=== PATIENT | female | born 1955 | race Hispanic/Latino ===

== ENCOUNTER 2016-12-29 23:30 | Inpatient (IN) | payer MEDICAID ==
[2016-12-29 23:31] VITALS: BMI 33.4
--- NOTE | 2016-12-29 23:45 | ED PDOC ---
Arrival/HPI - General Time Seen by Provider: 12/29/16 23:36 - History of Present Illness Narrative History of Present Illness (Text): 12/29/16 23:42 [id number] brought from SNF per EMS for lethargy and ams that has been going on most of the day. pt unable to provide any hx. Past Medical History - Infectious Disease Hx of Infectious Diseases: None - Tetanus Immunization Tetanus Immunization: Unknown - Cardiac Hx Cardiac Disorders: Yes Hx Hypertension: Yes - Pulmonary Hx Respiratory Disorders: Yes Hx Chronic Obstructive Pulmonary Disease (COPD): Yes Hx Emphysema: Yes - Neurological Hx Neurological Disorder: Yes (cognitive deficits) Hx Seizures: Yes - HEENT Hx HEENT Disorder: No - Renal Hx Renal Disorder: No - Endocrine/Metabolic Hx Endocrine Disorders: Yes Hx Diabetes Mellitus Type 2: Yes Hx Hypothyroidism: Yes - Hematological/Oncological Hx Blood Disorders: No - Integumentary Hx Dermatological Disorder: No - Musculoskeletal/Rheumatological Hx Musculoskeletal Disorders: Yes (BLE weakness) Hx Falls: Yes Hx Osteoporosis: Yes Hx Unsteady Gait: Yes - Gastrointestinal Hx Gastrointestinal Disorders: Yes (gi bleed) Other/Comment: gi bleed - Genitourinary/Gynecological Hx Genitourinary Disorders: Yes Hx Incontinence: Yes Hx Urinary Tract Infection: Yes - Psychiatric Hx Psychophysiologic Disorder: Yes Hx Schizophrenia: Yes Hx Substance Use: No - Past Surgical History Past Surgical History: Non-Contributing - Anesthesia Hx Anesthesia: Yes Hx Anesthesia Reactions: No Hx Malignant Hyperthermia: No - Suicidal Assessment Feels Threatened In Home Enviroment: No Family/Social History Family/Social History: Unknown Family HX Smoking Status: Former Smoker Hx Alcohol Use: No Hx Substance Use: No Allergies/Home Meds Allergies/Adverse Reactions: Allergies aspirin Adverse Reaction (Verified 12/29/16 23:46) RASH haloperidol [From Haldol] Adverse Reaction (Verified 12/29/16 23:46) RASH haloperidol lactate [From Haldol] Adverse Reaction (Verified 12/29/16 23:46) RASH mesalamine [From Asacol] Adverse Reaction (Verified 12/29/16 23:46) RASH Penicillins Adverse Reaction (Verified 12/29/16 23:46) RASH seafood Adverse Reaction (Uncoded 12/29/16 23:46) RASH Home Medications: Home Meds Medication Instructions Recorded Confirmed Acetaminophen [Tylenol (Renal)] 650 mg PO Q4 PRN 11/19/16 12/30/16 Budesonide [Pulmicort Respules] 0.5 mg IH Q12 11/19/16 12/30/16 Calcium Carbonate [Oscal] 500 mg PO DAILY 11/19/16 12/30/16 Divalproex [Depakote ER] 500 mg PO TID 11/19/16 12/30/16 Latanoprost 0.005% Opht [Xalatan 1 drp OP HS 11/19/16 12/30/16 Opht] Magnesium Hydroxide [Milk Of 30 ml PO HS PRN 11/19/16 12/30/16 Magnesia] Montelukast [Singulair] 10 mg PO HS 11/19/16 12/30/16 Multivitamin [Multivitamins] 1 tab PO DAILY 11/19/16 12/30/16 amLODIPine [Norvasc] 10 mg PO DAILY 11/19/16 12/30/16 Ergocalciferol (Vitamin D2) 50,000 unit PO 12/30/16 [Vitamin D2] Review of Systems - Review of Systems Systems not reviewed;Unavailable: Altered Mental Status Physical Exam Vital Signs Pulse Resp BP Pulse Ox 12/30/16 04:53 88 16 110/45 L 98 12/30/16 02:09 100 H 24 119/46 L 94 L 12/29/16 23:40 100 H 20 94/46 L 94 L - Systems Exam Head: Present: Atraumatic Pupils: Present: PERRL Mouth: Present: Moist Mucous Membranes Neck: Present: Normal Range of Motion Respiratory/Chest: Present: Decreased Breath Sounds. No: Respiratory Distress, Accessory Muscle Use Cardiovascular: Present: Regular Rate and Rhythm Abdomen: No: Tenderness, Distention Upper Extremity: Present: NORMAL PULSES Lower Extremity: Present: NORMAL PULSES. No: Edema Neurological: Present: Other (disoriented. no focal deficits. ) Skin: Present: Warm, Dry Psychiatric: Present: Alert Medical Decision Making ED Course and Treatment: 12/30/16 01:44 cxr interpreted by me: left sided pleural effusion. 12/30/16 02:09 CT Head Without Intravenous Contrast results reviewed: FINDINGS: There is probable minimal atrophy and minimal chronic small vessel ischemic disease unchanged. There is no hemorrhage or edema. Mucosal retention cyst right maxillary sinus unchanged. The osseous structures are normal. IMPRESSION: No acute findings. No significant change. 12/30/16 02:45 Case discussed with who is aware and agrees with the plan to admit patient to the hospital. Accepts patient under her service with and on consult. 12/30/16 04:45 EKG interpreted by me: NSR @ 88 bpm. Left axis deviation. Nonspecific STT wave changes - Lab Interpretations Lab Results: 12/30/16 00:38 12/30/16 01:10 Lab Results 12/30/16 11:13: POC Glucose (mg/dL) 363 H 12/30/16 07:24: POC Glucose (mg/dL) 270 H 12/30/16 02:20: pCO2 66 H, pO2 57.0 L, HCO3 32.5 H, ABG pH 7.30 L, ABG Total CO2 34.5 H, ABG O2 Saturation 91.7 L, ABG O2 Content 12.2 L, ABG Base Excess 4.8 H, ABG Hemoglobin 9.8 L, ABG Carboxyhemoglobin 3.3 H, POC ABG HHb (Measured ) 8.0 H, ABG Methemoglobin 0.5, ABG O2 Capacity 13.3 L, Hgb O2 Saturation 88.2 L , FiO2 28.0 12/30/16 01:10: Sodium 136, Potassium 4.3, Chloride 99, Carbon Dioxide 32, Anion Gap 9 L, BUN 15, Creatinine 1.9 H, Est GFR ( Amer) 32, Est GFR (Non -Af Amer) 27, Random Glucose 288 H, Calcium 8.2 L, Total Bilirubin 0.6, AST 13 L , ALT 24, Alkaline Phosphatase 59, Troponin I < 0.01, Total Protein 5.7 L, Albumin 2.4 L, Globulin 3.3, Albumin/Globulin Ratio 0.7 L, TSH 3rd Generation 0.26 L, Valproic Acid 76 12/30/16 01:05: POC Glucose (mg/dL) 278 H 12/30/16 00:38: WBC 5.4, RBC 3.03 L, Hgb 10.3 L, Hct 33.8 L, MCV 111.6 H, MCH 34.0, MCHC 30.5 L, RDW 16.3 H, Plt Count 114 L, MPV 10.4, Gran % 42.5 L, Lymph % (Auto) 45.1 H, [place] % (Auto) 10.9 H, Eos % (Auto) 1.3 L, Baso % (Auto) 0.2, Gran # 2.29, Lymph # 2.4, [place] # 0.6, Eos # 0.1, Baso # 0.01, pO2 154 H, VBG pH 7.38, VBG pCO2 58.0, VBG HCO3 34.3 H, VBG Total CO2 36.1 H, VBG O2 Sat (Calc) 99.7 H, VBG Base Excess 7.3 H, VBG Potassium 5.1, Glucose 312 H, Lactate 1.2, FiO2 21.0, Sodium 138.0, Chloride 104.0, Venous Blood Potassium 5.1 - RAD Interpretation Radiology Orders: 12/29/16 23:48 HEAD W/O CONTRAST [CT] Stat CHEST PORTABLE [RAD] Stat Supervisor Continuous [employer]: ED Physician - Medication Orders Current Medication Orders: Discontinued Medications Albuterol/Ipratropium (Duoneb 3 Mg/0.5 Mg (3 Ml) Ud) 3 ml IH ONCE STA Stop: 12/30/16 02:26 Last Admin: 12/30/16 02:38 Dose: 3 ML Albuterol/Ipratropium (Duoneb 3 Mg/0.5 Mg (3 Ml) Ud) 3 ml IH Q6 PRN PRN Reason: Shortness of Breath Last Admin: 01/01/17 19:35 Dose: 3 ML Alendronate Sodium (Fosamax) 70 mg PO ANITRA [facility] Amlodipine Besylate (Norvasc) 10 mg PO DAILY [facility] Last Admin: 01/01/17 10:06 Dose: 10 MG MAR Pulse and Blood Pressure Document 01/01/17 10:06 VS (Rec: 01/01/17 10:07 VS [id number]) Pulse Pulse Rate (60-90) 86 Blood Pressure Blood Pressure (100/60-150/90) 112/60 Budesonide (Pulmicort Respules) 0.5 mg IH Q12 FLAVIO Budesonide (Pulmicort Respules) 0.5 mg IH [id number] [facility] Last Admin: 01/01/17 19:35 Dose: 0.5 MG Calcium Carbonate (Oscal) 500 mg PO DAILY [facility] Last Admin: 01/01/17 10:06 Dose: 500 MG Clonazepam (Klonopin) 0.5 mg PO BID FLAVIO PRN Reason: Protocol Last Admin: 12/30/16 17:56 Dose: 0.5 MG Behavioural Document 12/30/16 17:56 JOHN (Rec: 12/30/16 17:56 JOHN [id number]) Maintenance Maintenance Dose Yes Nonmedicinal Nonmedicinal Interventions Redirect Therapeutic Communication Re-Assess: Reassess Psych Meds Document 12/30/16 18:56 JOHN (Rec: 12/30/16 19:26 Rachna [id number]) Reassess Psych Med Effective Clonazepam (Klonopin) 0.25 mg PO HS PRN; Protocol PRN Reason: Agitation Last Admin: 01/01/17 18:08 Dose: 0.25 MG Behavioural Document 01/01/17 18:08 VS (Rec: 01/01/17 18:08 VS [id number]) Maintenance Maintenance Dose Yes Re-Assess: Reassess Psych Meds Document 01/01/17 19:08 LISA (Rec: 01/01/17 19:14 LISA [id number]) Reassess Psych Med Effective Divalproex Sodium (Depakote Dr(*Bid*)) 500 mg PO TID FLAVIO PRN Reason: Protocol Last Admin: 01/01/17 18:07 Dose: 500 MG Behavioural Document 01/01/17 18:07 VS (Rec: 01/01/17 18:07 VS [id number]) Maintenance Maintenance Dose Yes Re-Assess: Reassess Psych Meds Document 01/01/17 19:07 VS (Rec: 01/01/17 20:26 VS [facility] [id number]) Reassess Psych Med Effective Ergocalciferol (Drisdol 50,000 Intl Units Cap) 1 cap PO Q7D FLAVIO Last Admin: 12/30/16 09:55 Dose: 1 CAP Sodium Chloride (Sodium Chloride 0.9%) 1,000 mls @ 999 mls/hr IV .Q1H1M STA Stop: 12/30/16 03:25 Last Admin: 12/30/16 02:38 Dose: 999 MLS/HR eMAR Start Stop Document 12/30/16 02:38 SB (Rec: 12/30/16 02:38 SB [id number]) Intravenous Solution Start Date 12/30/16 Start Time 02:38 End Date 12/30/16 Sodium Chloride (Sodium Chloride 0.9%) 1,000 mls @ 100 mls/hr IV .Q10H FLAVIO Last Admin: 01/01/17 09:59 Dose: 100 MLS/HR eMAR Start Stop Document 01/01/17 09:59 VS (Rec: 01/01/17 09:59 VS [id number]) Intravenous Solution Start Date 01/01/17 Start Time 09:59 Insulin Human Regular (Humulin R Low) 0 units SC ACHS FLAVIO PRN Reason: Protocol Last Admin: 01/01/17 18:07 Dose: 1 UNITS MAR Blood Glucose Document 01/01/17 18:07 VS (Rec: 01/01/17 18:07 VS [id number]) Blood Glucose Finger Stick Blood Glucose (70-120) 170 Subcutaneous Administrations Document 01/01/17 18:07 VS (Rec: 01/01/17 18:07 VS [id number]) Injection Site MAR Injection Site Right Abdomen Charges for Administration # of Subcutaneous Administrations 1 Lactulose (Enulose) 10 gm PO ONCE ONE Stop: 01/01/17 16:35 Last Admin: 01/01/17 18:06 Dose: 10 GM Latanoprost (Xalatan Opht) 0 ml OS HS FLAVIO Last Admin: 12/31/16 21:38 Dose: Levothyroxine Sodium (Synthroid) 150 mcg PO DAILY FLAVIO Last Admin: 12/30/16 09:55 Dose: 150 MCG Levothyroxine Sodium (Synthroid) 125 mcg PO ACB FLAVIO Last Admin: 01/01/17 08:12 Dose: 125 MCG Magnesium Hydroxide (Milk Of Magnesia) 30 ml PO HS PRN PRN Reason: Constipation Methylprednisolone (Solu-Medrol) 125 mg IVP STAT STA Stop: 12/30/16 02:26 Last Admin: 12/30/16 02:38 Dose: 125 MG IVP Administration Document 12/30/16 02:38 SB (Rec: 12/30/16 02:38 SB [id number]) Charges for Administration # of IVP Administrations 1 Montelukast Sodium (Singulair) 10 mg PO HS FLAVIO Last Admin: 12/31/16 21:38 Dose: 10 MG Multivitamins (Thera Tab) 1 tab PO DAILY FLAVIO Last Admin: 01/01/17 10:07 Dose: 1 TAB Nicotine (Nicoderm Cq) 1 patch TD DAILY FLAVIO Last Admin: 01/01/17 10:08 Dose: 1 PATCH MAR Patch Placement/Removal Document 01/01/17 10:08 VS (Rec: 01/01/17 10:08 VS [id number]) Patch Removal Removal of previous patch done Yes Patch Placement Left, Right or Bilateral Left Upper or Lower Upper Pain Location Body Site Arm MAR Transdermal Patch Site Document 01/01/17 10:08 VS (Rec: 01/01/17 10:08 VS [id number]) Transdermal Patch Site Transdermal Patch Site Right Outer Upper Arm Polyethylene Glycol (Miralax) 17 gm PO DAILY FLAVIO Last Admin: 01/01/17 20:26 Dose: Not Given Non-Admin Reason: Patient Asleep Disposition/Present on Arrival - Present on Arrival Any Indicators Present on Arrival: Yes History of DVT/PE: No History of Uncontrolled Diabetes: Yes Urinary Catheter: No History Surgical Site Infection Following: None - Disposition Have Diagnosis and Disposition been Completed?: Yes Diagnosis: Hypercapnic respiratory failure, CO2 narcosis Disposition: HOSPITALIZED Disposition Time: 02:41 Patient Problems: Current Active Problems Problem Status Diagnosed CO2 narcosis Acute Hypercapnic respiratory failure Acute Condition: STABLE
[2016-12-30 01:04] LABS: BASO # 0.01 K/mm3 (0.0-2.0); BASO % 0.2 % (0.0-3.0); EOS # 0.1 (0.0-0.7); EOS % 1.3 % (1.5-5.0); GRAN # 2.29 (1.4-6.5); GRAN % 42.5 % (50.0-68.0); HEMATOCRIT 33.8 % (36.0-48.0); LYMPH # 2.4 (1.2-3.4); LYMPH % 45.1 % (22.0-35.0); MEAN CELL VOLUME 111.6 fL (80.0-105.0); MEAN CORPUSCULAR HGB CONC 30.5 g/dl (31.0-37.0); MEAN PLATELET VOLUME 10.4 fl (7.0-11.0); MONO # 0.6 (0.1-0.6); MONO % 10.9 % (1.0-6.0); PLATELET COUNT 114 10^3/uL (120.0-450.0); RED CELL DISTRIBUTION WIDTH 16.3 % (11.5-14.5); WHITE BLOOD COUNT 5.4 10^3/ul (4.5-11.0)
[2016-12-30 01:06] LABS: VENOUS BLOOD GAS BASE EXCESS 7.3 mmol/L (0.0-2.0); VENOUS BLOOD PH 7.38 (7.32-7.43)
--- NOTE | 2016-12-30 01:22 | CT ---
EXAM: CT Head Without Intravenous Contrast CLINICAL HISTORY: 61 years old, female; Signs and symptoms; Altered mental status/memory loss; Additional info: AMS TECHNIQUE: Axial computed tomography images of the head/brain without intravenous contrast. This CT exam was performed using one or more of the following dose reduction techniques: automated exposure control, adjustment of the mA and/or kV according to patient size, and/or use of iterative reconstruction technique. EXAM DATE/TIME: 12/29/2016 11:48 PM COMPARISON: CT - HEAD W/O CONTRAST 11/19/2016 3:59:08 AM FINDINGS: There is probable minimal atrophy and minimal chronic small vessel ischemic disease unchanged. There is no hemorrhage or edema. Mucosal retention cyst right maxillary sinus unchanged. The osseous structures are normal. IMPRESSION: No acute findings. No significant change.
[2016-12-30 01:39] LABS: ALB/GLOB RATIO 0.7 (1.1-1.8); ALKALINE PHOSPHATASE 59 U/L (38-133); ALT/SGPT 24 U/L (7-56); AST/SGOT 13 U/L (15-39); BILIRUBIN,TOTAL 0.6 mg/dL (0.2-1.3); BLOOD UREA NITROGEN 15 mg/dL (7-21); CALCIUM 8.2 mg/dL (8.4-10.5); CARBON DIOXIDE 32 mmol/L (21-33); CHLORIDE 99 mmol/L (98-107); GFR AFRICAN-AMERICAN 32; GLUCOSE,RANDOM 288 mg/dL (70-110); POTASSIUM 4.3 mmol/L (3.6-5.0); SODIUM 136 mmol/L (132-148); TOTAL PROTEIN 5.7 g/dL (5.8-8.3)
[2016-12-30 01:52] LABS: TROPONIN I < 0.01 ng/mL
[2016-12-30 02:03] LABS: ADD MANUAL DIFF? NO
[2016-12-30] MEDS ORDERED: Sodium Chloride 0.9% 1,000 ML IV STA (02:25)
[2016-12-30] MEDS ORDERED: Albuterol-Ipratrop 3 mg / 0.5 (3 ml) UD IH STA (02:25)
[2016-12-30] MEDS: Sodium Chloride 0.9% 1,000 ML IV SCH ×3 (03:05→20:27)
[2016-12-30 03:06] LABS: ARTERIAL BLOOD GAS HCO3 32.5 mmol/L (21-28); ARTERIAL BLOOD GAS O2 CAPACITY 13.3 mL/dl (16-24); ARTERIAL BLOOD GAS O2 CONTENT 12.2 ML/dl (15-23); ARTERIAL BLOOD HGB O2 SAT 88.2 % (95.0-98.0); CARBOXYHEMOGLOBIN 3.3 % (0.5-1.5); METHEMOGLOBIN 0.5 % (0.0-3.0)
[2016-12-30] MEDS ORDERED: Magnesium Hydroxide Susp 30 ml UD PO PRN (08:42)
[2016-12-30] MEDS ORDERED: Ergocalciferol 50,000 Intl Units Cap PO SCH (08:45)
[2016-12-30] MEDS: Divalproex 500 mg DR(BID formulation) PO SCH ×3 (09:54→17:53)
[2016-12-30] MEDS: Multivitamin Therapeutic Tab PO SCH (09:55)
[2016-12-30] MEDS ORDERED: Levothyroxine 150 MCG TAB PO SCH (10:00)
[2016-12-30] MEDS ORDERED: Budesonide 0.5 mg/2 ml Inhal Susp UD IH SCH (10:00)
--- NOTE | 2016-12-30 10:26 | RAD ---
HISTORY: ams COMPARISON: 11/23/2016 FINDINGS: LUNGS: No active pulmonary disease. PLEURA: No significant pleural effusion identified, no pneumothorax apparent. CARDIOVASCULAR: There is mild vascular congestion. The heart is top-normal in size OSSEOUS STRUCTURES: No significant abnormalities. VISUALIZED UPPER ABDOMEN: Normal. OTHER FINDINGS: None. IMPRESSION: No active disease.
--- NOTE | 2016-12-30 12:00 | CON ---
DATE: 12/30/2016 REASON FOR CONSULTATION: Cardiac evaluation, altered mental status. BRIEF CLINICAL HISTORY: This is a 61-year-old female transferred from [facility] because of altered mental status. The patient is unable to give any history. Information obtained from the ks dical record. The patient is on CPAP. Lying comfortable. Denies any chest pain, shortness of breat h, any palpitation. PAST MEDICAL HISTORY: Significant for diabetes, obesity, schizophrenia, psychiatric disorder, COPD, seizure disorder, diabetes, hypothyroidism, history of fall, schizophrenia, substance abuse in the [place], history of chronic kidney disease. PREVIOUS CARDIAC WORKUP: The patient had echocardiography on 11/24/2016 that showed ejection fractio n 60-65%, moderately dilated RV but RV systolic function is normal, trace aortic regurgitation, mild to moderate mitral regurgitation, mild to moderate tricuspid regurgitation, RV systolic pressure at 2 1, trace pericardial effusion; no vegetation noted. The patient has baseline renal insufficiency, st age III to IV, with a creatinine of 2.4 to 2.8. SOCIAL HISTORY: Heavy smoker. History of substance abuse in the past. No history of alcohol abuse. ALLERGIES: ASPIRIN, HALOPERIDOL, MESALAMINE, PENICILLIN AND SEAFOOD. CURRENT MEDICATIONS: The patient is taking acetaminophen, nicotine, multivitamin, Singulair, calcium carbonate, Levoxyl, Synthroid 150 mcg, Depakote, Klonopin, amlodipine, and magnesium. REVIEW OF SYSTEMS: As per HPI. PHYSICAL EXAMINATION: VITAL SIGNS: Temperature afebrile, heart rate 83, blood pressure 114/59. HEENT: PERRLA. Extraocular muscles intact. NECK: Supple. No carotid bruits. No thyromegaly. CHEST: Clear to auscultation. HEART: S1, S2 regular. ABDOMEN: Soft. EXTREMITIES: Clubbing, cyanosis negative. BLOOD WORKUP: WBC 5.4, hemoglobin 10.3, hematocrit 33.8, platelet count 114. Chemistry shows sodium 130, potassium 4.4, chloride 99, carbon dioxide 32, anion gap of 9, BUN 15, creatinine 1.9, creatini ne clearance of 27 mL. Troponin 0.____, negative. IMPRESSION: Admitted with altered mental status. So far, no evidence of acute myocardial infarction . Electrocardiogram shows normal sinus with a heart rate of 87, incomplete right bundle branch block , low voltage electrocardiogram. Most recent echocardiogram 11/24/2016 showed ejection fraction 60-6 5%, right ventricle is moderately dilated but function preserved of right ventricle, trace aortic reg urgitation, mild to moderate mitral regurgitation, mild to moderate tricuspid regurgitation, right ve ntricular systolic pressure 21. Renal insufficiency, obstructive sleep apnea. The patient also had Holter done with the last admission because of sinus bradycardia; found to be sinus rhythm and sinus tachycardia, minimum heart rate was 60, maximum heart rate 111, very rare atrial premature contractio ns; no significant arrhythmia noted, no significant bradycardia noted. The recommendation was no pac emaker required on last admission, the Holter report reported. RECOMMENDATION: Continue septic workup. Avoid nephrotoxic medication. Avoid rate-limiting beta blo cker and rate-limiting calcium channel jodi. Continue Synthroid. Continue to monitor TSH and mon itor renal function closely. Will follow with you. Thank you, Dr. Gallegos, for providing the opportunity in taking care of the patient. Will follow with you. For now, patient is already on amlodipine and will put hydralazine p.r.n. when her blood press ure is elevated, but now blood pressure is stable and heart rate is stable. Will follow with you. Justin Cosby MD cc: [id number] TT: 12/30/2016 11:11:15 Confirmation # [id number] Dictation # [id number] cristin
[2016-12-30] MEDS: Insulin Reg-LOW-Coverage SC SCH ×3 (12:33→21:50)
--- NOTE | 2016-12-30 16:40 | HP ---
CHIEF COMPLAINT: Altered mental status, very fatigued and tired. HISTORY OF PRESENT ILLNESS: The patient is a 61-year-old, my private patient, resident of [facility], was found yesterday night with altered mental status. Right side was getting weak, very fatigued and lethargic, cannot hardly open the eyes. The patient has dementia and is not a very good historian , is not able to give a good history, but no fever, no chills. No nausea, vomiting, or diarrhea. No hematuria or hematochezia. No headache, no dizziness. PAST MEDICAL HISTORY: Hypertension, COPD, emphysema, seizures, diabetes mellitus type 2, hypothyroidism, fall, osteoporosis, unsteady gait, history of GI bleeding, urinary incontinence, history of schizophrenia. FAMILY HISTORY: Father and mother, noncontributory. HABITS: Former smoker, quit. No ethanol abuse. No drug abuse. ALLERGIES: THE PATIENT IS ALLERGIC WITH ASPIRIN, HALOPERIDOL, ASACOL, PENICILLIN, SEAFOOD. HOME MEDICATIONS: Tylenol, albuterol, Fosamax, Pulmicort, Os-Danny, Depakote, Synthroid, Singulair, multivitamin, Norvasc, Klonopin, vitamin D. REVIEW OF SYSTEMS: The patient seen and examined on the bedside, looks comfortable when I saw the patient today. Still fatigued and lethargic. Mental level is fluctuating. No fever, no chills, no epistaxis. No hematuria or hematochezia. No nausea, vomiting, or diarrhea. PHYSICAL EXAMINATION: VITAL SIGNS: Temperature 97.7, pulse 84, blood pressure 140/78, respiratory rate 20. HEENT: Head normocephalic, atraumatic. Eyes: PERRLA. Extraocular muscles intact. Conjunctivae pink. Eyelids unremarkable. Nose patent. Mucous membranes moist. NECK: Supple. No carotid bruit, JVD or thyromegaly. CHEST: Bilaterally symmetrical. HEART: S1, S2 positive. LUNGS: Clear to auscultation. ABDOMEN: Soft. Bowel sounds present. No organomegaly. EXTREMITIES: No edema, no cyanosis. NEUROLOGIC: The patient is lethargic, but moving all 4 extremities. LABORATORY DATA: White blood cells 5.4, hemoglobin 10.3, hematocrit 33.8, and platelets 114. Sodium 136, potassium 4.3, BUN 15, creatinine 1.9, glucose 217, calcium 8.2, AST 13. TSH is 0.26. ASSESSMENT AND PLAN: The patient is a 61-year-old lady with anemia, thrombocytopenia, renal insufficiency, uncontrolled diabetes mellitus, hypocalcemia, hypothyroidism, need to adjust levothyroxine dose. Valproic acid level is 76. CAT scan of the head was done, reviewed by me. Chest x-ray done, showed no active disease. schizophrenia, chronic obstructive pulmonary disease , seizure disorder, history of chronic kidney disease. Rule out sepsis. We will do septic workup. So far, no evidence of acute myocardial infarction. The patient had a Holter monitor done last admission because of sinus bradycardia, found to be sinus rhythm and sinus tachycardia. Minimum heart rate is 60 and maximum is 112, very rare atrial premature contractions, no significant arrhythmias noted as per rn interventional. No significant bradycardia noted. Their recommendation was no pacemaker required on last admission the Holter monitor reported, but this admission again we called consult with Drs. Cosby/Andrea. Continue workup. Avoid nephrotoxic medications while limiting beta jodi and limited calcium channel jodi. Continue monitoring TSH, out of bed, physical therapy. We will follow up. Steff Gallegos MD cc: [id number] TT: 12/30/2016 16:40:16 tn MTDD
--- NOTE | 2016-12-30 16:48 | CARD ---
APPROVED REPORT EKG Measurement Heart [id number] <Conclusion> Normal sinus rhythm Left axis deviation Incomplete right bundle branch block Nonspecific ST abnormality Abnormal ECG
--- NOTE | 2016-12-30 18:47 | CON ---
DATE: 12/30/2016 CHIEF COMPLAINT: Altered mental status. HISTORY OF PRESENT ILLNESS: This is a 61-year-old woman from [facility], who was fo und yesterday night at to being altered. She has a past medical history of hypertension, COPD, emphy sema, seizure disorder, apparently; type 2 diabetes, hypothyroidism, osteoporosis, unsteady gait, his tory of urinary incontinence, history of schizophrenia. She apparently was feeling very fatigued and lethargic and could hardly open her eyes. She is a poor historian so history is mostly obtained fro m the medical record. The patient uses CPAP at night for underlying COPD. She had low systolic and diastolic blood pressures when she came in. She is currently undergoing a septic workup. CT head sh owed no acute intracranial abnormalities. She had elevated blood sugars of 278 and right now current ly is 363. She also has an albumin that is low indicating poor p.o. intake. Her blood gases are a p CO2 of 66, which was slightly elevated. When she came in, her blood pressure was 94/46 indicating po or perfusion to the brain. Currently, she is communicating well. She is more alert. She is eating her food and drinking milk without any difficulties. She is moving all extremities. PAST MEDICAL HISTORY: History of obesity, diabetes, schizophrenia, COPD, seizures disorder, diabetes , hypothyroidism, schizophrenia, chronic kidney disease. FAMILY HISTORY: Noncontributory. HABITS: Former smoker. No ETOH abuse or illicit drug use. ALLERGIES: ALLERGIC TO ASPIRIN, HALOPERIDOL, ASACOL, PENICILLIN, SEAFOOD. HOME MEDICATIONS: Tylenol, Fosamax, Pulmicort, Depakote, Synthroid, Singulair, multivitamin, Norvasc , Klonopin, vitamin D. REVIEW OF SYSTEMS: A 14-point review of systems is negative except for the HPI. PHYSICAL EXAMINATION: VITAL SIGNS: Temperature of 97.7, pulse rate of 84, blood pressure 148/78, respiratory rate of 20, o xygen saturation 98% via BiPAP. GENERAL: The patient is sitting up in bed in no acute distress. HEENT: Atraumatic, normocephalic. PERRLA. Extraocular muscles intact. NECK: Supple, no JVD, no adenopathy noted. LUNGS: Clear to auscultation. No adventitious sounds. HEART: S1, S2, normal rate and rhythm. No murmurs, rubs, or gallops. ABDOMEN: Soft, nontender, nondistended. Bowel sounds present. EXTREMITIES: No clubbing, no cyanosis. Peripheral pulses 2+ felt bilaterally. NEUROLOGIC: The patient is alert, oriented to person and place, not month or year. Recall after 5 m inutes is 0/3. Poor attention span, slow thought process. Cranial nerves II-XII are intact. Moves all extremities equally with no pronator drift seen. SENSORY: Decreased to light touch and pinprick up to the calves bilaterally. Decreased vibration of the toes. Proprioception intact. Withdraws to localized noxious stimulus. DTRs are 1+ throughout and absent at the ankles. COORDINATION: Zinfom-mo-sbdj intact. GAIT: Deferred for now. LABORATORY DATA: pCO2 is 66, pO2 is , bicarbonate is 32.5. Sodium is 136, potassium 4.2, chlor vitaly 99, carbon dioxide 32, BUN of , creatinine 1.9, random glucose 288. ASSESSMENT AND PLAN: This is a 61-year-old woman with a history of anemia, thrombocytopenia, renal i nsufficiency, uncontrolled diabetes mellitus, hypercalcemia, hypothyroidism, history of chronic obstr uctive pulmonary disease on BiPAP, chronic kidney disease who came in with altered mental status, who was much more lethargic throughout the day at the assisted. Currently, she had low systolic and diastolic blood pressures. Initial blood pressure when she came in was 94/46. Likely her lethargy and transient altered mental status was secondary to a transient confusional state from underlying ce rebral hypoperfusion to the brain, superimposed underlying cognitive impairment/dementia. At this ti me, recommend: 1. Avoid any over-sedative medications. 2. Recommend her to be on the BiPAP at night daily and because her CO2 was slightly elevated o n her blood gas. 3. Continue with her Depakote sodium 5 mg p.o. t.i.d. for underlying schizophrenia. 4. Continue with levothyroxine 125 mcg p.o. daily. 5. Keep her systolic blood pressure elevated above 110 at least and diastolic above 170 . 6. Get physical therapy evaluation. 7. Monitor her blood sugars and keep her blood sugars between 140-180. She is hyperglycemic to our hospital visit and continue with current present medical management. No further neurological workup needed at this time. Thank you for this consult. Fernando Valiente MD cc: [id number] TT: 12/30/2016 18:47:15 Confirmation # [id number] Dictation # [id number] dn
--- NOTE | 2016-12-30 21:15 | CON ---
DATE: 12/30/2016 REFERRING PHYSICIAN: Dr. Gallegos. REASON FOR CONSULT: Chronic obstructive lung disease, hypoventilation syndrome, may have sleep apnea syndrome. HISTORY OF PRESENT ILLNESS: This is a 61-year-old female known to me from previous admission. Has a history of chronic lung disease, seizure disorder, diabetes, hypothyroid, schizophrenia. Found to b e very lethargic. I could not wake up in the [facility]. Was sent to ER where found to be respira tory distress, and started on noninvasive ventilation. Responded well overnight. This morning she i s still sleepy and tired, but more awake. No hemoptysis, no hematemesis, no hematuria, no diarrhea r eported. PAST MEDICAL HISTORY: Chronic obstructive lung disease, seizure disorder, diabetes, hypothyroid, his tory of GI bleed, recurrent UTI, schizophrenia. ALLERGIES: ASPIRIN, HALDOL, PENICILLIN, SEAFOOD. SOCIAL HISTORY: She is a [facility] resident. There is no recent smoking or alcohol abuse. FAMILY HISTORY: No significant cardiopulmonary disease reported. MEDICATIONS: She is on Depakote 500 mg twice a day, vitamin D 50,000 units weekly, DuoNeb q. 6 hours p.r.n., Fosamax 70 mg once weekly, insulin coverage, Klonopin 0.5 mg twice a day, milk of magnesia 3 0 mL at bedtime p.r.n., Nicoderm patch daily, Norvasc 10 mg daily, Os-Danny 500 mg daily, Pulmicort inh aled twice a day, Singulair 10 mg daily, IV fluid normal saline 100 mL per hour, Synthroid 125 mcg AC B, multivitamins daily, Tylenol p.r.n. basis. REVIEW OF SYSTEMS: She is sleepy and tired. There is not much cough, sputum production. No hemopty sis, no hematemesis, no hematuria or diarrhea. No leg pain or leg swelling. PHYSICAL EXAMINATION: Lying in bed, arousable. Temp is 98, heart rate is 84, respiratory rate is 20, blood pressure 148/78, pulse ox 98% on BiPAP. HENT: Small oral cavity. Crowded. NECK: Supple. No JVD. LUNGS: Has a fair airflow with few rhonchi. HEART: S1, S2. ABDOMEN: Soft, nontender. No organomegaly. EXTREMITIES: There is no edema. NEUROLOGICALLY: Sleepy, arousable. Follows simple commands. LABORATORY DATA: Shows hemoglobin 10.3, hematocrit 33.8, WBC 5.4, platelet is 114. ABG showed pH 7. 30, pCO2 of 66, pO2 is 57. That is on 28% oxygen. Sodium 136, potassium 4.3, chloride 99, bicarbona te 33, BUN 15, creatinine 1.9, glucose is 288, calcium 8.2. AST 13, ALT 24, alk phos is 59, albumin i s 2.4. Troponin less than 0.01. TSH 0.26. Had a CAT scan of the head done on admission. Shows no acute findings. Chest x-ray done on admissio n shows no infiltrate or effusion. IMPRESSION AND PLAN: Chronic obstructive lung disease with respiratory failure, CO2 retention, and h ypoxemia. Has a component of hypoventilation syndrome. Unfortunately, she is noncompliant with the CPAP and BiPAP, has schizophrenia. At the time, she does not use BiPAP. CO2 retention apparent, but also at that time she is very agitated, requiring psychiatry consult, and been on Klonopin. So I wi ll suggest continue BiPAP while sleeping, keep head at 45 degree, inhaled bronchodilators. Hold Klon opin for sedation. Gastric prophylaxis. DVT prophylaxis. Aspiration precaution. Thank you, and will follow with you. Justin Shelley MD cc: [id number] TT: 12/30/2016 21:14:21 Confirmation # [id number] Dictation # [id number] romelia
[2016-12-30] MEDS: Latanoprost 2.5 ml Opht Soln OS SCH (22:10)
[2016-12-31] MEDS: Budesonide 0.5 mg/2 ml Inhal Susp UD IH SCH ×2 (08:07→19:19)
[2016-12-31] MEDS: Albuterol-Ipratrop 3 mg / 0.5 (3 ml) UD IH PRN ×3 (08:07→19:19)
[2016-12-31] MEDS: Levothyroxine 125 MCG TAB PO SCH (08:18)
[2016-12-31] MEDS: Insulin Reg-LOW-Coverage SC SCH ×4 (08:19→21:43)
[2016-12-31 08:26] LABS: ADD MANUAL DIFF? NO
[2016-12-31 08:31] LABS: BASO # 0.01 K/mm3 (0.0-2.0); BASO % 0.2 % (0.0-3.0); EOS % 0.3 % (1.5-5.0); GRAN # 2.07 (1.4-6.5); GRAN % 35.3 % (50.0-68.0); HEMATOCRIT 37.1 % (36.0-48.0); LYMPH # 3.1 (1.2-3.4); LYMPH % 53.5 % (22.0-35.0); MEAN CELL VOLUME 113.1 fL (80.0-105.0); MEAN CORPUSCULAR HEMOGLOBIN 33.5 pg (25.0-35.0); MEAN CORPUSCULAR HGB CONC 29.6 g/dl (31.0-37.0); MEAN PLATELET VOLUME 10.4 fl (7.0-11.0); MONO # 0.6 (0.1-0.6); MONO % 10.7 % (1.0-6.0); PLATELET COUNT 112 10^3/uL (120.0-450.0); RED CELL DISTRIBUTION WIDTH 16.6 % (11.5-14.5); WHITE BLOOD COUNT 5.9 10^3/ul (4.5-11.0)
[2016-12-31 08:44] LABS: POTASSIUM 4.2 mmol/L (3.6-5.0)
[2016-12-31] MEDS: Multivitamin Therapeutic Tab PO SCH (09:19)
[2016-12-31] MEDS: Divalproex 500 mg DR(BID formulation) PO SCH ×3 (09:19→17:28)
[2016-12-31] MEDS: Sodium Chloride 0.9% 1,000 ML IV SCH (16:51)
[2016-12-31 17:30] LABS: CHOLESTEROL 150 mg/dL (130-200)
--- NOTE | 2016-12-31 17:44 | PN ---
DATE: 12/31/2016 REFERRING PHYSICIAN: Dr. Gallegos. SUBJECTIVE: She is awake, alert, lying in the bed, head at 45 degrees. Tolerated BiPAP well. No he adache, no rhinitis, no nausea, no vomiting, no diarrhea. No leg pain or leg swelling. OBJECTIVE: GENERAL: In no acute distress. VITAL SIGNS: Temperature is 98, heart rate 91, respiratory rate is 20, blood pressure 116/56, pulse ox 97% on 2 liters nasal cannula. HEENT: Moist mucous membranes. Crowded airway. Mallampati score is 4. NECK: Supple. No JVD. LUNGS: Has fair air airflow with rhonchi. HEART: S1, S2. ABDOMEN: Soft, nontender. No organomegaly. EXTREMITIES: There is no edema. NEUROLOGIC: Awake, alert, follows simple commands. MEDICATIONS: She is on Depakote 500 mg twice a day, vitamin D 1 capsule inhaled weekly, DuoNeb q.6 h ours p.r.n., Fosamax 70 mg weekly, insulin coverage, Klonopin 0.5 mg twice a day p.r.n., Nicoderm pat ch daily, Norvasc 10 mg daily, Os-Danny 500 mg daily, Pulmicort inhaled twice a day, Singulair 10 mg da rhea, IV fluid normal saline 100 mL per hour, Synthroid 125 mcg p.o. ACB, multivitamins daily, Tylenol p.r.n. LABORATORY DATA: Shows hemoglobin 11.0, hematocrit 37.1, WBC 5.9, and platelet is 112. Sodium 138, potassium 4.2, chloride 106, bicarbonate 29, BUN 17, creatinine 1.6, glucose is 151, calcium is 8.0. IMPRESSION AND PLAN: Respiratory failure secondary to noncompliance with BiPAP, chronic obstructive lung disease, maybe there is a component of hypoventilation syndrome; she is schizophrenic, obesity, seizure disorder and hypertension. Pulmonary point of view, she is doing well. Will speak to Dr. Dalton bauer. She could be discharged back to half-way, but will need BiPAP use while sleeping at the [facility] and use Klonopin as a p.r.n. basis. Thank you and will follow with you. Justin Shelley MD cc: [id number] TT: 12/31/2016 17:43:34 Confirmation # [id number] Dictation # [id number] dn
--- NOTE | 2016-12-31 19:03 | PN ---
DATE: 12/31/2016 REASON FOR CONSULTATION: Cardiac evaluation, altered mental status. BRIEF CLINICAL HISTORY: A 61-year-old female, transferred from [facility] because of altere d mental status. The patient is much awake and alert. Denies any chest pain, shortness of breath, a ny palpitation. Previous cardiac workup: The patient's echo 11/24/2014 that showed ejection fraction 65%, moderately d ilated RV, RV systolic function is normal, trace aortic regurgitation, mild to moderate mitral regurg , mild to moderate tricuspid regurgitation, RV systolic pressure 21, trace pericardial effusion. The patient has baseline renal insufficiency, stage III to IV chronic kidney disease 2.4-2.8. The patie nt denies any chest pain, shortness of breath, any palpitation. PHYSICAL EXAMINATION: VITAL SIGNS: Temperature afebrile, heart rate 91, blood pressure 116/56. HEENT: PERRLA. Extraocular muscles intact. NECK: Supple. No carotid bruits. No thyromegaly. CHEST: Clear to auscultation. HEART: S1, S2 regular. ABDOMEN: Soft. EXTREMITIES: Clubbing and cyanosis negative. BLOOD WORKUP: WBC , hemoglobin 11, hematocrit 37.1, platelet count 112. Chemistry shows sodium 130, potassium 4.2, chloride 106, carbon dioxide 29, anion gap of 7, BUN 17, creatinine 1.9. IMPRESSION: Acute kidney injury, chronic renal insufficiency, baseline creatinine elevated, creatini ne clearance 30 mL an hour, morbid obesity, body mass index 35 kg/m2, diabetes, hypertension, hyperli pidemia, altered mental status, improving. The patient's last echo 11/24/2016 that shows ejection frac tion 65%, moderately dilated RV, but preserved LV function, trace aortic regurgitation, mild to moder ate mitral regurgitation, mild to moderate tricuspid regurgitation, RV systolic pressure 21. The pat ient was also on Holter on the last admission because of sinus bradycardia, found to be sinus rhythm and sinus tachycardia, minimum heart rate 60, maximum heart rate rare APCs. No indication for pacemaker at this time recommended. We will follow with you. Avoid nephrotoxic medication, avoid ra te limiting calcium channel jodi and beta jodi. We will follow with you. We will discontinue telemetry. Will repeat the blood workup in the morning. Thank you, Dr. Gallegos, for providing the opportunity in taking care of the patient. We will follow w kevin hutchinson. Justin Cosby MD cc: [id number] TT: 12/31/2016 19:03:03 Confirmation # [id number] Dictation # [id number] avery
--- NOTE | 2016-12-31 19:30 | PN ---
DATE: 12/31/2016 SUBJECTIVE: The patient seen and examined on the bedside, looks comfortable. No nausea, vomiting, or diarrhea. No hematuria or hematochezia. No swelling of the leg. No chest pain, no palpitation, no headache, no dizziness. Feeling a little bit better. No fever, no chills. PHYSICAL EXAMINATION: VITAL SIGNS: Temperature 97.2, pulse 91, blood pressure 116/56, respiratory rate 19. HEENT: Head normocephalic and atraumatic. Eyes: PERRLA. Extraocular movements intact. Conjunctivae pink. Eyelids unremarkable. Nose patent. Mucous membranes moist. NECK: Supple. No carotid bruit, JVD or thyromegaly. CHEST: Bilaterally symmetrical. HEART: S1, S2 positive. LUNGS: Clear to auscultation. ABDOMEN: Soft. Bowel sounds are positive . EXTREMITIES: No edema, no cyanosis. NEUROLOGIC: The patient is awake, alert, moving all 4 extremities. No focal deficit. MEDICATIONS: Depakote, vitamin D, DuoNeb, Fosamax, insulin, Klonopin, nicotine , Norvasc, Os-Danny. LABORATORY DATA: White blood cells 5.9, hemoglobin 11.0, hematocrit 37.1, and platelets noted . Sodium 138, potassium 4.2, BUN 70, creatinine 1.6, glucose 151, triglyceride 290. ASSESSMENT AND PLAN: The patient is a 61-year-old lady with anemia, thrombocytopenia, hyperglycemia, hypertriglyceridemia, obesity, chronic obstructive pulmonary disease, obstructive sleep apnea syndrome, history of schizophrenia, seizure disorder, hypothyroidism, chronic kidney disease, came with altered mental status, was very lethargic. Initial blood pressure was 94/ 46. Transient ischemic attack. Maybe she was confused due to hypoperfusion to the brain, superimposed on underlying cognitive impairment. Avoid over- sedative medications. Recommending BiPAP at night because her carbon dioxide was slightly elevated on her blood gases. Continue Depakote and levothyroxine. Physical therapy. Monitoring her blood sugar. Seen by Dr. Valiente, neurologist. Seen by Dr. Shelley, digital imaging technician. Hypoventilation syndrome, noncompliant with BiPAP. Gastrointestinal prophylaxis, deep venous thrombosis prophylaxis. We will follow up. Steff Gallegos MD cc: [id number] TT: 12/31/2016 19:29:17 Confirmation # [id number] Dictation # [id number] rn MTDD
[2016-12-31] MEDS: Latanoprost 2.5 ml Opht Soln OS SCH (21:38)
[2017-01-01] MEDS: Levothyroxine 125 MCG TAB PO SCH (08:12)
[2017-01-01] MEDS: Insulin Reg-LOW-Coverage SC SCH ×3 (08:12→18:07)
[2017-01-01] MEDS: Budesonide 0.5 mg/2 ml Inhal Susp UD IH SCH ×2 (08:52→19:35)
[2017-01-01 09:03] LABS: ADD MANUAL DIFF? NO
[2017-01-01 09:15] LABS: BASO # 0.01 K/mm3 (0.0-2.0); BASO % 0.2 % (0.0-3.0); EOS # 0.1 (0.0-0.7); EOS % 1.5 % (1.5-5.0); GRAN % 40.8 % (50.0-68.0); HEMATOCRIT 33.3 % (36.0-48.0); LYMPH # 3.1 (1.2-3.4); LYMPH % 46.4 % (22.0-35.0); MEAN CORPUSCULAR HEMOGLOBIN 33.6 pg (25.0-35.0); MEAN CORPUSCULAR HGB CONC 29.4 g/dl (31.0-37.0); MEAN PLATELET VOLUME 9.7 fl (7.0-11.0); MONO # 0.7 (0.1-0.6); MONO % 11.1 % (1.0-6.0); PLATELET COUNT 120 10^3/uL (120.0-450.0); RED CELL DISTRIBUTION WIDTH 16.4 % (11.5-14.5); WHITE BLOOD COUNT 6.6 10^3/ul (4.5-11.0)
[2017-01-01 09:26] LABS: BILIRUBIN,TOTAL 0.3 mg/dL (0.2-1.3); MAGNESIUM 2.1 mg/dL (1.7-2.2); TOTAL PROTEIN 5.2 g/dL (5.8-8.3)
[2017-01-01 09:30] LABS: ALB/GLOB RATIO 0.7 (1.1-1.8)
[2017-01-01] MEDS: Sodium Chloride 0.9% 1,000 ML IV SCH (09:59)
[2017-01-01] MEDS: Multivitamin Therapeutic Tab PO SCH (10:07)
[2017-01-01] MEDS: Divalproex 500 mg DR(BID formulation) PO SCH ×3 (10:07→18:07)
--- NOTE | 2017-01-01 12:15 | PN ---
DATE: 01/01/2017 REASON FOR CONSULTATION: Cardiac evaluation, altered mental status. BRIEF CLINICAL HISTORY: A 61-year-old female, transferred from [facility] because of altere d mental status. The patient is much awake and alert. Denies any chest pain, shortness of breath, a ny palpitation. On previous cardiac workup, the patient had echocardiography 11/24/2014 that showed e jection fraction 65%, moderately dilated RV, RV systolic pressure is normal, trace aortic regurgitati on, mild to moderate mitral regurgitation, mild to moderate tricuspid regurg, RV systolic pressure 21 , trace pericardial effusion. The patient has baseline renal insufficiency, stage III-IV chronic kid ever disease, creatinine around 2-2.4. Denies any chest pain, shortness of breath, any palpitation. PHYSICAL EXAMINATION: VITAL SIGNS: Temperature afebrile, heart rate 83, blood pressure 112/60. HEENT: PERRLA. Extraocular muscles intact. NECK: Supple. No carotid bruits. No thyromegaly. CHEST: Clear to auscultation. HEART: S1, S2 regular. ABDOMEN: Soft. EXTREMITIES: Clubbing, cyanosis negative. BLOOD WORKUP: WBC 6.6, hemoglobin 9.8, hematocrit 33.3, platelet count 120. Chemistry shows sodium 139, potassium 4, chloride , carbon dioxide 20, anion gap of 8, BUN , creatinine 1.6 with a creatinine clearance 30 mL, stage II-III chronic kidney disease, total protein 5.2, albumin 2.2, alb umin/globulin ratio 2.4. IMPRESSION: Protein calorie malnutrition, moderate to severe, which was present on admission, chroni c renal insufficiency, stage III-IV chronic kidney disease, baseline creatinine 1.6-2, creatinine disha arance 30 mL an hour, morbid obesity, body mass index kg/meters squared, altered mental status. Last echo, patient had last echo repeat on 11/24/2016, ejection fraction 60%-65%, moderate dilated r ight ventricle, but preserved left ventricular function, trace aortic regurgitation, mild to moderate mitral regurgitation, mild to moderate tricuspid regurgitation, right ventricular systolic pressure 21. The patient had a Holter monitor on the last admission because of sinus bradycardia, found to be sinus rhythm, sinus tachycardia, minimum heart rate 60, maximum heart rate was 110, atrial premature contractions, no indication for pacemaker at that time and pacemaker was not recommended. RECOMMENDATION: Continue amlodipine, calcium channel jodi. Avoid rate limiting calcium channel b locker, avoid beta jodi, bradycardia. Will discontinue IV fluid to prevent going into congestive heart failure. The patient was getting IV fluid since admission, 100 mL and hour. Will cut down. W e will follow with you. Thank you, Dr. Gallegos, for providing us the opportunity in taking care of the patient. Spoke to the nurse. The patient started eating, drinking normally and so we will discontinue IV fluids. Thank you, Dr. Gallegos, for providing us the opportunity in taking care of the patient. Repeat the bl ood workup in the morning. Justin Cosby MD cc:Steff Gallegos MD [id number] TT: 01/01/2017 12:14:49 Confirmation # [id number] Dictation # [id number] en
[2017-01-01] MEDS ORDERED: POLYETHYLENE GLYCOL 3350 17 GM/Dose PACKET PO SCH (16:45)
--- NOTE | 2017-01-01 16:54 | PN ---
DATE: 01/01/2017 REFERRING PHYSICIAN: Dr. Gallegos SUBJECTIVE: She is lying in the bed, head at 45 degrees, sleepy, arousable, tolerated BiPAP well. N o headache, no rhinitis, no nausea, vomiting, diarrhea. No leg pain or leg swelling. Has constipati on. OBJECTIVE: GENERAL: No acute distress. VITAL SIGNS: Temperature is 98, heart rate is 86, respiratory rate is 18, blood pressure 112/60, pul se ox 95% on 3 liters nasal cannula. HEENT: Moist mucous membranes. Crowded airway. Mallampati score is 4. NECK: Supple. No JVD. LUNGS: Have a fair airflow with few rhonchi. HEART: S1, S2. ABDOMEN: Soft, nontender. No organomegaly. EXTREMITIES: There is no edema. NEUROLOGIC: Awake, alert, follows simple command. MEDICATIONS: She is on Depakote 500 mg 3 times a day, vitamin D 50,000 units weekly, DuoNeb q. 6 kushal rs p.r.n., Fosamax 70 mg weekly, clonazepam 0.5 mg twice a day, Nicoderm patch daily, Norvasc 10 mg d aily, Os-Danny 500 mg daily, Pulmicort inhaled twice a day, Singulair 10 mg daily, Synthroid 25 mcg bef ore breakfast, multivitamins daily, Tylenol p.r.n. LABORATORY DATA: Shows hemoglobin 9.8, hematocrit 33.3, WBC 6.6, platelet count is 120. Sodium 139, potassium 4.0, chloride 106, bicarbonate 29, BUN 15, creatinine 1.6, glucose 128, calcium 8.0, magne sium is 2.1, AST 18, ALT 22, alkaline phosphatase is 52. Albumin is 2.2. IMPRESSION AND PLAN: Respiratory failure secondary to noncompliance with BiPAP, responded very well to noninvasive ventilation, chronic obstructive lung disease, hypoventilation syndrome, schizophrenia , obesity, seizure disorder, hypertension. Pulmonary point of view, doing well. Discharge planning, but need to assure that she uses BiPAP. Difficult because of mental status and schizophrenia. She denies and pulls out the BiPAP and only just Klonopin p.r.n. basis. We will give lactulose for const ipation. Thank you and we will follow with you. Justin Shelley MD cc: [facility] TT: 01/01/2017 16:54:09 Confirmation # [id number] Dictation # [id number] en
[2017-01-01 18:19] VITALS: BP 127/54; PULSE 78; RESP 20; TEMP 98.7; O2SAT 91
--- NOTE | 2017-01-01 18:21 | PN ---
DATE: 01/01/2017 SUBJECTIVE: The patient was seen and examined on the bedside. Looks comfortable. No nausea, vomiti ng, or diarrhea. No hematuria or hematochezia. No swelling of the leg. No chest pain, no palpitati on, no headache, no dizziness. Is a little bit sleepy. Tolerated BiPAP very well. PHYSICAL EXAMINATION: VITAL SIGNS: Temperature 98, heart rate 86, respiratory rate 18, and blood pressure 112/60, and puls e oximetry 95% on 3 liters nasal cannula. HEENT: Head normocephalic, atraumatic. Eyes: PERRLA. Extraocular muscles intact. Conjunctivae pin k. Eyelids unremarkable. Nose patent. Mucous membranes moist. NECK: Supple. No carotid bruit, JVD or thyromegaly. CHEST: Bilaterally symmetrical. HEART: S1, S2 positive. LUNGS: Clear to auscultation. ABDOMEN: Soft. Bowel sounds present. No organomegaly. EXTREMITIES: No edema, no cyanosis. NEUROLOGIC: The patient is awake, alert, moving all 4 extremities. No focal deficits. MEDICATIONS: Depakote, vitamin D, DuoNeb, Fosamax, clonazepam, Nicoderm, Norvasc, Pulmicort, Singula ir, Synthroid, multivitamins, Tylenol. LABORATORY DATA: Hemoglobin 9.8, hematocrit 33.3, white blood cell 6.6, platelets 120. Sodium 139, potassium 4.0, BUN 15, creatinine 1.6, glucose 128. AST 18, ALT 22. ASSESSMENT AND PLAN: The patient is a 61-year-old lady, who came in with respiratory failure seconda ry to noncompliance with BiPAP, responding very well to noninvasive ventilation, chronic obstructive lung disease, hypoventilation syndrome, schizophrenia, obesity, seizure disorder, hypertension. The patient is most of the time sleeping. We will decrease her clonazepam. The patient is getting a Golden oderm patch for smoking, vitamin D for vitamin D deficiency, getting Norvasc for hypertension and Pul micort for her breathing. The patient has a history of hypothyroidism, getting Synthroid. Gastroint estinal and deep vein thrombosis prophylaxis. I appreciate Dr. Shelley's input. Will repeat labs and will followup. Steff Gallegos MD cc: [id number] TT: 01/01/2017 18:21:09 Confirmation # [id number] Dictation # [id number] dn
[2017-01-01] MEDS: Albuterol-Ipratrop 3 mg / 0.5 (3 ml) UD IH PRN (19:35)
--- NOTE | 2017-01-30 14:50 | DS ---
CHIEF COMPLAINT: Altered mental status, very fatigued and tired. HISTORY OF PRESENT ILLNESS: The patient is a 61-year-old, my private patient, resident of [facility], was found in [place] with altered mental status, was getting weak, very fatigued and lethargic, cannot hardly even open eyes. The patient has advanced dementia, not a very good historian, was not able to give good history. No fever, no chills. We admitted the patient, did CAT scan of the head, chest x-ray, electrocardiogram. The patient was seen by Dr. Shelley , Dr. Cosby and Dr. Valiente. Improved, discharged back to [facility]. PAST MEDICAL HISTORY: Hypertension, COPD, emphysema,diabetes mellitus type 2, hypothyroidism, fall, osteoporosis, unsteady gait, history of GI bleeding, urinary incontinence, history of schizophrenia. FAMILY HISTORY: Father and mother noncontributory. HABITS: Former smoker, quit. No ethanol, no drug abuse. ALLERGIES: THE PATIENT IS ALLERGIC WITH ASPIRIN, HALOPERIDOL, ASACOL, PENICILLIN, SEAFOOD. HOME MEDICATIONS: Reviewed by me. REVIEW OF SYSTEMS: The patient was seen and examined on the bedside, looks comfortable, was cleared by cardiology, neurology and pulmonary, sent back. We will continue treatment there and will try to keep BiPAP also. The patient is noncompliant with BiPAP. Urged to use BiPAP. Education done in [facility] with the nursing staff. For more details, see my progress notes of 01/01/17 Steff Gallegos MD cc: [id number] TT: 01/30/2017 14:50:10 en MTDD
== END 2017-01-01 20:51 | DRG 541 ==
LOC: ED 23:30 → ERH 12-30 02:43 → 2RNO 12-30 05:48 → OBSVTOIN 12-30 15:55 → 3RNO 12-31 20:18
PROVIDERS: ADMIT Internal Medicine; ATTEND Internal Medicine
PROC: 5A09357 Assistance with Respiratory Ventilation, Less than 24 Consecutive Hours, Continuous Positive Airway Pressure (ICD-10-PCS; principal; 2016-12-31)
PROC: 3E0F7GC Introduction of Other Therapeutic Substance into Respiratory Tract, Via Natural or Artificial Opening (ICD-10-PCS; 2016-12-31)
DX: J96.91 Respiratory failure, unspecified with hypoxia (principal); Z91.19 Patient's noncompliance with other medical treatment and regimen; J44.9 Chronic obstructive pulmonary disease, unspecified; N17.9 Acute kidney failure, unspecified; N18.4 Chronic kidney disease, stage 4 (severe); D69.6 Thrombocytopenia, unspecified; E87.2 Acidosis; E44.0 Moderate protein-calorie malnutrition; E11.22 Type 2 diabetes mellitus with diabetic chronic kidney disease; F03.90 Unspecified dementia, unspecified severity, without behavioral disturbance, psychotic disturbance, mood disturbance, and anxiety; E11.65 Type 2 diabetes mellitus with hyperglycemia; F20.9 Schizophrenia, unspecified; I08.1 Rheumatic disorders of both mitral and tricuspid valves; E83.51 Hypocalcemia; E03.9 Hypothyroidism, unspecified; D64.9 Anemia, unspecified; G40.909 Epilepsy, unspecified, not intractable, without status epilepticus; I12.9 Hypertensive chronic kidney disease with stage 1 through stage 4 chronic kidney disease, or unspecified chronic kidney disease; G47.33 Obstructive sleep apnea (adult) (pediatric); E78.5 Hyperlipidemia, unspecified; E78.1 Pure hyperglyceridemia; K59.00 Constipation, unspecified; E55.9 Vitamin D deficiency, unspecified; F17.210 Nicotine dependence, cigarettes, uncomplicated; E66.01 Morbid (severe) obesity due to excess calories; Z68.35 Body mass index [BMI] 35.0-35.9, adult; Z87.440 Personal history of urinary (tract) infections; Z88.6 Allergy status to analgesic agent

== ENCOUNTER 2017-10-28 13:01 | Inpatient (IN) | payer MEDICAID ==
[2017-10-28 13:13] VITALS: BMI 28.3
--- NOTE | 2017-10-28 13:38 | ED PDOC ---
Arrival/HPI - General Time Seen by Provider: 10/28/17 13:04 Historian: EMS - History of Present Illness Narrative History of Present Illness (Text): 10/28/17 13:31 61 year old female, with past medical history of cognitive deficits, hypertension, COPD, seizure, diabetes type 2, hypothyroidism and schizophrenia, brought in by EMS from halfway for altered mental status. pt was also reported to be suicidal, with "cord wraped around neck" limited history provided. h/o of dementia. Patient is a poor historian and is exhibiting bizarre behavior at bedside. Limited history provided due to patient's psychiatric condition. PMD: Dr. Gallegos 10/28/17 18:26 10/28/17 18:28 Time/Duration: Prior to Arrival Symptom Onset: Gradual Context: Other (Prison ) Past Medical History - Provider Review Nursing Documentation Reviewed: Yes - Infectious Disease Hx of Infectious Diseases: None - Tetanus Immunization Tetanus Immunization: Unknown - Cardiac Hx Cardiac Disorders: Yes Hx Hypertension: Yes - Pulmonary Hx Respiratory Disorders: Yes Hx Chronic Obstructive Pulmonary Disease (COPD): Yes Hx Emphysema: Yes - Neurological Hx Neurological Disorder: Yes (cognitive deficits) Hx Seizures: Yes - HEENT Hx HEENT Disorder: No - Renal Hx Renal Disorder: No - Endocrine/Metabolic Hx Endocrine Disorders: Yes Hx Diabetes Mellitus Type 2: Yes Hx Hypothyroidism: Yes - Hematological/Oncological Hx Blood Disorders: No - Integumentary Hx Dermatological Disorder: No - Musculoskeletal/Rheumatological Hx Musculoskeletal Disorders: Yes (BLE weakness) Hx Falls: Yes Hx Osteoporosis: Yes Hx Unsteady Gait: Yes - Gastrointestinal Hx Gastrointestinal Disorders: Yes (gi bleed) Other/Comment: gi bleed - Genitourinary/Gynecological Hx Genitourinary Disorders: Yes Hx Incontinence: Yes Hx Urinary Tract Infection: Yes - Psychiatric Hx Psychophysiologic Disorder: Yes Hx Schizophrenia: Yes Hx Substance Use: No - Past Surgical History Past Surgical History: Non-Contributing - Anesthesia Hx Anesthesia: Yes Hx Anesthesia Reactions: No Hx Malignant Hyperthermia: No - Suicidal Assessment Feels Threatened In Home Enviroment: No Family/Social History - Physician Review Nursing Documentation Reviewed: Yes Family/Social History: No Known Family HX Smoking Status: Former Smoker Hx Alcohol Use: No Hx Substance Use: No Allergies/Home Meds Allergies/Adverse Reactions: Allergies aspirin Adverse Reaction (Verified 12/29/16 23:46) RASH haloperidol [From Haldol] Adverse Reaction (Verified 12/29/16 23:46) RASH haloperidol lactate [From Haldol] Adverse Reaction (Verified 12/29/16 23:46) RASH mesalamine [From Asacol] Adverse Reaction (Verified 12/29/16 23:46) RASH Penicillins Adverse Reaction (Verified 12/29/16 23:46) RASH seafood Adverse Reaction (Uncoded 12/29/16 23:46) RASH Home Medications: Home Meds Medication Instructions Recorded Confirmed Acetaminophen [Tylenol (Renal)] 650 mg PO Q4 PRN 11/19/16 10/28/17 Budesonide [Pulmicort Respules] 0.5 mg IH Q12 11/19/16 10/28/17 Divalproex [Depakote ER] 500 mg PO TID 11/19/16 10/28/17 Latanoprost 0.005% Opht [Xalatan 1 drp OP HS 11/19/16 10/28/17 Opht] Magnesium Hydroxide [Milk Of 30 ml PO HS PRN 11/19/16 10/28/17 Magnesia] Montelukast [Singulair] 10 mg PO HS 11/19/16 10/28/17 amLODIPine [Norvasc] 10 mg PO DAILY 11/19/16 10/28/17 Gemfibrozil [Lopid] 600 mg PO BID 10/28/17 10/28/17 Insulin Detemir [Levemir] 26 unit SC HS 10/28/17 10/28/17 risperiDONE [RisperDAL Tab] 1 mg PO BID 10/28/17 10/28/17 Review of Systems - Physician Review All systems were reviewed & negative as marked: Yes - Review of Systems Systems not reviewed;Unavailable: Dementia Constitutional: Normal Respiratory: Normal Cardiovascular: Normal Skin: Normal Neurological: Other (Past medical history include cognitive deficit) Psychiatric: Suicidal Ideation Physical Exam Vital Signs Reviewed: Yes Vital Signs Temp Pulse Resp BP Pulse Ox 10/28/17 13:02 97.6 F 73 20 123/65 95 Temperature: Afebrile Blood Pressure: Normal Pulse: Regular Respiratory Rate: Normal Appearance: Positive for: Non-Toxic, Comfortable, Other (exhibiting bizarre behavior at bedside.) Pain Distress: None Mental Status: Positive for: other (Advanced dementia ) - Systems Exam Head: Present: Atraumatic, Normocephalic Pupils: Present: PERRL Extroacular Muscles: Present: EOMI Conjunctiva: Present: Normal Mouth: Present: Moist Mucous Membranes Neck: Present: Normal Range of Motion Respiratory/Chest: Present: Clear to Auscultation, Good Air Exchange. No: Respiratory Distress, Accessory Muscle Use Cardiovascular: Present: Regular Rate and Rhythm, Normal S1, S2. No: Murmurs Abdomen: Present: Normal Bowel Sounds. No: Tenderness, Distention, Peritoneal Signs Back: Present: Normal Inspection Upper Extremity: Present: Normal Inspection. No: Cyanosis, Edema Lower Extremity: Present: Normal Inspection. No: Edema Neurological: Present: GCS=15, CN II-XII Intact Skin: Present: Warm, Dry, Normal Color. No: Rashes Psychiatric: Present: Suicidal Ideation, Other (Advanced dementia) Medical Decision Making ED Course and Treatment: 10/28/17 13:43 Impression: 61 year old female presents to the Emergency department for eval for ams. consider infectious, intracranial metabolic pt dni dnr from ut Plan: -- VBG -- EKG -- Labs -- Chest X-ray -- Urinalysis -- Reassess and disposition Progress Notes: 10/28/17 13:55 Chest X-ray reviewed by radiologist, shows no active disease. 10/28/17 18:26 discussed with pes worker, and dr lucero. [place] admitted to voluntary pysch. . pt also with increasing ams, and uti. will need medical admission for iv antibioics,l - Lab Interpretations Lab Results: 10/28/17 14:06 10/28/17 15:32 Lab Results 10/28/17 15:45: Urine Opiates Screen Negative, Urine Methadone Screen Negative, Ur Barbiturates Screen Negative, Ur Phencyclidine Scrn Negative, Ur Amphetamines Screen Negative, U Benzodiazepines Scrn Negative, U Oth Cocaine Metabols Negative, U Cannabinoids Screen Negative 10/28/17 15:45: Urine Color Yellow, Urine Appearance Cloudy, Urine pH 6.0, Ur Specific [place] 1.025, Urine Protein 30 H, Urine Glucose (UA) 250 H, Urine Ketones 15 H, Urine Blood Small H, Urine Nitrate Negative, Urine Bilirubin Small H, Urine Urobilinogen 0.2, Ur Leukocyte Esterase Large H, Urine RBC 2 - 5 , Urine WBC 25 - 30, Ur Epithelial Cells 6 - 8, Amorphous Sediment Few, Urine Bacteria Mod 10/28/17 15:32: Sodium 146, Potassium 4.1, Chloride 108 H, Carbon Dioxide 19 L, Anion Gap 23 H, BUN 53 H, Creatinine 2.7 H, Est GFR ( Amer) 22, Est GFR ( Non-Af Amer) 18, Random Glucose 91, Calcium 10.7 H, Total Bilirubin 0.4, AST 30 , ALT 17, Alkaline Phosphatase 47, Total Protein 8.0, Albumin 3.9, Globulin 4.1 , Albumin/Globulin Ratio 0.9 L 10/28/17 14:08: Salicylates < 1 L, Acetaminophen < 10.0 L 10/28/17 14:06: pO2 44, VBG pH 7.25 L, VBG pCO2 52.0, VBG HCO3 22.8, VBG O2 Sat (Calc) 81.3 H, VBG Base Excess -4.9 L 10/28/17 14:06: Alcohol, Quantitative < 10 10/28/17 14:06: WBC 6.7, RBC 4.28, Hgb 13.9, Hct 43.2, MCV 100.9, MCH 32.5, MCHC 32.2, RDW 13.4, Plt Count 88 L, MPV 11.4 H, Gran % 35.5 L, Lymph % (Auto) 51.1 H, [place] % (Auto) 11.3 H, Eos % (Auto) 1.8, Baso % (Auto) 0.3, Gran # 2.39, Lymph # (Auto) 3.4, [place] # (Auto) 0.8 H, Eos # (Auto) 0.1, Baso # (Auto) 0.02 - RAD Interpretation Radiology Orders: 10/28/17 13:30 CHEST PORTABLE [RAD] Stat 10/28/17 15:17 HEAD W/O CONTRAST [CT] Stat Director Of Cardiology Service Line: Radiologist - Medication Orders Current Medication Orders: Discontinued Medications Ciprofloxacin (Cipro 400mg/200ml Dsw) 400 mg in 200 mls @ 133.3 mls/hr IVPB STAT STA PRN Reason: Protocol Stop: 10/28/17 17:38 Last Admin: 10/28/17 17:05 Dose: 133.3 mls/hr eMAR Start Stop Document 10/28/17 17:05 MS (Rec: 10/28/17 17:12 MS [facility] [place]-[id number]) Intravenous Solution Start Date 10/28/17 Start Time 17:05 End Date 10/28/17 End time 18:35 Total Infusion Time 90 - Scribe Statement The provider has reviewed the documentation as recorded by the Scribe Lina Grey. All medical record entries made by the Scribe were at my direction and personally dictated by me. I have reviewed the chart and agree that the record accurately reflects my personal performance of the history, physical exam, medical decision making, and the department course for this patient. I have also personally directed, reviewed, and agree with the discharge instructions and disposition. Disposition/Present on Arrival - Present on Arrival Any Indicators Present on Arrival: No History of DVT/PE: No History of Uncontrolled Diabetes: Yes Urinary Catheter: No History Surgical Site Infection Following: None - Disposition Have Diagnosis and Disposition been Completed?: Yes Diagnosis: Altered mental status, UTI (urinary tract infection), Suicidal behavior Disposition: HOSPITALIZED Disposition Time: 18:28 Condition: STABLE Referrals: Steff Gallegos MD [Primary Care Provider] - Follow up with primary
[2017-10-28 14:13] LABS: VENOUS BLOOD GAS BASE EXCESS -4.9 mmol/L (0.0-2.0); VENOUS BLOOD GAS PO2 44 mm/Hg (30-55); VENOUS BLOOD PH 7.25 (7.32-7.43)
--- NOTE | 2017-10-28 14:16 | RAD ---
HISTORY: pysch COMPARISON: 12/30/2016 FINDINGS: LUNGS: No active pulmonary disease. PLEURA: No significant pleural effusion identified, no pneumothorax apparent. CARDIOVASCULAR: Normal. OSSEOUS STRUCTURES: No significant abnormalities. VISUALIZED UPPER ABDOMEN: Normal. OTHER FINDINGS: None. IMPRESSION: No active disease.
[2017-10-28 14:25] LABS: BASO # 0.02 K/mm3 (0.0-2.0); BASO % 0.3 % (0.0-3.0); EOS # 0.1 (0.0-0.7); EOS % 1.8 % (1.5-5.0); GRAN # 2.39 (1.4-6.5); GRAN % 35.5 % (50.0-68.0); HEMOGLOBIN 13.9 g/dL (12.0-16.0); LYMPH # 3.4 (1.2-3.4); LYMPH % 51.1 % (22.0-35.0); MEAN CELL VOLUME 100.9 fl (80.0-105.0); MEAN CORPUSCULAR HEMOGLOBIN 32.5 pg (25.0-35.0); MEAN CORPUSCULAR HGB CONC 32.2 g/dl (31.0-37.0); MEAN PLATELET VOLUME 11.4 fl (7.0-11.0); MONO # 0.8 (0.1-0.6); MONO % 11.3 % (1.0-6.0); RBC 4.28 10^6/uL (3.5-6.1); RED CELL DISTRIBUTION WIDTH 13.4 % (11.5-14.5); WHITE BLOOD COUNT 6.7 10^3/ul (4.5-11.0)
[2017-10-28 14:47] LABS: ACETAMINOPHEN < 10.0 ug/ml (10.0-20.0); SALICYLATE < 1 mg/dL (2.0-20.0)
[2017-10-28 15:59] LABS: URINE BILIRUBIN SMALL (NEGATIVE); URINE BLOOD SMALL (NEGATIVE); URINE GLUCOSE (UA) 250 mg/dL (NEGATIVE); URINE LEUKOCYTE ESTERASE LARGE Leu/uL (NEGATIVE); URINE NITRATE NEGATIVE (NEGATIVE); URINE PROTEIN 30 mg/dL (<30 mg/dL); URINE UROBILINOGEN 0.2 E.U./dL (<1 E.U./dL)
[2017-10-28 16:06] LABS: URINE APPEARANCE CLOUDY (CLEAR); URINE COLOR YELLOW (YELLOW)
[2017-10-28] MEDS ORDERED: Ciprofloxacin 400mg/200ml D5W 400 MG/200 ML BAG IVPB STA (16:08)
[2017-10-28 16:13] LABS: URINE AMORPHOUS SEDIMENT FEW; URINE BACTERIA MOD (NEG); URINE WBC 25 - 30 /hpf (0-6)
[2017-10-28 16:20] LABS: ALB/GLOB RATIO 0.9 (1.1-1.8); ALBUMIN 3.9 g/dL (3.0-4.8); CALCIUM 10.7 mg/dL (8.4-10.5)
[2017-10-28 16:24] LABS: BARBITURATES, UR NEGATIVE (NEGATIVE); BENZODIAZEPINES, UR NEGATIVE (NEGATIVE); OPIATES, UR NEGATIVE (NEGATIVE); PHENCYCLIDINE, UR NEGATIVE (NEGATIVE)
--- NOTE | 2017-10-28 18:24 | CT ---
EXAM: CT Head Without Intravenous Contrast CLINICAL HISTORY: 61 years old, female; Signs and symptoms; Altered mental status/memory loss; Patient HX: AMS TECHNIQUE: Axial computed tomography images of the head/brain without intravenous contrast. All CT scans at this facility use one or more dose reduction techniques, viz.: automated exposure control; ma/kV adjustment per patient size (including targeted exams where dose is matched to indication; i.e. head); or iterative reconstruction technique. Coronal and sagittal reformatted images were created and reviewed. COMPARISON: CT - HEAD W/O CONTRAST 2016-12-30 00:48 FINDINGS: Brain: Minimal atrophy. No intracranial hemorrhage. No mass. Minimal decreased attenuation within periventricular white matter. No definite edema. Ventricles: No hydrocephalus. Bones/joints: No acute fracture. Soft tissues: Unremarkable. Vasculature: Atherosclerotic disease of intracranial arteries. Sinuses: Few maxillary retention cysts. Mastoid air cells: No mastoid effusion. Orbits: Unremarkable as visualized. IMPRESSION: 1. Nonspecific white matter changes. Acute infarction may be CT occult within first 24 hours. If a focal deficit persists, consider followup CT or MRI for further evaluation. 2. Incidental/non-acute findings are described above.
[2017-10-28] MEDS ORDERED: Pneumococcal 23-Valent Vaccine IM ONE (23:08)
[2017-10-28] MEDS ORDERED: Influenza Vaccine 60 mcg/0.5 mL SYR (4YR UP) IM ONE (23:08)
[2017-10-29] MEDS ORDERED: Magnesium Hydroxide Susp 30 ml UD PO PRN (00:50)
[2017-10-29] MEDS: Budesonide 0.5 mg/2 ml Inhal Susp UD IH SCH ×2 (07:29→20:24)
[2017-10-29] MEDS: Divalproex 500 mg DR(BID formulation) PO SCH ×3 (10:58→18:11)
[2017-10-29] MEDS: Insulin Reg-LOW-Coverage SC SCH ×4 (11:31→22:39)
--- NOTE | 2017-10-29 11:54 | CARD ---
APPROVED REPORT EKG Measurement Heart [id number] <Conclusion> Sinus rhythm with frequent premature ventricular complexes Left axis deviation Pulmonary disease pattern Abnormal ECG
[2017-10-29] MEDS: Insulin Detemir 100 units/ml Vial (Levemir) SC SCH (21:42)
[2017-10-29] MEDS: Latanoprost 2.5 ml Opht Soln OU SCH (22:06)
--- NOTE | 2017-10-30 03:17 | CON ---
DATE: HISTORY OF PRESENT ILLNESS: This is a 61-year-old female with past medical history of hypertension, COPD, seizure, diabetes, hypothyroidism and schizophrenia and came from the custodial with altered mental status. Also reported to be suicidal, patient has limited history and does not appear to be in distress. Patient is on 121. HOME MEDICATIONS: Amlodipine, Singular, Lopid, Levemir and Risperdal. REVIEW OF THE SYSTEMS: A 10-point review of system was negative. PHYSICAL EXAMINATION: VITAL SIGNS: Blood pressure 123/65. HEENT: Normocephalic, atraumatic. NECK: Supple. NEUROLOGIC: Awake, oriented to self, not to the place. Cranial nerves II through XII were tested. Pupils reactive. Spontaneous movement of the extremities noted. Deep tendon reflexes 1+, both plantars are downgoing. Sensory appears intact. Cerebellar and gait, deferred. LABORATORY DATA: Labs, WBC 6.7, hemoglobin 13.9, hematocrit 43.2 and platelets 88. Sodium 146, potassium 4.1, chloride 108, CO2 of 19, glucose 91, BUN 53 and creatinine 2.7. IMPRESSION: A 61-year-old who is admitted with altered mental status, encephalopathy, possibly toxic metabolic and superimposed on schizophrenia. Patient is on 121. CAT scan of the head was done, which was reported negative. PLAN: Workup in progress. Continue present management, possibly UTI, suicidal behavior and altered mental status. We will follow up. Quincy Valiente MD
[2017-10-30] MEDS: Levothyroxine 150 MCG TAB PO SCH (06:02)
--- NOTE | 2017-10-30 06:42 | CON ---
DATE: 10/29/2017 REFERRING PHYSICIAN: Steff Gallegos MD REASON FOR CONSULTATION: Hypoventilation syndrome, sleep apnea syndrome, change in mental status. HISTORY OF PRESENT ILLNESS: This is a 61-year-old female known to me from previous admissions, with history of chronic lung disease, seizure disorder, diabetes, hypothyroid, schizophrenia, found very lethargic, apparently chords of the call egan, I believe, was around her neck, brought into emergency room, admitted into one-to-one supervision. Awake, alert, confused, not much cough or sputum production. No vomiting, hematuria or diarrhea reported. PAST MEDICAL HISTORY: Chronic obstructive lung disease, seizure disorder, diabetes, hypothyroid, history of GI bleed, recurrent UTIs, schizophrenia. ALLERGIES: PENICILLIN, SEAFOOD, HALDOL, ASPIRIN. SOCIAL HISTORY: longterm resident. No history of smoking or alcohol use. FAMILY HISTORY: No significant cardiopulmonary disease reported. MEDICATIONS: She is on Depakote 500 mg twice a day, DuoNeb q.6h., Fosamax 70 mg weekly, insulin coverage, Levemir 20 units subcu at bedtime, Lopid 600 mg twice a day, milk of magnesia 30 mL at bedtime, Norvasc 10 mg daily, Pulmicort inhaled twice a day, Risperdal 1 mg twice a day, Singulair 10 mg daily. REVIEW OF SYSTEMS: No headache, no rhinitis. No nausea, no vomiting, no diarrhea. No leg pain or leg swelling. PHYSICAL EXAMINATION: GENERAL: Lying in the bed, confused, in no acute distress. VITAL SIGNS: Temperature is 98, heart rate is 70, respiratory is 20, blood pressure 108/58, pulse ox 96% room air. HEENT: Moist mucous membranes. Small oral cavity. Crowded airway. NECK: Supple. No JVD. LUNGS: Has fair airflow with rhonchi. HEART: S1, S2. ABDOMEN: Soft, nontender, no organomegaly. EXTREMITIES: No edema. NEUROLOGIC: Awake, alert, and follows simple commands, but confused. LABORATORY DATA: Shows hemoglobin 13.9, hematocrit is 43.2, WBC 6.7, platelet is 88. VBG showed pH 7.25, pCO2 of 52, O2 is 22. Sodium 146, potassium 4.1, chloride 108, bicarbonate 19, BUN 53, creatinine 2.7, glucose 91, calcium 10.7, AST 30, ALT 17, alk phos is 47. Albumin 3.9. Urinalysis; wbc 20-30. Toxicology is unremarkable. CAT scan of the head is unremarkable. Chest x-ray shows no active pulmonary disease. IMPRESSION AND PLAN: Chronic obstructive lung disease, hypoventilation syndrome, schizophrenia, obesity, seizure disorder, hypertension, change in mental status. From a Pulmonary point of view, she is doing okay. We will place her on CPAP. Keep head at 45 degrees. Gastric prophylaxis, DVT prophylaxis, seizure precaution. Thank you and we will follow with you. Justin Shelley MD
[2017-10-30] MEDS: Insulin Reg-LOW-Coverage SC SCH ×4 (07:26→21:57)
[2017-10-30] MEDS: Budesonide 0.5 mg/2 ml Inhal Susp UD IH SCH ×2 (08:00→19:29)
[2017-10-30 08:23] LABS: IRON 82 ug/dL (45-180)
[2017-10-30 08:37] LABS: % IRON SATURATION 35 % (20-55); TOTAL IRON BINDING CAPACITY 232 ug/dL (265-497)
[2017-10-30] MEDS: Divalproex 500 mg DR(BID formulation) PO SCH ×3 (10:18→17:55)
--- NOTE | 2017-10-30 11:18 | CP.PCM.PN ---
<Amie Shelton - Last Filed: 10/30/17 11:14> Subjective - Date & Time of Evaluation Date of Evaluation: 10/30/17 Time of Evaluation: 11:14 - Subjective Subjective: Neurology PGY-[address] Valiente Pt is on 1:1 for safety. PT provides 1 word answer and provide answers to question if she wants to. Denied pain. Objective - Vital Signs/Intake and Output Vital Signs (last 24 hours): Temp Pulse Resp BP Pulse Ox 98.8 F 58 L 19 103/43 L 96 10/30/17 07:30 10/30/17 07:30 10/30/17 07:30 10/30/17 10:23 10/30/17 07:30 Intake and Output: 10/30/17 10/30/17 06:59 18:59 Intake Total 720 Balance 720 - Medications Medications: Current Medications Albuterol/Ipratropium (Duoneb 3 Mg/0.5 Mg (3 Ml) Ud) 3 ml IH [id number] PRN PRN Reason: SOB Alendronate Sodium (Fosamax) 70 mg PO Q7D@0600 [facility] Amlodipine Besylate (Norvasc) 10 mg PO DAILY [facility] Last Admin: 10/30/17 10:23 Dose: Not Given Budesonide (Pulmicort Respules) 0.5 mg IH [id number] [facility] Last Admin: 10/30/17 08:00 Dose: 0.5 mg Divalproex Sodium (Depakote Dr(*Bid*)) 500 mg PO TID [facility] PRN Reason: Protocol Last Admin: 10/30/17 10:18 Dose: 500 mg Famotidine (Pepcid) 40 mg PO HS [facility] Last Admin: 10/29/17 21:42 Dose: 40 mg Gemfibrozil (Lopid) 600 mg PO BID [facility] Last Admin: 10/30/17 10:17 Dose: 600 mg Insulin Detemir (Levemir) 20 unit SC HS [facility] Last Admin: 10/29/17 21:42 Dose: 20 unit Insulin Human Regular (Humulin R Low) 0 units SC ACHS [facility] PRN Reason: Protocol Last Admin: 10/30/17 07:26 Dose: Not Given Latanoprost (Xalatan Opht) 0 ml OU HS [facility] Last Admin: 10/29/17 22:06 Dose: 2.5 ml Levothyroxine Sodium (Synthroid) 150 mcg PO 0600 [facility] Last Admin: 10/30/17 06:02 Dose: 150 mcg Magnesium Hydroxide (Milk Of Magnesia) 30 ml PO HS PRN PRN Reason: Constipation Montelukast Sodium (Singulair) 10 mg PO HS [facility] Last Admin: 10/29/17 21:34 Dose: 10 mg Risperidone (Risperdal Tab) 1 mg PO BID [facility] PRN Reason: Protocol Last Admin: 10/30/17 10:17 Dose: 1 mg - Constitutional Appears: No Acute Distress - Head Exam Head Exam: ATRAUMATIC, NORMAL INSPECTION, NORMOCEPHALIC - Eye Exam Eye Exam: EOMI, Normal appearance, PERRL - ENT Exam ENT Exam: Mucous Membranes Moist - Neck Exam Additional comments: supple - Respiratory Exam Respiratory Exam: Clear to Ausculation Bilateral, NORMAL BREATHING PATTERN - Cardiovascular Exam Cardiovascular Exam: REGULAR RHYTHM, +S1, +S2 - Neurological Exam Neurological Exam: Awake Additional comments: Awake, oriented to self, not to place and time CN 2-12 intact Motor: Spontaneously moving all extremities Sensory: intact DTR: 1+, plantar downgoing Assessment and Plan - Assessment and Plan (Free Text) Plan: Ms Hung, 61F with PMH seizure on depakite, allergy to Haldol and ASpirin, HTN , COPD, Diabetes, hypothroidism, and schizophrenia came from custodial with altered mental status with suicidal ideation. Her BP was in 100s/40s. SHe is on 1:1. Allergy to Haldol and ASpirin Altered mental status, encephalopathy, posibly due to (1) transient cerebral perfusion from low blood pressure, (2) toxic metabolic secondary to UTI and renal insufficiency, (3) superimposed on dementia - CT head: non-specific white matter changes, minimal atropy, decreased attentuation periventricular white matter - continue Depakote 500 TID for seizure maintenance - seizure precation - continue medical treatment per primary. - Consider infectious disease consult for possible urinary tract infection - ___pending__ MRI brain - ___pending__ EEG - ___pending__ b12, A1C - follow up with psychiatry for suicidal ideation and psychiatric illness. 1:1 for safety - maintain SBP 120-130. Avoid sudden drop of blood pressure s/r/d/w Dr. Valiente <Fernando Valiente - Last Filed: 10/30/17 11:45> Objective - Vital Signs/Intake and Output Vital Signs (last 24 hours): Temp Pulse Resp BP Pulse Ox 98.8 F 58 L 19 103/43 L 96 10/30/17 07:30 10/30/17 07:30 10/30/17 07:30 10/30/17 10:23 10/30/17 07:30 Intake and Output: 10/30/17 10/30/17 06:59 18:59 Intake Total 720 Balance 720 - Medications Medications: Current Medications Albuterol/Ipratropium (Duoneb 3 Mg/0.5 Mg (3 Ml) Ud) 3 ml IH [id number] PRN PRN Reason: SOB Alendronate Sodium (Fosamax) 70 mg PO Q7D@0600 [facility] Amlodipine Besylate (Norvasc) 10 mg PO DAILY [facility] Last Admin: 10/30/17 10:23 Dose: Not Given Budesonide (Pulmicort Respules) 0.5 mg IH [id number] [facility] Last Admin: 10/30/17 08:00 Dose: 0.5 mg Divalproex Sodium (Depakote Dr(*Bid*)) 500 mg PO TID [facility] PRN Reason: Protocol Last Admin: 10/30/17 10:18 Dose: 500 mg Famotidine (Pepcid) 40 mg PO HS [facility] Last Admin: 10/29/17 21:42 Dose: 40 mg Gemfibrozil (Lopid) 600 mg PO BID [facility] Last Admin: 10/30/17 10:17 Dose: 600 mg Insulin Detemir (Levemir) 20 unit SC HS [facility] Last Admin: 10/29/17 21:42 Dose: 20 unit Insulin Human Regular (Humulin R Low) 0 units SC ACHS [facility] PRN Reason: Protocol Last Admin: 10/30/17 07:26 Dose: Not Given Latanoprost (Xalatan Opht) 0 ml OU HS [facility] Last Admin: 10/29/17 22:06 Dose: 2.5 ml Levothyroxine Sodium (Synthroid) 150 mcg PO 0600 [facility] Last Admin: 10/30/17 06:02 Dose: 150 mcg Magnesium Hydroxide (Milk Of Magnesia) 30 ml PO HS PRN PRN Reason: Constipation Montelukast Sodium (Singulair) 10 mg PO HS [facility] Last Admin: 10/29/17 21:34 Dose: 10 mg Risperidone (Risperdal Tab) 1 mg PO BID [facility] PRN Reason: Protocol Last Admin: 10/30/17 10:17 Dose: 1 mg Attending/Attestation - Attestation I have personally seen and examined this patient.: Yes I have fully participated in the care of the patient.: Yes I have reviewed all pertinent clinical information, including history, physical exam and plan: Yes
--- NOTE | 2017-10-30 11:53 | HP ---
The patient was seen on 10/29/2017. CHIEF COMPLAINT: Altered mental status. HISTORY OF PRESENT ILLNESS: Ms. Mead is a 61-year-old female with past medical history of cognitive defect, hypertension, COPD, obstructive sleep apnea syndrome, obesity, seizures, diabetes mellitus type 2, hypothyroidism, schizophrenia, is the resident of [facility], brought by EMS for altered mental status. The patient was also reported to be suicidal with cord wrapped around her neck. The patient has dementia, is not able to give history. She is a poor historian and is exhibiting a bizarre behavior at the bedside. She is on one-to-one. Plan is to admit the patient to Psychiatric Department, but our Psychiatric Department take voluntry , but over the weekend, we cannot get the patient's power of claims attorney. On Monday, our social worker delinquency prevention will try to get that. PAST MEDICAL HISTORY: Hypertension, COPD, history of emphysema, cognitive defect, seizures, diabetes mellitus type 2, hypothyroidism, bilateral leg weakness, history of fall, osteoporosis, unsteady gait, history of GI bleeding, urinary incontinence, and schizophrenia. FAMILY HISTORY: Father and mother, noncontributory. HABITS: History of heavy smoking for a long time. Alcohol: None. Substance abuse: None. ALLERGIES: THE PATIENT IS ALLERGIC TO ASPIRIN, HALDOL, MESALAMINE, AND PENICILLIN. HOME MEDICATIONS: Tylenol, Pulmicort, Depakote, eye drops, Singulair, Norvasc, Lopid, Levemir, and Risperdal. REVIEW OF SYSTEMS: The patient is examined at the bedside, looking comfortable, but her behavior is not at baseline. Mental status is not at baseline. She is on one-to-one. No fever. No chills. No nausea, vomiting, or diarrhea. No hematuria or hematochezia. PHYSICAL EXAMINATION VITAL SIGNS: Temperature 97.6, pulse 73, respiratory rate 20, blood pressure 123/65, pulse oximetry is 95. HEENT: Head: Normocephalic, atraumatic. Eyes: PERRLA. Extraocular movements are intact. Conjunctivae clear. Nose patent. Mucous membranes are moist. NECK: Supple. No carotid bruits, JVD, or thyromegaly. CHEST: Bilaterally symmetrical. HEART: S1, S2 positive. LUNGS: Clear to auscultation. ABDOMEN: Soft. Bowel sounds are present. No organomegaly. EXTREMITIES: No edema. No cyanosis. NEUROLOGIC: The patient is awake and alert; moving all 4 extremities, but is confused. She is not at her baseline. LABORATORY DATA: White blood cells 6.7, hemoglobin 13.9, hematocrit 43.2, and platelets 88,000. Sodium 146, potassium 4.1, BUN 53, creatinine 2.7, and glucose 91. ASSESSMENT AND PLAN: Ms. Mead is a 61-year-old lady with thrombocytopenia, hyponatremia, renal insufficiency, and hypochloremia who came with altered mental status, suicidal attempt, urinary tract infection, history of cognitive defect, hypertension,chronic obstructive pulmonary disease, seizures, diabetes mellitus, and hypothyroidism. Re-admitted the patient. Antibiotics given. CAT scan of the head done, reviewed by me; nonspecific white matter changes, acute infarction, maybe within the first 24 hours. If the focal deficit persists, consider following CT or MRI for further evaluation. We will call consult with Dr. Valiente for altered mental status ; chronic obstructive pulmonary disease and obstructive sleep apnea syndrome. dr arvizu consult called also. Started home medication. Gastric and deep venous thrombosis prophylaxes. Repeat labs. We will follow. Steff Gallegos MD MTDD
[2017-10-30 13:42] LABS: FOLATE 17.9 ng/mL
--- NOTE | 2017-10-30 14:22 | EEG ---
DATE: 10/30/2017 CONDITION OF THE RECORDING: Drowsy. DIAGNOSIS: Change in mental status. MEDICATIONS: Reviewed by nurse's reconciliation sheet. INTERPRETATION: This is a 16-channel [employer] recording. Background activity was composed of 8 cycles per second. There was small amount of beta activity of 16 to 20 cycles per second seen in this tracing. There was small amount of theta activity of 5 to 7 cycles per second seen in this tracing. Drowsiness was characterized by mixed beta and theta activities. Sleep was characterized by vertex transient waves, sleep spindles, and bilateral slowing. Photic stimulation showed no changes in the tracing. No paroxysmal activity is noted in this recording. CONCLUSION: This is a normal drowsy EEG. No evidence of any epileptiform activity. Please clinically correlate. Fernando Valiente MD
--- NOTE | 2017-10-30 17:16 | CP.PCM.PN ---
<Yeimy Islas - Last Filed: 10/30/17 17:11> Subjective - Date & Time of Evaluation Date of Evaluation: 10/30/17 Time of Evaluation: 10:40 - Subjective Subjective: Chief complaint: Altered mental status, suicidal ideation 61 yr female resident of [facility] w/ history of cognitive deficits, HTN, COPD, seizure disorder, DM II, osteoporosis, non- ambulatory, GI bleed, chronic UTI, hypothyroidism, and schizophrenia. Pt was exhibiting altered mental status and displaying signs of suicidal ideation. Today, she is confused and answers questions inappropriately. Pt is a poor historian. No distress noted. Objective - Vital Signs/Intake and Output Vital Signs (last 24 hours): Temp Pulse Resp BP Pulse Ox 98.8 F 58 L 19 103/43 L 96 10/30/17 07:30 10/30/17 07:30 10/30/17 07:30 10/30/17 10:23 10/30/17 07:30 Intake and Output: 10/30/17 10/30/17 06:59 18:59 Intake Total 720 960 Balance 720 960 - Medications Medications: Current Medications Albuterol/Ipratropium (Duoneb 3 Mg/0.5 Mg (3 Ml) Ud) 3 ml IH [id number] PRN PRN Reason: SOB Alendronate Sodium (Fosamax) 70 mg PO Q7D@0600 [facility] Amlodipine Besylate (Norvasc) 10 mg PO DAILY [facility] Last Admin: 10/30/17 10:23 Dose: Not Given Budesonide (Pulmicort Respules) 0.5 mg IH [id number] [facility] Last Admin: 10/30/17 08:00 Dose: 0.5 mg Divalproex Sodium (Depakote Dr(*Bid*)) 500 mg PO TID [facility] PRN Reason: Protocol Last Admin: 10/30/17 14:14 Dose: 500 mg Famotidine (Pepcid) 40 mg PO HS [facility] Last Admin: 10/29/17 21:42 Dose: 40 mg Gemfibrozil (Lopid) 600 mg PO BID [facility] Last Admin: 10/30/17 10:17 Dose: 600 mg Insulin Detemir (Levemir) 20 unit SC [facility] Last Admin: 10/29/17 21:42 Dose: 20 unit Insulin Human Regular (Humulin R Low) 0 units SC ACHS [facility] PRN Reason: Protocol Last Admin: 10/30/17 11:57 Dose: Not Given Latanoprost (Xalatan Opht) 0 ml OU HS [facility] Last Admin: 10/29/17 22:06 Dose: 2.5 ml Levothyroxine Sodium (Synthroid) 150 mcg PO 0600 [facility] Last Admin: 10/30/17 06:02 Dose: 150 mcg Magnesium Hydroxide (Milk Of Magnesia) 30 ml PO HS PRN PRN Reason: Constipation Montelukast Sodium (Singulair) 10 mg PO HS [facility] Last Admin: 10/29/17 21:34 Dose: 10 mg Risperidone (Risperdal Tab) 1 mg PO BID [facility] PRN Reason: Protocol Last Admin: 10/30/17 10:17 Dose: 1 mg - Constitutional Appears: Chronically Ill - Head Exam Head Exam: ATRAUMATIC, NORMAL INSPECTION, NORMOCEPHALIC - Eye Exam Eye Exam: EOMI, Normal appearance, PERRL Pupil Exam: NORMAL ACCOMODATION, PERRL - ENT Exam ENT Exam: Mucous Membranes Moist, Normal Exam - Neck Exam Neck Exam: Full ROM, Normal Inspection. absent: Lymphadenopathy - Respiratory Exam Respiratory Exam: Clear to Ausculation Bilateral, NORMAL BREATHING PATTERN - Cardiovascular Exam Cardiovascular Exam: REGULAR RHYTHM, +S1, +S2. absent: Murmur - GI/Abdominal Exam GI & Abdominal Exam: Soft, Normal Bowel Sounds. absent: Tenderness - Extremities Exam Extremities Exam: Normal Inspection - Neurological Exam Neurological Exam: Alert, Awake - Psychiatric Exam Psychiatric exam: Flat Affect, Normal Mood - Skin Skin Exam: Dry, Intact, Normal Color, Warm Assessment and Plan (1) Proteinuria Status: Acute (2) Ketonuria Status: Acute (3) Hematuria Status: Acute (4) Thrombopenia Status: Acute (5) Altered mental status Status: Acute (6) UTI (urinary tract infection) Status: Acute - Assessment and Plan (Free Text) Plan: OT on board. Bipap HS. GI/VTE prophylaxis. PT onboard. Consult: Neuro - Dr. Rocco Quintero Psych - Dr. Michael LOBO - Dr. Sullivan Reviewed: CT head = nonspecific white matter changes CXR = WNL ECG = ABNORMAL, SR, PVC, L axis deviation, pulmonary disease pattern EEG = WNL, no epileptiform activity <Steff Gallegos - Last Filed: 10/30/17 18:55> Objective - Vital Signs/Intake and Output Vital Signs (last 24 hours): Temp Pulse Resp BP Pulse Ox 98.2 F 65 20 118/52 L 95 10/30/17 16:00 10/30/17 16:00 10/30/17 16:00 10/30/17 16:00 10/30/17 16:00 Intake and Output: 10/30/17 10/30/17 06:59 18:59 Intake Total 720 960 Balance 720 960 - Medications Medications: Current Medications Albuterol/Ipratropium (Duoneb 3 Mg/0.5 Mg (3 Ml) Ud) 3 ml IH [id number] PRN PRN Reason: SOB Alendronate Sodium (Fosamax) 70 mg PO Q7D@0600 [facility] Amlodipine Besylate (Norvasc) 10 mg PO DAILY [facility] Last Admin: 10/30/17 10:23 Dose: Not Given Budesonide (Pulmicort Respules) 0.5 mg IH [id number] [facility] Last Admin: 10/30/17 08:00 Dose: 0.5 mg Divalproex Sodium (Depakote Dr(*Bid*)) 500 mg PO TID [facility] PRN Reason: Protocol Last Admin: 10/30/17 17:55 Dose: 500 mg Famotidine (Pepcid) 40 mg PO HS [facility] Last Admin: 10/29/17 21:42 Dose: 40 mg Gemfibrozil (Lopid) 600 mg PO BID [facility] Last Admin: 10/30/17 17:55 Dose: 600 mg Insulin Detemir (Levemir) 20 unit SC HS [facility] Last Admin: 10/29/17 21:42 Dose: 20 unit Insulin Human Regular (Humulin R Low) 0 units SC ACHS [facility] PRN Reason: Protocol Last Admin: 10/30/17 18:38 Dose: Not Given Latanoprost (Xalatan Opht) 0 ml OU HS [facility] Last Admin: 10/29/17 22:06 Dose: 2.5 ml Levothyroxine Sodium (Synthroid) 150 mcg PO 0600 [facility] Last Admin: 10/30/17 06:02 Dose: 150 mcg Magnesium Hydroxide (Milk Of Magnesia) 30 ml PO HS PRN PRN Reason: Constipation Montelukast Sodium (Singulair) 10 mg PO HS [facility] Last Admin: 10/29/17 21:34 Dose: 10 mg Risperidone (Risperdal Tab) 1 mg PO BID [facility] PRN Reason: Protocol Last Admin: 10/30/17 17:55 Dose: 1 mg Assessment and Plan - Assessment and Plan (Free Text) Plan: 61 yr female resident of [facility] w/ history of cognitive deficits, HTN, COPD, seizure disorder, DM II, osteoporosis, non- ambulatory, GI bleed, chronic UTI, hypothyroidism, and schizophrenia. Pt was exhibiting altered mental status and displaying signs of suicidal ideation. Today, she is confused and answers questions inappropriately. Pt is a poor historian. No distress noted.agreed all above. chart. meds . and labs noted will f/u
--- NOTE | 2017-10-30 19:11 | CP.PCM.CON ---
History of Present Illness - History of Present Illness History of Present Illness: Infectious Disease Consultation: October 30, 2017 61 yo female originally admitted from [facility] due to AMS and possible suicidal ideation. The patient is confused and answers questions with short answers that are not always appropriately. Extensive past medical history that includes being bedbound, HTN, COPD, GI bleed, chronic UTI, Seizure disorder, DM type II, hypothyroidism, and schizophrenia. PMHx: Diabetes Mellitus, COPD, Substance abuse history, CKD, Seizure disorder history , hypothyroidism, HTN PSHx: none to my knowledge Allergies: ASA, Haldol, Asacol, PCN, Seafood Social Hx: No EtOH, former tobacco use, former substance abuse history. Active Medications Albuterol/Ipratropium (Duoneb 3 Mg/0.5 Mg (3 Ml) Ud) 3 ml IH [id number] PRN PRN Reason: SOB Alendronate Sodium (Fosamax) 70 mg PO Q7D@0600 [facility] Amlodipine Besylate (Norvasc) 10 mg PO DAILY [facility] Last Admin: 10/30/17 10:23 Dose: Not Given Budesonide (Pulmicort Respules) 0.5 mg IH [id number] [facility] Last Admin: 10/30/17 08:00 Dose: 0.5 mg Divalproex Sodium (Depakote Dr(*Bid*)) 500 mg PO TID [facility] PRN Reason: Protocol Last Admin: 10/30/17 17:55 Dose: 500 mg Famotidine (Pepcid) 40 mg PO HS [facility] Last Admin: 10/29/17 21:42 Dose: 40 mg Gemfibrozil (Lopid) 600 mg PO BID [facility] Last Admin: 10/30/17 17:55 Dose: 600 mg Insulin Detemir (Levemir) 20 unit SC HS [facility] Last Admin: 10/29/17 21:42 Dose: 20 unit Insulin Human Regular (Humulin R Low) 0 units SC ACHS [facility] PRN Reason: Protocol Last Admin: 10/30/17 18:38 Dose: Not Given Latanoprost (Xalatan Opht) 0 ml OU HS [facility] Last Admin: 10/29/17 22:06 Dose: 2.5 ml Levothyroxine Sodium (Synthroid) 150 mcg PO 0600 [facility] Last Admin: 10/30/17 06:02 Dose: 150 mcg Magnesium Hydroxide (Milk Of Magnesia) 30 ml PO HS PRN PRN Reason: Constipation Montelukast Sodium (Singulair) 10 mg PO HS [facility] Last Admin: 10/29/17 21:34 Dose: 10 mg Risperidone (Risperdal Tab) 1 mg PO BID [facility] PRN Reason: Protocol Last Admin: 10/30/17 17:55 Dose: 1 mg Family Hx: none given ROS: Patient confused today. Past Patient History - Infectious Disease Hx of Infectious Diseases: None - Tetanus Immunizations Tetanus Immunization: Unknown - Past Social History Smoking Status: Former Smoker - CARDIAC Hx Cardiac Disorders: Yes Hx Hypertension: Yes - PULMONARY Hx Respiratory Disorders: Yes Hx Chronic Obstructive Pulmonary Disease (COPD): Yes Hx Emphysema: Yes - NEUROLOGICAL Hx Neurological Disorder: Yes (cognitive deficits) Hx Seizures: Yes - HEENT Hx HEENT Problems: No - RENAL Hx Chronic Kidney Disease: No - ENDOCRINE/METABOLIC Hx Endocrine Disorders: Yes Hx Diabetes Mellitus Type 2: Yes Hx Hypothyroidism: Yes - HEMATOLOGICAL/ONCOLOGICAL Hx Blood Disorders: No - INTEGUMENTARY Hx Dermatological Problems: No - MUSCULOSKELETAL/RHEUMATOLOGICAL Hx Musculoskeletal Disorders: Yes (BLE weakness) Hx Falls: Yes Hx Osteoporosis: Yes Hx Unsteady Gait: Yes - GASTROINTESTINAL Hx Gastrointestinal Disorders: Yes (gi bleed) Other/Comment: gi bleed - GENITOURINARY/GYNECOLOGICAL Hx Genitourinary Disorders: Yes Hx Incontinence: Yes Hx Urinary Tract Infection: Yes - PSYCHIATRIC Hx Psychophysiologic Disorder: Yes Hx Schizophrenia: Yes Hx Substance Use: No - SURGICAL HISTORY Hx Surgeries: Yes - ANESTHESIA Hx Anesthesia: Yes Hx Anesthesia Reactions: No Hx Malignant Hyperthermia: No Meds Allergies/Adverse Reactions: Allergies Allergy/AdvReac Type Severity Reaction Status Date / Time aspirin AdvReac RASH Verified 10/28/17 20:32 haloperidol [From Haldol] AdvReac RASH Verified 10/28/17 20:32 haloperidol lactate AdvReac RASH Verified 10/28/17 20:32 [From Haldol] mesalamine [From Asacol] AdvReac RASH Verified 10/28/17 20:32 Penicillins AdvReac RASH Verified 10/28/17 20:32 seafood AdvReac RASH Uncoded 10/28/17 20:32 - Medications Medications: Current Medications Albuterol/Ipratropium (Duoneb 3 Mg/0.5 Mg (3 Ml) Ud) 3 ml IH [id number] PRN PRN Reason: SOB Alendronate Sodium (Fosamax) 70 mg PO Q7D@0600 [facility] Amlodipine Besylate (Norvasc) 10 mg PO DAILY [facility] Last Admin: 10/30/17 10:23 Dose: Not Given Budesonide (Pulmicort Respules) 0.5 mg IH [id number] [facility] Last Admin: 10/30/17 08:00 Dose: 0.5 mg Divalproex Sodium (Depakote Dr(*Bid*)) 500 mg PO TID [facility] PRN Reason: Protocol Last Admin: 10/30/17 17:55 Dose: 500 mg Famotidine (Pepcid) 40 mg PO HS [facility] Last Admin: 10/29/17 21:42 Dose: 40 mg Gemfibrozil (Lopid) 600 mg PO BID [facility] Last Admin: 10/30/17 17:55 Dose: 600 mg Insulin Detemir (Levemir) 20 unit SC [facility] Last Admin: 10/29/17 21:42 Dose: 20 unit Insulin Human Regular (Humulin R Low) 0 units SC [facility] PRN Reason: Protocol Last Admin: 10/30/17 18:38 Dose: Not Given Latanoprost (Xalatan Opht) 0 ml OU HS [facility] Last Admin: 10/29/17 22:06 Dose: 2.5 ml Levothyroxine Sodium (Synthroid) 150 mcg PO 0600 [facility] Last Admin: 10/30/17 06:02 Dose: 150 mcg Magnesium Hydroxide (Milk Of Magnesia) 30 ml PO PRN PRN Reason: Constipation Montelukast Sodium (Singulair) 10 mg PO [facility] Last Admin: 10/29/17 21:34 Dose: 10 mg Risperidone (Risperdal Tab) 1 mg PO BID [facility] PRN Reason: Protocol Last Admin: 10/30/17 17:55 Dose: 1 mg Physical Exam - Constitutional Appears: Non-toxic, No Acute Distress, Chronically Ill - Head Exam Head Exam: ATRAUMATIC, NORMOCEPHALIC - Eye Exam Eye Exam: EOMI, PERRL Pupil Exam: NORMAL ACCOMODATION, PERRL - ENT Exam ENT Exam: Mucous Membranes Moist, Normal External Ear Exam, TM's Normal Bilaterally - Neck Exam Neck exam: Positive for: Full Rom, Normal Inspection - Respiratory Exam Respiratory Exam: Clear to Auscultation Bilateral, NORMAL BREATHING PATTERN. absent: Rales, Rhonchi, Wheezes - Cardiovascular Exam Cardiovascular Exam: REGULAR RHYTHM, RRR, +S1, +S2 - GI/Abdominal Exam GI & Abdominal Exam: Normal Bowel Sounds, Soft. absent: Distended, Tenderness - Extremities Exam Additional comments: generalized weakness. bedbound. - Neurological Exam Neurological exam: Alert, CN II-XII Intact, Oriented x3 - Psychiatric Exam Psychiatric exam: Flat Affect, Normal Mood - Skin Skin Exam: Intact, Normal Color Results - Vital Signs Recent Vital Signs: Last Vital Signs Temp 98.2 F 10/30/17 16:00 Pulse 65 10/30/17 16:00 Resp 20 10/30/17 16:00 BP 118/52 L 10/30/17 16:00 Pulse Ox 95 10/30/17 16:00 - Labs Result Diagrams: 10/28/17 14:06 10/28/17 15:32 Labs: Laboratory Results - last 24 hr 10/29/17 10/30/17 10/30/17 21:09 07:20 07:45 POC Glucose (mg/dL) 152 H 41 L Hemoglobin A1c Iron TIBC % Saturation Triglycerides 202 H Cholesterol 150 LDL Cholesterol Direct 59 HDL Cholesterol 37 Vitamin B12 958 H Folate 17.9 Valproic Acid 10/30/17 10/30/17 10/30/17 07:45 07:45 07:45 POC Glucose (mg/dL) Hemoglobin A1c 7.0 H Iron 82 TIBC 232 L % Saturation 35 Triglycerides Cholesterol LDL Cholesterol Direct HDL Cholesterol Vitamin B12 Folate Valproic Acid 31 L 10/30/17 10/30/17 10/30/17 07:52 11:38 16:39 POC Glucose (mg/dL) 94 133 H 150 H Hemoglobin A1c Iron TIBC % Saturation Triglycerides Cholesterol LDL Cholesterol Direct HDL Cholesterol Vitamin B12 Folate Valproic Acid Assessment & Plan - Assessment and Plan (Free Text) Assessment: 61 yo female sent for AMS and thoughts of suicidal ideation. Urinalysis suggested UTI. No leukocytosis. No imaging studies to review at this time. Monitor laboratories and cultures for now. Supportive care. Monitor WBC trend. Cannot rule out UTI at this time. Not on IV antibiotics. Start Levaquin for now until cultures return. Monitor the patient closely. Thank you for allowing me to participate in the care of the patient, we will follow with you.
[2017-10-30] MEDS: Albuterol-Ipratrop 3 mg / 0.5 (3 ml) UD IH PRN (19:29)
[2017-10-30] MEDS: Insulin Detemir 100 units/ml Vial (Levemir) SC SCH (22:03)
--- NOTE | 2017-10-31 00:09 | PN ---
DATE: 10/30/2017 PULMONARY PROGRESS NOTE REFERRING PHYSICIAN: Dr. Gallegos. SUBJECTIVE: She is lying in the bed, head at 45 degrees. Awake, alert, follows simple commands. Wanting to go back to the house. CPAP was not placed in. No nausea. No vomiting. No diarrhea. No leg pain or leg swelling. OBJECTIVE: GENERAL: In no acute distress. VITAL SIGNS: Temperature is 98, heart rate is 65, respiratory rate is 20, blood pressure is 118/72, pulse ox 95% on room air. HEENT: Moist mucous membranes. No ulcer or thrush noted. NECK: Supple. No JVD. LUNGS: Has a few scattered rhonchi. HEART: S1 and S2. ABDOMEN: Soft, nontender. No organomegaly. EXTREMITIES: There is no edema. NEUROLOGICAL: Awake and alert. Follows simple command. MEDICATIONS: She is on Depakote 500 mg three times a day, DuoNeb q. 6 hours p.r.n., Fosamax 75 mg daily, insulin coverage, Levemir 20 units subcu at bedtime, Lopid 600 mg twice a day, milk of magnesia 30 mL at bedtime p.r.n., Norvasc 10 mg daily, Pepcid 40 mg daily, Pulmicort inhaled twice a day, Risperdal 1 mg twice a day, Singulair 10 mg daily, Synthroid 150 mcg daily, Xalatan eye drops. LABORATORY DATA: Shows hemoglobin 13.9, hematocrit 43.2, WBC 6.7, platelet is 88. Blood sugar 150, iron is 82, TIBC 232, cholesterol 202, vitamin B12 is 958, folate is 17.9. IMPRESSION AND PLAN: Chronic obstructive lung disease, hypoventilation syndrome, schizophrenia, obesity, seizure disorder, hypertension, change in mental status. From a Pulmonary point of view, she is doing okay. Still in one-to-one supervision. I spoke to the nursing staff, requested continuous positive airway pressure use, keep head at 45 degrees. Gastric prophylaxis, deep vein thrombosis prophylaxis. Fall precautions. Seizure precautions. Thank you and we will follow with you. Justin Shelley MD [facility] # [phone]
[2017-10-31] MEDS: Latanoprost 2.5 ml Opht Soln OU SCH ×2 (03:11→23:39)
[2017-10-31] MEDS: Levothyroxine 150 MCG TAB PO SCH (06:11)
[2017-10-31 07:35] LABS: HEMOGLOBIN 11.2 g/dL (12.0-16.0); MEAN CELL VOLUME 98.3 fl (80.0-105.0); MEAN CORPUSCULAR HEMOGLOBIN 31.6 pg (25.0-35.0); MEAN CORPUSCULAR HGB CONC 32.2 g/dl (31.0-37.0); MEAN PLATELET VOLUME 10.7 fl (7.0-11.0); RBC 3.54 10^6/uL (3.5-6.1); RED CELL DISTRIBUTION WIDTH 13.4 % (11.5-14.5); WHITE BLOOD COUNT 5.7 10^3/ul (4.5-11.0)
[2017-10-31] MEDS: Budesonide 0.5 mg/2 ml Inhal Susp UD IH SCH ×2 (07:55→20:00)
[2017-10-31] MEDS: Albuterol-Ipratrop 3 mg / 0.5 (3 ml) UD IH PRN (07:55)
[2017-10-31] MEDS: Insulin Reg-LOW-Coverage SC SCH ×4 (07:56→22:11)
[2017-10-31 08:08] LABS: CALCIUM 10.6 mg/dL (8.4-10.5)
--- NOTE | 2017-10-31 08:44 | CON ---
DATE: 10/30/2017 She is being seen today for a consultation. My co-signer is Ludy Rodriguez MD PRESENTATION: The patient was seen at bedside, one-to-one in attendance. Patient was admitted on 10/28/2017 from [facility] in [place]. Evidently, patient had wrapped some tubing around her neck in an attempt to kill herself and she was refusing medications. She has a history of schizophrenia and has a power of collections attorney, who is Barrett Smith - his phone number is [phone]. Consultation was ordered today due to patient's dementia. Patient is somewhat bizarre in conversation. When I questioned her as to where she is, she howled "pour baby oil at me." Then when I asked her other questions, she states, "in my hair, baby oil, baby oil, baby oil." However, she is cooperative with her one-to-one, and according to the nurse's notes, has been cooperative physically; however, at times she screams out, but then once she gets the attention, she does stop. There is no real history. I have left a message for her POA to see if I can, (a) get some collateral, and (b) find out if he will be willing to have the patient sign into the Inpatient Unit should she be appropriate and medically cleared. We will continue to try to reach him. The patient's current vital signs include a temperature of 98.2, pulse rate of 65, blood pressure of 118/52, and O2 saturation of 95%. OF NOTE, ON HER ALLERGY LIST, SHE IS ALLERGIC TO ASPIRIN, HALDOL, AND MESALAMINE. Patient is not able to give any sensible answers in terms of anything at all. Some of this appears to be somewhat deliberate, and patient seems to enjoy contact. MENTAL STATUS EXAM: Mental status exam was difficult to ascertain, as patient did not answer any of my questions in an appropriate manner. However, it is reported from the [facility]pc that she was suicidal, that she tired to wrap tubing around her neck, so therefore she remains on one-to-one. DIAGNOSTIC IMPRESSION: Schizophrenia and dementia with behavioral disturbances. PLAN: We cannot get a clear picture of this patient without more collateral information. We will continue to try to contact the POA. We will additionally keep the one-to-one in place. Patient's medications in the fpc were Depakote DR three times daily and Risperdal 1 mg one p.o. b.i.d. Evidently, she was refusing medications in the fpc and that was part of the concern; however, she is taking all of her medications that are prescribed at this point in time, so I will watch to see if she stabilizes, whether or not something else needed to be added, and monitor her behavior. We will continue to follow daily. This case has been discussed with Ludy Rodriguez MD Thank you for the consult. Tara Martinez APN Ludy Rodriguez MD
[2017-10-31] MEDS: Divalproex 500 mg DR(BID formulation) PO SCH ×3 (09:54→17:46)
--- NOTE | 2017-10-31 10:35 | CP.PCM.PN ---
<CatAmie - Last Filed: 10/31/17 10:30> Subjective - Date & Time of Evaluation Date of Evaluation: 10/31/17 Time of Evaluation: 09:00 - Subjective Subjective: Neurology PGY-[address] Valiente Pt is under 1:1 supervision. Her thought is tangential. States she has back pain , able to move all extremities. No other acute complaints Objective - Vital Signs/Intake and Output Vital Signs (last 24 hours): Temp Pulse Resp BP Pulse Ox 98.4 F 69 18 113/55 L 96 10/31/17 07:30 10/31/17 07:30 10/31/17 07:30 10/31/17 09:54 10/31/17 07:30 Intake and Output: 10/31/17 10/31/17 06:59 18:59 Intake Total 360 Balance 360 - Medications Medications: Current Medications Albuterol/Ipratropium (Duoneb 3 Mg/0.5 Mg (3 Ml) Ud) 3 ml IH [id number] PRN PRN Reason: SOB Last Admin: 10/31/17 07:55 Dose: 3 ml Alendronate Sodium (Fosamax) 70 mg PO Q7D@0600 [facility] Amlodipine Besylate (Norvasc) 10 mg PO DAILY [facility] Last Admin: 10/31/17 09:54 Dose: 10 mg Budesonide (Pulmicort Respules) 0.5 mg IH [id number] FLAVIO Last Admin: 10/31/17 07:55 Dose: 0.5 mg Divalproex Sodium (Depakote Dr(*Bid*)) 500 mg PO TID FLAVIO PRN Reason: Protocol Last Admin: 10/31/17 09:54 Dose: 500 mg Famotidine (Pepcid) 40 mg PO HS [facility] Last Admin: 10/30/17 22:03 Dose: 40 mg Gemfibrozil (Lopid) 600 mg PO BID [facility] Last Admin: 10/31/17 09:55 Dose: 600 mg Insulin Detemir (Levemir) 20 unit SC HS [facility] Last Admin: 10/30/17 22:03 Dose: 20 unit Insulin Human Regular (Humulin R Low) 0 units SC ACHS FLAVIO PRN Reason: Protocol Last Admin: 10/31/17 07:56 Dose: Not Given Latanoprost (Xalatan Opht) 0 ml OU HS [facility] Last Admin: 10/31/17 03:11 Dose: Not Given Levothyroxine Sodium (Synthroid) 150 mcg PO 0600 [facility] Last Admin: 10/31/17 06:11 Dose: 150 mcg Magnesium Hydroxide (Milk Of Magnesia) 30 ml PO HS PRN PRN Reason: Constipation Montelukast Sodium (Singulair) 10 mg PO HS [facility] Last Admin: 10/30/17 22:03 Dose: 10 mg Risperidone (Risperdal Tab) 1 mg PO BID FLAVIO PRN Reason: Protocol Last Admin: 10/31/17 09:55 Dose: 1 mg - Labs Labs: 10/31/17 07:00 10/31/17 07:00 - Constitutional Appears: No Acute Distress - Head Exam Head Exam: ATRAUMATIC, NORMAL INSPECTION, NORMOCEPHALIC - Eye Exam Eye Exam: EOMI, Normal appearance, PERRL. absent: Scleral icterus Pupil Exam: NORMAL ACCOMODATION - ENT Exam ENT Exam: Mucous Membranes Moist - Neck Exam Additional comments: supple - Cardiovascular Exam Cardiovascular Exam: REGULAR RHYTHM, +S1, +S2. absent: Murmur - GI/Abdominal Exam GI & Abdominal Exam: Soft, Normal Bowel Sounds. absent: Tenderness - Neurological Exam Additional comments: Awake, oriented to self, not to place and time CN 2-12 intact Motor: Spontaneously moving all extremities Sensory: intact DTR: 1+, plantar downgoing - Psychiatric Exam Psychiatric exam: Flat Affect - Skin Skin Exam: Dry, Warm Assessment and Plan - Assessment and Plan (Free Text) Plan: Ms Hung, 61F with PMH seizure on depakite, allergy to Haldol and ASpirin, HTN , COPD, Diabetes, hypothroidism, and schizophrenia came from correction with altered mental status with suicidal ideation. Her BP was in 100s/40s. SHe is on 1:1. Pt is on levoquine pending urine culture. Allergy to Haldol and ASpirin Altered mental status, encephalopathy, posibly due to (1) transient cerebral perfusion from low blood pressure, (2) toxic metabolic secondary to ANNA on CKD, renal insufficiency, or TSH 0.11, (3) superimposed on dementia - CT head: non-specific white matter changes, minimal atropy, decreased attentuation periventricular white matter - continue Depakote 500 TID for seizure maintenance - seizure precation - continue medical treatment per primary. - Consider infectious disease consult for possible urinary tract infection - EEG: Normal drowsy - A1c 7. Maintain blood glucose 140-180 - follow up with psychiatry for suicidal ideation and psychiatric illness. 1:1 for safety - maintain SBP 120-130. Avoid sudden drop of blood pressure - Called Dr. Bonds to recommend nephrology consult and synthroid dose adjustment s/r/d/w Dr. Valiente <Fernando Valiente - Last Filed: 10/31/17 14:48> Objective - Vital Signs/Intake and Output Vital Signs (last 24 hours): Temp Pulse Resp BP Pulse Ox 98.4 F 69 18 113/55 L 96 10/31/17 07:30 10/31/17 07:30 10/31/17 07:30 10/31/17 09:54 10/31/17 07:30 Intake and Output: 10/31/17 10/31/17 06:59 18:59 Intake Total 360 Balance 360 - Medications Medications: Current Medications Albuterol/Ipratropium (Duoneb 3 Mg/0.5 Mg (3 Ml) Ud) 3 ml IH [id number] PRN PRN Reason: SOB Last Admin: 10/31/17 07:55 Dose: 3 ml Alendronate Sodium (Fosamax) 70 mg PO Q7D@0600 [facility] Amlodipine Besylate (Norvasc) 10 mg PO DAILY [facility] Last Admin: 10/31/17 09:54 Dose: 10 mg Budesonide (Pulmicort Respules) 0.5 mg IH [id number] FLAVIO Last Admin: 10/31/17 07:55 Dose: 0.5 mg Divalproex Sodium (Depakote Dr(*Bid*)) 500 mg PO TID FLAVIO PRN Reason: Protocol Last Admin: 10/31/17 09:54 Dose: 500 mg Famotidine (Pepcid) 40 mg PO HS [facility] Last Admin: 10/30/17 22:03 Dose: 40 mg Gemfibrozil (Lopid) 600 mg PO BID [facility] Last Admin: 10/31/17 09:55 Dose: 600 mg Insulin Detemir (Levemir) 20 unit SC HS [facility] Last Admin: 10/30/17 22:03 Dose: 20 unit Insulin Human Regular (Humulin R Low) 0 units SC [facility] PEND[facility] S[facility] PRN Reason: Protocol Last Admin: 10/31/17 12:30 Dose: 1 units Latanoprost (Xalatan Opht) 0 ml OU HS FLAVIO Last Admin: 10/31/17 03:11 Dose: Not Given Levothyroxine Sodium (Synthroid) 125 mcg PO 0600 F[facility] Lorazepam (Ativan) 0.5 mg IM Q6H PRN; Protocol PRN Reason: Agitation Lorazepam (Ativan) 0.5 mg PO Q6H PRN; Protocol PRN Reason: Agitation Last Admin: 10/31/17 12:30 Dose: 0.5 mg Magnesium Hydroxide (Milk Of Magnesia) 30 ml PO HS PRN PRN Reason: Constipation Montelukast Sodium (Singulair) 10 mg PO HS FLAVIO Last Admin: 10/30/17 22:03 Dose: 10 mg Risperidone (Risperdal Tab) 1 mg PO TID FLAVIO PRN Reason: Protocol - Labs Labs: 10/31/17 07:00 10/31/17 07:00 Attending/Attestation - Attestation I have personally seen and examined this patient.: Yes I have fully participated in the care of the patient.: Yes I have reviewed all pertinent clinical information, including history, physical exam and plan: Yes
--- NOTE | 2017-10-31 18:05 | CP.PCM.PN ---
Subjective - Date & Time of Evaluation Date of Evaluation: 10/31/17 Time of Evaluation: 17:00 - Subjective Subjective: Infectious Disease Follow Up: October 31, 2017 61 yo female originally admitted from [facility] due to AMS and possible suicidal ideation. The patient is confused and answers questions with short answers that are not always appropriately. Extensive past medical history that includes being bedbound, HTN, COPD, GI bleed, chronic UTI, Seizure disorder, DM type II, hypothyroidism, and schizophrenia. Awaiting cultures... resent for urine culture. Objective - Vital Signs/Intake and Output Vital Signs (last 24 hours): Temp Pulse Resp BP Pulse Ox 97.4 F L 85 19 126/62 97 10/31/17 16:00 10/31/17 16:00 10/31/17 16:00 10/31/17 16:00 10/31/17 16:00 Intake and Output: 10/31/17 10/31/17 06:59 18:59 Intake Total 360 Balance 360 - Medications Medications: Current Medications Albuterol/Ipratropium (Duoneb 3 Mg/0.5 Mg (3 Ml) Ud) 3 ml IH [id number] PRN PRN Reason: SOB Last Admin: 10/31/17 07:55 Dose: 3 ml Alendronate Sodium (Fosamax) 70 mg PO Q7D@0600 [facility] Amlodipine Besylate (Norvasc) 10 mg PO DAILY [facility] Last Admin: 10/31/17 09:54 Dose: 10 mg Budesonide (Pulmicort Respules) 0.5 mg IH [id number] [facility] Last Admin: 10/31/17 07:55 Dose: 0.5 mg Divalproex Sodium (Depakote Dr(*Bid*)) 500 mg PO TID FLAVIO PRN Reason: Protocol Last Admin: 10/31/17 17:46 Dose: 500 mg Famotidine (Pepcid) 40 mg PO HS [facility] Last Admin: 10/30/17 22:03 Dose: 40 mg Gemfibrozil (Lopid) 600 mg PO BID [facility] Last Admin: 10/31/17 17:47 Dose: 600 mg Insulin Detemir (Levemir) 20 unit SC HS [facility] Last Admin: 10/30/17 22:03 Dose: 20 unit Insulin Human Regular (Humulin R Low) 0 units SC ACHS [facility] PRN Reason: Protocol Last Admin: 10/31/17 17:47 Dose: Not Given Latanoprost (Xalatan Opht) 0 ml OU HS FLAVIO Last Admin: 10/31/17 03:11 Dose: Not Given Levothyroxine Sodium (Synthroid) 125 mcg PO 0600 [facility] Lorazepam (Ativan) 0.5 mg IM Q6H PRN; Protocol PRN Reason: Agitation Lorazepam (Ativan) 0.5 mg PO Q6H PRN; Protocol PRN Reason: Agitation Last Admin: 10/31/17 12:30 Dose: 0.5 mg Magnesium Hydroxide (Milk Of Magnesia) 30 ml PO HS PRN PRN Reason: Constipation Montelukast Sodium (Singulair) 10 mg PO HS [facility] Last Admin: 10/30/17 22:03 Dose: 10 mg Risperidone (Risperdal Tab) 1 mg PO TID FLAVIO PRN Reason: Protocol Last Admin: 10/31/17 17:46 Dose: 1 mg - Labs Labs: 10/31/17 07:00 10/31/17 07:00 - Constitutional Appears: Non-toxic, No Acute Distress, Chronically Ill - Head Exam Head Exam: ATRAUMATIC, NORMOCEPHALIC - Eye Exam Eye Exam: EOMI, PERRL Pupil Exam: NORMAL ACCOMODATION, PERRL - ENT Exam ENT Exam: Mucous Membranes Moist, Normal External Ear Exam, TM's Normal Bilaterally - Neck Exam Neck Exam: Full ROM, Normal Inspection - Respiratory Exam Respiratory Exam: Clear to Ausculation Bilateral, NORMAL BREATHING PATTERN. absent: Rales, Rhonchi, Wheezes - Cardiovascular Exam Cardiovascular Exam: REGULAR RHYTHM, RRR, +S1, +S2 - GI/Abdominal Exam GI & Abdominal Exam: Soft, Normal Bowel Sounds. absent: Distended, Tenderness - Extremities Exam Additional comments: generalized weakness. bedbound. - Neurological Exam Neurological Exam: Alert, Awake, CN II-XII Intact, Oriented x3 - Psychiatric Exam Psychiatric exam: Agitated, Anxious - Skin Skin Exam: Intact, Normal Color Assessment and Plan - Assessment and Plan (Free Text) Assessment: 61 yo female sent for AMS and thoughts of suicidal ideation. Urinalysis suggested UTI. No leukocytosis. No imaging studies to review at this time. Monitor laboratories and cultures for now. Supportive care. Afebrile so far. Monitor WBC trend. Cannot rule out UTI at this time. Not on IV antibiotics. Start Levaquin for now until cultures return. Monitor the patient closely. Resent for urine cultures. Thank you for allowing me to participate in the care of the patient, we will follow with you.
--- NOTE | 2017-10-31 21:40 | PN ---
DATE: 10/31/2017 PULMONARY PROGRESS NOTE REFERRING PHYSICIAN: Steff Gallegos MD. SUBJECTIVE: The patient is lying in the bed, under one-to-one supervision, refused to use CPAP, wants to go home. No nausea. No vomiting. No diarrhea. No leg pain or leg swelling. PHYSICAL EXAMINATION: GENERAL: In no acute distress. VITAL SIGNS: Temperature is 98, heart rate is 85, respiratory rate is 18, blood pressure is 126/62, pulse ox 97% on room air. HEENT: Moist mucous membranes. Edentulous, small oral cavity. LUNGS: Have a fair airflow with rhonchi. HEART: S1 and S2. ABDOMEN: Soft, nontender. No organomegaly. EXTREMITIES: There is no edema. NEUROLOGIC: Awake and alert. Does follow simple command. MEDICATIONS: She is on Ativan 0.5 mg q. 6 hours p.r.n., also 0.5 mg q.6h. p.r.n.; Depakote 500 mg three times a day; DuoNeb q. 6 hours p.r.n.; Fosamax 70 mg q. 7 days; insulin coverage; Levemir 20 units subcu at bedtime; Lopid 600 mg twice a day; milk of magnesia 30 mL at bedtime p.r.n.; Norvasc 10 mg daily; Pepcid 40 mg at bedtime; Pulmicort inhaler twice a day; Risperdal 1 mg three times a day; Singulair 10 mg daily; Synthroid 125 mcg daily. LABORATORY DATA: Shows hemoglobin 11.2, hematocrit 34.8, WBC 5.7, platelet is 102. Sodium 144, potassium 3.8, chloride 107, bicarbonate 23, BUN 51, creatinine 2.8, glucose 131, calcium is 10.6. TSH is 0.11. IMPRESSION AND PLAN: Chronic obstructive lung disease, hypoventilation syndrome, schizophrenia, obesity, seizure disorder, hypertension. I believe, clinically, she is back to her baseline. May not be a bad idea to get Psychiatry opinion. If stable, maybe, start discharge planning. Encourage CPAP use, keep at 45 degrees. Avoid nocturnal sedation. High risk for sleep apnea. Thank you and we will follow with you. Justin Shelley MD [facility] # [id number]
[2017-10-31] MEDS: Insulin Detemir 100 units/ml Vial (Levemir) SC SCH (23:24)
[2017-10-31] MEDS: Sodium Chloride 0.9% 1,000 ML IV SCH (23:27)
--- NOTE | 2017-11-01 02:55 | PN ---
DATE: SUBJECTIVE: The patient is a 61-year-old female. The patient is seen and examined at the bedside, looking comfortable, little bit anxious. Awake and alert, but confused. Not complaining about headache, back pain. Able to move all four extremities. No fever. No chills. No nausea, vomiting, diarrhea. No hematuria, hematochezia. No swelling of the legs. No chest pain or palpitation. Patient is under one-to-one supervision. PHYSICAL EXAMINATION: VITAL SIGNS: Temperature 98.4, pulse 69, respiratory rate 18, blood pressure 113/55, pulse oximetry 96. HEENT: Head: Normocephalic, atraumatic. Eyes: PERRLA. Extraocular movements are intact. Conjunctivae clear. Nose patent. Mucous membranes are moist. NECK: Supple. No carotid bruits, JVD, or thyromegaly. CHEST: Bilaterally symmetrical. HEART: S1, S2 positive. LUNGS: Clear to auscultation. ABDOMEN: Soft. Bowel sounds present. No organomegaly. EXTREMITIES: No edema. No cyanosis. NEUROLOGIC: The patient is awake and alert, but confused. Moving all four extremities. MEDICATIONS: DuoNeb, Fosamax, Norvasc, Pulmicort, Depakote, Pepcid, Lopid, Levemir, insulin, Synthroid, milk of magnesia, Singulair, risperidone. LABORATORY DATA: White blood cell is 5.1, hemoglobin 11.2, hematocrit 34.8, and platelets 102. Sodium 144, potassium 3.3, BUN 51, creatinine 2.8, and glucose 99. ASSESSMENT AND PLAN: Ms. Day Hung is 61-year-old lady with anemia, leukopenia, renal insufficiency, history of seizures on Depakote, hypertension,chronic obstructive pulmonary disease, diabetes mellitus, hypothyroidism, schizophrenia, history of altered mental status with suicidal ideation and attempt. She is on one-to-one, still she is confused, getting Levaquin. Infectious Diseases is on the case. Rule out encephalopathy as per neurologist. Possibly due to transient cerebral hypoperfusion and low blood pressure, may be toxic metabolic secondary to acute kidney injury or chronic kidney disease. Patient has hypothyroidism; I decreased the dose of levothyroxine. Continue Depakote, seizure precautions. Discussion done with Dr. Ludy Rodriguez. Waiting for answer from power of fish and wildlife technician. Nephrology consult called. Dr. Ludy Rodriguez is ready to take the patient on the Psych due to schizophrenia and suicidal ideation. Monitor white blood cell trend, on intravenous antibiotics, start Levaquin until cultures will come back. Gastrointestinal prophylaxis. Repeat labs. Steff Gallegos MD
--- NOTE | 2017-11-01 05:21 | CON ---
DATE: HISTORY OF PRESENT ILLNESS: A 61-year-old female with past medical history of hypertension, diabetes, COPD, MANISH, hypothyroidism, schizophrenia, resident of assisted, brought by the ED for altered mental status. The patient found to have acute renal failure for which nephrology is being consulted. History from the patient is not obtainable as the patient has cognitive defects and does not want to be examined. The patient reportedly was having suicidal activity with cord wrapped around her neck at one point. The patient has been incontinent and therefore nursing staff has been unable to get urine sample at this point. The patient apparently has been tolerating p.o. diet. No reported vomiting or diarrhea. PAST MEDICAL HISTORY: As above. The patient also with bilateral leg weakness, history of fall, osteoporosis, unsteady gait, history of GI bleeds. FAMILY HISTORY: Unable to obtain. SOCIAL HISTORY: Previous smoker. REVIEW OF SYSTEMS: Not obtainable. PHYSICAL EXAMINATION: VITAL SIGNS: This afternoon, blood pressure 126/62, heart rate 85, respirations 19, temperature 97.4, O2 sat 97% on room air. GENERAL: The patient agitated while being examined, otherwise in no apparent distress, on initial encounter, lying comfortably in bed. HEENT: Moist mucous membranes. Nonicteric. No JVD. No cervical lymphadenopathy. RESPIRATORY: Lungs clear to auscultation bilaterally, although shallow breaths. CARDIOVASCULAR: Heart sounds S1, S2 normal. No murmurs, no gallops, no rubs. No carotid bruits. GASTROINTESTINAL: Abdomen soft, nontender, nondistended. No abdominal bruits on limited exam (due to patient's agitation). GENITOURINARY: No bladder distention. EXTREMITIES: No lower leg edema. SKIN: No cyanosis. DISTAL PULSES: Prominent right femoral bruits, unable to palpate left femoral artery. Dorsalis pedis pulses faint on right, 1+ on left. PSYCHIATRIC: The patient is agitated. LABORATORY DATA: CBC: WBC 5.7, hemoglobin 11.2, hematocrit 34.8, platelets 102. Chemistry panel: Sodium 144; potassium 3.8; chloride 107; bicarb 23; BUN 51; creatinine 2.8, increased from 1.6 in [place]; glucose 99; calcium 10.6, increased from 8.0 in [place]. TSH 0.11. UA on presentation, specific gravity 1.025, protein 30 mg/dL, glucose 250 mg/dL, ketones 50 mg/dL, small blood, large leukocyte esterase, 25-30 WBCs per high-powered field, 2-5 RBCs per high-powered field, moderate bacteria. Chest x-ray, directly visualized showing increased interstitial markings, but no pulmonary vascular congestion. ASSESSMENT AND PLAN: 1. Acute kidney injury on chronic kidney disease. Complete history unobtainable as the patient has altered mental status; however, has evidence of UTI and with ketones on presentation along with increased anion gap metabolic acidosis (likely due to ketosis) would favor prerenal etiology of acute kidney injury with limited studies available. Recommend to start gentle IV fluids with normal saline at 75 mL/hour. If unable to obtain IV access, should start the patient on salt tabs 2 g q.i.d. 2. Metabolic acidosis. The patient with increased gap acidosis that has improved likely due to increased p.o. intake; still with mildly elevated anion gap that may reflect mildly ongoing ketosis, needs intravascular volume replenishment, start IV fluids as above. 3. Hypercalcemia, again is likely due to volume depletion. We will check PTH and vitamin D 25-hydroxy levels once the patient has received adequate volume replenishment. 4. Chronic kidney disease. The patient with baseline serum creatinine of 1.6 corresponding to a GFR of 33 mL/minute, only has trace albuminuria on previous UA studies, which is generally out of proportion for this advanced diabetic nephropathy. Chronic kidney disease is likely due to renal vascular disease with CT from 1 year ago showing bilateral calcifications that are possibly involving renal arteries. We will repeat urine studies,. urine protein, microalbumin and creatinine. 5. Anemia. Hemoglobin 11.2 this morning, however, may drop further as the patient is given volume replenishment. Iron studies done today indicate the patient is iron replete and anemia is likely due to advanced chronic kidney disease. If hemoglobin drops below 10, we will consider giving Aranesp. 6. Urinary tract infection. No urine culture available but UA is suggestive of urinary tract infection. ID recommending Levaquin should be dosed for creatinine clearance of 20-40 mL/minute. 7. Hypertension. Diastolic pressures have been low on the 40s to 50s, currently on amlodipine 10 mg daily. We will hold antihypertensive agent for now. Thank you for this consult. We will be following closely. Patrick Hernández MD [facility] # [id number]
[2017-11-01] MEDS: Levothyroxine 125 MCG TAB PO SCH (06:25)
[2017-11-01] MEDS: Budesonide 0.5 mg/2 ml Inhal Susp UD IH SCH ×2 (07:17→20:01)
[2017-11-01 08:01] LABS: URINE BILIRUBIN NEGATIVE (NEGATIVE); URINE BLOOD SMALL (NEGATIVE); URINE GLUCOSE (UA) 100 mg/dL (NEGATIVE); URINE LEUKOCYTE ESTERASE LARGE Leu/uL (NEGATIVE); URINE NITRATE NEGATIVE (NEGATIVE); URINE PROTEIN TRACE mg/dL (<30 mg/dL); URINE UROBILINOGEN 0.2 E.U./dL (<1 E.U./dL)
[2017-11-01] MEDS: Insulin Reg-LOW-Coverage SC SCH ×4 (08:03→23:03)
[2017-11-01 08:20] LABS: CREATININE,RANDOM URINE 26 mg/dL; URINE APPEARANCE TURBID (CLEAR); URINE COLOR LIGHT YELLOW (YELLOW)
[2017-11-01 08:45] LABS: BASO # 0.01 K/mm3 (0.0-2.0); BASO % 0.2 % (0.0-3.0); EOS # 0.1 (0.0-0.7); EOS % 2.3 % (1.5-5.0); GRAN # 1.81 (1.4-6.5); GRAN % 31.6 % (50.0-68.0); HEMOGLOBIN 12.6 g/dL (12.0-16.0); LYMPH # 3.2 (1.2-3.4); LYMPH % 56.1 % (22.0-35.0); MEAN CORPUSCULAR HEMOGLOBIN 32.3 pg (25.0-35.0); MEAN CORPUSCULAR HGB CONC 32.3 g/dl (31.0-37.0); MONO # 0.6 (0.1-0.6); MONO % 9.8 % (1.0-6.0); RBC 3.9 10^6/uL (3.5-6.1); RED CELL DISTRIBUTION WIDTH 13.6 % (11.5-14.5); WHITE BLOOD COUNT 5.7 10^3/ul (4.5-11.0)
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
[2017-11-01 09:13] LABS: URINE RBC 0 - 2 /hpf (0-2); URINE WBC TNTC /hpf (0-6)
[2017-11-01 09:14] LABS: URINE BACTERIA MANY (NEG)
[2017-11-01 09:26] LABS: ALB/GLOB RATIO 0.9 (1.1-1.8); ALBUMIN 3.5 g/dL (3.0-4.8); MAGNESIUM 2.3 mg/dL (1.7-2.2)
[2017-11-01] MEDS: Divalproex 500 mg DR(BID formulation) PO SCH ×3 (11:46→18:41)
--- NOTE | 2017-11-01 13:21 | CP.PCM.PN ---
Subjective - Date & Time of Evaluation Date of Evaluation: 11/01/17 Time of Evaluation: 10:30 - Subjective Subjective: Chief complaint: Altered mental status, suicidal ideation 61 yr female resident of [facility] w/ history of cognitive deficits, HTN, COPD, seizure disorder, DM II, osteoporosis, non- ambulatory, GI bleed, chronic UTI, hypothyroidism, and schizophrenia. Pt was exhibiting altered mental status and displaying signs of suicidal ideation. Today, she is confused and answers questions inappropriately. She is on 1:1. POA is Barrett Iraheta# [phone] was contacted. Pt is a poor historian. No distress noted. Objective - Vital Signs/Intake and Output Vital Signs (last 24 hours): Temp Pulse Resp BP Pulse Ox 96.7 F L 49 L 19 101/51 L 96 11/01/17 08:27 11/01/17 08:27 11/01/17 08:27 11/01/17 08:27 11/01/17 08:27 Intake and Output: 11/01/17 11/01/17 06:59 18:59 Intake Total 540 Balance 540 - Medications Medications: Current Medications Albuterol/Ipratropium (Duoneb 3 Mg/0.5 Mg (3 Ml) Ud) 3 ml IH [id number] PRN PRN Reason: SOB Last Admin: 10/31/17 07:55 Dose: 3 ml Alendronate Sodium (Fosamax) 70 mg PO Q7D@0600 [facility] Amlodipine Besylate (Norvasc) 10 mg PO DAILY [facility] Last Admin: 10/31/17 09:54 Dose: 10 mg Budesonide (Pulmicort Respules) 0.5 mg IH [id number] [facility] Last Admin: 11/01/17 07:17 Dose: 0.5 mg Divalproex Sodium (Depakote Dr(*Bid*)) 500 mg PO TID [facility] PRN Reason: Protocol Last Admin: 11/01/17 11:46 Dose: 500 mg Famotidine (Pepcid) 40 mg PO HS [facility] Last Admin: 10/31/17 23:26 Dose: 40 mg Gemfibrozil (Lopid) 600 mg PO BID [facility] Last Admin: 11/01/17 11:47 Dose: 600 mg Sodium Chloride (Sodium Chloride 0.9%) 1,000 mls @ 75 mls/hr IV .[id number] [facility] Last Admin: 10/31/17 23:27 Dose: 75 mls/hr Insulin Detemir (Levemir) 20 unit SC [facility] Last Admin: 10/31/17 23:24 Dose: 20 unit Insulin Human Regular (Humulin R Low) 0 units SC ACHS [facility] PRN Reason: Protocol Last Admin: 11/01/17 12:06 Dose: Not Given Latanoprost (Xalatan Opht) 0 ml OU [facility] Last Admin: 10/31/17 23:39 Dose: 2.5 ml Levothyroxine Sodium (Synthroid) 125 mcg PO 0600 [facility] Last Admin: 11/01/17 06:25 Dose: 125 mcg Lorazepam (Ativan) 0.5 mg IM Q6H PRN; Protocol PRN Reason: Agitation Last Admin: 11/01/17 11:47 Dose: 0.5 mg Lorazepam (Ativan) 0.5 mg PO Q6H PRN; Protocol PRN Reason: Agitation Last Admin: 10/31/17 12:30 Dose: 0.5 mg Magnesium Hydroxide (Milk Of Magnesia) 30 ml PO PRN PRN Reason: Constipation Montelukast Sodium (Singulair) 10 mg PO [facility] Last Admin: 10/31/17 23:26 Dose: 10 mg Risperidone (Risperdal Tab) 1 mg PO TID [facility] PRN Reason: Protocol Last Admin: 11/01/17 11:46 Dose: 1 mg - Labs Labs: 11/01/17 08:20 11/01/17 08:20 - Constitutional Appears: Chronically Ill - Head Exam Head Exam: ATRAUMATIC, NORMAL INSPECTION, NORMOCEPHALIC - Eye Exam Eye Exam: EOMI, Normal appearance, PERRL Pupil Exam: NORMAL ACCOMODATION, PERRL - ENT Exam ENT Exam: Mucous Membranes Moist, Normal Exam - Neck Exam Neck Exam: Full ROM, Normal Inspection. absent: Lymphadenopathy - Respiratory Exam Respiratory Exam: Clear to Ausculation Bilateral, NORMAL BREATHING PATTERN - Cardiovascular Exam Cardiovascular Exam: REGULAR RHYTHM, +S1, +S2. absent: Murmur - GI/Abdominal Exam GI & Abdominal Exam: Soft, Normal Bowel Sounds. absent: Tenderness - Extremities Exam Extremities Exam: Normal Inspection - Neurological Exam Neurological Exam: Alert, Awake Additional comments: non-ambulatory - Psychiatric Exam Psychiatric exam: Normal Affect, Normal Mood Additional comments: flight of ideas, speech incoherent. - Skin Skin Exam: Dry, Normal Color Assessment and Plan (1) Proteinuria Status: Acute (2) Ketonuria Status: Acute (3) Hematuria Status: Acute (4) Thrombopenia Status: Acute (5) Altered mental status Status: Acute (6) UTI (urinary tract infection) Status: Acute - Assessment and Plan (Free Text) Plan: IVF per nephro. Plans to tranfer pt to inpatient psych unit per POA consent. 1: 1 sitter. Seizure, aspiration precautions. OT on board. Bipap HS. GI/VTE prophylaxis. PT onboard. Consult: Neuro - Dr. Rocco Espinoza - Dr. Quintero Psych - Dr. Rodriguez ID - Dr. Sullivan Nephro - Dr. Hernández Reviewed: CT head = nonspecific white matter changes CXR = WNL ECG = ABNORMAL, SR, PVC, L axis deviation, pulmonary disease pattern EEG = WNL, no epileptiform activity
--- NOTE | 2017-11-01 14:53 | CP.PCM.PN ---
Subjective - Date & Time of Evaluation Date of Evaluation: 11/01/17 Time of Evaluation: 13:15 - Subjective Subjective: Infectious Disease Follow Up: November 01, 2017 61 yo female [facility] due to AMS and possible suicidal ideation. The patient is confused and answers questions with short answers that are not always appropriately. Extensive past medical history that includes being bedbound, HTN, COPD, GI bleed, chronic UTI, Seizure disorder, DM type II, hypothyroidism, and schizophrenia. Awaiting cultures... resent for urine culture... no results available. Noted urinalysis findings. Objective - Vital Signs/Intake and Output Vital Signs (last 24 hours): Temp Pulse Resp BP Pulse Ox 96.7 F L 49 L 19 101/51 L 96 11/01/17 08:27 11/01/17 08:27 11/01/17 08:27 11/01/17 08:27 11/01/17 08:27 Intake and Output: 11/01/17 11/01/17 06:59 18:59 Intake Total 540 Balance 540 - Medications Medications: Current Medications Albuterol/Ipratropium (Duoneb 3 Mg/0.5 Mg (3 Ml) Ud) 3 ml IH [id number] PRN PRN Reason: SOB Last Admin: 10/31/17 07:55 Dose: 3 ml Alendronate Sodium (Fosamax) 70 mg PO Q7D@0600 [facility] Amlodipine Besylate (Norvasc) 10 mg PO DAILY [facility] Last Admin: 10/31/17 09:54 Dose: 10 mg Budesonide (Pulmicort Respules) 0.5 mg IH [id number] [facility] Last Admin: 11/01/17 07:17 Dose: 0.5 mg Divalproex Sodium (Depakote Dr(*Bid*)) 500 mg PO TID [facility] PRN Reason: Protocol Last Admin: 11/01/17 11:46 Dose: 500 mg Famotidine (Pepcid) 40 mg PO HS [facility] Last Admin: 10/31/17 23:26 Dose: 40 mg Gemfibrozil (Lopid) 600 mg PO BID [facility] Last Admin: 11/01/17 11:47 Dose: 600 mg Sodium Chloride (Sodium Chloride 0.9%) 1,000 mls @ 75 mls/hr IV .[id number] [facility] Last Admin: 10/31/17 23:27 Dose: 75 mls/hr Insulin Detemir (Levemir) 20 unit SC HS [facility] Last Admin: 10/31/17 23:24 Dose: 20 unit Insulin Human Regular (Humulin R Low) 0 units SC ACHS [facility] PRN Reason: Protocol Last Admin: 11/01/17 12:06 Dose: Not Given Latanoprost (Xalatan Opht) 0 ml OU [facility] Last Admin: 10/31/17 23:39 Dose: 2.5 ml Levothyroxine Sodium (Synthroid) 125 mcg PO 0600 [facility] Last Admin: 11/01/17 06:25 Dose: 125 mcg Lorazepam (Ativan) 0.5 mg IM Q6H PRN; Protocol PRN Reason: Agitation Last Admin: 11/01/17 11:47 Dose: 0.5 mg Lorazepam (Ativan) 0.5 mg PO Q6H PRN; Protocol PRN Reason: Agitation Last Admin: 10/31/17 12:30 Dose: 0.5 mg Magnesium Hydroxide (Milk Of Magnesia) 30 ml PO PRN PRN Reason: Constipation Montelukast Sodium (Singulair) 10 mg PO [facility] Last Admin: 10/31/17 23:26 Dose: 10 mg Risperidone (Risperdal Tab) 1 mg PO TID [facility] PRN Reason: Protocol Last Admin: 11/01/17 11:46 Dose: 1 mg - Labs Labs: 11/01/17 08:20 11/01/17 08:20 - Constitutional Appears: Non-toxic, No Acute Distress, Chronically Ill - Head Exam Head Exam: ATRAUMATIC, NORMOCEPHALIC - Eye Exam Eye Exam: EOMI, PERRL Pupil Exam: NORMAL ACCOMODATION, PERRL - ENT Exam ENT Exam: Mucous Membranes Moist, Normal External Ear Exam, TM's Normal Bilaterally - Neck Exam Neck Exam: Full ROM, Normal Inspection - Respiratory Exam Respiratory Exam: Clear to Ausculation Bilateral, NORMAL BREATHING PATTERN. absent: Rales, Rhonchi, Wheezes - Cardiovascular Exam Cardiovascular Exam: REGULAR RHYTHM, RRR, +S1, +S2 - GI/Abdominal Exam GI & Abdominal Exam: Soft, Normal Bowel Sounds. absent: Distended, Tenderness - Extremities Exam Additional comments: general weakness. bedbound. - Neurological Exam Neurological Exam: Alert, Awake, CN II-XII Intact, Oriented x3 - Psychiatric Exam Psychiatric exam: Agitated, Anxious - Skin Skin Exam: Intact, Normal Color Assessment and Plan - Assessment and Plan (Free Text) Assessment: 61 yo female sent for AMS and thoughts of suicidal ideation. Urinalysis suggested UTI. No leukocytosis. No imaging studies to review at this time. Monitor laboratories and cultures for now. Supportive care. Afebrile so far. Monitor WBC trend. Cannot rule out UTI at this time. Currently on Levaquin until cultures return. Monitor the patient closely. Resent for urine cultures... received by lab. Thank you for allowing me to participate in the care of the patient, we will follow with you.
[2017-11-01] MEDS ORDERED: levoFLOXacin 500 mg in D5W 500 MG/100 ML BAG IVPB ONE (15:00)
--- NOTE | 2017-11-01 18:06 | PN ---
DATE: 11/01/2017 PULMONARY PROGRESS NOTE REFERRING PHYSICIAN: Dr. Gallegos. SUBJECTIVE: She is lying in the bed, head at 45 degrees, under one-to-one supervision, refused to use CPAP/BiPAP. No nausea, no vomiting, no diarrhea, no leg pain or leg swelling. OBJECTIVE: GENERAL: In no acute distress. VITAL SIGNS: Temp is 98, heart rate is , respiratory rate is 18, blood pressure is 101/51 and pulse ox 96% on room air. HEENT: Moist mucous membranes, edentulous, small oral cavity. NECK: Supple. No JVD. LUNGS: Has fair airflow with rhonchi. HEART: S1, S2. ABDOMEN: Soft, nontender. No organomegaly. EXTREMITIES: No edema. NEUROLOGIC: Awake, alert, follow simple commands. MEDICATIONS: She is on Ativan 0.5 mg IM q. 6 hours p.r.n., , Depakote 500 mg three times a day, DuoNeb q. 6 hour p.r.n., Fosamax 70 mg weekly, Levemir 20 units subcu at bedtime, Lipitor 600 mg twice a day, Norvasc 10 mg daily, Pepcid 40 mg daily, Pulmicort inhaler twice a day, Risperdal 1 mg three times a day, Singulair 10 mg daily, IV fluid with normal saline 75 mL per hour, Synthroid 125 mcg daily. LABORATORY DATA: Shows hemoglobin 12.6, hematocrit 39.0, WBC 5.7, platelet is 99. Sodium 144, potassium 4.3, chloride 109, bicarbonate 23, BUN is 44, creatinine 2.4, glucose 132, calcium is 11, phosphorus 4.0, magnesium 2.3, albumin is 3.5. IMPRESSION AND PLAN: Chronic obstructive lung disease, hypoventilation syndrome, schizophrenia, obesity, seizure disorder, hypertension. Pulmonary point of view, she is doing okay. Keep head elevated at 45 degrees. encourage BiPAP use. Psychiatry evaluation, if cleared, may be discharged planning, get back to [facility]. Thank you and we will follow with you. Justin Shelley MD
[2017-11-01] MEDS: Latanoprost 2.5 ml Opht Soln OU SCH (21:42)
[2017-11-01] MEDS: Insulin Detemir 100 units/ml Vial (Levemir) SC SCH (23:03)
[2017-11-01] MEDS: Sodium Chloride 0.9% 1,000 ML IV SCH (23:41)
--- NOTE | 2017-11-02 04:03 | CP.PCM.PN ---
Subjective - Date & Time of Evaluation Date of Evaluation: 11/01/17 Time of Evaluation: 21:00 - Subjective Subjective: Patient reportedly tolerating diet although not eating as much; incontinent; doesn't offer any history herself; Objective - Vital Signs/Intake and Output Vital Signs (last 24 hours): Temp Pulse Resp BP Pulse Ox 98.7 F 67 18 113/51 L 96 11/01/17 16:00 11/01/17 16:00 11/01/17 16:00 11/01/17 16:00 11/01/17 16:00 Intake and Output: 11/01/17 11/02/17 18:59 06:59 Intake Total 660 Balance 660 - Medications Medications: Current Medications Albuterol/Ipratropium (Duoneb 3 Mg/0.5 Mg (3 Ml) Ud) 3 ml IH [id number] PRN PRN Reason: SOB Last Admin: 10/31/17 07:55 Dose: 3 ml Alendronate Sodium (Fosamax) 70 mg PO Q7D@0600 [facility] Amlodipine Besylate (Norvasc) 10 mg PO DAILY [facility] Last Admin: 11/01/17 10:03 Dose: Not Given Budesonide (Pulmicort Respules) 0.5 mg IH [id number] [facility] Last Admin: 11/01/17 20:01 Dose: Not Given Divalproex Sodium (Depakote Dr(*Bid*)) 500 mg PO TID [facility] PRN Reason: Protocol Last Admin: 11/01/17 18:41 Dose: Not Given Famotidine (Pepcid) 40 mg PO HS [facility] Last Admin: 11/01/17 21:41 Dose: 40 mg Gemfibrozil (Lopid) 600 mg PO BID [facility] Last Admin: 11/01/17 18:41 Dose: Not Given Sodium Chloride (Sodium Chloride 0.9%) 1,000 mls @ 75 mls/hr IV .[id number] [facility] Last Admin: 11/01/17 23:41 Dose: 75 mls/hr Levofloxacin/Dextrose (Levaquin 250mg) 250 mg in 50 mls @ 100 mls/hr IVPB DAILY [facility] PRN Reason: Protocol Insulin Detemir (Levemir) 20 unit SC [facility] Last Admin: 11/01/17 23:03 Dose: Not Given Insulin Human Regular (Humulin R Low) 0 units SC ACHS [facility] PRN Reason: Protocol Last Admin: 11/01/17 23:03 Dose: Not Given Latanoprost (Xalatan Opht) 0 ml OU HS [facility] Last Admin: 11/01/17 21:42 Dose: 2.5 ml Levothyroxine Sodium (Synthroid) 125 mcg PO 0600 [facility] Last Admin: 11/01/17 06:25 Dose: 125 mcg Lorazepam (Ativan) 0.5 mg IM Q6H PRN; Protocol PRN Reason: Agitation Last Admin: 11/01/17 11:47 Dose: 0.5 mg Lorazepam (Ativan) 0.5 mg PO Q6H PRN; Protocol PRN Reason: Agitation Last Admin: 11/02/17 01:21 Dose: 0.5 mg Magnesium Hydroxide (Milk Of Magnesia) 30 ml PO HS PRN PRN Reason: Constipation Montelukast Sodium (Singulair) 10 mg PO HS [facility] Last Admin: 11/01/17 21:41 Dose: 10 mg Risperidone (Risperdal Tab) 1 mg PO TID [facility] PRN Reason: Protocol Last Admin: 11/01/17 18:42 Dose: Not Given - Labs Labs: 11/01/17 08:20 11/01/17 08:20 - Constitutional Appears: Non-toxic, No Acute Distress - Eye Exam Eye Exam: Normal appearance - Respiratory Exam Respiratory Exam: Clear to Ausculation Bilateral. absent: Respiratory Distress - Cardiovascular Exam Cardiovascular Exam: RRR, +S1, +S2 - GI/Abdominal Exam GI & Abdominal Exam: Soft. absent: Distended, Tenderness - Extremities Exam Additional comments: no leg edema; - Neurological Exam Neurological Exam: Alert, Awake - Psychiatric Exam Psychiatric exam: Agitated - Skin Skin Exam: Warm. absent: Cyanosis Assessment and Plan (1) ANNA (acute kidney injury) Assessment & Plan: Relatively mild ANNA, pre-renal etiology in the setting of UTI sepsis; reponding to IVF, continue with NS at 75 cc/hr for now; Status: Acute (2) CKD (chronic kidney disease) stage 3, GFR 30-59 ml/min Assessment & Plan: CKD IIIB; relatively non-proteinuric kidney disease likely due to renovascular disease; continue adequate glycemic and BP control; consider statin in the setting of DM; Status: Chronic (3) Hypertensive chronic kidney disease with stage 1 through stage 4 chronic kidney disease, or unspecified chronic kidney disease Assessment & Plan: BP low/normal; hold anti-htn meds for now; Status: Acute (4) UTI (urinary tract infection) Assessment & Plan: On levaquin, dosed for renal insufficiency; Status: Acute (5) Hypercalcemia Assessment & Plan: Persists despite getting volume repletion; checking 25-OH vit D and PTH levels; Status: Acute
[2017-11-02] MEDS: Levothyroxine 125 MCG TAB PO SCH (05:37)
[2017-11-02] MEDS: Albuterol-Ipratrop 3 mg / 0.5 (3 ml) UD IH PRN ×2 (07:28→19:54)
[2017-11-02] MEDS: Budesonide 0.5 mg/2 ml Inhal Susp UD IH SCH ×2 (07:31→19:54)
--- NOTE | 2017-11-02 08:56 | PN ---
DATE: 11/01/2017 FOLLOWUP CONSULTATION CO-SIGNER: Ludy Rodriguez MD PRESENTATION: Patient was admitted to [facility] on 10/28/2017 from [facility] via EMS for altered mental status. She had been suicidal with the cord wrapped around her neck and refusing her medications prior to admission. Consultation was ordered due to concerns regarding patient's dementia. Patient has been on one-to-one while in hospital at this point for reasons of safety as opposed to concerns of her suicidal ideation. Patient's mood is labile. She will yell out randomly. Her comments are illogical and bizarre at best. She is unable to give any kind of her history or answer questions. She does have a POA who is in contact and is willing to sign the patient in when medically cleared to come over to the psychiatric unit. She has an one-to-one sitter in attendance. Effectively, actually, she has improved. She seems more aware of her external surroundings. She does respond by saying bizarre things directly to the person who is speaking to her as opposed to just randomly hollering things out. She makes eye contact and she smiles and laughs as well. PHYSICAL EXAMINATION CURRENT VITAL SIGNS: Include temperature of 96.7, pulse of 49, blood pressure of 101/51, and O2 sat of 96%. Her blood sugars have been running slightly high today; at 11:00 a.m., it was 132; and at 04:00, it was 141. MENTAL STATUS: It is difficult to fully assess patient. She does answer to her name, but she does not appear to have any other sphere of orientation. She does not respond appropriately to questions or respond appropriately. She is bedridden, but has earlier on admission, tried to get out of bed. This has not been recently. She does do well with the one-to-one in attendance. She is taking her medications as prescribed and offered by the nurses at this time. However, there is no adequate way to assess her other than by observation or of her behavior. DIAGNOSTIC IMPRESSION: Schizophrenia, dementia with behavioral disturbance. PLAN: Patient, in terms of her behavior, has not exhibited any concerns in terms of being suicidal or homicidal. She has continued with one-to-one for safety while in the unit. When she is medically cleared, she will be transferred to Psychiatry. Thank you for the consult. Tara Martinez APN
[2017-11-02] MEDS: Insulin Reg-LOW-Coverage SC SCH ×3 (09:00→16:40)
[2017-11-02 09:01] LABS: BASO # 0.01 K/mm3 (0.0-2.0); BASO % 0.2 % (0.0-3.0); EOS # 0.1 (0.0-0.7); EOS % 2.1 % (1.5-5.0); GRAN # 1.42 (1.4-6.5); HEMOGLOBIN 11.5 g/dL (12.0-16.0); LYMPH # 3.7 (1.2-3.4); LYMPH % 64.8 % (22.0-35.0); MEAN CELL VOLUME 101.7 fl (80.0-105.0); MEAN CORPUSCULAR HEMOGLOBIN 31.7 pg (25.0-35.0); MEAN CORPUSCULAR HGB CONC 31.2 g/dl (31.0-37.0); MEAN PLATELET VOLUME 11.1 fl (7.0-11.0); MONO # 0.5 (0.1-0.6); MONO % 7.9 % (1.0-6.0); RBC 3.63 10^6/uL (3.5-6.1); RED CELL DISTRIBUTION WIDTH 13.7 % (11.5-14.5); WHITE BLOOD COUNT 5.7 10^3/ul (4.5-11.0)
[2017-11-02 10:27] LABS: ALB/GLOB RATIO 0.9 (1.1-1.8); ALBUMIN 3.1 g/dL (3.0-4.8); CALCIUM 10.5 mg/dL (8.4-10.5)
[2017-11-02] MEDS: Divalproex 500 mg DR(BID formulation) PO SCH ×2 (11:32→18:52)
[2017-11-02] MEDS: levoFLOXacin 250 mg in D5W 250 MG/50 ML BAG IVPB SCH (11:32)
[2017-11-02 17:57] VITALS: O2SAT 98
[2017-11-02] MEDS: Latanoprost 2.5 ml Opht Soln OU SCH (21:29)
[2017-11-02] MEDS ORDERED: Sodium Chloride 0.9% 1,000 ML IV SCH (22:02)
--- NOTE | 2017-11-02 22:02 | CP.PCM.PN ---
Subjective - Date & Time of Evaluation Date of Evaluation: 11/02/17 Time of Evaluation: 14:00 - Subjective Subjective: Patient eating some of her meals; has been drowsy; Objective - Vital Signs/Intake and Output Vital Signs (last 24 hours): Temp Pulse Resp BP Pulse Ox 98 F 80 20 120/68 98 11/02/17 16:00 11/02/17 16:00 11/02/17 16:00 11/02/17 16:00 11/02/17 16:00 - Medications Medications: Current Medications Albuterol/Ipratropium (Duoneb 3 Mg/0.5 Mg (3 Ml) Ud) 3 ml IH [id number] PRN PRN Reason: SOB Last Admin: 11/02/17 19:54 Dose: 3 ml Alendronate Sodium (Fosamax) 70 mg PO Q7D@0600 [facility] Last Admin: 11/02/17 05:36 Dose: 70 mg Amlodipine Besylate (Norvasc) 10 mg PO DAILY [facility] Last Admin: 11/01/17 10:03 Dose: Not Given Budesonide (Pulmicort Respules) 0.5 mg IH [id number] [facility] Last Admin: 11/02/17 19:54 Dose: 0.5 mg Divalproex Sodium (Depakote Dr(*Bid*)) 500 mg PO TID [facility] PRN Reason: Protocol Last Admin: 11/02/17 18:52 Dose: 500 mg Famotidine (Pepcid) 40 mg PO HS [facility] Last Admin: 11/02/17 21:28 Dose: 40 mg Gemfibrozil (Lopid) 600 mg PO BID [facility] Last Admin: 11/02/17 18:53 Dose: 600 mg Sodium Chloride (Sodium Chloride 0.9%) 1,000 mls @ 75 mls/hr IV .[id number] [facility] Last Admin: 11/01/17 23:41 Dose: 75 mls/hr Levofloxacin/Dextrose (Levaquin 250mg) 250 mg in 50 mls @ 100 mls/hr IVPB DAILY [facility] PRN Reason: Protocol Last Admin: 11/02/17 11:32 Dose: 100 mls/hr Insulin Detemir (Levemir) 20 unit SC [facility] Last Admin: 11/01/17 23:03 Dose: Not Given Insulin Human Regular (Humulin R Low) 0 units SC ACHS [facility] PRN Reason: Protocol Last Admin: 11/02/17 11:33 Dose: Not Given Latanoprost (Xalatan Opht) 0 ml OU HS [facility] Last Admin: 11/02/17 21:29 Dose: 2.5 ml Levothyroxine Sodium (Synthroid) 125 mcg PO 0600 [facility] Last Admin: 11/02/17 05:37 Dose: 125 mcg Lorazepam (Ativan) 0.5 mg IM Q6H PRN; Protocol PRN Reason: Agitation Last Admin: 11/02/17 08:19 Dose: 0.5 mg Lorazepam (Ativan) 0.5 mg PO Q6H PRN; Protocol PRN Reason: Agitation Last Admin: 11/02/17 01:21 Dose: 0.5 mg Magnesium Hydroxide (Milk Of Magnesia) 30 ml PO HS PRN PRN Reason: Constipation Montelukast Sodium (Singulair) 10 mg PO HS [facility] Last Admin: 11/02/17 21:28 Dose: 10 mg Risperidone (Risperdal Tab) 1 mg PO TID [facility] PRN Reason: Protocol Last Admin: 11/02/17 18:53 Dose: 1 mg - Labs Labs: 11/02/17 05:22 11/02/17 09:00 - Constitutional Appears: Non-toxic, No Acute Distress - Eye Exam Eye Exam: absent: Scleral icterus - ENT Exam ENT Exam: Mucous Membranes Moist - Respiratory Exam Respiratory Exam: absent: Respiratory Distress Additional comments: shallow breath sounds; - Cardiovascular Exam Cardiovascular Exam: RRR, +S1, +S2 - GI/Abdominal Exam GI & Abdominal Exam: Soft. absent: Distended, Tenderness - Exam Exam: absent: Bladder Distension - Extremities Exam Additional comments: no leg edema; - Psychiatric Exam Psychiatric exam: absent: Agitated - Skin Skin Exam: Warm. absent: Cyanosis Assessment and Plan (1) ANNA (acute kidney injury) Assessment & Plan: Improved slightly; unclear why patient not going back to her previously baseline but may represent progression of CKD; continue to monitor; Status: Acute (2) CKD (chronic kidney disease) stage 3, GFR 30-59 ml/min Assessment & Plan: Proteinuric kidney disease likely due to DM as well as renovascular disease; will benefit from MANUEL inhibitor/ARB halfway; Status: Chronic (3) Hypertensive chronic kidney disease with stage 1 through stage 4 chronic kidney disease, or unspecified chronic kidney disease Assessment & Plan: BP controlled off meds, continue to hold for now; continue NS at 40 cc/hr for maintenance; Status: Acute (4) UTI (urinary tract infection) Status: Acute (5) Hypercalcemia Assessment & Plan: Vitamin D 25-OH replete; awaiting PTH level; Status: Acute
--- NOTE | 2017-11-02 22:49 | CP.PCM.PN ---
Subjective - Date & Time of Evaluation Date of Evaluation: 11/02/17 Time of Evaluation: 20:45 - Subjective Subjective: Infectious Disease Follow Up: November 02, 2017 61 yo female originally admitted from [facility] due to AMS and possible suicidal ideation. The patient is confused and answers questions with short answers that are not always appropriately. Extensive past medical history that includes being bedbound, HTN, COPD, GI bleed, chronic UTI, Seizure disorder, DM type II, hypothyroidism, and schizophrenia. Awaiting cultures... resent for urine culture... no results available. Noted urinalysis findings. Current urine culture showing yeast (patient received antibiotics for a day prior to this sample being obtained.) Afebrile but had episode of near hypothermia this AM. Objective - Vital Signs/Intake and Output Vital Signs (last 24 hours): Temp Pulse Resp BP Pulse Ox 98 F 80 20 120/68 98 11/02/17 16:00 11/02/17 16:00 11/02/17 16:00 11/02/17 16:00 11/02/17 16:00 - Medications Medications: Current Medications Albuterol/Ipratropium (Duoneb 3 Mg/0.5 Mg (3 Ml) Ud) 3 ml IH [id number] PRN PRN Reason: SOB Last Admin: 11/02/17 19:54 Dose: 3 ml Alendronate Sodium (Fosamax) 70 mg PO Q7D@0600 [facility] Last Admin: 11/02/17 05:36 Dose: 70 mg Amlodipine Besylate (Norvasc) 10 mg PO DAILY [facility] Last Admin: 11/01/17 10:03 Dose: Not Given Budesonide (Pulmicort Respules) 0.5 mg IH [id number] [facility] Last Admin: 11/02/17 19:54 Dose: 0.5 mg Divalproex Sodium (Depakote Dr(*Bid*)) 500 mg PO TID [facility] PRN Reason: Protocol Last Admin: 11/02/17 18:52 Dose: 500 mg Famotidine (Pepcid) 40 mg PO HS [facility] Last Admin: 11/02/17 21:28 Dose: 40 mg Gemfibrozil (Lopid) 600 mg PO BID [facility] Last Admin: 11/02/17 18:53 Dose: 600 mg Levofloxacin/Dextrose (Levaquin 250mg) 250 mg in 50 mls @ 100 mls/hr IVPB DAILY [facility] PRN Reason: Protocol Last Admin: 11/02/17 11:32 Dose: 100 mls/hr Sodium Chloride (Sodium Chloride 0.9%) 1,000 mls @ 40 mls/hr IV .Q24H [facility] Insulin Detemir (Levemir) 20 unit SC HS [facility] Last Admin: 11/01/17 23:03 Dose: Not Given Insulin Human Regular (Humulin R Low) 0 units SC ACHS [facility] PRN Reason: Protocol Last Admin: 11/02/17 11:33 Dose: Not Given Latanoprost (Xalatan Opht) 0 ml OU HS [facility] Last Admin: 11/02/17 21:29 Dose: 2.5 ml Levothyroxine Sodium (Synthroid) 125 mcg PO 0600 [facility] Last Admin: 11/02/17 05:37 Dose: 125 mcg Lorazepam (Ativan) 0.5 mg IM Q6H PRN; Protocol PRN Reason: Agitation Last Admin: 11/02/17 08:19 Dose: 0.5 mg Lorazepam (Ativan) 0.5 mg PO Q6H PRN; Protocol PRN Reason: Agitation Last Admin: 11/02/17 01:21 Dose: 0.5 mg Magnesium Hydroxide (Milk Of Magnesia) 30 ml PO HS PRN PRN Reason: Constipation Montelukast Sodium (Singulair) 10 mg PO HS [facility] Last Admin: 11/02/17 21:28 Dose: 10 mg Risperidone (Risperdal Tab) 1 mg PO TID [facility] PRN Reason: Protocol Last Admin: 11/02/17 18:53 Dose: 1 mg - Labs Labs: 11/02/17 05:22 11/02/17 09:00 - Constitutional Appears: Non-toxic, No Acute Distress, Chronically Ill - Head Exam Head Exam: ATRAUMATIC, NORMOCEPHALIC - Eye Exam Eye Exam: EOMI, PERRL Pupil Exam: NORMAL ACCOMODATION, PERRL - ENT Exam ENT Exam: Mucous Membranes Moist, Normal External Ear Exam, TM's Normal Bilaterally - Neck Exam Neck Exam: Full ROM, Normal Inspection - Respiratory Exam Respiratory Exam: Clear to Ausculation Bilateral, NORMAL BREATHING PATTERN. absent: Rales, Rhonchi, Wheezes - Cardiovascular Exam Cardiovascular Exam: REGULAR RHYTHM, RRR, +S1, +S2 - GI/Abdominal Exam GI & Abdominal Exam: Soft, Normal Bowel Sounds. absent: Distended, Tenderness - Extremities Exam Additional comments: general weakness bedbound. - Neurological Exam Neurological Exam: Alert, Awake, CN II-XII Intact Additional comments: AAO x 2 - Psychiatric Exam Psychiatric exam: Agitated, Anxious - Skin Skin Exam: Intact, Normal Color Assessment and Plan - Assessment and Plan (Free Text) Assessment: 61 yo female sent for AMS and thoughts of suicidal ideation. Urinalysis suggested UTI. No leukocytosis. No imaging studies to review at this time. Monitor laboratories and cultures for now. Supportive care. Afebrile so far. Monitor WBC trend. Cannot rule out UTI at this time. Urine culture with yeast but this sample was taken after antibiotics were started. Currently on Levaquin until cultures return. Monitor the patient closely. Will add oral fluconazole. Treat with Levaquin for up to 7 days. Thank you for allowing me to participate in the care of the patient, we will follow with you.
[2017-11-03] MEDS: Insulin Reg-LOW-Coverage SC SCH ×2 (00:12→08:21)
[2017-11-03] MEDS: Insulin Detemir 100 units/ml Vial (Levemir) SC SCH (00:13)
--- NOTE | 2017-11-03 01:13 | PN ---
DATE: 11/02/2017 PULMONARY PROGRESS NOTE REFERRING PHYSICIAN: Steff Gallegos MD. SUBJECTIVE: The patient is lying in the bed, sleepy, arousable, under one-to-one supervision. Night was unremarkable. Does not use CPAP. No nausea. No vomiting, diarrhea, leg pain, leg swelling. OBJECTIVE: GENERAL: In no acute distress. VITAL SIGNS: Temperature is 98, heart rate is 80, respiratory is 20, blood pressure 120/68, pulse ox 98% on room air. HEENT: Moist mucous membranes. Small oral cavity. Crowded airway. NECK: Supple. No JVD. LUNGS: Have a fair airflow with rhonchi. HEART: S1 and S2. ABDOMEN: Soft, nontender. No organomegaly. EXTREMITIES: No edema. NEUROLOGIC: Awake, sleepy, arousable. Follows simple command, but confused. MEDICATIONS: Ativan 0.5 mg q. 6 hours p.r.n., Depakote is 500 mg three times a day, DuoNeb q. 6 hours p.r.n., Fosamax 70 mg weekly, insulin coverage, Levaquin 250 mg IV daily, Levemir 20 units subcu at bedtime, Lopid 600 mg twice a day, MOM p.r.n. basis, Norvasc 10 mg daily, Pepcid 40 mg daily, Pulmicort inhaled twice a day, Risperdal 1 mg three times a day, Singulair 10 mg daily, IV fluid normal saline 75 mL/hour, Synthroid 125 mcg daily. LABORATORY DATA: Shows hemoglobin 11.5, hematocrit 36.9, WBC 5.7, platelet is 101. Sodium 143, potassium 4.0, chloride 110, bicarbonate 21, BUN 37, creatinine 2.3, glucose 125, calcium is 10.5, AST 23, ALT 14, alk phos is 41. Albumin 3.1. Vitamin D is 50.5. IMPRESSION AND PLAN: Chronic obstructive lung disease, hypoventilation syndrome, schizophrenia, obesity, seizure disorder, hypertension. Pulmonary point of view, doing okay. Keep head at 45 degrees. Fall precaution. Encourage continuous positive airway pressure use. Careful with sedation. Gastric, deep venous thrombosis prophylaxis. Thank you and we will follow with you. Justin Shelley MD [facility] # [phone]
--- NOTE | 2017-11-03 02:46 | PN ---
DATE: SUBJECTIVE: The patient is a 61-year-old female. The patient seen and examined at the bedside, still on 1:1. No nausea, vomiting or diarrhea. No hematuria. No hematochezia. No swelling of the leg. No chest pain. No palpitation. No headache, no dizziness. Actually, the patient is not a very good historian, but sitting on the bedside, helped me to do evaluation of the patient. PHYSICAL EXAMINATION: VITAL SIGNS: Temperature 98.7, pulse 67, respiratory rate 18, blood pressure 113/51, pulse oximetry of 96. HEENT: Head: Normocephalic and atraumatic. Eyes: PERRLA. Extraocular muscles intact. Conjunctivae clear. Nose patent. Mucous membrane moist. NECK: Supple. No carotid bruit, JVD or thyromegaly. CHEST: Bilaterally symmetrical. HEART: S1, S2 positive. LUNGS: Clear to auscultation. ABDOMEN: Soft. Bowel sounds positive. No organomegaly. EXTREMITIES: No edema, no cyanosis. NEUROLOGIC: Now the patient is sleepy, but arousable. Moving all four extremities. MEDICATIONS: DuoNeb, Fosamax, Pulmicort, Depakote, Pepcid, Lopid, sodium chloride, Levaquin, Levemir, insulin, Synthroid, Ativan, Singulair, Risperdal. LABORATORY DATA: White blood cell 5.7, hemoglobin 12.6, hematocrit 39.0, platelet 99. Sodium 145, potassium 4.3, BUN 44, creatinine 2.4, glucose 102. ASSESSMENT AND PLAN: Ms. Day Hung is a 61-year-old lady with anemia, thrombocytopenia, hyperchloremia, renal insufficiency, has acute kidney injury, prerenal etiology in the setting of urinary tract infection, sepsis, responding to IV fluids very well. Continue with NS 75 mL per hour. Chronic kidney disease stage III. GFR 30 to 59 mL per minute. kidney disease likely due to renovascular disease. Continue adequate glycemic control and blood pressure control. Consider in the setting of diabetes mellitus, hypertensive chronic kidney disease stage 1 through stage III chronic kidney disease or unspecified chronic kidney disease. Blood pressure is low and Dr. Hernández hold antihypertensive medications, urinary tract infection. The patient's Levaquin dosed for renal insufficiency, hypercalcemia. The patient persistent despite getting volume repletion, checking vitamin 25-hydroxy vitamin E and PTH level. Psychiatrist is on the case. Infectious Disease is on the case. Came with altered mental status with suicidal ideation. Monitoring labs and cultures for now, supportive care, afebrile so far. Monitor white blood cell trend. Cannot rule out urinary tract infection at this time as per Dr. Waqas Sullivan. Gastrointestinal and deep venous thrombosis prophylaxis. Repeat labs. We will follow up. Steff Gallegos MD MTDD
[2017-11-03] MEDS: Levothyroxine 125 MCG TAB PO SCH (05:50)
[2017-11-03] MEDS: Albuterol-Ipratrop 3 mg / 0.5 (3 ml) UD IH PRN (07:42)
[2017-11-03] MEDS: Budesonide 0.5 mg/2 ml Inhal Susp UD IH SCH (07:42)
[2017-11-03 07:43] LABS: HEMOGLOBIN 10.3 g/dL (12.0-16.0); MEAN CELL VOLUME 101.9 fl (80.0-105.0); MEAN CORPUSCULAR HEMOGLOBIN 31.9 pg (25.0-35.0); MEAN CORPUSCULAR HGB CONC 31.3 g/dl (31.0-37.0); MEAN PLATELET VOLUME 11.1 fl (7.0-11.0); RBC 3.23 10^6/uL (3.5-6.1); RED CELL DISTRIBUTION WIDTH 13.9 % (11.5-14.5); WHITE BLOOD COUNT 4.9 10^3/ul (4.5-11.0)
[2017-11-03 07:59] LABS: CALCIUM 10.1 mg/dL (8.4-10.5)
[2017-11-03] MEDS: Divalproex 500 mg DR(BID formulation) PO SCH ×2 (08:23→10:31)
[2017-11-03 09:12] VITALS: BP 132/57; PULSE 72; RESP 19; TEMP 97.6
--- NOTE | 2017-11-03 09:40 | PN ---
DATE: 11/02/2017 She is being seen today for a followup consultation. PRESENTATION: The patient is a 61-year-old female seen at bedside. Patient's behavior continues . She was admitted to [facility] on 10/28/2017 for not taking her medications, behavioral changes and she evidently had a cord wrapped around her neck. She does have a history of dementia post schizophrenia. Consult was called for reasons of dementia. Patient's affect is brighter today. She continues to be inappropriate in conversation, but she smiles and she laughs and she waves. She continues somewhat bizarre. She curses quite a bit; however, she takes all of her medications. She eats and sleeps regularly and according to the nurses notes, is not having any behavioral issues; however, she did pull out her IV yesterday. She still has a one-to-one sitter for safety and observation as opposed to suicidal ideation. CURRENT VITAL SIGNS: Include temperature of 98.7, pulse rate of 67, blood pressure of 113/51, respiratory rate of 18, O2 sat of 96. MENTAL STATUS EXAMINATION: Patient is oriented x1. Eye contact is poor. Behavior is bizarre. She talks and laughs and mix nonsensical statements; however, she is cooperative with taking her medications and mostly with the treatments that she needs to have. DIAGNOSTIC IMPRESSION: Schizophrenia. PLAN: Patient does not display anything in her behavior, which would indicate that she is suicidal or homicidal. She does have a one-to-one sitter with her for safety as opposed to concerns about her being suicidal. She is to be transferred to Psychiatric Unit once medically cleared for further stabilization. We will continue to follow. Tara Martinez APN
--- NOTE | 2017-11-03 09:53 | CP.PCM.PCO ---
Addendum Addendum: 11/03/17 09:45 Patient was seen and examined collaterals from RN pt compliant with medications, has good appetite and sleep pt does not have agitation or aggression, redirectable pt has long h/o schizophrenia and residual psychotic symptoms like disorganized thoughts and behavior, at the same time pt deems to be at her baseline of functioning all meds adjusted no suicidal gestures pt needs to be followed up by psychiatrist within 48-72hrs after discharge pt deems not in any danger to self or others deems ready for transfer back to the [place] facility.
[2017-11-03] MEDS: levoFLOXacin 250 mg in D5W 250 MG/50 ML BAG IVPB SCH (10:31)
--- NOTE | 2017-11-03 10:43 | CP.PCM.PN ---
<Yeimy Islas - Last Filed: 11/03/17 10:40> Subjective - Date & Time of Evaluation Date of Evaluation: 11/03/17 Time of Evaluation: 09:40 - Subjective Subjective: Chief complaint: Altered mental status, UTI, vaginal candiasis 61 yr female resident of [facility] w/ history of cognitive deficits, HTN, COPD, seizure disorder, DM II, osteoporosis, non- ambulatory, GI bleed, chronic UTI, hypothyroidism, and schizophrenia. Admitted for exhibiting altered mental status and displaying signs of suicidal ideation. Today, she appears at her baseline. She is on 1:1. POA is Barrett Iraheta# [phone]. Preparing for discharge back to [facility]. Pt is a poor historian. No distress noted Objective - Vital Signs/Intake and Output Vital Signs (last 24 hours): Temp Pulse Resp BP Pulse Ox 97.6 F 72 19 132/57 L 98 11/03/17 08:00 11/03/17 08:00 11/03/17 08:00 11/03/17 08:00 11/03/17 08:00 - Medications Medications: Current Medications Albuterol/Ipratropium (Duoneb 3 Mg/0.5 Mg (3 Ml) Ud) 3 ml IH [id number] PRN PRN Reason: SOB Last Admin: 11/03/17 07:42 Dose: 3 ml Alendronate Sodium (Fosamax) 70 mg PO Q7D@0600 [facility] Last Admin: 11/02/17 05:36 Dose: 70 mg Amlodipine Besylate (Norvasc) 10 mg PO DAILY [facility] Last Admin: 11/01/17 10:03 Dose: Not Given Budesonide (Pulmicort Respules) 0.5 mg IH [id number] [facility] Last Admin: 11/03/17 07:42 Dose: 0.5 mg Divalproex Sodium (Depakote Dr(*Bid*)) 500 mg PO TID [facility] PRN Reason: Protocol Last Admin: 11/03/17 10:31 Dose: 500 mg Famotidine (Pepcid) 40 mg PO HS [facility] Last Admin: 11/02/17 21:28 Dose: 40 mg Gemfibrozil (Lopid) 600 mg PO BID [facility] Last Admin: 02/09/18 10:31 Dose: 600 mg Levofloxacin/Dextrose (Levaquin 250mg) 250 mg in 50 mls @ 100 mls/hr IVPB DAILY [facility] PRN Reason: Protocol Last Admin: 11/03/17 10:31 Dose: 100 mls/hr Sodium Chloride (Sodium Chloride 0.9%) 1,000 mls @ 40 mls/hr IV .Q24H [facility] Last Admin: 11/03/17 00:13 Dose: 40 mls/hr Insulin Detemir (Levemir) 20 unit SC [facility] Last Admin: 11/03/17 00:13 Dose: Not Given Insulin Human Regular (Humulin R Low) 0 units SC [facility] PRN Reason: Protocol Last Admin: 11/03/17 08:21 Dose: Not Given Latanoprost (Xalatan Opht) 0 ml OU [facility] Last Admin: 11/02/17 21:29 Dose: 2.5 ml Levothyroxine Sodium (Synthroid) 125 mcg PO 0600 [facility] Last Admin: 11/03/17 05:50 Dose: 125 mcg Lorazepam (Ativan) 0.5 mg IM Q6H PRN; Protocol PRN Reason: Agitation Last Admin: 11/02/17 08:19 Dose: 0.5 mg Lorazepam (Ativan) 0.5 mg PO Q6H PRN; Protocol PRN Reason: Agitation Last Admin: 11/02/17 01:21 Dose: 0.5 mg Magnesium Hydroxide (Milk Of Magnesia) 30 ml PO PRN PRN Reason: Constipation Montelukast Sodium (Singulair) 10 mg PO [facility] Last Admin: 11/02/17 21:28 Dose: 10 mg Risperidone (Risperdal Tab) 1 mg PO TID [facility] PRN Reason: Protocol Last Admin: 11/03/17 10:31 Dose: 1 mg - Labs Labs: 11/03/17 07:00 11/03/17 07:00 - Constitutional Appears: No Acute Distress, Confused, Chronically Ill - Head Exam Head Exam: ATRAUMATIC, NORMAL INSPECTION, NORMOCEPHALIC - Eye Exam Eye Exam: EOMI, Normal appearance, PERRL Pupil Exam: NORMAL ACCOMODATION, PERRL - ENT Exam ENT Exam: Mucous Membranes Moist, Normal Exam - Neck Exam Neck Exam: Full ROM, Normal Inspection. absent: Lymphadenopathy - Respiratory Exam Respiratory Exam: Clear to Ausculation Bilateral, NORMAL BREATHING PATTERN - Cardiovascular Exam Cardiovascular Exam: REGULAR RHYTHM, +S1, +S2. absent: Murmur - GI/Abdominal Exam GI & Abdominal Exam: Soft, Normal Bowel Sounds. absent: Tenderness - Extremities Exam Extremities Exam: Normal Capillary Refill, Normal Inspection. absent: Joint Swelling, Pedal Edema Additional comments: non-ambulatory - Neurological Exam Neurological Exam: Alert, Awake - Psychiatric Exam Psychiatric exam: Normal Affect, Normal Mood Additional comments: flight of ideas, speech incoherent. this is her baseline - Skin Skin Exam: Dry, Intact, Pallor, Warm Assessment and Plan (1) UTI (urinary tract infection) Status: Acute (2) Vaginal candidiasis Status: Acute (3) Proteinuria Status: Acute (4) Ketonuria Status: Acute (5) Hematuria Status: Acute (6) Thrombopenia Status: Acute (7) Altered mental status Status: Acute (8) ANNA (acute kidney injury) Status: Acute (9) Hypertensive chronic kidney disease with stage 1 through stage 4 chronic kidney disease, or unspecified chronic kidney disease Status: Acute - Assessment and Plan (Free Text) Plan: IV abx levaquin & fluconazole. MANUEL/ARB for nephroprotection. 1:1 sitter. Cleared by psych for return to [facility]. Seizure, aspiration precautions. OT on board. Bipap HS. GI/VTE prophylaxis. PT onboard. Consult: Neuro - Dr. Rocco Espinoza - Dr. Quintero Psych - Dr. Michael LOBO - Dr. Sullivan Nephro - Dr. Hernández Reviewed: CT head = nonspecific white matter changes CXR = WNL ECG = ABNORMAL, SR, PVC, L axis deviation, pulmonary disease pattern EEG = WNL, no epileptiform activity <Steff Gallegos - Last Filed: 11/04/17 00:01> Objective - Vital Signs/Intake and Output Vital Signs (last 24 hours): Temp Pulse Resp BP Pulse Ox 97.6 F 72 19 132/57 L 98 11/03/17 08:00 11/03/17 08:00 11/03/17 08:00 11/03/17 08:00 11/03/17 08:00 Intake and Output: 11/03/17 11/04/17 18:59 06:59 Intake Total 1420 Balance 1420 - Labs Labs: 11/03/17 07:00 11/03/17 07:00 Assessment and Plan - Assessment and Plan (Free Text) Plan: 61 yr female resident of [facility] w/ history of cognitive deficits, HTN, COPD, seizure disorder, DM II, osteoporosis, non- ambulatory, GI bleed, chronic UTI, hypothyroidism, and schizophrenia. Admitted for exhibiting altered mental status and displaying signs of suicidal ideation. Today, she appears at her baseline. She is on 1:1. POA is Barrett Iraheta# [phone]. Preparing for discharge back to [facility]. Pt is a poor historian. No distress noted. pt is seen and examined at bed side , looking comfortable , chart . labs and meds noted . will f/u , agreed all above
--- NOTE | 2017-11-03 18:20 | CP.PCM.PN ---
Subjective - Date & Time of Evaluation Date of Evaluation: 11/03/17 Time of Evaluation: 15:00 - Subjective Subjective: Infectious Disease Follow Up: November 03, 2017 61 yo female originally admitted from [facility] due to AMS and possible suicidal ideation. The patient is confused and answers questions with short answers that are not always appropriately. Extensive past medical history that includes being bedbound, HTN, COPD, GI bleed, chronic UTI, Seizure disorder, DM type II, hypothyroidism, and schizophrenia. Awaiting cultures... resent for urine culture. Noted urinalysis findings. Current urine culture showing yeast (patient received antibiotics for a day prior to this sample being obtained.) Afebrile no further hypothermia episodes the past 48 hours. Appears to be at baseline levels. Objective - Vital Signs/Intake and Output Vital Signs (last 24 hours): Temp Pulse Resp BP Pulse Ox 97.6 F 72 19 132/57 L 98 11/03/17 08:00 11/03/17 08:00 11/03/17 08:00 11/03/17 08:00 11/03/17 08:00 Intake and Output: 11/03/17 11/03/17 06:59 18:59 Intake Total 1420 Balance 1420 - Labs Labs: 11/03/17 07:00 11/03/17 07:00 - Constitutional Appears: Non-toxic, No Acute Distress, Chronically Ill - Head Exam Head Exam: ATRAUMATIC, NORMOCEPHALIC - Eye Exam Eye Exam: EOMI, PERRL Pupil Exam: NORMAL ACCOMODATION, PERRL - ENT Exam ENT Exam: Mucous Membranes Moist, Normal External Ear Exam, TM's Normal Bilaterally - Neck Exam Neck Exam: Full ROM, Normal Inspection - Respiratory Exam Respiratory Exam: Clear to Ausculation Bilateral, NORMAL BREATHING PATTERN. absent: Rales, Rhonchi, Wheezes - Cardiovascular Exam Cardiovascular Exam: REGULAR RHYTHM, RRR, +S1, +S2 - GI/Abdominal Exam GI & Abdominal Exam: Soft, Normal Bowel Sounds. absent: Distended, Tenderness - Extremities Exam Additional comments: general weakness bedbound - Neurological Exam Neurological Exam: Alert, Awake, CN II-XII Intact Additional comments: AAO x 2 - Psychiatric Exam Psychiatric exam: Agitated, Anxious - Skin Skin Exam: Intact, Normal Color Assessment and Plan - Assessment and Plan (Free Text) Assessment: 61 yo female sent for AMS and thoughts of suicidal ideation. Urinalysis suggested UTI. No leukocytosis. No imaging studies to review at this time. Monitor laboratories and cultures for now. Supportive care. Afebrile so far. Monitor WBC trend. Cannot rule out UTI at this time. Urine culture with yeast but this sample was taken after antibiotics were started. Currently on Levaquin until cultures return. Monitor the patient closely. Will add oral fluconazole. Treat with Levaquin for up to 7 days. Thank you for allowing me to participate in the care of the patient, we will follow with you. For transfer back to [facility].
--- NOTE | 2017-11-03 22:09 | PN ---
DATE: 11/03/2017 PULMONARY PROGRESS NOTE REFERRING PHYSICIAN: Steff Gallegos MD. SUBJECTIVE: She is lying in the bed. Night was unremarkable. Refusing to use CPAP/BiPAP. No nausea, no vomiting, no diarrhea, no leg pain or leg swelling. OBJECTIVE: GENERAL: In no acute distress. VITAL SIGNS: Temperature is 98, heart rate is 72, respiratory rate is 20, blood pressure 132/57, and pulse ox 98% on room air. HEENT: Moist mucous membranes. No ulcer or thrush noted. NECK: Supple. No JVD. LUNGS: Have a fair airflow. No rhonchi. HEART: S1 and S2. ABDOMEN: Soft, nontender. No organomegaly. EXTREMITIES: No edema. NEUROLOGIC: Awake, alert. Follows simple commands, but confused. LABORATORY DATA: Reviewed shows hemoglobin 10.3, hematocrit 32.9, WBC 4.9, and platelets 100. Sodium 142, potassium 4.2, chloride 109, bicarbonate 24, BUN 34, creatinine 2.3, glucose 143, calcium 10.1, and albumin is 2.7. MEDICATIONS: Reviewed. No new change in medication reported. IMPRESSION AND PLAN: Chronic obstructive lung disease, hypoventilation syndrome, schizophrenia. obesity, seizure disorder. and hypertension. From a pulmonary point of view, she is doing okay. Keep head at 45 degrees. Careful with sedation. Encourage BiPAP use. Gastric prophylaxis. Sequential compression devices to lower extremities. Fall precaution. Justin Shelley MD
--- NOTE | 2017-11-06 08:21 | PN ---
DATE: 11/03/2017 She is being seen today for a followup consultation. PRESENTATION: Patient is a 61-year-old female, seen at bedside. The patient was originally admitted to [facility] on 10/28/2017, due to altered mental status. She was reported to be suicidal with cord wrapped around her neck. Spitting out her medication, not taking it. She came from [facility]. Order for consultation was for dementia. The patient has actually improved during her stay at the hospital. When originally seen, she was withdrawn, poor eye contact. Evidently had been combative. She has had a one-to-one the whole time she has been here for safety more than suicidal concerns and there has been nothing in her behavior to indicate that she is suicidal or homicidal during her stay. The patient has been taking her medication regularly, eating, sleeping. She is fairly cooperative. She is bizarre in conversation, things out randomly. Sometimes screams, screams now and again. Her medications have been adjusted while she was in the hospital and she appears to have stabilized now and having the dosages changed a little bit. Her eye contact is better. She waves, she smiles. She is more cognizant if people in the room and appears to enjoy socializing, although she is completely inappropriate and bizarre in her responses. OBJECTIVE: CURRENT VITAL SIGNS: Include blood pressure of 97.6, pulse is 72, blood pressure is 132/57, respiratory rate of 19, and an O2 sat of 98%. MENTAL STATUS EXAMINATION: The patient's mental status exam shows the patient is oriented x1. She answers to her name, but other than that her conversation is bizarre; however, she has eye contact. She does follow conversations. She does not appropriately contribute; however, she is positive and appears to be at her baseline in terms of how she is doing. There has been nothing in her behavior to indicate that she might be suicidal or homicidal and she has had a one-to-one for safety during the duration of her stay here at the hospital. DIAGNOSTIC IMPRESSION: Schizophrenia, dementia, unspecified. PLAN: The patient does not know if there is any behavior that would indicate that she is suicidal or homicidal. She appears to be in no imminent danger of hurting herself or others. During the course of her hospital stay, she has stabilized psychiatrically, she is more outgoing. She appears to be attending to conversations and she has been more cooperative. She is taking her medications and eating regularly. She is [facility]. Her current medications psychiatrically are Depakote DR 500 mg one p.o. t.i.d., Ativan 0.5 mg q. 6 hours as needed. The last time she got up was at 12:22 today. Risperdal 1 mg t.i.d., which is an increase over her previous b.i.d. dosage. I would recommend that she will be seen a psychiatrist within 48 to 72 hours after discharge back to her facility. I will sign off on this patient. The patient appears to have stabilized. Thank you for the consult. Tara Martinez APN
== END 2017-11-03 17:26 | DRG 568 ==
LOC: ED 13:01 → ERH 18:25 → 5RNO 21:49
PROVIDERS: ADMIT Internal Medicine; ATTEND Internal Medicine
DX: N17.9 Acute kidney failure, unspecified (principal); G92 Toxic encephalopathy; N39.0 Urinary tract infection, site not specified; E11.22 Type 2 diabetes mellitus with diabetic chronic kidney disease; D69.6 Thrombocytopenia, unspecified; E87.2 Acidosis; F03.91 Unspecified dementia, unspecified severity, with behavioral disturbance; F20.9 Schizophrenia, unspecified; J43.9 Emphysema, unspecified; B37.3 Candidiasis of vulva and vagina; M81.0 Age-related osteoporosis without current pathological fracture; I12.9 Hypertensive chronic kidney disease with stage 1 through stage 4 chronic kidney disease, or unspecified chronic kidney disease; N18.3 Chronic kidney disease, stage 3 (moderate); E83.52 Hypercalcemia; E03.9 Hypothyroidism, unspecified; R41.82 Altered mental status, unspecified; G40.909 Epilepsy, unspecified, not intractable, without status epilepticus; D63.1 Anemia in chronic kidney disease; R31.9 Hematuria, unspecified; Z74.01 Bed confinement status; R45.851 Suicidal ideations; Z66 Do not resuscitate; Z88.6 Allergy status to analgesic agent; Z87.891 Personal history of nicotine dependence; Z79.4 Long term (current) use of insulin; Z88.0 Allergy status to penicillin

== ENCOUNTER 2018-01-01 10:32 | Inpatient (IN) | payer MEDICAID ==
[2018-01-01 10:39] VITALS: BMI 23.7
[2018-01-01] MEDS ORDERED: Aztreonam 2 Gm in NS 100mL 100 ML IVPB STA (10:51)
[2018-01-01] MEDS ORDERED: Sodium Chloride 0.9% 1,000 ML IV STA (10:53)
[2018-01-01] MEDS ORDERED: Aztreonam 1 Gm in NS 100mL 100 ML IVPB STA (11:04)
--- NOTE | 2018-01-01 11:09 | ED PDOC ---
Arrival/HPI - General Historian: EMS EM Caveat: Altered Mental Status, Dementia - History of Present Illness Time/Duration: < week Symptom Course: Worsening - General Chief Complaint: Altered Mental Status Time Seen by Provider: 01/01/18 10:36 - History of Present Illness Narrative History of Present Illness (Text): 01/01/18 11:03 62 yo F with PMH of Diabetes Mellitus, COPD, Substance abuse history, CKD, Seizure disorder history, hypothyroidism, HTN, presents to ED by EMS, brought from [facility] for 4 days of altered mental status and one day of hypotension. BP was 80's/40's at home. Patient got 500cc NS bolus en route. On exam, patient is nonverbal, resting in bed in no apparent distress. BP slightly improved at fluid bolus. Per EMS, patient was recently at [facility] where she was treated for sepsis, which included intubation. After that hospitalization, patient was made DNR/DNI. (Gama Michaels) Past Medical History - Provider Review Nursing Documentation Reviewed: Yes - Travel History Have you recently traveled outside [place] w/in the past 3 mons?: No - Past History Past History: Unable to Obtain - Infectious Disease Hx of Infectious Diseases: None - Tetanus Immunization Tetanus Immunization: Unknown - Cardiac Hx Cardiac Disorders: Yes Hx Hypertension: Yes - Pulmonary Hx Respiratory Disorders: Yes Hx Chronic Obstructive Pulmonary Disease (COPD): Yes Hx Emphysema: Yes Other/Comment: respiratory failure - Neurological Hx Neurological Disorder: Yes (cognitive deficits) Hx Seizures: Yes Hx Syncope: Yes - HEENT Hx HEENT Disorder: No - Renal Hx Renal Disorder: Yes Hx Renal Failure: Yes - Endocrine/Metabolic Hx Endocrine Disorders: Yes Hx Diabetes Mellitus Type 2: Yes Hx Hypothyroidism: Yes - Hematological/Oncological Hx Blood Disorders: Yes Hx Anemia: Yes Other/Comment: sepsis - Integumentary Hx Dermatological Disorder: No - Musculoskeletal/Rheumatological Hx Musculoskeletal Disorders: Yes (BLE weakness) Hx Falls: Yes Hx Osteoporosis: Yes Hx Unsteady Gait: Yes - Gastrointestinal Hx Gastrointestinal Disorders: Yes (gi bleed) Hx Gastroesophageal Reflux: Yes Other/Comment: gi bleed - Genitourinary/Gynecological Hx Genitourinary Disorders: Yes Hx Incontinence: Yes Hx Urinary Tract Infection: Yes - Psychiatric Hx Psychophysiologic Disorder: Yes Hx Schizophrenia: Yes Hx Substance Use: No - Past Surgical History Past Surgical History: Non-Contributing - Anesthesia Hx Anesthesia: Yes Hx Anesthesia Reactions: No Hx Malignant Hyperthermia: No - Suicidal Assessment Feels Threatened In Home Enviroment: No Family/Social History - Physician Review Nursing Documentation Reviewed: Yes Family/Social History: Unknown Family HX Smoking Status: Former Smoker Hx Alcohol Use: No Hx Substance Use: No Allergies/Home Meds Allergies/Adverse Reactions: Allergies aspirin Adverse Reaction (Verified 01/01/18 10:38) RASH haloperidol [From Haldol] Adverse Reaction (Verified 01/01/18 10:38) RASH haloperidol lactate [From Haldol] Adverse Reaction (Verified 01/01/18 10:38) RASH mesalamine [From Asacol] Adverse Reaction (Verified 01/01/18 10:38) RASH Penicillins Adverse Reaction (Verified 01/01/18 10:38) RASH seafood Adverse Reaction (Uncoded 01/01/18 10:38) RASH Home Medications: Home Meds Medication Instructions Recorded Confirmed Acetaminophen [Tylenol (Renal)] 650 mg PO Q4 PRN 11/19/16 01/01/18 Budesonide [Pulmicort Respules] 0.5 mg IH Q12 11/19/16 01/01/18 Divalproex [Depakote ER] 500 mg PO TID 11/19/16 01/01/18 Latanoprost 0.005% Opht [Xalatan 1 drp OP HS 11/19/16 01/01/18 Opht] Magnesium Hydroxide [Milk Of 30 ml PO HS PRN 11/19/16 01/01/18 Magnesia] Montelukast [Singulair] 10 mg PO HS 11/19/16 01/01/18 Gemfibrozil [Lopid] 600 mg PO BID 10/28/17 01/01/18 Insulin Detemir [Levemir] 10 unit SC HS 10/28/17 01/01/18 risperiDONE [RisperDAL Tab] 1 mg PO TID 10/28/17 01/01/18 Albuterol/Ipratropium [Duoneb 3 3 ml IH Q4 PRN 01/01/18 01/01/18 mg/0.5 mg (3 ml) UD] Atorvastatin [Lipitor] 10 mg PO HS 01/01/18 01/01/18 Carvedilol [Coreg] 3.125 mg PO BID 01/01/18 01/01/18 Insulin Aspart, Recombinant 0 unit SQ ACHS 01/01/18 01/01/18 [Novolog] Pantoprazole [Protonix] 40 mg PO DAILY 01/01/18 01/01/18 Review of Systems - Review of Systems Systems not reviewed;Unavailable: Altered Mental Status Physical Exam - Physical Exam Physical Exam Limitations: Altered Mental Status Temperature: Afebrile Blood Pressure: Hypotensive Pulse: Tachycardic Respiratory Rate: Normal Appearance: Positive for: Non-Toxic, Ill-Appearing, Unkept Pain Distress: None Mental Status: Positive for: Confused - Systems Exam Head: Present: Atraumatic, Normocephalic Pupils: Present: PERRL Conjunctiva: Present: Normal Mouth: Present: Dry Neck: Present: Normal Range of Motion Respiratory/Chest: Present: Rhonchi. No: Accessory Muscle Use Cardiovascular: Present: Normal S1, S2, Tachycardic Abdomen: Present: Tenderness, Normal Bowel Sounds. No: Distention, Peritoneal Signs, Rebound, Guarding Upper Extremity: Present: Normal Inspection Lower Extremity: Present: Normal Inspection. No: CALF TENDERNESS, NORMAL PULSES Neurological: Present: Other (Withdraws to pain in all four extremities. Nonverbal. Responsive to verbal stimuli. Does not obey simple commands. No clonus. No rigidity.) Skin: Present: Warm, Dry, Normal Color Psychiatric: Present: Lethargic Vital Signs Temp Pulse Pulse Resp BP Pulse Ox 01/01/18 18:18 97.6 F 78 20 90/54 L 01/01/18 18:09 97.6 F 78 78 20 90/54 L 01/01/18 18:03 97.6 F 82 18 96/51 L 01/01/18 17:44 80 01/01/18 17:10 83 18 98/44 L 97 Medical Decision Making Reassessment Condition: Re-examined, Improving,but remains with symptoms ( Slightly more responsive) - RAD Interpretation Lead Technologist In Cytogenetics: ED Physician - EKG Interpretation Type: 12 lead EKG Comparison: Similar to previous EKG ED Course and Treatment: 01/01/18 12:31 BP slightly improved after IVF. Head CT negative. Ordered septic workup and IV antibiotics. Labs significant for acute anemia, renal failure, hyperkalemia, hypermagnesemia , hypercalcemia. Valproic acid level slightly below normal range. Toxicology negative. Ordered Kayexalate OK for hyperkalemia Stool GUIAC negative on bedside exam; no melena; brown stool in rectal vault. Bilateral stage 1 decubiti noted. Ordered type and cross to transfuse 2u PRBC Abdominal tenderness noted. Ordered stat CT A/P. Ordered cosby catheter placement for strict I&O and urine studies EKG done, unremarkable compared to prior EKG, no arrhythmia or peaked T-wave changes. 01/01/18 14:43 UA positive for LE. Ordered UCx and BCx. Patient remains borderline hypotensive , though maintaining MAP with IVF administration. Discussed case with Dr. Gallegos, who accepts admission. Will admit to telemetry for anemia, uti, acute on chronic kidney injury, hyperkalemia (Brando,Gama) - Lab Interpretations Microbiology Results: Microbiology Results 01/01/18 11:10 Blood-Venous Blood Culture - Preliminary NO GROWTH AFTER 3 DAYS 01/01/18 10:50 Blood-Venous Blood Culture - Preliminary NO GROWTH AFTER 3 DAYS Lab Results: 01/01/18 10:50 01/01/18 10:50 Lab Results 01/01/18 13:00: Urine Color Yellow, Urine Appearance Clear, Urine pH 6.0, Ur Specific Eunice 1.020, Urine Protein 30 H, Urine Glucose (UA) Negative, Urine Ketones Negative, Urine Blood Small H, Urine Nitrate Negative, Urine Bilirubin Negative, Urine Urobilinogen 0.2, Ur Leukocyte Esterase Moderate H, Urine RBC 0 - 2, Urine WBC Tntc, Urine Bacteria Many 01/01/18 12:00: Ferritin 197.0 01/01/18 12:00: Iron 50, TIBC 233 L, % Saturation 21 01/01/18 10:55: pO2 176 H, VBG pH 7.24 L, VBG pCO2 56.0, VBG HCO3 24.0, VBG Total CO2 25.7, VBG O2 Sat (Calc) 100.1 H, VBG Base Excess -4.2 L, VBG Potassium 5.9 H, Glucose 80, Lactate 0.7, FiO2 21.0, Sodium 140.0, Chloride 112.0 H, Venous Blood Potassium 5.9 H 01/01/18 10:50: Valproic Acid 44 L 01/01/18 10:50: Alcohol, Quantitative < 10 01/01/18 10:50: Salicylates < 1 L, Acetaminophen < 10.0 L 01/01/18 10:50: Sodium 141, Potassium 5.8 H* D, Chloride 108 H, Carbon Dioxide 23, Anion Gap 16, BUN 62 H, Creatinine 5.0 H, Est GFR ( Amer) 11, Est GFR (Non-Af Amer) 9, Random Glucose 84, Calcium 10.6 H, Magnesium 2.5 H, Total Bilirubin 0.5, AST 30, ALT 21, Alkaline Phosphatase 102, Lactate Dehydrogenase 430, Total Creatine Kinase 74, Troponin I < 0.01, Total Protein 6.4, Albumin 2.6 L, Globulin 3.8, Albumin/Globulin Ratio 0.7 L, Lipase 174 01/01/18 10:50: PT 15.5 H, INR 1.34 H, APTT 28.8 01/01/18 10:50: WBC 5.9 D, RBC 2.34 L, Hgb 7.5 L D, Hct 24.9 L, MCV 106.4 H D, MCH 32.1, MCHC 30.1 L, RDW 19.7 H, Plt Count 123, MPV 9.9, Gran % 42.4 L, Lymph % (Auto) 45.8 H, [place] % (Auto) 10.7 H, Eos % (Auto) 0.8 L, Baso % (Auto) 0.3, Gran # 2.50, Lymph # (Auto) 2.7, [place] # (Auto) 0.6, Eos # (Auto) 0.1, Baso # ( Auto) 0.02 - RAD Interpretation Narrative RAD Interpretations (Text): 01/01/18 12:37 CXR unremarkable (Amine,Mukarram) Radiology Orders: 01/01/18 10:50 CHEST ONE VIEW [RAD] Stat 01/01/18 10:51 HEAD W/O CONTRAST [CT] Stat 01/01/18 11:52 ABD & PELVIS W/O PO OR IV CONT [CT] Stat - Medication Orders Current Medication Orders: Arformoterol Tartrate (Brovana) 15 mcg IH [id number] [facility] Last Admin: 01/04/18 20:05 Dose: 15 mcg Atorvastatin Calcium (Lipitor) 10 mg PO HS [facility] Last Admin: 01/04/18 21:27 Dose: 10 mg Budesonide (Pulmicort Respules) 0.5 mg IH Q12 [facility] Last Admin: 01/04/18 20:06 Dose: 0.5 mg Divalproex Sodium (Depakote Er(Once Daily)) 500 mg PO TID FLAVIO PRN Reason: Protocol Last Admin: 01/04/18 17:26 Dose: Not Given Non-Admin Reason: NPO Doxycycline Hyclate (Doryx) 100 mg PO Q12 FLAVIO PRN Reason: Protocol Last Admin: 01/04/18 21:27 Dose: 100 mg Gemfibrozil (Lopid) 600 mg PO BID [facility] Last Admin: 01/04/18 17:27 Dose: Not Given Non-Admin Reason: NPO Aztreonam 500 mg/ Sodium (Chloride) 100 mls @ 100 mls/hr IVPB Q12 [facility] PRN Reason: Protocol Last Admin: 01/04/18 21:27 Dose: 100 mls/hr eMAR Start Stop Document 01/04/18 21:27 SRE (Rec: 01/04/18 21:27 SRE [id number]) Intravenous Solution Start Date 01/04/18 Start Time 21:27 Dextrose (Dextrose 5% In Water 1000 Ml) 1,000 mls @ 70 mls/hr IV .[id number] [facility] Last Admin: 01/04/18 21:26 Dose: 70 mls/hr eMAR Start Stop Document 01/04/18 21:26 SRE (Rec: 01/04/18 21:26 SRE [id number]) Intravenous Solution Start Date 01/04/18 Start Time 21:26 Insulin Detemir (Levemir) 10 unit SC HS [facility] Last Admin: 01/04/18 22:42 Dose: 10 unit MAR Blood Glucose Document 01/04/18 22:42 SRE (Rec: 01/04/18 22:42 SRE [id number]) Blood Glucose Finger Stick Blood Glucose (70-120) 180 Subcutaneous Administrations Document 01/04/18 22:42 SRE (Rec: 01/04/18 22:42 SRE [id number]) Injection Site MAR Injection Site Left Arm Charges for Administration # of Subcutaneous Administrations 1 Insulin Human Regular (Humulin R Low) 0 units SC ACHS FLAVIO PRN Reason: Protocol Last Admin: 01/04/18 22:08 Dose: Not Given Non-Admin Reason: Blood Sugar Parameter Latanoprost (Xalatan Opht) 0.05 ml OD HS [facility] Last Admin: 01/04/18 21:28 Dose: 0.05 ml Levothyroxine Sodium (Synthroid) 150 mcg PO DAILY [facility] Last Admin: 01/04/18 09:28 Dose: Not Given Non-Admin Reason: NPO Methylprednisolone (Solu-Medrol) 40 mg IVP Q12 [facility] Last Admin: 01/04/18 21:27 Dose: 40 mg IVP Administration Document 01/04/18 21:27 SRE (Rec: 01/04/18 21:27 SRE [id number]) Charges for Administration # of IVP Administrations 1 Montelukast Sodium (Singulair) 10 mg PO HS [facility] Last Admin: 01/04/18 21:27 Dose: 10 mg Pantoprazole Sodium (Protonix Ec Tab) 40 mg PO DAILY [facility] Last Admin: 01/04/18 09:28 Dose: Not Given Non-Admin Reason: NPO Risperidone (Risperdal Tab) 1 mg PO TID [facility] PRN Reason: Protocol Last Admin: 01/03/18 10:18 Dose: Not Given Non-Admin Reason: NPO Discontinued Medications Dextrose (Dextrose 50% Inj) 50 ml IVP ONCE ONE Stop: 01/02/18 02:20 Last Admin: 01/02/18 02:29 Dose: 50 ml IVP Administration Document 01/02/18 02:29 CO (Rec: 01/02/18 02:29 CO [id number]) Charges for Administration # of IVP Administrations 1 Dextrose (Dextrose 50% Inj) 50 ml IVP ONCE ONE Stop: 01/02/18 11:43 Last Admin: 01/02/18 11:52 Dose: 50 ml IVP Administration Document 01/02/18 11:52 KL (Rec: 01/02/18 11:52 KL [id number]) Charges for Administration # of IVP Administrations 1 Diphenhydramine HCl (Benadryl) 25 mg IVP STAT STA Stop: 01/03/18 00:39 Last Admin: 01/03/18 00:43 Dose: 25 mg IVP Administration Document 01/03/18 00:43 GC (Rec: 01/03/18 00:44 GC [id number]) Charges for Administration # of IVP Administrations 1 Aztreonam (Azactam 2 Gm) 100 mls @ 100 mls/hr IVPB STAT STA PRN Reason: Protocol Stop: 01/01/18 11:50 Sodium Chloride (Sodium Chloride 0.9%) 1,000 mls @ 999 mls/hr IV .Q1H1M STA Stop: 01/01/18 11:53 Last Admin: 01/01/18 11:24 Dose: 999 mls/hr eMAR Start Stop Document 01/01/18 11:24 [employer] (Rec: 01/01/18 11:24 [employer] [id number]) Intravenous Solution Start Date 01/01/18 Start Time 11:24 End Date 01/01/18 End time 12:24 Total Infusion Time 60 Aztreonam (Azactam 1 Gm) 100 mls @ 100 mls/hr IVPB STAT STA PRN Reason: Protocol Stop: 01/01/18 12:03 Last Admin: 01/01/18 11:26 Dose: 100 mls/hr eMAR Start Stop Document 01/01/18 11:26 [employer] (Rec: 01/01/18 11:26 [employer] [id number]) Intravenous Solution Start Date 01/01/18 Start Time 11:26 End Date 01/01/18 End time 12:26 Total Infusion Time 60 Sodium Chloride (Sodium Chloride 0.9%) 1,000 mls @ 100 mls/hr IV .Q10H [facility] Last Admin: 01/04/18 08:14 Dose: 100 mls/hr eMAR Start Stop Document 01/04/18 08:14 KE (Rec: 01/04/18 08:14 KE [id number]) Intravenous Solution Start Date 01/04/18 Start Time 08:14 Amikacin Sulfate 500 mg/ (Sodium Chloride) 102 mls @ 204 mls/hr IVPB ONCE ONE PRN Reason: Protocol Stop: 01/02/18 01:14 Last Admin: 01/02/18 01:44 Dose: 204 mls/hr eMAR Start Stop Document 01/02/18 01:44 CO (Rec: 01/02/18 01:44 CO [id number]) Intravenous Solution Start Date 01/02/18 Start Time 01:44 Aztreonam (Azactam 1 Gm) 100 mls @ 100 mls/hr IVPB DAILY FLAVIO PRN Reason: Protocol Last Admin: 01/02/18 11:29 Dose: 100 mls/hr eMAR Start Stop Document 01/02/18 11:29 LUIS M (Rec: 01/02/18 11:29 KL [id number]) Intravenous Solution Start Date 01/02/18 Start Time 11:29 Pneumococcal Polyvalent Vaccine (Pneumovax 23 Vaccine) 0.5 ml IM .ONCE ONE Stop: 01/01/18 19:16 Sodium Polystyrene Sulfonate (Kayexalate Susp) 15 gm OK STAT STA Stop: 01/01/18 13:22 Last Admin: 01/01/18 15:10 Dose: 15 gm Disposition/Present on Arrival - Present on Arrival Any Indicators Present on Arrival: Yes History of DVT/PE: No History of Uncontrolled Diabetes: Yes Urinary Catheter: No History of Decub. Ulcer: No History Surgical Site Infection Following: None - Disposition Have Diagnosis and Disposition been Completed?: Yes Disposition Time: 14:47 Patient Plan: Admission, Telemetry - Disposition Diagnosis: ANNA (acute kidney injury), Altered mental status, Hyperkalemia, UTI (urinary tract infection), Anemia Disposition: HOSPITALIZED Patient Problems: Current Active Problems Problem Status Onset ANNA (acute kidney injury) Acute Altered mental status Acute Anemia Acute Hyperkalemia Acute UTI (urinary tract infection) Acute Condition: GUARDED
[2018-01-01 11:20] LABS: VENOUS BLOOD GAS BASE EXCESS -4.2 mmol/L (0.0-2.0); VENOUS BLOOD GAS PO2 176 mm/Hg (30-55); VENOUS BLOOD PH 7.24 (7.32-7.43)
[2018-01-01 11:34] LABS: BASO # 0.02 K/mm3 (0.0-2.0); BASO % 0.3 % (0.0-3.0); EOS # 0.1 (0.0-0.7); EOS % 0.8 % (1.5-5.0); GRAN # 2.5 (1.4-6.5); GRAN % 42.4 % (50.0-68.0); LYMPH # 2.7 (1.2-3.4); LYMPH % 45.8 % (22.0-35.0); MEAN CELL VOLUME 106.4 fl (80.0-105.0); MEAN CORPUSCULAR HEMOGLOBIN 32.1 pg (25.0-35.0); MEAN CORPUSCULAR HGB CONC 30.1 g/dl (31.0-37.0); MEAN PLATELET VOLUME 9.9 fl (7.0-11.0); MONO # 0.6 (0.1-0.6); MONO % 10.7 % (1.0-6.0); RBC 2.34 10^6/uL (3.5-6.1); RED CELL DISTRIBUTION WIDTH 19.7 % (11.5-14.5); WHITE BLOOD COUNT 5.9 10^3/ul (4.5-11.0)
[2018-01-01 11:41] LABS: ACETAMINOPHEN < 10.0 ug/ml (10.0-20.0); SALICYLATE < 1 mg/dL (2.0-20.0)
[2018-01-01 11:44] LABS: ALB/GLOB RATIO 0.7 (1.1-1.8); ALBUMIN 2.6 g/dL (3.0-4.8); ALT/SGPT 21 U/L (7-56); AST/SGOT 30 U/L (14-36); BLOOD UREA NITROGEN 62 mg/dL (7-21); CALCIUM 10.6 mg/dL (8.4-10.5); GFR AFRICAN-AMERICAN 11; GFR NON-AFRICAN AMERICAN 9; LIPASE 174 U/L (23-300)
[2018-01-01 11:45] LABS: HEMOGLOBIN 7.5 g/dL (12.0-16.0)
[2018-01-01 11:46] LABS: INR 1.34 (0.93-1.08); PROTHROMBIN TIME 15.5 SECONDS (9.4-12.5)
[2018-01-01 11:47] LABS: PARTIAL THROMBOPLASTIN TIME 28.8 Seconds (25.1-36.5); TROPONIN I < 0.01 ng/mL
--- NOTE | 2018-01-01 11:59 | CT ---
PROCEDURE: CT HEAD WITHOUT CONTRAST. HISTORY: ams COMPARISON: None available. TECHNIQUE: Axial computed tomography images were obtained through the head/brain without intravenous contrast. Radiation dose: Total exam DLP = mGy-cm. This CT exam was performed using one or more of the following dose reduction techniques: Automated exposure control, adjustment of the mA and/or kV according to patient size, and/or use of iterative reconstruction technique. FINDINGS: HEMORRHAGE: No intracranial hemorrhage. BRAIN: No mass effect or edema. No atrophy or chronic microvascular ischemic changes. VENTRICLES: Unremarkable. No hydrocephalus. CALVARIUM: Unremarkable. PARANASAL SINUSES: Unremarkable as visualized. No significant inflammatory changes. MASTOID AIR CELLS: Unremarkable as visualized. No inflammatory changes. OTHER FINDINGS: None. IMPRESSION: Normal CT of the Head.
[2018-01-01 12:27] LABS: IRON 50 ug/dL (45-180)
[2018-01-01 12:36] LABS: % IRON SATURATION 21 % (20-55); TOTAL IRON BINDING CAPACITY 233 ug/dL (265-497)
--- NOTE | 2018-01-01 12:48 | RAD ---
PROCEDURE: CHEST RADIOGRAPH, 1 VIEW HISTORY: ams COMPARISON: 10/28/2017 FINDINGS: LUNGS: Clear. Minimal linear scarring in the left mid lung field PLEURA: No pneumothorax or pleural fluid seen. CARDIOVASCULAR: Normal. OSSEOUS STRUCTURES: No significant abnormalities. VISUALIZED UPPER ABDOMEN: Normal. OTHER FINDINGS: None. IMPRESSION: No active disease.
--- NOTE | 2018-01-01 13:06 | CT ---
PROCEDURE: CT Abdomen and Pelvis without intravenous contrast HISTORY: hypotensive, abdominal tenderness COMPARISON: 11/19/2016 TECHNIQUE: Without contrast. Contrast Dose: Radiation dose: Total exam DLP = Total exam DLP = 968 mGy-cm. This CT exam was performed using one or more of the following dose reduction techniques: Automated exposure control, adjustment of the mA and/or kV according to patient size, and/or use of iterative reconstruction technique. FINDINGS: LOWER THORAX: Unremarkable. LIVER: Unremarkable. No gross lesion or ductal dilatation. GALLBLADDER AND BILE DUCTS: Small gallstones PANCREAS: Unremarkable. No gross lesion or ductal dilatation. SPLEEN: Unremarkable. ADRENALS: Unremarkable. No mass. KIDNEYS AND URETERS: Unremarkable. No hydronephrosis. No solid mass. Simple cyst in the right kidney VASCULATURE: Unremarkable. No aortic aneurysm. BOWEL: Unremarkable. No obstruction. No gross mural thickening. Mild diverticulosis APPENDIX: Unremarkable. Normal appendix. PERITONEUM: Unremarkable. No free fluid. No free air. LYMPH NODES: Unremarkable. No enlarged lymph nodes. BLADDER: Unremarkable. REPRODUCTIVE: Unremarkable. BONES: No acute fracture. OTHER FINDINGS: None. IMPRESSION: No acute intra-abdominal findings
[2018-01-01 13:16] LABS: URINE APPEARANCE CLEAR (CLEAR); URINE BILIRUBIN NEGATIVE (NEGATIVE); URINE BLOOD SMALL (NEGATIVE); URINE COLOR YELLOW (YELLOW); URINE GLUCOSE (UA) NEGATIVE (NEGATIVE); URINE LEUKOCYTE ESTERASE MODERATE Leu/uL (NEGATIVE); URINE PROTEIN 30 mg/dL (<30 mg/dL); URINE UROBILINOGEN 0.2 E.U./dL (<1 E.U./dL)
[2018-01-01 13:25] LABS: URINE BACTERIA MANY (NEG); URINE RBC 0 - 2 /hpf (0-2); URINE WBC TNTC /hpf (0-6)
[2018-01-01] MEDS: Sod Polystyrene Sulf 15 gm/60 ml Susp PR STA ×2 (13:25→15:10)
--- NOTE | 2018-01-01 14:16 | CARD ---
APPROVED REPORT EKG Measurement Heart [id number] <Conclusion> Sinus rhythm with occasional premature ventricular complexes Left axis deviation Incomplete right bundle branch block Nonspecific T wave abnormality
[2018-01-01 17:24] LABS: ARTERIAL BLOOD GAS HCO3 22.5 mmol/L (21-28); ARTERIAL BLOOD GAS HEMOGLOBIN 7.1 g/dL (11.7-17.4); ARTERIAL BLOOD GAS O2 CAPACITY 9.8 mL/dl (16-24); ARTERIAL BLOOD GAS O2 CONTENT 9.6 ML/dl (15-23); ARTERIAL BLOOD GAS O2 SAT 97.9 % (95-98); ARTERIAL BLOOD GAS PCO2 63 mm/Hg (35-45); ARTERIAL BLOOD GAS TCO2 24.4 mmol.L (22-28)
[2018-01-01 17:29] LABS: ARTERIAL BLOOD GAS PH 7.16 (7.35-7.45)
[2018-01-01] MEDS ORDERED: Magnesium Hydroxide Susp 30 ml UD PO PRN (19:04)
[2018-01-01] MEDS ORDERED: Pneumococcal 23-Valent Vaccine IM ONE (19:15)
[2018-01-01] MEDS: Budesonide 0.5 mg/2 ml Inhal Susp UD IH SCH (20:00)
[2018-01-01] MEDS: Sodium Chloride 0.9% 1,000 ML IV SCH (21:46)
[2018-01-01] MEDS: Insulin Reg-LOW-Coverage SC SCH (22:22)
[2018-01-01] MEDS: Latanoprost 2.5 ml Opht Soln OD SCH (22:40)
--- NOTE | 2018-01-01 23:49 | CP.PCM.CON ---
History of Present Illness - History of Present Illness History of Present Illness: Infectious Disease Consultation: January 01, 2018 62 yo female originally admitted from [facility] due to AMS and episode of hypotension. The patient is poorly responsive and lethargic. Extensive past medical history that includes being bedbound, HTN, COPD, GI bleed, chronic UTI, Seizure disorder, DM type II, hypothyroidism, and schizophrenia. She still has episodes of hypotension. Apparently, the patient was in [facility] for hospitalization recently. The patient is on BiPAP now. Very difficult to arouse. PMHx: Diabetes Mellitus, COPD, Substance abuse history, CKD, Seizure disorder history , hypothyroidism, HTN PSHx: none to my knowledge Allergies: ASA, Haldol, Asacol, PCN, Seafood Social Hx: No EtOH, former tobacco use, former substance abuse history. Active Medications Atorvastatin Calcium (Lipitor) 10 mg PO HS [facility] Last Admin: 01/01/18 22:23 Dose: Not Given Budesonide (Pulmicort Respules) 0.5 mg IH Q12 [facility] Divalproex Sodium (Depakote Er(Once Daily)) 500 mg PO TID [facility] PRN Reason: Protocol Gemfibrozil (Lopid) 600 mg PO BID [facility] Sodium Chloride (Sodium Chloride 0.9%) 1,000 mls @ 100 mls/hr IV .Q10H [facility] Last Admin: 01/01/18 21:46 Dose: 100 mls/hr Amikacin Sulfate 500 mg/ (Sodium Chloride) 102 mls @ 204 mls/hr IVPB ONCE ONE PRN Reason: Protocol Stop: 01/02/18 01:14 Aztreonam (Azactam 1 Gm) 100 mls @ 100 mls/hr IVPB DAILY [facility] PRN Reason: Protocol Insulin Detemir (Levemir) 10 unit SC HS [facility] Insulin Human Regular (Humulin R Low) 0 units SC ACHS [facility] PRN Reason: Protocol Last Admin: 01/01/18 22:22 Dose: Not Given Latanoprost (Xalatan Opht) 0.05 ml OD HS [facility] Last Admin: 01/01/18 22:40 Dose: 0.05 ml Levothyroxine Sodium (Synthroid) 150 mcg PO DAILY [facility] Montelukast Sodium (Singulair) 10 mg PO HS [facility] Last Admin: 01/01/18 22:23 Dose: Not Given Pantoprazole Sodium (Protonix Ec Tab) 40 mg PO DAILY [facility] Risperidone (Risperdal Tab) 1 mg PO TID [facility] PRN Reason: Protocol Family Hx: none given ROS: Patient confused today. Past Patient History - Infectious Disease Hx of Infectious Diseases: None - Tetanus Immunizations Tetanus Immunization: Unknown - Past Social History Smoking Status: Unknown If Ever Smoked - CARDIAC Hx Cardiac Disorders: Yes Hx Hypercholesterolemia: Yes Hx Hypertension: Yes - PULMONARY Hx Respiratory Disorders: Yes Hx Chronic Obstructive Pulmonary Disease (COPD): Yes Hx Emphysema: Yes Other/Comment: respiratory failure - NEUROLOGICAL Hx Neurological Disorder: Yes (cognitive deficits, syncope) Hx Seizures: Yes - HEENT Hx HEENT Problems: Yes Hx Glaucoma: Yes - RENAL Hx Chronic Kidney Disease: Yes Hx Renal Failure: Yes - ENDOCRINE/METABOLIC Hx Endocrine Disorders: Yes Hx Diabetes Mellitus Type 2: Yes Hx Hypothyroidism: Yes - HEMATOLOGICAL/ONCOLOGICAL Hx Blood Disorders: Yes Hx Anemia: Yes Other/Comment: sepsis - INTEGUMENTARY Hx Dermatological Problems: Yes Other/Comment: stage 2 opening left buttock 0.5cm round wound bed red and 1cm round opening wound bed red, redness to buttocks and sacrum, multiple red areas of skin to outer lower left leg, fading redness and rash under both breasts, bikini line scar, dry lips, dry skin to feet, thick dry toenails, multple bruises bke, dry scab 1cm rounc right knee, scrape left knee - MUSCULOSKELETAL/RHEUMATOLOGICAL Hx Musculoskeletal Disorders: Yes (BLE weakness) Hx Falls: Yes (past) Hx Osteoporosis: Yes Hx Unsteady Gait: Yes - GASTROINTESTINAL Hx Gastrointestinal Disorders: Yes (gi bleed, difficulty chewing) Hx Gastroesophageal Reflux: Yes Other/Comment: gi bleed, bleeding gastric erosion, esophageal ulcers, duodenitis - GENITOURINARY/GYNECOLOGICAL Hx Genitourinary Disorders: Yes Hx Incontinence: Yes Hx Urinary Tract Infection: Yes - PSYCHIATRIC Hx Psychophysiologic Disorder: Yes Hx Schizophrenia: Yes Hx Substance Use: No Other/Comment: suicidal,ams, cognitive defects, prior resident of [facility] - SURGICAL HISTORY Hx Surgeries: Yes - ANESTHESIA Hx Anesthesia: Yes Hx Anesthesia Reactions: No Hx Malignant Hyperthermia: No Meds Allergies/Adverse Reactions: Allergies Allergy/AdvReac Type Severity Reaction Status Date / Time aspirin AdvReac RASH Verified 01/01/18 10:38 haloperidol [From Haldol] AdvReac RASH Verified 01/01/18 10:38 haloperidol lactate AdvReac RASH Verified 01/01/18 10:38 [From Haldol] mesalamine [From Asacol] AdvReac RASH Verified 01/01/18 10:38 Penicillins AdvReac RASH Verified 01/01/18 10:38 seafood AdvReac RASH Uncoded 01/01/18 10:38 - Medications Medications: Current Medications Atorvastatin Calcium (Lipitor) 10 mg PO HS [facility] Last Admin: 01/01/18 22:23 Dose: Not Given Budesonide (Pulmicort Respules) 0.5 mg IH Q12 [facility] Divalproex Sodium (Depakote Er(Once Daily)) 500 mg PO TID [facility] PRN Reason: Protocol Gemfibrozil (Lopid) 600 mg PO BID [facility] Sodium Chloride (Sodium Chloride 0.9%) 1,000 mls @ 100 mls/hr IV .Q10H [facility] Last Admin: 01/01/18 21:46 Dose: 100 mls/hr Insulin Detemir (Levemir) 10 unit SC HS [facility] Insulin Human Regular (Humulin R Low) 0 units SC ACHS [facility] PRN Reason: Protocol Last Admin: 01/01/18 22:22 Dose: Not Given Latanoprost (Xalatan Opht) 0.05 ml OD [facility] Last Admin: 01/01/18 22:40 Dose: 0.05 ml Levothyroxine Sodium (Synthroid) 150 mcg PO DAILY [facility] Montelukast Sodium (Singulair) 10 mg PO [facility] Last Admin: 01/01/18 22:23 Dose: Not Given Pantoprazole Sodium (Protonix Ec Tab) 40 mg PO DAILY [facility] Risperidone (Risperdal Tab) 1 mg PO TID [facility] PRN Reason: Protocol Physical Exam - Constitutional Appears: Toxic, No Acute Distress, Chronically Ill Additional comments: Obese - Head Exam Head Exam: ATRAUMATIC, NORMOCEPHALIC - Eye Exam Eye Exam: EOMI, PERRL Pupil Exam: NORMAL ACCOMODATION, PERRL - ENT Exam ENT Exam: Mucous Membranes Moist, Normal External Ear Exam, TM's Normal Bilaterally - Neck Exam Neck exam: Positive for: Full Rom, Normal Inspection - Respiratory Exam Respiratory Exam: Decreased Breath Sounds, Rhonchi. absent: Rales, Wheezes - Cardiovascular Exam Cardiovascular Exam: REGULAR RHYTHM, RRR, +S1, +S2 - GI/Abdominal Exam GI & Abdominal Exam: Normal Bowel Sounds, Soft. absent: Distended, Tenderness - Extremities Exam Extremities exam: Positive for: full ROM, normal inspection - Neurological Exam Neurological exam: CN II-XII Intact Additional comments: poorly responsive. - Psychiatric Exam Additional comments: Lethargic. - Skin Skin Exam: Dry, Normal Color, Warm Results - Vital Signs Recent Vital Signs: Last Vital Signs Temp 98.2 F 01/01/18 22:44 Pulse 77 01/01/18 22:44 Resp 20 01/01/18 22:44 BP 99/42 L 01/01/18 22:44 Pulse Ox 100 01/01/18 19:00 - Labs Result Diagrams: 01/01/18 10:50 01/01/18 10:50 Labs: Laboratory Results - last 24 hr 01/01/18 01/01/18 16:30 17:15 pCO2 63 H pO2 73.0 L HCO3 22.5 ABG pH 7.16 L* ABG Total CO2 24.4 ABG O2 Saturation 97.9 ABG O2 Content 9.6 L ABG Base Excess -5.9 L ABG Hemoglobin 7.1 L ABG Carboxyhemoglobin 2.3 H POC ABG HHb (Measured) 2.0 ABG Methemoglobin 0.6 ABG O2 Capacity 9.8 L Hgb O2 Saturation 95.2 FiO2 32.0 Blood Type O POSITIVE Antibody Screen Negative Crossmatch See Detail BBK History Checked Patient has bt Assessment & Plan - Assessment and Plan (Free Text) Assessment: 62 yo female with AMS and hypotension episodes. Treating for assumed sepsis. R /O UTI. Pancultures. PCN allergy. Start Aztreonam and Doxycycline. Give dose of Amikacin at this time IV. The patient is poorly responsive with hypotensive episodes. The patient is on a BiPAP machine. She is unable to give any relevant information. Supportive care. Awaiting cultures. Continue with Doxycycline and Aztreonam. Thank you for allowing me to participate in the care of the patient, we will follow with you.
--- NOTE | 2018-01-02 00:58 | HP ---
The patient is a 62-year-old female. CHIEF COMPLAINT: Altered mental status, lethargy. HISTORY OF PRESENT ILLNESS: Ms. Day Hung is a 62-year-old, my private patient, from [facility] with past medical history of diabetes mellitus, COPD, substance abuse history, CKD, seizure disorder, history of hypothyroidism and hypertension, brought to the emergency room by EMS from [facility] for 4 days of fatigue, tired, nausea, altered mental status and has hypotension, blood pressure is in 80s/40s. Patient got 500 mL of NS bolus en route. On examination, patient is nonverbal, very lethargic. Blood pressure is slightly improving with fluid. Last time, patient was admitted in [facility] and got treatment for sepsis, which included intubation and patient is not DNR and DNI. PAST MEDICAL HISTORY: As above. Hypertension, COPD, history of intubation, emphysema, cognitive deficit, history of seizures, syncope, renal failure, diabetes mellitus type 2, hypothyroidism, anemia, fall, osteoporosis, history of GI bleeding, history of UTI and schizophrenia. FAMILY HISTORY: Father and mother, noncontributory. HABITS: History of former smoker and heavy smoker. No alcohol, no substance abuse. ALLERGIES: PATIENT IS ALLERGIC WITH ASPIRIN, HALOPERIDOL, MESALAMINE, PENICILLIN, SEAFOOD. HOME MEDICATIONS: Acetaminophen, Pulmicort, Depakote, eye drops, magnesium oxide, Singulair, Lopid, Levemir, Risperdal, DuoNeb, Lipitor, Coreg, insulin and Protonix. REVIEW OF SYSTEMS: Patient was seen and examined. She is lethargic, is not able to give review of systems, altered mental status; opening eyes on command, then closing again. She is on BiPAP. No fever, no chills. No nausea, vomiting or diarrhea. No swelling of the leg. PHYSICAL EXAMINATION: VITAL SIGNS: Temperature 98.7, pulse 75, blood pressure 91/38, respiratory rate 20. HEENT: Head normocephalic, atraumatic. Eyes closed. Nose patent. Mucosus membrane moist. NECK: Supple. No carotid bruit, JVD or thyromegaly. CHEST: Bilaterally symmetrical. HEART: S1, S2 positive. LUNGS: Clear to auscultation. ABDOMEN: Soft, bowel sounds present. No organomegaly. EXTREMITIES: No edema, no cyanosis. NEUROLOGICAL: The patient is sleepy, arousable, is not able to follow simple commands. LABORATORY DATA: White blood cell is 5.9, hemoglobin 7.5, hematocrit 24.9, platelets 123. Sodium 141, potassium 5.8, BUN 52, creatinine 5, calcium 10.6 and magnesium 2.5. ASSESSMENT AND PLAN: Ms. Day Hung is a 62-year-old lady with severe anemia, acute on chronic; hyperkalemia; renal insufficiency, acute on chronic; hypercalcemia, hypermagnesemia; insulin-requiring diabetes mellitus type 2, not very well controlled; proteinuria, hematuria and urinary tract infection. CAT scan of the abdomen and pelvis done, reviewed by me. CAT scan of the head is done, reviewed by me. Patient is do not resuscitate and do not intubate, getting bilevel positive airway pressure, history of seizure disorder, hypothyroidism; history of hypertension, but right now, she has hypotension; history of chronic obstructive pulmonary disease, emphysema, history of heavy smoking, cognitive deficit, syncope, history of sepsis, recent admission was in [facility] when she was intubated, history of fall, osteoporosis, osteoarthritis, ataxia, history of gastrointestinal bleeding, urinary incontinence, schizophrenia, psychological disorder; started antibiotics , consult with Dr. 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 Sullivan, Infectious Disease. Also, sleep apnea; patient is on bilevel positive airway pressure. We will call Dr. Shelley's, consulted to adjust the bilevel positive airway pressure. ordered packed RBC for the patient. Dose of Azactam got, put on sliding scale and all halfway medications. We will repeat labs and we will follow up. Steff Gallegos MD MTDDeidre
[2018-01-02] MEDS: Insulin Detemir 100 units/ml Vial (Levemir) SC SCH ×2 (02:00→21:21)
[2018-01-02] MEDS ORDERED: Dextrose 50% SYRINGE Inj (50 ml) IVP ONE ×2 (02:19→11:42)
[2018-01-02] MEDS: Sodium Chloride 0.9% 1,000 ML IV SCH ×4 (06:50→23:51)
[2018-01-02 07:17] LABS: MEAN CELL VOLUME 101.6 fl (80.0-105.0); MEAN CORPUSCULAR HEMOGLOBIN 31.5 pg (25.0-35.0); MEAN PLATELET VOLUME 9.5 fl (7.0-11.0); RBC 3.11 10^6/uL (3.5-6.1); RED CELL DISTRIBUTION WIDTH 20.3 % (11.5-14.5); WHITE BLOOD COUNT 7.2 10^3/ul (4.5-11.0)
[2018-01-02 07:31] LABS: BLOOD UREA NITROGEN 57 mg/dL (7-21); GFR AFRICAN-AMERICAN 12; GFR NON-AFRICAN AMERICAN 10; HDL CHOLESTEROL 31 mg/dL (29-60); HEMOGLOBIN 9.8 g/dL (12.0-16.0); IRON 93 ug/dL (45-180)
[2018-01-02] MEDS: Budesonide 0.5 mg/2 ml Inhal Susp UD IH SCH ×3 (07:37→22:00)
[2018-01-02 07:42] LABS: % IRON SATURATION 43 % (20-55); LDL CHOLESTEROL 38 mg/dL (0-129); TOTAL IRON BINDING CAPACITY 218 ug/dL (265-497)
[2018-01-02] MEDS: Insulin Reg-LOW-Coverage SC SCH ×4 (08:27→21:21)
[2018-01-02] MEDS ORDERED: Aztreonam 1 Gm in NS 100mL 100 ML IVPB SCH (10:00)
[2018-01-02] MEDS: Levothyroxine 150 MCG TAB PO SCH (11:20)
[2018-01-02] MEDS: Divalproex 500 mg ER (ONCE DAILY formulation) PO SCH ×3 (11:20→17:20)
[2018-01-02] MEDS: Pantoprazole 40 mg EC Tab PO SCH (11:20)
[2018-01-02] MEDS: MethylPREDNISolone 40 mg Vial IVP SCH ×2 (11:29→21:08)
--- NOTE | 2018-01-02 12:07 | CP.PCM.PN ---
<Yeimy Islas - Last Filed: 01/02/18 12:04> Subjective - Date & Time of Evaluation Date of Evaluation: 01/02/18 Time of Evaluation: 09:45 - Subjective Subjective: Chief complaint: Altered mental status 62 yr female resident of [facility] w/ history of cognitive deficits, CKD, HTN, COPD, seizure disorder, DM II, osteoporosis, non- ambulatory, substance abuse, GI bleed, chronic UTI, hypothyroidism, and schizophrenia. Admitted to [facility] for exhibiting altered mental status, ANNA, UTI, anemia and hypotension; she was recently discharged from [facility]. Today, she has bipap on face. No distress noted. DNR/DNI. POA is Barrett Iraheta# [phone]. Pt is a poor historian. Objective - Vital Signs/Intake and Output Vital Signs (last 24 hours): Temp Pulse Resp BP Pulse Ox 98.3 F 79 20 101/43 L 100 01/02/18 06:00 01/02/18 11:07 01/02/18 06:00 01/02/18 06:00 01/02/18 06:00 Intake and Output: 01/02/18 01/02/18 06:59 18:59 Intake Total 1574 Output Total 300 Balance 1274 - Medications Medications: Current Medications Arformoterol Tartrate (Brovana) 15 mcg IH [id number] [facility] Atorvastatin Calcium (Lipitor) 10 mg PO HS [facility] Last Admin: 01/01/18 22:23 Dose: Not Given Budesonide (Pulmicort Respules) 0.5 mg IH Q12 [facility] Last Admin: 01/02/18 07:37 Dose: 0.5 mg Divalproex Sodium (Depakote Er(Once Daily)) 500 mg PO TID [facility] PRN Reason: Protocol Last Admin: 01/02/18 11:20 Dose: Not Given Doxycycline Hyclate (Doryx) 100 mg PO Q12 [facility] PRN Reason: Protocol Last Admin: 01/02/18 11:20 Dose: Not Given Gemfibrozil (Lopid) 600 mg PO BID [facility] Last Admin: 01/02/18 11:20 Dose: Not Given Sodium Chloride (Sodium Chloride 0.9%) 1,000 mls @ 100 mls/hr IV .Q10H [facility] Last Admin: 01/02/18 11:29 Dose: 100 mls/hr Aztreonam 500 mg/ Sodium (Chloride) 100 mls @ 100 mls/hr IVPB DAILY [facility] PRN Reason: Protocol Insulin Detemir (Levemir) 10 unit SC HS [facility] Last Admin: 01/02/18 02:00 Dose: Not Given Insulin Human Regular (Humulin R Low) 0 units SC ACHS [facility] PRN Reason: Protocol Last Admin: 01/02/18 11:30 Dose: Not Given Latanoprost (Xalatan Opht) 0.05 ml OD HS [facility] Last Admin: 01/01/18 22:40 Dose: 0.05 ml Levothyroxine Sodium (Synthroid) 150 mcg PO DAILY [facility] Last Admin: 01/02/18 11:20 Dose: Not Given Methylprednisolone (Solu-Medrol) 40 mg IVP Q12 [facility] Last Admin: 01/02/18 11:29 Dose: 40 mg Montelukast Sodium (Singulair) 10 mg PO HS [facility] Last Admin: 01/01/18 22:23 Dose: Not Given Pantoprazole Sodium (Protonix Ec Tab) 40 mg PO DAILY [facility] Last Admin: 01/02/18 11:20 Dose: Not Given Risperidone (Risperdal Tab) 1 mg PO TID [facility] PRN Reason: Protocol Last Admin: 01/02/18 11:20 Dose: Not Given - Labs Labs: 01/02/18 06:30 01/02/18 06:30 PT 15.5 SECONDS (9.4-12.5) H 01/01/18 10:50 INR 1.34 (0.93-1.08) H 01/01/18 10:50 APTT 28.8 Seconds (25.1-36.5) 01/01/18 10:50 - Constitutional Appears: No Acute Distress, Chronically Ill - Head Exam Head Exam: ATRAUMATIC, NORMAL INSPECTION, NORMOCEPHALIC - Eye Exam Eye Exam: Normal appearance Pupil Exam: NORMAL ACCOMODATION - ENT Exam ENT Exam: Mucous Membranes Moist, Normal Exam - Neck Exam Neck Exam: Full ROM, Normal Inspection. absent: Lymphadenopathy - Respiratory Exam Respiratory Exam: Clear to Ausculation Bilateral, NORMAL BREATHING PATTERN - Cardiovascular Exam Cardiovascular Exam: REGULAR RHYTHM, +S1, +S2. absent: Murmur - GI/Abdominal Exam GI & Abdominal Exam: Soft, Normal Bowel Sounds. absent: Tenderness - Extremities Exam Extremities Exam: Full ROM, Normal Capillary Refill, Normal Inspection. absent : Joint Swelling, Pedal Edema - Back Exam Back Exam: NORMAL INSPECTION - Neurological Exam Neurological Exam: Alert, Awake, CN II-XII Intact, Normal Gait, Oriented x3 - Psychiatric Exam Psychiatric exam: Normal Affect, Normal Mood - Skin Skin Exam: Dry, Pallor, Warm Assessment and Plan (1) ANNA (acute kidney injury) Status: Acute (2) Altered mental status Status: Acute (3) Anemia Status: Acute (4) Hyperkalemia Status: Acute (5) UTI (urinary tract infection) Status: Acute (6) Hematuria Status: Acute (7) Hypercalcemia Status: Acute (8) Proteinuria Status: Acute (9) CKD (chronic kidney disease) stage 3, GFR 30-59 ml/min Status: Chronic - Assessment and Plan (Free Text) Plan: Labs ordered. IV abx amikacin & azactam. IVF hydration. NPO diet. PO doxycyline ? Culture: urine NEGATIVE. blood NEGATIVE. IV solumedryl. Palliative Care onboard. Seizure, aspiration precautions. OT/Speech therapy on board. Bipap HS. GI/VTE prophylaxis. Consult: Neuro - Dr. Rocco Espinoza - Dr. Quintero Psych - Dr. Rodriguez ID - Dr. Sullivan Nephro - Dr. Dent Reviewed: CT abd/pelvis = WNL CT head = WNL CXR = minimal linear scarring in L mid lung field ECG = ABNORMAL, SR, PVC, L axis deviation, incomplete R BBB, nonspecific T wave abnormality <Steff Gallegos - Last Filed: 01/02/18 22:01> Objective - Vital Signs/Intake and Output Vital Signs (last 24 hours): Temp Pulse Resp BP Pulse Ox 98.4 F 82 22 122/54 L 100 01/02/18 18:00 01/02/18 20:12 01/02/18 18:00 01/02/18 18:00 01/02/18 06:00 - Medications Medications: Current Medications Arformoterol Tartrate (Brovana) 15 mcg IH [id number] [facility] Last Admin: 01/02/18 20:09 Dose: 15 mcg Atorvastatin Calcium (Lipitor) 10 mg PO HS [facility] Last Admin: 01/02/18 21:08 Dose: Not Given Budesonide (Pulmicort Respules) 0.5 mg IH Q12 [facility] Last Admin: 01/02/18 20:09 Dose: 0.5 mg Divalproex Sodium (Depakote Er(Once Daily)) 500 mg PO TID [facility] PRN Reason: Protocol Last Admin: 01/02/18 17:20 Dose: Not Given Doxycycline Hyclate (Doryx) 100 mg PO Q12 [facility] PRN Reason: Protocol Last Admin: 01/02/18 21:08 Dose: Not Given Gemfibrozil (Lopid) 600 mg PO BID [facility] Last Admin: 01/02/18 17:21 Dose: Not Given Sodium Chloride (Sodium Chloride 0.9%) 1,000 mls @ 100 mls/hr IV .Q10H [facility] Last Admin: 01/02/18 17:22 Dose: Not Given Aztreonam 500 mg/ Sodium (Chloride) 100 mls @ 100 mls/hr IVPB Q12 [facility] PRN Reason: Protocol Last Admin: 01/02/18 21:07 Dose: 100 mls/hr Insulin Detemir (Levemir) 10 unit SC HS [facility] Last Admin: 01/02/18 21:21 Dose: Not Given Insulin Human Regular (Humulin R Low) 0 units SC ACHS [facility] PRN Reason: Protocol Last Admin: 01/02/18 21:21 Dose: Not Given Latanoprost (Xalatan Opht) 0.05 ml OD HS [facility] Last Admin: 01/02/18 21:07 Dose: 0.05 ml Levothyroxine Sodium (Synthroid) 150 mcg PO DAILY [facility] Last Admin: 01/02/18 11:20 Dose: Not Given Methylprednisolone (Solu-Medrol) 40 mg IVP Q12 [facility] Last Admin: 01/02/18 21:08 Dose: 40 mg Montelukast Sodium (Singulair) 10 mg PO HS [facility] Last Admin: 01/02/18 21:08 Dose: Not Given Pantoprazole Sodium (Protonix Ec Tab) 40 mg PO DAILY [facility] Last Admin: 01/02/18 11:20 Dose: Not Given Risperidone (Risperdal Tab) 1 mg PO TID [facility] PRN Reason: Protocol Last Admin: 01/02/18 17:21 Dose: Not Given - Labs Labs: 01/02/18 06:30 01/02/18 06:30 PT 15.5 SECONDS (9.4-12.5) H 01/01/18 10:50 INR 1.34 (0.93-1.08) H 01/01/18 10:50 APTT 28.8 Seconds (25.1-36.5) 01/01/18 10:50 Assessment and Plan - Assessment and Plan (Free Text) Plan: 62 yr female resident of [facility] w/ history of cognitive deficits, CKD, HTN, COPD, seizure disorder, DM II, osteoporosis, non- ambulatory, substance abuse, GI bleed, chronic UTI, hypothyroidism, and schizophrenia. Admitted to [facility] for exhibiting altered mental status, ANNA, UTI, anemia and hypotension; she was recently discharged from [facility]. Today, she has bipap on face. No distress noted. DNR/DNI. POA is Barrett Iraheta# [phone]. Pt is a poor historian.pt is seen and examined at bed side , agreed all above , will f/u
[2018-01-02 14:41] LABS: FOLATE > 20.0 ng/mL
--- NOTE | 2018-01-02 15:02 | CON ---
DATE: 01/02/2018 NEPHROLOGY CONSULTATION HISTORY OF PRESENT ILLNESS: This patient was seen at bedside and examined in the presence of her nurse, Danielle Singh, registered nurse. The patient is a 62-year-old female, who resides at [facility] and is under the primary medical care of Dr. Steff Gallegos. The patient was sent to [facility] ER for admission for altered mental status and hypotension. The patient has a past medical history of insulin-dependent diabetes mellitus, chronic obstructive pulmonary disease, chronic renal failure, seizure disorder, hypothyroidism, hypertension, history of cognitive mental defect, anemia of chronic disease, recurrent urinary tract infections, schizophrenia and history of GI bleeding. I am asked to evaluate the patient because of azotemia. At present, the patient is wearing BIPAP, unresponsive to verbal questioning, but does respond to painful, tactile stimuli. ON review of her medical record, the patient was noted in the emergency room to have a blood pressure systolic of 80. She received 0.9 saline 1/2 liter bolus with a slight blood pressure improvement and has been receiving IV fluids throughout the evening. The patient according to her medical record was most recently hospitalized at the [facility] where she received parenteral treatment for sepsis and was intubated for respiratory support. According to the medical record, after that hospitalization, the patient was declared DNR/DNI. REVIEW OF SYSTEMS: Constitutional review: No reports of fever or chills. Head review: No report of stroke, but the patient does have a history of seizure and cognitive disorder. Eye review: No reports of visual acuity changes. Ear review: No hearing loss. Throat review: No swallowing difficulty. Neck review: No stiffness. Cardiac review: She has a chronic hypertension. Pulmonary: Chronic obstructive pulmonary disease and history of respiratory failure in the past. GI: GI bleeding. : Chronic renal failure and urinary tract infections. Endocrine: Hyperlipidemia and insulin-dependent diabetes mellitus as well as hypothyroidism. Hematological: Anemia. Vascular: No reports of claudication. Psychological: Schizophrenia. Skin: No reports of rash or sacral ulcer. ALLERGIES: SHE HAS ALLERGY AND SENSITIVITIES REPORTED TO ASPIRIN, HALDOL, PENICILLIN, SEAFOOD AND MESALAMINE. OUTPATIENT MEDICATIONS: Included Risperdal, Protonix, Singulair, Synthroid, Xalatan eyedrops for glaucoma, Levemir, NovoLog insulin, Lopid, Depakote, Coreg, Pulmicort, Lipitor, dual nebulizer and Tylenol p.r.n. PHYSICAL EXAMINATION: VITAL SIGNS: At the present time, the patient is in a normal sinus rhythm with a temperature of 98.3, respirations 20, pulse 61, blood pressure 101/43, pulse ox of 100% on BiPAP. HEENT: Head: Normocephalic, atraumatic. Eyes: No icterus. NECK: Supple. HEART: Regular S1, S2. LUNGS: With occasional rhonchi. ABDOMEN: Soft. EXTREMITIES: No clubbing, no cyanosis, no edema. SKIN: Good skin turgor. VASCULAR: Legs warm to touch. PSYCHOLOGICAL: Could not be assessed. NEURO: Responsive only to painful stimuli, tactile stimuli. LABORATORY DATA: White count 7200, hemoglobin 9.8, hematocrit 31.6, platelets 94,000. PT/INR 1.34, PTT 28.8. Sodium 144, K 5.2, chloride 113, bicarb 20, BUN 57, creatinine 4.5, random blood sugar 84, iron 93, percent saturation 43, triglycerides 500, cholesterol 144, LDL 38, HDL 31, TSH high 9.19. Urinalysis showed many bacteria. Valproic acid level was low at 44, normal being 50-100. Chest x-ray showed no active disease. EKG showed sinus rhythm with nonspecific ST-T wave changes and an incomplete right bundle-branch block. Head CT showed no acute stroke or intracranial hemorrhage. Abdominopelvic CT showed no evidence of hydronephrosis, renal masses or renal stones. A simple cyst was noted in her right kidney. IMPRESSION: A 62-year-old female with multiple medical problems including acute on chronic renal failure in the setting of clinical dehydration with history of sepsis in her recent past, probable recurrent urinary tract infection, anemia of chronic disease with history of anemia of gastrointestinal bleeding, also with chronic obstructive pulmonary disease, seizure disorder, cognitive dysfunction, schizophrenia, insulin-dependent diabetes mellitus, hyperlipidemia, peptic ulcer disease with gastroesophageal reflux disease, asthma and hypothyroidism. PLAN: The plan at present is to continue medications including 0.9 saline at 100 mL/hour while monitoring I's and O's daily as well as basic metabolic panel. She will continue on medications including Xalatan eyedrops, Synthroid, IV Solu-Medrol, Singulair, Risperdal, Pulmicort inhalational therapy, Protonix, Lopid, Lipitor, Levemir, Doryx, Depakote, Brovana inhalational therapy. She will have repeat basic metabolic panels performed daily. She is being followed by Dr. Waqas Sullivan from Infectious Disease, Dr. Steff Gallegos from primary care and Dr. Justin Shelley from Pulmonary. All of the above was reviewed with her nurse at the bedside. She remains DNR/DNI. Overall prognosis though poor is stable at present. Maren Dent MD MTDDeidre
--- NOTE | 2018-01-02 17:16 | CON ---
DATE: 01/02/2018 PULMONARY CONSULTATION REFERRING PHYSICIAN: Steff Gallegos MD REASON FOR CONSULTATION: Respiratory failure with CO2 retention and hypoxemia. HISTORY OF PRESENT ILLNESS: This is a 62-year-old female, well known to me from previous admission with multiple medical issues including chronic obstructive lung disease, history of respiratory failure in the past, seizure disorder, renal failure, diabetes, hypothyroid, anemia, recurrent UTI, schizophrenia, who is noncompliant with the medication and instruction. Brought in from [facility] to ER because of fatigue, lethargy, hypotension, found to have respiratory failure with CO2 retention, respiratory acidosis, hypoxemia. She was placed on noninvasive ventilation, antibiotics was started, presently admitted on the floor, still on noninvasive ventilation, arousable, but goes back to sleep. No hemoptysis, no hematemesis, no hematuria, no diarrhea or leg swelling reported. PAST MEDICAL HISTORY: As per history of present illness. ALLERGIES: ASPIRIN, HALDOL, MESALAMINE, PENICILLIN, AND ALSO ALLERGIC TO SEAFOOD. FAMILY HISTORY: No significant cardiopulmonary disease reported. SOCIAL HISTORY: Former smoker. Denies any alcohol use. MEDICATIONS: She is on Azactam 1 g IV daily, also on Depakote 500 mg three times a day, doxycycline 100 mg twice a day, insulin coverage, Levemir 10 units subcu at bedtime, Lipitor 10 mg daily, Lopid 600 mg twice a day, Protonix 40 mg daily, Pulmicort inhaled twice a day, Risperdal 1 mg three times a day, Singulair 10 mg daily, IV fluid normal saline 100 mL per hour, Synthroid 150 mcg daily. REVIEW OF SYSTEMS: Sleepy, arousable. Some cough, shortness of breath. No hemoptysis. No hematemesis. No hematuria. No leg swelling reported. PHYSICAL EXAMINATION GENERAL: Sleepy, arousable. VITAL SIGNS: Temperature is 98, heart rate is 79, respiratory rate is 20, blood pressure 101/53, pulse ox 100% and 40% oxygen with BiPAP. HEENT: Moist mucous membranes. Crowded airway. NECK: Supple. No JVD. LUNGS: Have scattered rhonchi wheezing. HEART: S1 and S2. ABDOMEN: Soft and nontender. No organomegaly. EXTREMITIES: No edema. NEUROLOGIC: Sleepy, arousable. Follow simple commands. LABORATORY DATA: Shows hemoglobin 9.8, hematocrit 31.6, WBC 7.2, and platelet is 94. INR 1.34, PTT 29. ABG shows pH of 7.16, pCO2 of 63, and O2 of 73%, this is on BiPAP. Sodium 144, potassium 5.2, chloride 113, bicarbonate 20, BUN 57, creatinine 4.5, glucose is 82, calcium is 10.0, iron is 93, ferritin is 197, triglyceride 500, cholesterol is 144, TSH 9.19, valproic acid is 44. CAT scan of the abdomen and pelvis, which was done is unremarkable. Head CAT scan was unremarkable. IMPRESSION AND PLAN: Respiratory failure with CO2 retention and hypoxemia, which is [id number], known to have a sleep apnea syndrome, hypoventilation syndrome, noncompliance with CPAP and BiPAP. She is schizophrenic, chronic lung disease, obesity, seizure disorder, hypertension. Agree with the present treatment. Continue antibiotics. Add IV and inhaled bronchodilator. Continue BiPAP. Try to avoid sedation. Gastric prophylaxis and deep venous thrombosis prophylaxis. Aspiration precaution. Thank you and we will follow with you. Justin Shelley MD
[2018-01-02] MEDS: Arformoterol 15 mcg/2 ml Inh Sol IH SCH (20:09)
[2018-01-02] MEDS: Latanoprost 2.5 ml Opht Soln OD SCH (21:07)
--- NOTE | 2018-01-02 23:52 | CP.PCM.PN ---
Subjective - Date & Time of Evaluation Date of Evaluation: 01/02/18 Time of Evaluation: 21:00 - Subjective Subjective: Infectious Disease Follow Up: January 02, 2018 62 yo female originally admitted from [facility] due to AMS and episode of hypotension. The patient is poorly responsive and lethargic. Extensive past medical history that includes being bedbound, HTN, COPD, GI bleed, chronic UTI, Seizure disorder, DM type II, hypothyroidism, and schizophrenia. She still has episodes of hypotension. Apparently, the patient was in [facility] for hospitalization recently. The patient is on BiPAP now. Less lethargic today. Arousable. Objective - Vital Signs/Intake and Output Vital Signs (last 24 hours): Temp Pulse Resp BP Pulse Ox 98.4 F 82 22 122/54 L 100 01/02/18 18:00 01/02/18 20:12 01/02/18 18:00 01/02/18 18:00 01/02/18 06:00 - Medications Medications: Current Medications Arformoterol Tartrate (Brovana) 15 mcg IH [id number] [facility] Last Admin: 01/02/18 20:09 Dose: 15 mcg Atorvastatin Calcium (Lipitor) 10 mg PO HS [facility] Last Admin: 01/02/18 21:08 Dose: Not Given Budesonide (Pulmicort Respules) 0.5 mg IH Q12 [facility] Last Admin: 01/02/18 20:09 Dose: 0.5 mg Divalproex Sodium (Depakote Er(Once Daily)) 500 mg PO TID [facility] PRN Reason: Protocol Last Admin: 01/02/18 17:20 Dose: Not Given Doxycycline Hyclate (Doryx) 100 mg PO Q12 [facility] PRN Reason: Protocol Last Admin: 01/02/18 21:08 Dose: Not Given Gemfibrozil (Lopid) 600 mg PO BID [facility] Last Admin: 01/02/18 17:21 Dose: Not Given Sodium Chloride (Sodium Chloride 0.9%) 1,000 mls @ 100 mls/hr IV .Q10H [facility] Last Admin: 01/02/18 17:22 Dose: Not Given Aztreonam 500 mg/ Sodium (Chloride) 100 mls @ 100 mls/hr IVPB Q12 [facility] PRN Reason: Protocol Last Admin: 01/02/18 21:07 Dose: 100 mls/hr Insulin Detemir (Levemir) 10 unit SC [facility] Last Admin: 01/02/18 21:21 Dose: Not Given Insulin Human Regular (Humulin R Low) 0 units SC ACHS [facility] PRN Reason: Protocol Last Admin: 01/02/18 21:21 Dose: Not Given Latanoprost (Xalatan Opht) 0.05 ml OD [facility] Last Admin: 01/02/18 21:07 Dose: 0.05 ml Levothyroxine Sodium (Synthroid) 150 mcg PO DAILY [facility] Last Admin: 01/02/18 11:20 Dose: Not Given Methylprednisolone (Solu-Medrol) 40 mg IVP Q12 [facility] Last Admin: 01/02/18 21:08 Dose: 40 mg Montelukast Sodium (Singulair) 10 mg PO HS [facility] Last Admin: 01/02/18 21:08 Dose: Not Given Pantoprazole Sodium (Protonix Ec Tab) 40 mg PO DAILY [facility] Last Admin: 01/02/18 11:20 Dose: Not Given Risperidone (Risperdal Tab) 1 mg PO TID [facility] PRN Reason: Protocol Last Admin: 01/02/18 17:21 Dose: Not Given - Labs Labs: 01/02/18 06:30 01/02/18 06:30 PT 15.5 SECONDS (9.4-12.5) H 01/01/18 10:50 INR 1.34 (0.93-1.08) H 01/01/18 10:50 APTT 28.8 Seconds (25.1-36.5) 01/01/18 10:50 - Constitutional Appears: Non-toxic, No Acute Distress, Chronically Ill - Head Exam Head Exam: ATRAUMATIC, NORMOCEPHALIC - Eye Exam Eye Exam: EOMI, PERRL Pupil Exam: NORMAL ACCOMODATION, PERRL - ENT Exam ENT Exam: Mucous Membranes Moist, Normal External Ear Exam, TM's Normal Bilaterally - Neck Exam Neck Exam: Full ROM, Normal Inspection - Respiratory Exam Respiratory Exam: Decreased Breath Sounds, Rhonchi. absent: Rales, Wheezes - Cardiovascular Exam Cardiovascular Exam: REGULAR RHYTHM, RRR, +S1, +S2 - GI/Abdominal Exam GI & Abdominal Exam: Soft, Normal Bowel Sounds. absent: Distended, Tenderness - Extremities Exam Extremities Exam: Full ROM, Normal Inspection - Neurological Exam Neurological Exam: Alert, Awake, CN II-XII Intact Additional comments: AAO x 1-2 - Psychiatric Exam Psychiatric exam: Normal Affect, Normal Mood - Skin Skin Exam: Dry, Normal Color, Warm Assessment and Plan - Assessment and Plan (Free Text) Assessment: 62 yo female with AMS and hypotension episodes. Treating for assumed sepsis. R /O UTI. Pancultures. PCN allergy. Start Aztreonam and Doxycycline. Give dose of Amikacin at this time IV. The patient is poorly responsive with hypotensive episodes. The patient is on a BiPAP machine. She is more awake and alert today. Supportive care. Awaiting cultures. Cultures negative so far. Continue with Doxycycline and Aztreonam. Thank you for allowing me to participate in the care of the patient, we will follow with you.
[2018-01-02 23:59] LABS: ARTERIAL BLOOD GAS HCO3 18.6 mmol/L (21-28); ARTERIAL BLOOD GAS HEMOGLOBIN 10.5 g/dL (11.7-17.4); ARTERIAL BLOOD GAS O2 CAPACITY 14.5 mL/dl (16-24); ARTERIAL BLOOD GAS O2 CONTENT 14.4 ML/dl (15-23); ARTERIAL BLOOD GAS PCO2 51 mm/Hg (35-45); ARTERIAL BLOOD GAS TCO2 20.2 mmol.L (22-28)
[2018-01-03 00:04] LABS: ARTERIAL BLOOD GAS PH 7.17 (7.35-7.45)
[2018-01-03] MEDS ORDERED: DiphenhydrAMINE 50 mg/ml Inj IVP STA (00:38)
[2018-01-03] MEDS ORDERED: DiphenhydrAMINE 50 mg/ml Inj ONE (00:42)
[2018-01-03] MEDS: Sodium Chloride 0.9% 1,000 ML IV SCH ×4 (02:12→21:36)
--- NOTE | 2018-01-03 02:31 | CON ---
DATE: HISTORY OF PRESENT ILLNESS: This is a 62-year-old female with a past medical history of diabetes, COPD, history of substance abuse, chronic kidney disease, seizure, hypothyroidism, hypertension, came from [facility] with altered mental status and patient is on oxygen, BiPAP and with the patient. CAT scan of the head was done, which was reported normal and patient is following simple commands. ALLERGIES: ASPIRIN, HALDOL, PENICILLIN, AND SEAFOOD. HOME MEDICATIONS: Patient is on Depakote, Tylenol, insulin, Lipitor, and Coreg. REVIEW OF SYSTEMS: A 10-point review of system was negative. The patient has a breathing difficulty. PHYSICAL EXAMINATION: GENERAL: On examination, patient awake, oriented to self only and she does not know the place and time. NEUROLOGICAL: Pupils reactive. Spontaneous movement of all the extremities noted. Deep tendon reflexes 1+, both plantars are downgoing. Sensory appears intact. Cerebellar and gait, deferred. LABORATORY DATA: WBC 5.9, hemoglobin 7.5, hematocrit 24.9 and platelets 123. Sodium 141, potassium 5.8, chloride 108, CO2 of 23, glucose 84, BUN 62, and creatinine 5. Patient's workup in progress. Continue present management, breathing treatment and we will follow up. Quincy Valiente MD
[2018-01-03] MEDS: Budesonide 0.5 mg/2 ml Inhal Susp UD IH SCH ×4 (07:52→21:45)
[2018-01-03] MEDS: Arformoterol 15 mcg/2 ml Inh Sol IH SCH ×2 (07:53→21:45)
[2018-01-03] MEDS: Insulin Reg-LOW-Coverage SC SCH ×4 (08:27→21:53)
[2018-01-03 09:17] LABS: CALCIUM 9.6 mg/dL (8.4-10.5)
[2018-01-03] MEDS: Divalproex 500 mg ER (ONCE DAILY formulation) PO SCH ×3 (10:17→17:50)
[2018-01-03] MEDS: Pantoprazole 40 mg EC Tab PO SCH (10:18)
[2018-01-03] MEDS: Levothyroxine 150 MCG TAB PO SCH (10:18)
[2018-01-03] MEDS: MethylPREDNISolone 40 mg Vial IVP SCH ×2 (10:27→21:07)
[2018-01-03 14:36] LABS: ARTERIAL BLOOD GAS HCO3 16.8 mmol/L (21-28); ARTERIAL BLOOD GAS HEMOGLOBIN 10.5 g/dL (11.7-17.4); ARTERIAL BLOOD GAS O2 CAPACITY 14.5 mL/dl (16-24); ARTERIAL BLOOD GAS O2 CONTENT 14.4 ML/dl (15-23); ARTERIAL BLOOD GAS O2 SAT 99.4 % (95-98); ARTERIAL BLOOD GAS PCO2 41 mm/Hg (35-45); ARTERIAL BLOOD GAS PH 7.22 (7.35-7.45); ARTERIAL BLOOD GAS TCO2 18.1 mmol.L (22-28)
--- NOTE | 2018-01-03 14:57 | CP.PCM.PN ---
Subjective - Date & Time of Evaluation Date of Evaluation: 01/03/18 Time of Evaluation: 13:15 - Subjective Subjective: Infectious Disease Follow Up: January 03, 2018 62 yo female originally admitted from [facility] due to AMS and episode of hypotension. The patient is poorly responsive and lethargic. Extensive past medical history that includes being bedbound, HTN, COPD, GI bleed, chronic UTI, Seizure disorder, DM type II, hypothyroidism, and schizophrenia. She still has episodes of hypotension. Apparently, the patient was in [facility] for hospitalization recently. The patient is on BiPAP now. Less lethargic today. Arousable. Can make some of her wants and needs known. Objective - Vital Signs/Intake and Output Vital Signs (last 24 hours): Temp Pulse Resp BP Pulse Ox 97.7 F 83 20 107/87 100 01/03/18 06:00 01/03/18 12:02 01/03/18 06:00 01/03/18 06:00 01/03/18 06:00 Intake and Output: 01/03/18 01/03/18 06:59 18:59 Intake Total 1200 0 Output Total 300 Balance 1200 -300 - Medications Medications: Current Medications Arformoterol Tartrate (Brovana) 15 mcg IH [id number] [facility] Last Admin: 01/03/18 07:53 Dose: 15 mcg Atorvastatin Calcium (Lipitor) 10 mg PO HS [facility] Last Admin: 01/02/18 21:08 Dose: Not Given Budesonide (Pulmicort Respules) 0.5 mg IH Q12 [facility] Last Admin: 01/03/18 07:55 Dose: 0.5 mg Divalproex Sodium (Depakote Er(Once Daily)) 500 mg PO TID [facility] PRN Reason: Protocol Last Admin: 01/03/18 10:17 Dose: Not Given Doxycycline Hyclate (Doryx) 100 mg PO Q12 [facility] PRN Reason: Protocol Last Admin: 01/03/18 10:17 Dose: Not Given Gemfibrozil (Lopid) 600 mg PO BID [facility] Last Admin: 01/03/18 10:17 Dose: Not Given Sodium Chloride (Sodium Chloride 0.9%) 1,000 mls @ 100 mls/hr IV .Q10H [facility] Last Admin: 01/03/18 10:26 Dose: 100 mls/hr Aztreonam 500 mg/ Sodium (Chloride) 100 mls @ 100 mls/hr IVPB Q12 [facility] PRN Reason: Protocol Last Admin: 01/03/18 10:26 Dose: 100 mls/hr Insulin Detemir (Levemir) 10 unit SC HS [facility] Last Admin: 01/02/18 21:21 Dose: Not Given Insulin Human Regular (Humulin R Low) 0 units SC ACHS [facility] PRN Reason: Protocol Last Admin: 01/03/18 08:27 Dose: Not Given Latanoprost (Xalatan Opht) 0.05 ml OD HS [facility] Last Admin: 01/02/18 21:07 Dose: 0.05 ml Levothyroxine Sodium (Synthroid) 150 mcg PO DAILY [facility] Last Admin: 01/03/18 10:18 Dose: Not Given Methylprednisolone (Solu-Medrol) 40 mg IVP Q12 [facility] Last Admin: 01/03/18 10:27 Dose: 40 mg Montelukast Sodium (Singulair) 10 mg PO HS [facility] Last Admin: 01/02/18 21:08 Dose: Not Given Pantoprazole Sodium (Protonix Ec Tab) 40 mg PO DAILY [facility] Last Admin: 01/03/18 10:18 Dose: Not Given Risperidone (Risperdal Tab) 1 mg PO TID [facility] PRN Reason: Protocol Last Admin: 01/03/18 10:18 Dose: Not Given - Labs Labs: 01/02/18 06:30 01/03/18 05:00 PT 15.5 SECONDS (9.4-12.5) H 01/01/18 10:50 INR 1.34 (0.93-1.08) H 01/01/18 10:50 APTT 28.8 Seconds (25.1-36.5) 01/01/18 10:50 - Constitutional Appears: Non-toxic, No Acute Distress, Chronically Ill - Head Exam Head Exam: ATRAUMATIC, NORMOCEPHALIC - Eye Exam Eye Exam: EOMI, PERRL Pupil Exam: NORMAL ACCOMODATION, PERRL - ENT Exam ENT Exam: Mucous Membranes Moist, Normal External Ear Exam, TM's Normal Bilaterally - Neck Exam Neck Exam: Full ROM, Normal Inspection - Respiratory Exam Respiratory Exam: Clear to Ausculation Bilateral, NORMAL BREATHING PATTERN. absent: Rales, Rhonchi, Wheezes - Cardiovascular Exam Cardiovascular Exam: REGULAR RHYTHM, RRR, +S1, +S2 - GI/Abdominal Exam GI & Abdominal Exam: Soft, Normal Bowel Sounds. absent: Distended, Tenderness - Extremities Exam Extremities Exam: Full ROM, Normal Inspection - Neurological Exam Neurological Exam: Alert, Awake, CN II-XII Intact Additional comments: AAO x 2 - Psychiatric Exam Psychiatric exam: Normal Affect, Normal Mood Assessment and Plan - Assessment and Plan (Free Text) Assessment: 62 yo female with AMS and hypotension episodes. Treating for assumed sepsis. R /O UTI. Pancultures. PCN allergy. Start Aztreonam and Doxycycline. Give dose of Amikacin at this time IV. The patient is poorly responsive with hypotensive episodes. The patient is on a BiPAP machine. She is more awake and alert today. Supportive care. Awaiting cultures. Cultures remain negative so far. Continue on Doxycycline and Aztreonam. Thank you for allowing me to participate in the care of the patient, we will follow with you.
--- NOTE | 2018-01-03 16:46 | PN ---
DATE: 01/03/2018 PULMONARY PROGRESS NOTE REFERRING PHYSICIAN: Steff Gallegos MD SUBJECTIVE: The patient is lying in the bed, still on noninvasive ventilation, still sleepy, arousable. There is no significant sputum production. No hemoptysis, no hematemesis, no hematuria, no diarrhea, no leg swelling reported. OBJECTIVE GENERAL: Sleepy, arousable, goes back to sleep. VITAL SIGNS: Temperature is 98, heart rate 83, respiratory rate is 20, blood pressure 107/87, pulse ox 100% on BiPAP with 40% oxygen. HEENT: Moist mucous membrane. Crowded airway. NECK: Supple. No JVD. LUNGS: Have a fair airflow with few rhonchi. HEART: S1 and S2. ABDOMEN: Soft, nontender. No organomegaly. EXTREMITIES: There is no edema. NEUROLOGIC: Lethargic, arousable, on noninvasive ventilation. MEDICATIONS: She is on 500 mg every 12 hours, Brovana inhaled twice a day, Depakote 500 mg three times a day, doxycycline 100 mg twice a day, insulin coverage, Levemir 10 units subcutaneously at bedtime., Lipitor 10 mg daily, gemfibrozil 600 mg twice a day, Protonix 40 mg daily, Pulmicort inhaled twice a day, Risperdal 1 mg three times a day, Singulair 10 mg at bedtime, IV fluid normal saline 100 mL per hour, Solu-Medrol 40 mg every 8 hours, Synthroid 150 mcg daily. LABORATORY DATA: Shows yesterday's hemoglobin 9.8. ABG from yesterday showed pH 7.17, pCO2 51, O2 of 114. Sodium 148, potassium 5.2, chloride 116, bicarbonate 17, BUN 52, creatinine 4, glucose 124, calcium is 9.6. Microbiology: Blood culture and urine culture, there is no growth. IMPRESSION: Respiratory failure with carbon dioxide retention and hypoxemia, which is acute on chronic failure; hypoventilation syndrome; noncompliant with CPAP and BiPAP; schizophrenia; chronic lung disease; obesity; seizure disorder; chronic obstructive lung disease; hypertension. Pulmonary point of view, doing okay. We will continue BiPAP for now. Cut down some of the sedatives. Keep her on IV fluids. Continue IV and inhaled bronchodilator. ABG is still pending. We will reorder it. Gastric and DVT prophylaxis. Followup labs in the morning. Thank you and we will follow with you. Justin Shelley MD
[2018-01-03] MEDS: Latanoprost 2.5 ml Opht Soln OD SCH (21:07)
[2018-01-03] MEDS: Insulin Detemir 100 units/ml Vial (Levemir) SC SCH (21:53)
--- NOTE | 2018-01-03 22:16 | PN ---
DATE: 01/03/2018 SUBJECTIVE: This 62-year-old female was examined at her bedside in the presence of her nurse, Sherri Alicea. The patient is slightly more alert today, but has difficulty following verbal commands. Her eyes are opened and she was wearing a BiPAP mask and was receiving respiratory treatment with pulmonary therapy. PHYSICAL EXAMINATION: VITAL SIGNS: Temperature was 98.4, respirations 18, pulse 74, blood pressure 120/45 with pulse ox 100% on BiPAP. Urinary output was recorded at 300 mL yesterday. Patient is receiving IV fluids of 0.9 saline at 100 mL/hour. HEENT: Head: Normocephalic, atraumatic. Eyes: No icterus. Ears: Clear. Throat: Noninjected. NECK: Supple. HEART: S1, S2. LUNGS: Clear. ABDOMEN: Obese, soft. EXTREMITIES: No edema. SKIN: Without rash. Good turgor. VASCULAR: Legs warm to touch. PSYCHOLOGICAL: Alert. NEUROLOGICAL: Moves all four extremities. LABORATORY DATA: White count 7200, hemoglobin 9.8, hematocrit 31.6, platelets 94,000. Chemistry: Sodium 148, K 5.2, chloride 116, bicarb 17, BUN 52, creatinine 4.0. Estimated GFR 11 mL/minute. Random blood sugar 124. Calcium 9.6. Microbiology: Reports show blood and urine cultures with no growth to date. IMPRESSION: This is [id number] female with chronic renal failure stage IV to V, [id number] renal insufficiency, altered mental status, metabolic encephalopathy, history of cognitive disorder, schizophrenia, and seizure disorder. Recently hospitalized at the [facility] for reported sepsis and respiratory failure, now with respiratory insufficiency, chronic obstructive pulmonary disease in need of BiPAP chronically as well as history of insulin-dependent diabetes mellitus, anemia of GI bleeding, anemia of chronic disease, hyperlipidemia, and hypothyroidism as well as glaucoma. PLAN: The plan at present is to continue IV antibiotics under the direction of Dr. Waqas Sullivan, including Azactam 500 mg IV every 12, Brovana inhalational therapy every 12, Depakote 500 mg p.o. t.i.d., Humulin R insulin protocol low dose a.c. meals and at bedtime, Levemir 10 units at bedtime subcu, Lipitor 10 mg at bedtime, Lopid 600 mg b.i.d., Protonix 40 mg daily, Pulmicort inhalational therapy every 12, Singulair 10 mg p.o. at bedtime, 0.9 saline at 100 mL per hour with strict I's and O's, Solu-Medrol 40 mg IV every 12, Synthroid 150 mcg p.o. daily, Xalatan eyedrops from home as labeled. Patient remains a DNR/DNI. She is scheduled for a comprehensive metabolic panel and CBC in the a.m. She is having her respiratory status monitored by blood gas and BiPAP adjustments by Dr. Shelley from Pulmonary and overall prognosis though poor, remains stable at present. Patient may benefit from a long-term respiratory care facility such as a LTAC. IF her PMD and/or family would like a trial of hemodialysis for this patient in her future, this can be arranged; however, patient remains DNR/DNI at present and I am not sure of our goal for this patient at present. She will continue on supportive fluid therapy, renally dose reduced medications, and remains stable on a cardiovascular and respiratory basis at present. Maren Dent MD MTDDeidre
[2018-01-04 07:15] LABS: HEMOGLOBIN 9.8 g/dL (12.0-16.0); MEAN CELL VOLUME 103.2 fl (80.0-105.0); MEAN CORPUSCULAR HGB CONC 30.1 g/dl (31.0-37.0); MEAN PLATELET VOLUME 10.1 fl (7.0-11.0); RBC 3.16 10^6/uL (3.5-6.1); RED CELL DISTRIBUTION WIDTH 20.5 % (11.5-14.5); WHITE BLOOD COUNT 6.8 10^3/ul (4.5-11.0)
[2018-01-04 07:37] LABS: ALB/GLOB RATIO 0.7 (1.1-1.8); ALBUMIN 2.5 g/dL (3.0-4.8); CALCIUM 9.7 mg/dL (8.4-10.5)
[2018-01-04] MEDS: Arformoterol 15 mcg/2 ml Inh Sol IH SCH ×2 (07:51→20:05)
[2018-01-04] MEDS: Budesonide 0.5 mg/2 ml Inhal Susp UD IH SCH ×2 (07:52→20:06)
[2018-01-04] MEDS: Sodium Chloride 0.9% 1,000 ML IV SCH (08:14)
[2018-01-04] MEDS: Insulin Reg-LOW-Coverage SC SCH ×4 (08:27→22:08)
[2018-01-04 08:29] LABS: ARTERIAL BLOOD GAS HCO3 13.9 mmol/L (21-28); ARTERIAL BLOOD GAS O2 CAPACITY 11.3 mL/dl (16-24); ARTERIAL BLOOD GAS O2 CONTENT 11.3 ML/dl (15-23); ARTERIAL BLOOD GAS O2 SAT 99.7 % (95-98); ARTERIAL BLOOD GAS PCO2 31 mm/Hg (35-45); ARTERIAL BLOOD GAS PH 7.26 (7.35-7.45); ARTERIAL BLOOD GAS TCO2 14.9 mmol.L (22-28)
--- NOTE | 2018-01-04 09:13 | PN ---
DATE: 01/03/2018 SUBJECTIVE: The patient is a 62-year-old female. The patient was seen and examined at the bedside, looking comfortable, having BiPAP. No fever, no chills. Still sleepy, arousable. No significant sputum production. No hematuria or hematochezia. No headache, no dizziness. The patient is a very poor historian. PHYSICAL EXAMINATION: VITAL SIGNS: Temperature 98.6, heart rate 83, respiratory rate 20, blood pressure 120/80, pulse oximetry 100% on BiPAP with 48% oxygen. HEENT: Head, normocephalic and atraumatic. Eyes, PERRLA. Extraocular muscles intact. Conjunctivae clear. Nose, patent. Mucous membranes moist. NECK: Supple. No carotid bruit. No JVD or thyromegaly. CHEST: Bilaterally symmetrical. HEART: S1 and S2 positive. LUNGS: Has a fair airflow with few rhonchi. ABDOMEN: Soft and nontender. No organomegaly. EXTREMITIES: No edema. No cyanosis. NEUROLOGIC: Patient is lethargic, arousable, on noninvasive ventilation. MEDICATIONS: Brovana, Depakote, doxycycline, insulin, Levemir, Lipitor, gemfibrozil, Protonix, Pulmicort, Risperdal, Singulair, Solu-Medrol, Synthroid. LABORATORY DATA: Hemoglobin 9.8. Sodium 148, potassium 5.2, BUN 52, creatinine 4, glucose 124. ASSESSMENT AND PLAN: a 62-year-old lady with multiple medical problems, has respiratory failure with carbon dioxide retention, hypoxia, which is acute on chronic failure, hypoventilation syndrome, noncompliant with CPAP and BiPAP, schizophrenia, chronic obstructive lung disease, seizure disorder, hypertension, obesity, chronic renal insufficiency, supervisor cd area is on the case. We will continue BiPAP for now. Cut on some of the sedatives. Keep her on IV fluid. Continue IV fluid. Gastrointestinal and deep venous thrombosis prophylaxis. Repeat labs. We will follow up. Steff Gallegos MD JORDAN
[2018-01-04] MEDS: Divalproex 500 mg ER (ONCE DAILY formulation) PO SCH ×3 (09:27→17:26)
[2018-01-04] MEDS: Pantoprazole 40 mg EC Tab PO SCH (09:28)
[2018-01-04] MEDS: Levothyroxine 150 MCG TAB PO SCH (09:28)
[2018-01-04] MEDS: MethylPREDNISolone 40 mg Vial IVP SCH ×2 (09:34→21:27)
--- NOTE | 2018-01-04 17:56 | CP.PCM.PN ---
Subjective - Date & Time of Evaluation Date of Evaluation: 01/04/18 Time of Evaluation: 16:00 - Subjective Subjective: Infectious Disease Follow Up: January 04, 2018 62 yo female originally admitted from [facility] due to AMS and episode of hypotension. The patient is poorly responsive and lethargic. Extensive past medical history that includes being bedbound, HTN, COPD, GI bleed, chronic UTI, Seizure disorder, DM type II, hypothyroidism, and schizophrenia. She still has episodes of hypotension. Apparently, the patient was in [facility] for hospitalization recently. The patient is on BiPAP now. Less lethargic today. Arousable. Can make some of her wants and needs known. Still elevated creatinine and mild hyperkalemia. Objective - Vital Signs/Intake and Output Vital Signs (last 24 hours): Temp Pulse Resp BP Pulse Ox 97.1 F L 55 L 18 136/60 99 01/04/18 12:00 01/04/18 15:42 01/04/18 12:00 01/04/18 12:00 01/04/18 06:00 Intake and Output: 01/04/18 01/04/18 06:59 18:59 Intake Total 1200 Output Total 700 Balance 500 - Medications Medications: Current Medications Arformoterol Tartrate (Brovana) 15 mcg IH [id number] [facility] Last Admin: 01/04/18 07:51 Dose: 15 mcg Atorvastatin Calcium (Lipitor) 10 mg PO HS [facility] Last Admin: 01/03/18 21:08 Dose: Not Given Budesonide (Pulmicort Respules) 0.5 mg IH Q12 [facility] Last Admin: 01/04/18 07:52 Dose: 0.5 mg Divalproex Sodium (Depakote Er(Once Daily)) 500 mg PO TID [facility] PRN Reason: Protocol Last Admin: 01/04/18 17:26 Dose: Not Given Doxycycline Hyclate (Doryx) 100 mg PO Q12 [facility] PRN Reason: Protocol Last Admin: 01/04/18 09:27 Dose: Not Given Gemfibrozil (Lopid) 600 mg PO BID [facility] Last Admin: 01/04/18 17:27 Dose: Not Given Sodium Chloride (Sodium Chloride 0.9%) 1,000 mls @ 100 mls/hr IV .Q10H [facility] Last Admin: 01/04/18 08:14 Dose: 100 mls/hr Aztreonam 500 mg/ Sodium (Chloride) 100 mls @ 100 mls/hr IVPB Q12 [facility] PRN Reason: Protocol Last Admin: 01/04/18 09:34 Dose: 100 mls/hr Insulin Detemir (Levemir) 10 unit SC HS [facility] Last Admin: 01/03/18 21:53 Dose: Not Given Insulin Human Regular (Humulin R Low) 0 units SC ACHS [facility] PRN Reason: Protocol Last Admin: 01/04/18 17:30 Dose: Not Given Latanoprost (Xalatan Opht) 0.05 ml OD HS [facility] Last Admin: 01/03/18 21:07 Dose: 0.05 ml Levothyroxine Sodium (Synthroid) 150 mcg PO DAILY [facility] Last Admin: 01/04/18 09:28 Dose: Not Given Methylprednisolone (Solu-Medrol) 40 mg IVP Q12 [facility] Last Admin: 01/04/18 09:34 Dose: 40 mg Montelukast Sodium (Singulair) 10 mg PO HS [facility] Last Admin: 01/03/18 21:08 Dose: Not Given Pantoprazole Sodium (Protonix Ec Tab) 40 mg PO DAILY [facility] Last Admin: 01/04/18 09:28 Dose: Not Given Risperidone (Risperdal Tab) 1 mg PO TID [facility] PRN Reason: Protocol Last Admin: 01/03/18 10:18 Dose: Not Given - Labs Labs: 01/04/18 06:30 01/04/18 06:30 PT 15.5 SECONDS (9.4-12.5) H 01/01/18 10:50 INR 1.34 (0.93-1.08) H 01/01/18 10:50 APTT 28.8 Seconds (25.1-36.5) 01/01/18 10:50 - Constitutional Appears: Non-toxic, No Acute Distress, Chronically Ill - Head Exam Head Exam: ATRAUMATIC, NORMOCEPHALIC - Eye Exam Eye Exam: EOMI, PERRL Pupil Exam: NORMAL ACCOMODATION, PERRL - ENT Exam ENT Exam: Mucous Membranes Moist, Normal External Ear Exam, TM's Normal Bilaterally - Neck Exam Neck Exam: Full ROM, Normal Inspection - Respiratory Exam Respiratory Exam: Clear to Ausculation Bilateral, NORMAL BREATHING PATTERN. absent: Rales, Rhonchi, Wheezes - Cardiovascular Exam Cardiovascular Exam: REGULAR RHYTHM, RRR, +S1, +S2 - GI/Abdominal Exam GI & Abdominal Exam: Soft, Normal Bowel Sounds. absent: Distended, Tenderness - Extremities Exam Extremities Exam: Full ROM, Normal Inspection - Neurological Exam Neurological Exam: Alert, Awake, CN II-XII Intact Additional comments: AAO x 2 - Psychiatric Exam Psychiatric exam: Normal Affect, Normal Mood Assessment and Plan - Assessment and Plan (Free Text) Assessment: 62 yo female with AMS and hypotension episodes. Treating for assumed sepsis. R /O UTI. Pancultures. PCN allergy. Start Aztreonam and Doxycycline. Give dose of Amikacin at this time IV. The patient is poorly responsive with hypotensive episodes. The patient is on a BiPAP machine at night. She is more awake and alert today. Supportive care. Awaiting cultures. Cultures remain negative so far. Continue on Doxycycline and Aztreonam. Evaluation for dialysis in progress. Noted that patient was placed in wrist restraints. Thank you for allowing me to participate in the care of the patient, we will follow with you.
--- NOTE | 2018-01-04 21:20 | PN ---
DATE: 01/04/2018 SUBJECTIVE: This 62-year-old female was examined at her bedside. This case was reviewed in detail with her nurse, Marifer Beatty, registered nurse and Dr. Steff Gallegos her primary care physician. The patient remains weak, deconditioned with [id number] renal failure and multiple comorbidities including respiratory insufficiency requiring chronic BiPAP and history of COPD, insulin-dependent diabetes mellitus, hyperlipidemia, chronic hypertension, peptic ulcer disease with gastroesophageal reflux disease, anemia of chronic disease and hypothyroidism and glaucoma. PHYSICAL EXAMINATION: VITAL SIGNS: On physical exam today, temperature was 97.1, respirations 18, pulse 70 and blood pressure 136/60. Urine output was 700 mL thus far today. HEENT: Head: Normocephalic, atraumatic. Eyes: No icterus. NECK: Supple. HEART: S1, S2. LUNGS: Clear. ABDOMEN: Soft. EXTREMITIES: No edema. SKIN: Without rash. NEUROLOGICAL: Nonfocal. PSYCHOLOGICAL: More alert with cognitive deficit. VASCULAR: Legs warm to touch. LABORATORY DATA: Urine and blood cultures show no growth to date. White count 6800, hemoglobin 9.8, hematocrit 32.6, platelets 104,000. Sodium 152, K 5.4, chloride 121, bicarb 15, BUN 51, creatinine 3.9. Estimated GFR 12 mL per minute. IMPRESSION: A 62-year-old female with multiple medical problems including chronic renal failure, admitted with metabolic acidosis, hyperkalemia, altered mental status and respiratory insufficiency. As discussed with Dr. Gallegos, the patient will be readied for hemodialysis for maintenance of volume control, uremia, azotemia, hyperkalemia and metabolic acidosis. I have placed a consultation with Dr. Luis Yen for a Tessio [place] catheter. We will stop her 0.9 saline given her hypernatremia and we will order D5W with insulin coverages for the time being. She continues on medications as outlined, respiratory support and will have labs monitored cautiously. Overall prognosis though poor remains stable at present. She remains a do not resuscitate/do not intubate. Maren Detn MD [facility] # [id number] J[place]AN
[2018-01-04] MEDS: Latanoprost 2.5 ml Opht Soln OD SCH (21:28)
[2018-01-04] MEDS: Insulin Detemir 100 units/ml Vial (Levemir) SC SCH (22:42)
--- NOTE | 2018-01-05 04:15 | PN ---
DATE: 01/04/2018 PULMONARY PROGRESS NOTE REFERRING PHYSICIAN: Steff Gallegos MD. SUBJECTIVE: Patient is lying in the bed, head at 45 degrees, on noninvasive ventilation, much more awake and alert, been on n.p.o. because of lethargy. Follows simple command. Has some cough. No sputum production. No nausea. No vomiting, diarrhea, leg pain, or leg swelling. OBJECTIVE: GENERAL: In no acute distress. VITAL SIGNS: Temperature is 98, heart rate 73, respiratory rate is 20, blood pressure 115/50, pulse ox is 95% on BiPAP. HEENT: Moist mucous membrane. Crowded airway. NECK: Supple. No JVD. LUNGS: Have a few scattered rhonchi. HEART: S1 and S2. ABDOMEN: Soft and nontender. No organomegaly. EXTREMITIES: No edema. NEUROLOGIC: Awake and alert. Does follow simple command, but confused. MEDICATIONS: She is on Azactam 500 mg every 12 hour, Brovana inhaled twice a day, Depakote 500 mg 3 times a day, doxycycline 100 mg twice a day, insulin coverage, Levemir 10 units subcu at bedtime, Lipitor 10 mg daily, gemfibrozil 600 mg twice a day, Protonix 40 mg daily, Pulmicort inhaled twice a day, Risperdal 1 mg 3 times a day, Singulair 10 mg at bedtime, Solu-Medrol 40 mg every 12 hour, Synthroid 150 mcg daily. LABORATORY DATA: Showed hemoglobin 9.8, hematocrit 32.6, WBC 6.8, platelet is 104. Blood gases show pH 7.26, pCO2 of 31, O2 of 154, this is on BiPAP 40% oxygen. Sodium 152, potassium 5.4, chloride 121, BUN is 51, creatinine 3.9, bicarb is 15, glucose is 112, calcium 9.7. AST 23, ALT 20, alk phos 75, albumin is 2.3. Microbiology: Blood culture and urine culture, there is no growth. IMPRESSION AND PLAN: Respiratory failure, requiring noninvasive ventilation with carbon dioxide retention and hypoxemia; hypoventilation syndrome, chronic lung disease, schizophrenia, obesity, seizure disorder, hypertension. I spoke to nursing staff and requested to change BiPAP to nasal cannula oxygen and titrate to pulse oximetry 80% or 90%. May use BiPAP while sleeping and lethargic. May start diet as per speech therapy, but aspiration precautions. Follow up labs in the morning. Gastric prophylaxis. Deep vein thrombosis prophylaxis. Thank you and we will follow with you. Justin Shelley MD
[2018-01-05] MEDS: Insulin Reg-LOW-Coverage SC SCH ×4 (08:11→21:50)
[2018-01-05] MEDS: Budesonide 0.5 mg/2 ml Inhal Susp UD IH SCH ×2 (08:28→19:30)
[2018-01-05] MEDS: Arformoterol 15 mcg/2 ml Inh Sol IH SCH ×2 (08:28→19:30)
--- NOTE | 2018-01-05 08:30 | PN ---
DVATE: 01/04/2018 SUBJECTIVE: Patient is 62-year-old female. Patient was seen and examined at bedside on 01/04/2018. Patient is still having face mask, very restless, pulled out her IV line and was pulling her mask also. Then we had to do wrist restraints. Discussion was done with Dr. Maren Dent, patient's actuarial intern. Patient had chronic renal insufficiency , No nausea , vomiting, or diarrhea. No hematuria or hematochezia. No swelling of the legs. PHYSICAL EXAMINATION: VITAL SIGNS: bp 120/80 p, 80 Her respiratory rate is 18.afibrile HEENT: Head is normocephalic and atraumatic. Eyes PERRLA. Extraocular muscles intact. Conjunctivae clear. Nose patent. Mucous membranes moist. NECK: Supple. No carotid bruits. No JVD or thyromegaly. CHEST: Bilaterally symmetrical. HEART: S1 and S2 positive. LUNGS: Clear to auscultation. ABDOMEN: Soft. Bowel sounds present. No organomegaly. EXTREMITIES: No clubbing, no cyanosis. LABORATORY DATA: White blood cells 6800, hemoglobin 9.8, hematocrit 32.6, platelets 104,000. Sodium noted , potassium 5.4, BUN 51, creatinine 3.9. MEDICATIONS: Reviewed by me. ASSESSMENT AND PLAN: Patient is a 62-year-old lady with multiple medical problems, including chronic renal failure with metabolic acidosis, hyperkalemia, altered mental status, respiratory insufficiency, dementia. According to Dr. Maren Dent, patient needs dialysis for maintenance of the volume control, uremia, azotemia, hyperkalemia and metabolic acidosis. Dr. Luis Yen's consult was called for dialysis port. Gastrointestinal and deep venous thrombosis prophylaxis, repeat labs. Steff Gallegos MD : 01/05/2018 0:47:58 [place]
[2018-01-05] MEDS: MethylPREDNISolone 40 mg Vial IVP SCH ×2 (09:43→22:28)
[2018-01-05] MEDS: Divalproex 500 mg ER (ONCE DAILY formulation) PO SCH ×3 (09:43→17:30)
[2018-01-05] MEDS: Pantoprazole 40 mg EC Tab PO SCH (09:44)
[2018-01-05] MEDS: Levothyroxine 150 MCG TAB PO SCH (09:44)
[2018-01-05] MEDS ORDERED: Midazolam 2 MG/2 ML VIAL ONE (11:01)
[2018-01-05] MEDS ORDERED: Lidocaine 2% Inj (20ml) ONE ×2 (11:01→11:05)
[2018-01-05] MEDS ORDERED: Iodixanol 320 MG/ML 200 ML BOTTLE IV ONE (11:02)
--- NOTE | 2018-01-05 11:34 | CP.PCM.PN ---
<Yeimy Islas - Last Filed: 01/05/18 11:30> Subjective - Date & Time of Evaluation Date of Evaluation: 01/05/18 Time of Evaluation: 10:00 - Subjective Subjective: Chief complaint: Altered mental status 62 [facility]/ history of cognitive deficits, CKD, HTN, COPD, seizure disorder, DM II, osteoporosis, non- ambulatory, substance abuse, GI bleed, chronic UTI, hypothyroidism, and schizophrenia. Admitted to [facility] for exhibiting altered mental status, ANNA, UTI, anemia and hypotension; she was recently discharged from [facility]. Today, seen at bedside. Pt appears more alert. Bilateral wrist restraints on. No distress noted. DNR/DNI. POA is Barrett Iraheta# [phone]. Pt is a poor historian. Objective - Vital Signs/Intake and Output Vital Signs (last 24 hours): Temp Pulse Resp BP Pulse Ox 97 F L 52 L 22 145/70 97 01/05/18 06:00 01/05/18 08:30 01/05/18 06:00 01/05/18 06:00 01/05/18 06:00 Intake and Output: 01/05/18 01/05/18 06:59 18:59 Intake Total 710 Output Total 250 Balance 460 - Medications Medications: Current Medications Arformoterol Tartrate (Brovana) 15 mcg IH [id number] [facility] Last Admin: 01/05/18 08:28 Dose: 15 mcg Atorvastatin Calcium (Lipitor) 10 mg PO HS [facility] Last Admin: 01/04/18 21:27 Dose: 10 mg Budesonide (Pulmicort Respules) 0.5 mg IH Q12 [facility] Last Admin: 01/05/18 08:28 Dose: 0.5 mg Divalproex Sodium (Depakote Er(Once Daily)) 500 mg PO TID [facility] PRN Reason: Protocol Last Admin: 01/05/18 09:43 Dose: 500 mg Gemfibrozil (Lopid) 600 mg PO BID [facility] Last Admin: 01/05/18 09:44 Dose: 600 mg Aztreonam 500 mg/ Sodium (Chloride) 100 mls @ 100 mls/hr IVPB Q12 [facility] PRN Reason: Protocol Last Admin: 01/05/18 09:43 Dose: 100 mls/hr Insulin Detemir (Levemir) 10 unit SC [facility] Last Admin: 01/04/18 22:42 Dose: 10 unit Insulin Human Regular (Humulin R Low) 0 units SC [facility] PRN Reason: Protocol Last Admin: 01/05/18 08:11 Dose: 1 units Latanoprost (Xalatan Opht) 0.05 ml OD [facility] Last Admin: 01/04/18 21:28 Dose: 0.05 ml Levothyroxine Sodium (Synthroid) 150 mcg PO DAILY [facility] Last Admin: 01/05/18 09:44 Dose: 150 mcg Methylprednisolone (Solu-Medrol) 40 mg IVP Q12 [facility] Last Admin: 01/05/18 09:43 Dose: 40 mg Montelukast Sodium (Singulair) 10 mg PO HS [facility] Last Admin: 01/04/18 21:27 Dose: 10 mg Pantoprazole Sodium (Protonix Ec Tab) 40 mg PO DAILY [facility] Last Admin: 01/05/18 09:44 Dose: 40 mg Risperidone (Risperdal Tab) 1 mg PO TID [facility] PRN Reason: Protocol Last Admin: 01/03/18 10:18 Dose: Not Given - Labs Labs: 01/04/18 06:30 01/05/18 06:30 PT 15.5 SECONDS (9.4-12.5) H 01/01/18 10:50 INR 1.34 (0.93-1.08) H 01/01/18 10:50 APTT 28.8 Seconds (25.1-36.5) 01/01/18 10:50 - Constitutional Appears: Confused, Chronically Ill - Head Exam Head Exam: ATRAUMATIC, NORMAL INSPECTION, NORMOCEPHALIC - Eye Exam Eye Exam: EOMI, Normal appearance, PERRL Pupil Exam: NORMAL ACCOMODATION, PERRL - ENT Exam ENT Exam: Mucous Membranes Moist, Normal Exam - Neck Exam Neck Exam: Full ROM, Normal Inspection. absent: Lymphadenopathy - Respiratory Exam Respiratory Exam: Clear to Ausculation Bilateral, NORMAL BREATHING PATTERN - Cardiovascular Exam Cardiovascular Exam: REGULAR RHYTHM, +S1, +S2. absent: Murmur - GI/Abdominal Exam GI & Abdominal Exam: Soft, Normal Bowel Sounds. absent: Tenderness - Exam Additional comments: cosby catheter, clear yellow urine - Extremities Exam Extremities Exam: Full ROM, Normal Capillary Refill, Normal Inspection. absent : Joint Swelling, Pedal Edema - Back Exam Back Exam: NORMAL INSPECTION - Neurological Exam Neurological Exam: Alert, Awake - Psychiatric Exam Psychiatric exam: Normal Affect, Normal Mood - Skin Skin Exam: Normal Color, Warm Additional comments: ecchymosis throughout Assessment and Plan (1) ANNA (acute kidney injury) Status: Acute (2) Altered mental status Status: Acute (3) Anemia Status: Acute (4) Hyperkalemia Status: Acute (5) UTI (urinary tract infection) Status: Acute (6) Hematuria Status: Acute (7) Hypercalcemia Status: Acute (8) Proteinuria Status: Acute (9) CKD (chronic kidney disease) stage 3, GFR 30-59 ml/min Status: Chronic - Assessment and Plan (Free Text) Plan: Restraints ordered for patient safety. Dialysis catheter insertion today. Labs ordered. IV solumedryl. IV abx azactam. s/p IV abx amikacin IVF hydration. Culture: urine NEGATIVE. blood NEGATIVE. Palliative Care onboard. Seizure, aspiration precautions. OT/Speech therapy on board. Bipap HS. GI/VTE prophylaxis. Consult: Neuro - Dr. Valiente Pulmo - Dr. Quintero Psych - Dr. Rodriguez ID - Dr. Sullivan Nephro - Dr. Dent Reviewed: CT abd/pelvis = WNL CT head = WNL CXR = minimal linear scarring in L mid lung field ECG = ABNORMAL, SR, PVC, L axis deviation, incomplete R BBB, nonspecific T wave abnormality <Steff Gallegos - Last Filed: 01/05/18 21:11> Objective - Vital Signs/Intake and Output Vital Signs (last 24 hours): Temp Pulse Resp BP Pulse Ox 98.6 F 72 18 126/63 98 01/05/18 18:09 01/05/18 18:09 01/05/18 18:09 01/05/18 18:09 01/05/18 13:05 Intake and Output: 01/05/18 01/06/18 18:59 06:59 Intake Total 480 Output Total 325 Balance 155 - Medications Medications: Current Medications Arformoterol Tartrate (Brovana) 15 mcg IH [id number] [facility] Last Admin: 01/05/18 19:30 Dose: 15 mcg Atorvastatin Calcium (Lipitor) 10 mg PO HS [facility] Last Admin: 01/04/18 21:27 Dose: 10 mg Budesonide (Pulmicort Respules) 0.5 mg IH Q12 [facility] Last Admin: 01/05/18 19:30 Dose: 0.5 mg Divalproex Sodium (Depakote Er(Once Daily)) 500 mg PO TID [facility] PRN Reason: Protocol Last Admin: 01/05/18 17:30 Dose: 500 mg Doxycycline Hyclate (Doryx) 100 mg PO Q12 [facility] PRN Reason: Protocol Gemfibrozil (Lopid) 600 mg PO BID [facility] Last Admin: 01/05/18 17:30 Dose: 600 mg Aztreonam 500 mg/ Sodium (Chloride) 100 mls @ 100 mls/hr IVPB Q12 [facility] PRN Reason: Protocol Last Admin: 01/05/18 09:43 Dose: 100 mls/hr Insulin Detemir (Levemir) 10 unit SC HS [facility] Last Admin: 01/04/18 22:42 Dose: 10 unit Insulin Human Regular (Humulin R Low) 0 units SC ACHS [facility] PRN Reason: Protocol Last Admin: 01/05/18 16:36 Dose: 2 units Latanoprost (Xalatan Opht) 0.05 ml OD HS [facility] Last Admin: 01/04/18 21:28 Dose: 0.05 ml Levothyroxine Sodium (Synthroid) 150 mcg PO DAILY [facility] Last Admin: 01/05/18 09:44 Dose: 150 mcg Methylprednisolone (Solu-Medrol) 40 mg IVP Q12 [facility] Last Admin: 01/05/18 09:43 Dose: 40 mg Montelukast Sodium (Singulair) 10 mg PO HS [facility] Last Admin: 01/04/18 21:27 Dose: 10 mg Pantoprazole Sodium (Protonix Ec Tab) 40 mg PO DAILY [facility] Last Admin: 01/05/18 09:44 Dose: 40 mg Risperidone (Risperdal Tab) 1 mg PO TID [facility] PRN Reason: Protocol Last Admin: 01/03/18 10:18 Dose: Not Given - Labs Labs: 01/04/18 06:30 01/05/18 06:30 PT 15.5 SECONDS (9.4-12.5) H 01/01/18 10:50 INR 1.34 (0.93-1.08) H 01/01/18 10:50 APTT 28.8 Seconds (25.1-36.5) 01/01/18 10:50 Assessment and Plan - Assessment and Plan (Free Text) Plan: 62 [facility]/ history of cognitive deficits, CKD, HTN, COPD, seizure disorder, DM II, osteoporosis, non- ambulatory, substance abuse, GI bleed, chronic UTI, hypothyroidism, and schizophrenia. Admitted to [facility] for exhibiting altered mental status, ANNA, UTI, anemia and hypotension; she was recently discharged from [facility]. Today, seen at bedside. Pt appears more alert. Bilateral wrist restraints on. No distress noted. DNR/DNI. POA is Barrett Iraheta# [phone]. Pt is a poor historian.pt is seen and examined at bed side . agreed all above , d/d with youth program director . will f/u
--- NOTE | 2018-01-05 15:20 | CP.PCM.PN ---
Subjective - Date & Time of Evaluation Date of Evaluation: 01/05/18 Time of Evaluation: 14:30 - Subjective Subjective: Infectious Disease Follow Up: January 05, 2018 62 yo female originally admitted from [facility] due to AMS and episode of hypotension. The patient is poorly responsive and lethargic. Extensive past medical history that includes being bedbound, HTN, COPD, GI bleed, chronic UTI, Seizure disorder, DM type II, hypothyroidism, and schizophrenia. She still has episodes of hypotension. Apparently, the patient was in [facility] for hospitalization recently. The patient is on BiPAP now. Awake and alert. Can make some of her wants and needs known. Can answer simple questions. Still elevated creatinine. On the whole, the patient appears better. Objective - Vital Signs/Intake and Output Vital Signs (last 24 hours): Temp Pulse Resp BP Pulse Ox 98.1 F 85 17 125/55 L 98 01/05/18 12:20 01/05/18 13:05 01/05/18 13:05 01/05/18 13:05 01/05/18 13:05 Intake and Output: 01/05/18 01/05/18 06:59 18:59 Intake Total 710 480 Output Total 250 325 Balance 460 155 - Medications Medications: Current Medications Arformoterol Tartrate (Brovana) 15 mcg IH [id number] [facility] Last Admin: 01/05/18 08:28 Dose: 15 mcg Atorvastatin Calcium (Lipitor) 10 mg PO HS [facility] Last Admin: 01/04/18 21:27 Dose: 10 mg Budesonide (Pulmicort Respules) 0.5 mg IH Q12 [facility] Last Admin: 01/05/18 08:28 Dose: 0.5 mg Divalproex Sodium (Depakote Er(Once Daily)) 500 mg PO TID [facility] PRN Reason: Protocol Last Admin: 01/05/18 13:35 Dose: Not Given Doxycycline Hyclate (Doryx) 100 mg PO Q12 [facility] PRN Reason: Protocol Gemfibrozil (Lopid) 600 mg PO BID [facility] Last Admin: 01/05/18 09:44 Dose: 600 mg Aztreonam 500 mg/ Sodium (Chloride) 100 mls @ 100 mls/hr IVPB Q12 [facility] PRN Reason: Protocol Last Admin: 01/05/18 09:43 Dose: 100 mls/hr Insulin Detemir (Levemir) 10 unit SC [facility] Last Admin: 01/04/18 22:42 Dose: 10 unit Insulin Human Regular (Humulin R Low) 0 units SC [facility] PRN Reason: Protocol Last Admin: 01/05/18 12:22 Dose: Not Given Latanoprost (Xalatan Opht) 0.05 ml OD [facility] Last Admin: 01/04/18 21:28 Dose: 0.05 ml Levothyroxine Sodium (Synthroid) 150 mcg PO DAILY [facility] Last Admin: 01/05/18 09:44 Dose: 150 mcg Methylprednisolone (Solu-Medrol) 40 mg IVP Q12 [facility] Last Admin: 01/05/18 09:43 Dose: 40 mg Montelukast Sodium (Singulair) 10 mg PO HS [facility] Last Admin: 01/04/18 21:27 Dose: 10 mg Pantoprazole Sodium (Protonix Ec Tab) 40 mg PO DAILY [facility] Last Admin: 01/05/18 09:44 Dose: 40 mg Risperidone (Risperdal Tab) 1 mg PO TID [facility] PRN Reason: Protocol Last Admin: 01/03/18 10:18 Dose: Not Given - Labs Labs: 01/04/18 06:30 01/05/18 06:30 PT 15.5 SECONDS (9.4-12.5) H 01/01/18 10:50 INR 1.34 (0.93-1.08) H 01/01/18 10:50 APTT 28.8 Seconds (25.1-36.5) 01/01/18 10:50 - Constitutional Appears: Non-toxic, No Acute Distress, Chronically Ill - Head Exam Head Exam: ATRAUMATIC, NORMOCEPHALIC - Eye Exam Eye Exam: EOMI, PERRL Pupil Exam: NORMAL ACCOMODATION, PERRL - ENT Exam ENT Exam: Mucous Membranes Moist, Normal External Ear Exam, TM's Normal Bilaterally - Neck Exam Neck Exam: Full ROM, Normal Inspection - Respiratory Exam Respiratory Exam: Decreased Breath Sounds, NORMAL BREATHING PATTERN. absent: Rales, Rhonchi, Wheezes - Cardiovascular Exam Cardiovascular Exam: REGULAR RHYTHM, RRR, +S1, +S2 - GI/Abdominal Exam GI & Abdominal Exam: Soft, Normal Bowel Sounds. absent: Distended, Tenderness - Extremities Exam Extremities Exam: Full ROM, Normal Inspection - Neurological Exam Neurological Exam: Alert, Awake, CN II-XII Intact Additional comments: AAO x 2 - Psychiatric Exam Psychiatric exam: Normal Affect, Normal Mood Additional comments: Baseline confusion. - Skin Skin Exam: Intact, Normal Color Assessment and Plan - Assessment and Plan (Free Text) Plan: 62 yo female with AMS and hypotension episodes. Treating for assumed sepsis. R /O UTI. Pancultures. PCN allergy. Start Aztreonam and Doxycycline. Give dose of Amikacin at this time IV. The patient is poorly responsive with hypotensive episodes. The patient is on a BiPAP machine at night. She is more awake and alert today. Supportive care. Awaiting cultures. Cultures negative to date. Continue on Doxycycline and Aztreonam. Consider a minimum of 10 days of treatment. Evaluation for dialysis in progress. Noted that patient was placed in wrist restraints yesterday. Thank you for allowing me to participate in the care of the patient, we will follow with you.
--- NOTE | 2018-01-05 15:31 | VASCULAR ---
PROCEDURE: Ultrasound and fluoroscopic tunneled right IJ dialysis catheter. CLINICAL HISTORY: ESRD PHYSICIAN(S): Luis Yen M.D. TECHNIQUE: The relative risks and indications for the procedure were explained to the patient's power of license and permit specialist and verbal consent obtained. The patient was placed supine on the arteriography table and the right neck/chest was prepped and draped in the usual sterile fashion. 1% Xylocaine was used to anesthetize the skin and soft tissues at the puncture site. Conscious sedation and monitoring were provided throughout the procedure by a nurse. Under direct ultrasound guidance, the rightinternal jugular vein was punctured with a micropuncture set. A 0.035 Glidewire was advanced into the IVC. Sequential dilatation was performed with subsequent placement of a 24 cmCannon II catheter with its tip in the right atrium. A retrograde tunnel below the right clavicle was performed. The catheter was trimmed and the hub attached. Both ports aspirate and inject easily. The catheter was secured and a dressing applied. The patient tolerated the procedure well. IMPRESSION: 1. Ultrasound and fluoroscopically placed right IJ tunneled dialysis catheter.
--- NOTE | 2018-01-05 19:53 | PN ---
DATE: 01/05/2018 PULMONARY PROGRESS NOTE REFERRING PHYSICIAN: Steff Gallegos MD. SUBJECTIVE: She is lying in the bed, sleepy, arousable, on nasal cannula, has a right chest dialysis catheter, mild cough. Not much sputum production. No nausea, no vomiting, or diarrhea. No leg pain or leg swelling. OBJECTIVE: GENERAL: In no acute distress. VITAL SIGNS: Temperature is 98, heart rate is 85, respiratory rate is 18, blood pressure 124/58, pulse ox 98% on 3 liters nasal cannula. HEENT: Moist mucous membranes. Crowded airway. Mallampati score is 4. NECK: Supple. No JVD. LUNGS: Has a fair airflow with rhonchi. HEART: S1, S2. ABDOMEN: Soft, nontender. No organomegaly. EXTREMITIES: There is no edema. NEUROLOGIC: Sleepy, arousable, follow simple commands. MEDICATIONS: She is on aztreonam 500 mg twice a day, Brovana inhaled twice a day, Depakote 500 mg 3 times a day, doxycycline 100 mg twice a day, insulin coverage, Levemir 10 units subcutaneously at bedtime, Lipitor 10 mg at bedtime, gemfibrozil 600 mg twice a day, Protonix 40 mg daily, Pulmicort inhaled twice a day, Risperdal 1 mg 3 times a day, Singulair 10 mg daily, Solu-Medrol 40 mg IV every 12 hours, Synthroid 150 mcg daily. LABORATORY DATA: Reviewed. Noted sodium 148, potassium 5.1, chloride 121, bicarbonate 16, BUN 51, creatinine 3.4, glucose 270, calcium is 10. Microbiology, urine and blood cultures have been negative. IMPRESSION AND PLAN: Respiratory failure requiring noninvasive ventilation, presently on 2 liters nasal cannula, probably have a sleep apnea syndrome, hypoventilation syndrome, requiring BiPAP while sleeping, chronic lung disease, schizophrenia, obesity, seizure disorder, hypertension. Pulmonary point of view, doing okay. Continue BiPAP while sleeping, 2 liters nasal cannula during the daytime, titrate with pulse ox about 88% to 90%. Being followed by Nephrology. Being started on dialysis, gastric prophylaxis, sequential compression device to lower extremities, fall precaution. Thank you and we will follow with you. Justin Shelley MD [facility] # [phone]
[2018-01-05] MEDS: Insulin Detemir 100 units/ml Vial (Levemir) SC SCH (21:50)
[2018-01-05] MEDS: Latanoprost 2.5 ml Opht Soln OD SCH (21:54)
[2018-01-06] MEDS: Budesonide 0.5 mg/2 ml Inhal Susp UD IH SCH ×3 (07:34→21:30)
[2018-01-06] MEDS: Arformoterol 15 mcg/2 ml Inh Sol IH SCH ×2 (07:34→21:30)
[2018-01-06] MEDS: Insulin Reg-LOW-Coverage SC SCH ×4 (08:28→21:43)
[2018-01-06] MEDS: Divalproex 500 mg ER (ONCE DAILY formulation) PO SCH ×3 (10:11→17:38)
[2018-01-06] MEDS: Pantoprazole 40 mg EC Tab PO SCH (10:11)
[2018-01-06] MEDS: Levothyroxine 150 MCG TAB PO SCH (10:11)
[2018-01-06] MEDS: MethylPREDNISolone 40 mg Vial IVP SCH ×2 (10:11→21:43)
--- NOTE | 2018-01-06 17:36 | CP.PCM.PN ---
Subjective - Date & Time of Evaluation Date of Evaluation: 01/06/18 Time of Evaluation: 15:30 - Subjective Subjective: Infectious Disease Follow Up: January 06, 2018 62 yo female originally admitted from [facility] due to AMS and episode of hypotension. The patient is poorly responsive and lethargic. Extensive past medical history that includes being bedbound, HTN, COPD, GI bleed, chronic UTI, Seizure disorder, DM type II, hypothyroidism, and schizophrenia. She still has episodes of hypotension. Apparently, the patient was in [facility] for hospitalization recently. The patient is on BiPAP now. Awake and alert. Can make some of her wants and needs known. Can answer simple questions. Still elevated creatinine. On the whole, the patient appears better. Dialysis access placed. To start HD. Objective - Vital Signs/Intake and Output Vital Signs (last 24 hours): Temp Pulse Resp BP Pulse Ox 98.6 F 78 16 109/68 100 01/06/18 17:18 01/06/18 17:18 01/06/18 17:18 01/06/18 17:18 01/06/18 06:00 Intake and Output: 01/06/18 01/06/18 06:59 18:59 Intake Total 240 Output Total 350 Balance -110 - Medications Medications: Current Medications Arformoterol Tartrate (Brovana) 15 mcg IH [id number] [facility] Last Admin: 01/06/18 07:34 Dose: 15 mcg Atorvastatin Calcium (Lipitor) 10 mg PO HS [facility] Last Admin: 01/05/18 21:50 Dose: 10 mg Budesonide (Pulmicort Respules) 0.5 mg IH Q12 [facility] Last Admin: 01/06/18 07:34 Dose: 0.5 mg Divalproex Sodium (Depakote Er(Once Daily)) 500 mg PO TID [facility] PRN Reason: Protocol Last Admin: 01/06/18 14:18 Dose: 500 mg Doxycycline Hyclate (Doryx) 100 mg PO Q12 [facility] PRN Reason: Protocol Last Admin: 01/06/18 10:11 Dose: 100 mg Gemfibrozil (Lopid) 600 mg PO BID [facility] Last Admin: 01/06/18 10:11 Dose: 600 mg Aztreonam 500 mg/ Sodium (Chloride) 100 mls @ 100 mls/hr IVPB Q12 [facility] PRN Reason: Protocol Last Admin: 01/06/18 10:12 Dose: 100 mls/hr Insulin Detemir (Levemir) 10 unit SC HS [facility] Last Admin: 01/05/18 21:50 Dose: 10 unit Insulin Human Regular (Humulin R Low) 0 units SC ACHS [facility] PRN Reason: Protocol Last Admin: 01/06/18 12:00 Dose: 3 units Latanoprost (Xalatan Opht) 0.05 ml OD HS [facility] Last Admin: 01/05/18 21:54 Dose: 0.05 ml Levothyroxine Sodium (Synthroid) 150 mcg PO DAILY [facility] Last Admin: 01/06/18 10:11 Dose: 150 mcg Methylprednisolone (Solu-Medrol) 40 mg IVP Q12 [facility] Last Admin: 01/06/18 10:11 Dose: 40 mg Montelukast Sodium (Singulair) 10 mg PO HS [facility] Last Admin: 01/05/18 21:49 Dose: 10 mg Pantoprazole Sodium (Protonix Ec Tab) 40 mg PO DAILY [facility] Last Admin: 01/06/18 10:11 Dose: 40 mg Risperidone (Risperdal Tab) 1 mg PO TID [facility] PRN Reason: Protocol Last Admin: 01/03/18 10:18 Dose: Not Given - Labs Labs: 01/04/18 06:30 01/05/18 06:30 PT 15.5 SECONDS (9.4-12.5) H 01/01/18 10:50 INR 1.34 (0.93-1.08) H 01/01/18 10:50 APTT 28.8 Seconds (25.1-36.5) 01/01/18 10:50 - Constitutional Appears: Non-toxic, No Acute Distress, Chronically Ill - Head Exam Head Exam: ATRAUMATIC, NORMOCEPHALIC - Eye Exam Eye Exam: EOMI, PERRL Pupil Exam: NORMAL ACCOMODATION, PERRL - ENT Exam ENT Exam: Mucous Membranes Moist, Normal External Ear Exam, TM's Normal Bilaterally - Neck Exam Neck Exam: Full ROM, Normal Inspection - Respiratory Exam Respiratory Exam: Decreased Breath Sounds, NORMAL BREATHING PATTERN. absent: Rales, Rhonchi, Wheezes - Cardiovascular Exam Cardiovascular Exam: REGULAR RHYTHM, RRR, +S1, +S2 - GI/Abdominal Exam GI & Abdominal Exam: Soft, Normal Bowel Sounds. absent: Distended, Tenderness - Extremities Exam Extremities Exam: Full ROM, Normal Inspection - Neurological Exam Neurological Exam: Alert, Awake, CN II-XII Intact Additional comments: AAO x 2 - Psychiatric Exam Psychiatric exam: Anxious, Normal Affect Additional comments: Baseline Confusion. - Skin Skin Exam: Intact, Normal Color Assessment and Plan - Assessment and Plan (Free Text) Assessment: 62 yo female with AMS and hypotension episodes. Treating for assumed sepsis. R /O UTI. Pancultures. PCN allergy. Start Aztreonam and Doxycycline. Give dose of Amikacin at this time IV. The patient is poorly responsive with hypotensive episodes. The patient is on a BiPAP machine at night. She is more awake and alert today. Supportive care. Awaiting cultures. Cultures negative to date. Continue on Doxycycline and Aztreonam. Consider a minimum of 10 days of treatment. Evaluation for dialysis in progress. Noted that patient was placed in wrist restraints yesterday. Dialysis access placed. To start HD. Thank you for allowing me to participate in the care of the patient, we will follow with you.
--- NOTE | 2018-01-06 21:21 | PN ---
DATE: 01/05/2018 SUBJECTIVE: This 62-year-old female is on schedule for a Tesio Uldall catheter placement for the initiation of hemodialysis. She is being hospitalized for multiple medical problems including altered mental status, history of sepsis and respiratory failure, chronic obstructive pulmonary disease, seizure syndrome, insulin-dependent diabetes mellitus, hyperlipidemia, peptic ulcer disease with GERD, cognitive disorder, and schizophrenia. The patient also has chronic history of hypothyroidism, asthmatic bronchitis, and glaucoma. PHYSICAL EXAMINATION: GENERAL: She remains alert, confused to person, place, and time. VITAL SIGNS: Temperature 98.1, respirations 12, pulse 67, blood pressure 129/53, and pulse ox 100%. HEENT: Head: Normocephalic, atraumatic. Eyes: No icterus. Ears: Clear. Throat: Noninjected. NECK: Supple. HEART: S1, S2. LUNGS: Clear. ABDOMEN: Obese. EXTREMITIES: No edema. SKIN: No rash. VASCULAR: Legs warm to touch. PSYCHOLOGICAL: Alert, but confused. NEUROLOGICAL: Moves all extremities. Marked deconditioning. LABORATORY DATA: White count 6800, hemoglobin 9.8, hematocrit 32.6, and platelets 104,000. Sodium 148, K 5.1, chloride 121, bicarb 16. BUN 51, creatinine 3.4. Random blood sugar 270. IMPRESSION: A 62-year-old female with chronic renal failure stage 6, in need of the initiation for hemodialysis for azotemia, hyperkalemia, metabolic acidosis. PLAN: To place Tesio Uldall catheter. She continues on medications as outlined. She will be initiated to hemodialysis and medications will be further adjusted based on her clinical progress. Maren Dent MD [facility]
--- NOTE | 2018-01-06 21:31 | PN ---
DATE: 01/06/2018 NEPHROLOGY PROGRESS NOTE SUBJECTIVE: This 62-year-old female was examined at her bedside. Her Tesio Uldall catheter is in place. Unfortunately, no success was made in obtaining of power of consumer attorney consent for hemodialysis to be started today. The patient is alert, confused. PHYSICAL EXAMINATION: VITAL SIGNS: Temperature 98.1, respirations 20, pulse 61, blood pressure 106/57, pulse ox 100% on BiPap. HEENT: Head: Normocephalic, atraumatic. Eyes: No icterus. Ears: Clear. Throat: Noninjected. NECK: Supple. HEART: S1, S2. LUNGS: Clear. ABDOMEN: Soft. EXTREMITIES: No edema. SKIN: Without rash. NEUROLOGIC: Intact. PSYCHOLOGIC: Alert. VASCULAR: Legs warm to touch. IMPRESSION: A 62-year-old female with end-stage renal disease and comorbidities as previously outlined with Tesio Uldall catheter in place, ready to begin initiation for hemodialysis for hyperkalemia, metabolic acidosis, and azotemia. Unfortunately, despite my effort and nursing marketing sales supervisor's effort, power of consumer attorney could not be located today. We will reattempt to obtain this consent and initiate hemodialysis accordingly. Maren Dent MD MTDD
[2018-01-06] MEDS: Latanoprost 2.5 ml Opht Soln OD SCH (21:42)
[2018-01-06] MEDS: Insulin Detemir 100 units/ml Vial (Levemir) SC SCH (21:44)
[2018-01-06] MEDS: Levothyroxine 175 MCG TAB PO SCH (23:16)
--- NOTE | 2018-01-06 23:30 | PN ---
DATE: 01/06/2018 PULMONARY PROGRESS NOTE REFERRING PHYSICIAN: Steff Gallegos MD. SUBJECTIVE: She is lying in the bed, sleepy, arousable. Night was unremarkable. Tolerated BiPAP well. Much more awake and alert. Status post dialysis. No nausea. No vomiting, diarrhea, leg pain, leg swelling. OBJECTIVE: GENERAL: In no acute distress. VITAL SIGNS: Temp is 98, heart rate is 79, respiratory rate is 18, blood pressure 109/68, pulse ox 93% on room air. HEENT: Moist mucous membranes. Small oral cavity. NECK: Supple. No JVD. LUNGS: Have a few scattered rhonchi. HEART: S1 and S2. ABDOMEN: Soft, nontender. No organomegaly. EXTREMITIES: No edema. NEUROLOGICAL: Awake and alert. Follows simple command. LABORATORY DATA: Reviewed. Blood sugar 362. Microbiology: Blood culture and urine culture is no growth. MEDICATIONS: She is on aztreonam 500 mg every 12 hours, Brovana inhaled twice a day, Depakote 500 mg three times a day, doxycycline 100 mg twice a day, insulin coverage, Levemir 10 units subcu at bedtime, Lipitor 10 mg daily, gemfibrozil 600 mg twice a day, Protonix 40 mg daily, Pulmicort inhaled twice a day, Risperdal 1 mg three times a day, Singulair 1- mg daily, Solu-Medrol 20 mg every 12 hours, Synthroid 175 mcg daily. IMPRESSION AND PLAN: Respiratory failure requiring noninvasive ventilation, presently on 2 L nasal cannula, probably has sleep apnea syndrome, hypoventilation syndrome, requiring bilevel positive airway pressure while sleeping, chronic lung disease, schizophrenia, obesity, seizure disorder, hypertension, presently on dialysis. Pulmonary point of view, encourage bilevel positive airway pressure use at nighttime. Keep head at 45 degrees. Sleeping during the daytime, may use bilevel positive airway pressure. Aspiration precaution. Out of bed to chair if possible. We will advise only feed when fully awake. Thank you and we will follow with you. Justin Shelley MD
--- NOTE | 2018-01-07 01:11 | PN ---
UBJECTIVE: The patient is a 62-year-old female. The patient was seen and examined at the bedside, looking comfortable, but anxious, sometimes pulling her IV line and pulling her BiPAP, so we are putting patient on soft restraints, cannot get consent from patient's Power of Ski Patrol Officer, Barrett Vidal. Still trying to reach Power of Ski Patrol Officer. No nausea or vomiting. No fever, no chills. No hematuria, no hematochezia. PHYSICAL EXAMINATION: VITAL SIGNS: Temperature 98.6, pulse 79, blood pressure 109/68, respiratory rate 16. HEENT: Head: Normocephalic, atraumatic. Eyes: PERRLA. Extraocular muscles intact. Conjunctivae clear. Nose patent. Mucosus membrane moist. NECK: Supple, no carotid bruit. No JVD or thyromegaly. CHEST: Bilaterally symmetrical. HEART: S1, S2 positive. LUNGS: Clear to auscultation. ABDOMEN: Soft, bowel sounds present. No organomegaly. EXTREMITIES: No edema, no cyanosis. NEUROLOGIC: Patient is awake, alert, but is confused. MEDICATIONS: Brovana, Depakote, doxycycline, insulin, Levemir, Lipitor, Lopid, Protonix, Pulmicort, Risperdal, Singulair, Solu-Medrol, levothyroxine. LABORATORY DATA: White blood cells 6.8, hemoglobin 9.3, hematocrit 32.6, platelets 104. Sodium 148, potassium 5.1, BUN 51, creatinine 3.4, glucose 255. ASSESSMENT AND PLAN: Ms. Day Hung is a 62-year-old lady with anemia; thrombocytopenia; hyperkalemia; renal insufficiency; has a catheter for dialysis, but according to platform worker, patient needs dialysis and waiting for consent from Power of Ski Patrol Officer; diabetes mellitus, not very well controlled; respiratory failure, requiring non-invasive ventilation; currently on 2 liters nasal cannula, probably has sleep apnea syndrome; hypoventilation syndrome, requiring BiPAP when sleeping; schizophrenia; chronic lung disease; obesity; seizure disorder. Continue BiPAP as per Dr. Shelley. Sleeping with 2 liter nasal cannula during daytime. Titrate with pulse oximetry about 88% to 90%. [employer] is on the case. Gastric prophylaxis, sequential compression device of lower extremities, fall precautions. We will follow up. <Steff Gallegos MD> [facility] # [id number] JORDAN
[2018-01-07] MEDS: Budesonide 0.5 mg/2 ml Inhal Susp UD IH SCH ×2 (07:47→21:10)
[2018-01-07] MEDS: Arformoterol 15 mcg/2 ml Inh Sol IH SCH ×2 (07:47→21:10)
[2018-01-07] MEDS: Insulin Reg-LOW-Coverage SC SCH ×3 (09:31→17:36)
[2018-01-07] MEDS: Levothyroxine 175 MCG TAB PO SCH (09:33)
[2018-01-07] MEDS: Pantoprazole 40 mg EC Tab PO SCH (09:33)
[2018-01-07] MEDS: Divalproex 500 mg ER (ONCE DAILY formulation) PO SCH ×3 (09:33→17:37)
[2018-01-07] MEDS: MethylPREDNISolone 40 mg Vial IVP SCH ×2 (09:33→22:12)
--- NOTE | 2018-01-07 15:46 | PN ---
DATE: 01/07/2018 SUBJECTIVE: This 62-year-old female was seen at her bedside in the presence of her nurse. The patient is awaiting the initiation of dialysis once consent is obtained by power of deputy attorney general. She has a right Tessio Driggs placed with a dry sterile dressing that is intact, clean and dry. PHYSICAL EXAMINATION: VITAL SIGNS: Temperature 97.7, respirations 16, pulse 86, blood pressure 123/67. HEENT: Head: Normocephalic, atraumatic. Eyes: No icterus. NECK: Supple. HEART: Regular S1, S2. LUNGS: Clear. ABDOMEN: Soft. EXTREMITIES: No edema. SKIN: Without rash. NEUROLOGICAL: Intact. PSYCHOLOGICAL: Cognitive defect, chronic. VASCULAR: Legs warm to touch. LABORATORY DATA: White count 6800, hemoglobin 9.8, hematocrit 32.6, platelets 104,000. Sodium 148, K 5.1, chloride 121, bicarb 16, BUN 51, creatinine 3.4. Random blood sugar 270. IMPRESSION: A 62-year-old female with end-stage renal disease, hyperkalemia, metabolic acidosis, history of respiratory failure, anemia of chronic disease and comorbidities as previously outlined. The plan will be to try to obtain consent for dialysis in a.m. via power of deputy attorney general and then to adjust medications accordingly. The above was discussed with nursing and Dr. Gallegos. Maren Dent MD MTDD
--- NOTE | 2018-01-07 17:52 | PN ---
DATE: 01/07/2018 PULMONARY PROGRESS NOTE REFERRING PHYSICIAN: Steff Gallegos MD. SUBJECTIVE: She is lying in the bed, head at 45 degrees, sleepy, arousable, much more awake and alert. Follows simple commands. P.o. intake is improved. No nausea, no vomiting. No diarrhea. No leg pain or leg swelling. Has a right chest dialysis catheter. PHYSICAL EXAMINATION: GENERAL: In no acute distress. VITAL SIGNS: Temperature is 98, heart rate is 86, respiratory rate is 18, blood pressure 123/67, pulse ox 99% on nasal cannula. HEENT: Moist mucous membranes. Small oral cavity. Crowded airway. NECK: Supple. No JVD. LUNGS: Have a fair airflow with few rhonchi. HEART: S1 and S2. ABDOMEN: Soft, nontender. No organomegaly. EXTREMITIES: No edema. NEUROLOGIC: Sleepy, arousable. Follows simple command. MEDICATIONS She is on Azactam 500 mg every 2 hours, Brovana inhaled twice a day, Depakote 5 mg three times a day, doxycycline 100 mg twice a day, insulin coverage, Levemir 10 units subcu at bedtime, Lipitor 10 mg daily, Lopid 600 mg twice a day, Protonix 40 mg daily, Pulmicort inhaled twice a day, Risperdal 1 mg three times a day, Singulair 10 mg at bedtime, Solu-Medrol 20 mg twice a day, Synthroid 175 mcg daily. LABORATORY DATA: Reviewed. Blood sugar this morning is 279. Microbiology: Blood culture and urine culture, there is no growth. IMPRESSION AND PLAN: Respiratory failure requiring noninvasive ventilation, presently on nasal cannula, may have a sleep apnea syndrome, hypoventilation syndrome requiring BiPAP at night, chronic lung disease, schizophrenia, obesity, seizure disorder, hypertension, respiratory failure. Pulmonary point of view, doing well. Keep head elevated at 45 degrees. Bronchodilator, antibiotics. Aspiration precaution. May use BiPAP at nighttime and daytime 2 liters nasal cannula. Being followed by Nephrology. Has a dialysis catheter but no dialysis done so far. Clinically, she is much improved though. We will order labs for the morning. Thank you and we will follow with you. Justin Shelley MD [facility] # [id number]
--- NOTE | 2018-01-07 17:53 | CP.PCM.PN ---
Subjective - Date & Time of Evaluation Date of Evaluation: 01/07/18 Time of Evaluation: 15:30 - Subjective Subjective: Infectious Disease Follow Up: January 07, 2018 62 yo female originally admitted from [facility] due to AMS and episode of hypotension. The patient is poorly responsive and lethargic. Extensive past medical history that includes being bedbound, HTN, COPD, GI bleed, chronic UTI, Seizure disorder, DM type II, hypothyroidism, and schizophrenia. She still has episodes of hypotension. Apparently, the patient was in [facility] for hospitalization recently. The patient is on BiPAP now. Awake and alert. Can make some of her wants and needs known. Can answer simple questions. Still elevated creatinine. On the whole, the patient appears better. Dialysis access placed. To start HD once consent obtained. Objective - Vital Signs/Intake and Output Vital Signs (last 24 hours): Temp Pulse Resp BP Pulse Ox 98.6 F 83 18 118/59 L 98 01/07/18 17:17 01/07/18 17:17 01/07/18 17:17 01/07/18 17:17 01/07/18 17:17 Intake and Output: 01/07/18 01/07/18 06:59 18:59 Intake Total 580 240 Output Total 550 600 Balance 30 -360 - Medications Medications: Current Medications Arformoterol Tartrate (Brovana) 15 mcg IH [id number] [facility] Last Admin: 01/07/18 07:47 Dose: 15 mcg Atorvastatin Calcium (Lipitor) 10 mg PO HS [facility] Last Admin: 01/06/18 21:46 Dose: 10 mg Budesonide (Pulmicort Respules) 0.5 mg IH Q12 [facility] Last Admin: 01/07/18 07:47 Dose: 0.5 mg Divalproex Sodium (Depakote Er(Once Daily)) 500 mg PO TID [facility] PRN Reason: Protocol Last Admin: 01/07/18 14:21 Dose: 500 mg Doxycycline Hyclate (Doryx) 100 mg PO Q12 [facility] PRN Reason: Protocol Last Admin: 01/07/18 09:33 Dose: 100 mg Gemfibrozil (Lopid) 600 mg PO BID [facility] Last Admin: 01/07/18 09:33 Dose: 600 mg Aztreonam 500 mg/ Sodium (Chloride) 100 mls @ 100 mls/hr IVPB Q12 [facility] PRN Reason: Protocol Last Admin: 01/07/18 10:15 Dose: 100 mls/hr Insulin Detemir (Levemir) 10 unit SC HS [facility] Last Admin: 01/06/18 21:44 Dose: 10 unit Insulin Human Regular (Humulin R Low) 0 units SC ACHS [facility] PRN Reason: Protocol Last Admin: 01/07/18 12:51 Dose: 3 units Latanoprost (Xalatan Opht) 0.05 ml OD HS [facility] Last Admin: 01/06/18 21:42 Dose: 0.05 ml Levothyroxine Sodium (Synthroid) 175 mcg PO ACB [facility] Last Admin: 01/07/18 09:33 Dose: 175 mcg Methylprednisolone (Solu-Medrol) 20 mg IVP Q12 [facility] Montelukast Sodium (Singulair) 10 mg PO HS [facility] Last Admin: 01/06/18 21:50 Dose: 10 mg Pantoprazole Sodium (Protonix Ec Tab) 40 mg PO DAILY [facility] Last Admin: 01/07/18 09:33 Dose: 40 mg Risperidone (Risperdal Tab) 1 mg PO TID [facility] PRN Reason: Protocol Last Admin: 01/07/18 14:21 Dose: 1 mg - Labs Labs: 01/04/18 06:30 01/05/18 06:30 PT 15.5 SECONDS (9.4-12.5) H 01/01/18 10:50 INR 1.34 (0.93-1.08) H 01/01/18 10:50 APTT 28.8 Seconds (25.1-36.5) 01/01/18 10:50 - Constitutional Appears: Non-toxic, No Acute Distress, Chronically Ill - Head Exam Head Exam: ATRAUMATIC, NORMOCEPHALIC - Eye Exam Eye Exam: EOMI, PERRL Pupil Exam: NORMAL ACCOMODATION, PERRL - ENT Exam ENT Exam: Mucous Membranes Moist, Normal External Ear Exam, TM's Normal Bilaterally - Neck Exam Neck Exam: Full ROM, Normal Inspection - Respiratory Exam Respiratory Exam: Decreased Breath Sounds, NORMAL BREATHING PATTERN. absent: Rales, Rhonchi, Wheezes - Cardiovascular Exam Cardiovascular Exam: REGULAR RHYTHM, RRR, +S1, +S2 - GI/Abdominal Exam GI & Abdominal Exam: Soft, Normal Bowel Sounds. absent: Distended, Tenderness - Extremities Exam Extremities Exam: Full ROM, Normal Inspection - Neurological Exam Neurological Exam: Alert, Awake, CN II-XII Intact Additional comments: AAO x 2 - Psychiatric Exam Psychiatric exam: Anxious, Normal Affect Additional comments: Baseline confusion. - Skin Skin Exam: Intact, Normal Color Assessment and Plan - Assessment and Plan (Free Text) Assessment: 62 yo female with AMS and hypotension episodes. Treating for assumed sepsis. R /O UTI. Pancultures. PCN allergy. Start Aztreonam and Doxycycline. Give dose of Amikacin at this time IV. The patient is poorly responsive with hypotensive episodes. The patient is on a BiPAP machine at night. She is more awake and alert today. Supportive care. Awaiting cultures. Cultures negative to date. Continue on Doxycycline and Aztreonam. Consider a minimum of 10 days of treatment. Evaluation for dialysis in progress. Noted that patient was placed in wrist restraints yesterday. Dialysis access placed. To start HD once consent obtained. Thank you for allowing me to participate in the care of the patient, we will follow with you.
--- NOTE | 2018-01-07 20:39 | PN ---
DATE: SUBJECTIVE: The patient is seen and examined at the bedside, looking comfortable. No nausea, vomiting, or diarrhea. No hematuria or hematochezia. Little bit more awake. Tolerated BiPAP very well. Waiting for dialysis, not done yet. Waiting for Power of Linotype Machinist consent. Discussion done with the nursing staff. She has little bit scratch on the nose, not under restrain, doing better. PHYSICAL EXAMINATION: VITAL SIGNS: Temperature 97.7, pulse 86, blood pressure 123/67, respiratory rate 18. HEENT: Head: Normocephalic, atraumatic. Eyes: PERRLA. Extraocular muscles intact. Conjunctivae clear. Nose patent, but redness on the top of the nose. Mucous membrane moist. NECK: Supple. No carotid bruit. No JVD or thyromegaly. CHEST: Bilaterally symmetrical. HEART: S1 and S2 positive. LUNGS: Clear to auscultation. ABDOMEN: Soft. Bowel sounds positive. No organomegaly. EXTREMITIES: No edema. No cyanosis. NEUROLOGICAL: The patient is awake, alert, moving all 4 extremities, no focal deficit. MEDICATIONS: Aztreonam, Brovana, Depakote, doxycycline, Levemir, Lipitor, Lopid, Protonix, Pulmicort, risperidone, Singulair, Solu-Medrol, Synthroid, eyedrops. LABORATORY DATA: White blood cells 6.8, hemoglobin 9.8, hematocrit 32.6, platelets 104. Glucose 279. ASSESSMENT AND PLAN: Ms. Day Hung is a 62-year-old lady with multiple medical problems, who came with respiratory failure requiring noninvasive ventilation, presently on 2 L nasal cannula, probably has sleep apnea syndrome, hypoventilation syndrome, requiring bilevel positive airway pressure while sleeping, chronic obstructive lung disease, schizophrenia, obesity, seizure disorder, hypertension, has port for dialysis, but waiting for consent from Power of Linotype Machinist, will try again, cellulitis of the nose, putting Bactroban cream, keep head elevated at 45 degrees, aspiration precautions, out of bed to stool or chair, physical therapy, repeat labs. We will follow up. Steff Gallegos MD [facility] # [id number] JORDAN
[2018-01-07] MEDS: Latanoprost 2.5 ml Opht Soln OD SCH (22:00)
[2018-01-07] MEDS: Insulin Detemir 100 units/ml Vial (Levemir) SC SCH (22:16)
[2018-01-08] MEDS: Insulin Reg-LOW-Coverage SC SCH ×5 (00:14→22:00)
[2018-01-08] MEDS: Budesonide 0.5 mg/2 ml Inhal Susp UD IH SCH ×2 (07:52→22:00)
[2018-01-08] MEDS: Arformoterol 15 mcg/2 ml Inh Sol IH SCH ×2 (07:52→21:59)
[2018-01-08] MEDS: Levothyroxine 175 MCG TAB PO SCH (08:27)
[2018-01-08] MEDS: MethylPREDNISolone 40 mg Vial IVP SCH (09:41)
[2018-01-08] MEDS: Divalproex 500 mg ER (ONCE DAILY formulation) PO SCH ×3 (09:42→17:44)
[2018-01-08] MEDS: Pantoprazole 40 mg EC Tab PO SCH (09:47)
[2018-01-08 12:03] LABS: IRON 48 ug/dL (45-180)
[2018-01-08 12:05] LABS: ALB/GLOB RATIO 0.8 (1.1-1.8); ALBUMIN 2.5 g/dL (3.0-4.8); BASO # 0.02 K/mm3 (0.0-2.0); BASO % 0.2 % (0.0-3.0); CALCIUM 10.4 mg/dL (8.4-10.5); GRAN # 7.55 (1.4-6.5); GRAN % 67.3 % (50.0-68.0); HEMOGLOBIN 9.7 g/dL (12.0-16.0); LYMPH # 2.6 (1.2-3.4); LYMPH % 23.5 % (22.0-35.0); MEAN CORPUSCULAR HEMOGLOBIN 31.6 pg (25.0-35.0); MEAN PLATELET VOLUME 10.1 fl (7.0-11.0); RBC 3.07 10^6/uL (3.5-6.1); RED CELL DISTRIBUTION WIDTH 19.8 % (11.5-14.5); WHITE BLOOD COUNT 11.2 10^3/ul (4.5-11.0)
[2018-01-08 12:12] LABS: % IRON SATURATION 26 % (20-55); TOTAL IRON BINDING CAPACITY 183 ug/dL (265-497)
[2018-01-08 16:11] LABS: HEPATITIS B SURFACE AG Negative (NEGATIVE)
[2018-01-08 16:16] LABS: HEPATITIS A IGM NEGATIVE (NEGATIVE); HEPATITIS B CORE AB NEGATIVE (NEGATIVE)
[2018-01-08 16:28] LABS: HEPATITIS C ANTIBODY NEGATIVE (NEGATIVE)
--- NOTE | 2018-01-08 16:38 | PN ---
DATE: 01/08/2018 RENAL DIALYSIS PROGRESS NOTE SUBJECTIVE: This 62-year-old female is currently in the renal dialysis unit, being dialyzed via a right Tesio Uldall renal dialysis catheter. PHYSICAL EXAMINATION VITAL SIGNS: Blood pressure is 109/67 with a pulse of 96, respirations 16, temperature afebrile. HEART: Regular S1 and S2. LUNGS: Clear. PLAN: The patient will be treated on F160, 140 sodium, 2K bicarb bath with blood flow rates of 225 mL/minute. This was reviewed with nurse, Lisbeth Campbell, registered nurse in dialysis. Maren Dent MD MTDD
--- NOTE | 2018-01-08 16:41 | PN ---
DATE: 01/08/2018 DIALYSIS PROGRESS NOTE SUBJECTIVE: This patient is in the renal dialysis unit, dialyzing via a right Tesio Uldall catheter with blood flow rates of 200 mL per minute. PHYSICAL EXAMINATION VITAL SIGNS: Blood pressure 109/47 and pulse of 71. HEART: Regular S1 and S2. LUNGS: Clear. PLAN: She will dialyze on a 140 sodium, 2-K bicarb bath. We will establish dry weight. We will check for dosing of Hectorol and Aranesp and all of the above was reviewed with the patient and nurse, Lisbeth Campbell, registered nurse. Maren Dent MD
--- NOTE | 2018-01-08 17:58 | CP.PCM.PN ---
Subjective - Date & Time of Evaluation Date of Evaluation: 01/08/18 Time of Evaluation: 16:15 - Subjective Subjective: Infectious Disease Follow Up: January 08, 2018 62 yo female originally admitted from [facility] due to AMS and episode of hypotension. The patient is poorly responsive and lethargic. Extensive past medical history that includes being bedbound, HTN, COPD, GI bleed, chronic UTI, Seizure disorder, DM type II, hypothyroidism, and schizophrenia. She still has episodes of hypotension. Apparently, the patient was in [facility] for hospitalization recently. The patient is on BiPAP now. Awake and alert. Can make some of her wants and needs known. Can answer simple questions. Still elevated creatinine. On the whole, the patient appears better. Dialysis access placed. To start HD once consent obtained. Started dialysis today. Objective - Vital Signs/Intake and Output Vital Signs (last 24 hours): Temp Pulse Resp BP Pulse Ox 98.3 F 76 20 112/55 L 95 01/08/18 06:00 01/08/18 14:00 01/08/18 06:00 01/08/18 13:51 01/08/18 13:51 Intake and Output: 01/08/18 01/08/18 06:59 18:59 Intake Total 0 Output Total 1500 Balance -1500 - Medications Medications: Current Medications Arformoterol Tartrate (Brovana) 15 mcg IH [id number] [facility] Last Admin: 01/08/18 07:52 Dose: 15 mcg Atorvastatin Calcium (Lipitor) 10 mg PO HS [facility] Last Admin: 01/07/18 22:12 Dose: 10 mg Budesonide (Pulmicort Respules) 0.5 mg IH Q12 [facility] Last Admin: 01/08/18 07:52 Dose: 0.5 mg Divalproex Sodium (Depakote Er(Once Daily)) 500 mg PO TID [facility] PRN Reason: Protocol Last Admin: 01/08/18 17:44 Dose: 500 mg Doxycycline Hyclate (Doryx) 100 mg PO Q12 [facility] PRN Reason: Protocol Last Admin: 01/08/18 09:42 Dose: 100 mg Gemfibrozil (Lopid) 600 mg PO BID [facility] Last Admin: 01/08/18 17:45 Dose: 600 mg Aztreonam 500 mg/ Sodium (Chloride) 100 mls @ 100 mls/hr IVPB Q12 [facility] PRN Reason: Protocol Last Admin: 01/08/18 09:41 Dose: 100 mls/hr Insulin Detemir (Levemir) 10 unit SC HS [facility] Last Admin: 01/07/18 22:16 Dose: 10 unit Insulin Human Regular (Humulin R Low) 0 units SC ACHS [facility] PRN Reason: Protocol Last Admin: 01/08/18 17:28 Dose: 1 units Latanoprost (Xalatan Opht) 0.05 ml OD HS [facility] Last Admin: 01/07/18 22:00 Dose: 0.05 ml Levothyroxine Sodium (Synthroid) 175 mcg PO ACB [facility] Last Admin: 01/08/18 08:27 Dose: 175 mcg Methylprednisolone (Solu-Medrol) 20 mg IVP Q12 [facility] Last Admin: 01/08/18 09:41 Dose: 20 mg Montelukast Sodium (Singulair) 10 mg PO HS [facility] Last Admin: 01/07/18 22:13 Dose: 10 mg Mupirocin (Bactroban Ointment) 1 gm TOP BID [facility] Last Admin: 01/08/18 17:45 Dose: 1 unit Pantoprazole Sodium (Protonix Ec Tab) 40 mg PO DAILY [facility] Last Admin: 01/08/18 09:47 Dose: 40 mg Risperidone (Risperdal Tab) 1 mg PO TID [facility] PRN Reason: Protocol Last Admin: 01/08/18 17:45 Dose: 1 mg - Labs Labs: 01/08/18 11:40 01/08/18 11:40 PT 15.5 SECONDS (9.4-12.5) H 01/01/18 10:50 INR 1.34 (0.93-1.08) H 01/01/18 10:50 APTT 28.8 Seconds (25.1-36.5) 01/01/18 10:50 - Constitutional Appears: Non-toxic, No Acute Distress, Chronically Ill - Head Exam Head Exam: ATRAUMATIC, NORMOCEPHALIC - Eye Exam Eye Exam: EOMI, PERRL Pupil Exam: NORMAL ACCOMODATION, PERRL - ENT Exam ENT Exam: Mucous Membranes Moist, Normal External Ear Exam, TM's Normal Bilaterally - Neck Exam Neck Exam: Full ROM, Normal Inspection - Respiratory Exam Respiratory Exam: Clear to Ausculation Bilateral, NORMAL BREATHING PATTERN. absent: Rales, Rhonchi, Wheezes - Cardiovascular Exam Cardiovascular Exam: REGULAR RHYTHM, RRR, +S1, +S2 - GI/Abdominal Exam GI & Abdominal Exam: Soft, Normal Bowel Sounds. absent: Distended, Tenderness - Extremities Exam Extremities Exam: Full ROM, Normal Inspection - Neurological Exam Neurological Exam: Alert, Awake, CN II-XII Intact Additional comments: AAO x 2 - Psychiatric Exam Psychiatric exam: Anxious, Normal Mood Additional comments: Baseline Confusion. - Skin Skin Exam: Intact, Normal Color Assessment and Plan - Assessment and Plan (Free Text) Assessment: 62 yo female with AMS and hypotension episodes. Treating for assumed sepsis. R /O UTI. Pancultures. PCN allergy. Start Aztreonam and Doxycycline. Give dose of Amikacin at this time IV. The patient is poorly responsive with hypotensive episodes. The patient is on a BiPAP machine at night. She is more awake and alert today. Supportive care. Awaiting cultures. Cultures negative to date. Continue on Doxycycline and Aztreonam. Consider a minimum of 10 days of treatment. Evaluation for dialysis in progress. Noted that patient was placed in wrist restraints yesterday. Dialysis access placed. To start HD once consent obtained. First HD today. Thank you for allowing me to participate in the care of the patient, we will follow with you.
[2018-01-08] MEDS: Insulin Detemir 100 units/ml Vial (Levemir) SC SCH (22:00)
[2018-01-08] MEDS: Latanoprost 2.5 ml Opht Soln OD SCH (22:34)
--- NOTE | 2018-01-08 23:03 | PN ---
DATE: SUBJECTIVE: The patient is seen and examined on the bedside, looking comfortable. Actually, the patient was seen in the Dialysis Center, getting dialysis, relaxed, no more anxious. No fever. No chills. No headache. No dizziness. The patient is a very poor historian. Looks like no fever, no dyspnea. PHYSICAL EXAMINATION: VITAL SIGNS: Temperature 98.6, pulse 80, blood pressure 112/55, respiratory rate 12. HEENT: Head normocephalic, atraumatic. Eyes PERRLA. Extraocular muscles intact. Conjunctivae clear. Nose patent. Mucous membrane moist. NECK: Supple. No carotid bruit. No JVD or thyromegaly. CHEST: Bilaterally symmetrical. HEART: S1 and S2 positive. LUNGS: Clear to auscultation. ABDOMEN: Soft. Bowel sounds positive. No organomegaly. EXTREMITIES: No edema. No cyanosis. NEUROLOGICAL: The patient is awake and alert. Moving all 4 extremities. No focal deficits. LABORATORY DATA: White blood cells 11.2, hemoglobin 9.7, hematocrit 31.3, platelets 75. Sodium 143, potassium 5.1, BUN 48, creatinine 2.3, glucose 191. MEDICATIONS: Aztreonam, Brovana, Depakote, doxycycline, Levemir, Lipitor, Lopid, prednisone, Pulmicort, Risperdal, Synthroid. ASSESSMENT AND PLAN: Ms. Day Hnug, a 62-year-old lady with leukocytosis, anemia, hyperkalemia, renal insufficiency, getting dialysis, diabetes mellitus, iron deficiency, abnormal liver function test, proteinuria, hematuria, urinary tract infection. Hepatitis is negative. History of seizures; renal insufficiency, acute on chronic; history of respiratory failure; history of chronic obstructive pulmonary disease; gastrointestinal bleeding; hypothyroidism; schizophrenia. Getting dialysis. Discussion done with the patient and nursing staffs. Gastrointestinal and deep venous thrombosis prophylaxis. Repeat labs. We will follow. Steff Gallegos MD
--- NOTE | 2018-01-09 00:09 | PN ---
DATE: 01/08/2018 PULMONARY PROGRESS NOTE REFERRING PHYSICIAN: Steff Gallegos MD. SUBJECTIVE: She is lying in the bed, head at 45 degrees. PCT feeding her dinner. Feels okay. No headache. No rhinitis. No nausea. No vomiting or diarrhea. No leg pain or leg swelling. PHYSICAL EXAMINATION: GENERAL: In no acute distress. VITAL SIGNS: Temp is 98, heart rate is 80, respiratory rate is 20, blood pressure 112/55, pulse ox 95% on room air. HEENT: Moist mucous membrane. Crowded airway. NECK: Supple. No JVD. LUNGS: Have a fair airflow with rhonchi. HEART: S1 and S2. ABDOMEN: Soft, nontender. No organomegaly. EXTREMITIES: There is no edema. NEUROLOGIC: Awake, alert. Follows simple command. MEDICATIONS: She is on aztreonam 500 mg every 12 hours, Brovana inhaled twice a day, Depakote 500 mg three times a day, doxycycline 100 mg twice a day, insulin coverage, Levemir 10 units subcu at bedtime, Lipitor 10 mg daily, gemfibrozil 600 mg twice a day, Protonix 40 mg daily, Pulmicort inhaled twice a day, Risperdal 1 mg three times a day, Singulair 10 mg daily, Solu-Medrol 20 mg every 12 hours and Synthroid 175 mcg daily. LABORATORY DATA: Shows hemoglobin 9.7, hematocrit 31.3, WBC 11.2, platelet is 75. Sodium 143, potassium 5.1, chloride 113, bicarbonate 20, BUN 48, creatinine 2.3, glucose 155, calcium 10.4, phosphorus 3.2, magnesium 1.8, iron 48 and ferritin 1640. AST 127, ALT 26, alk phos is 291. Albumin is 2.5. Microbiology: Blood culture and urine culture, there is no growth. IMPRESSION AND PLAN: Respiratory failure requiring noninvasive ventilation; renal failure, seen by Nephrology; hypoventilation syndrome, chronic lung disease, schizophrenia, obesity, seizure disorder and hypertension. Pulmonary point of view, doing okay. Continue bilevel positive airway pressure while sleeping, keep head at 45 degrees. Nephrology followup. Decrease steroids. Thank you and we will follow with you. Justin Shelley MD [facility] # [id number]
[2018-01-09 02:20] VITALS: O2SAT 100
[2018-01-09] MEDS: Budesonide 0.5 mg/2 ml Inhal Susp UD IH SCH ×2 (07:37→20:47)
[2018-01-09] MEDS: Arformoterol 15 mcg/2 ml Inh Sol IH SCH ×2 (07:37→20:47)
[2018-01-09] MEDS: Insulin Reg-LOW-Coverage SC SCH ×3 (08:20→18:06)
[2018-01-09] MEDS: Levothyroxine 175 MCG TAB PO SCH (08:38)
[2018-01-09] MEDS: Divalproex 500 mg ER (ONCE DAILY formulation) PO SCH ×3 (10:15→18:06)
[2018-01-09] MEDS: Pantoprazole 40 mg EC Tab PO SCH (10:16)
--- NOTE | 2018-01-09 13:51 | PN ---
DATE: 01/09/2018 SUBJECTIVE: This 62-year-old female tolerated hemodialysis without incident. She has been scheduled for outpatient treatments on Monday and Monday via right Tessio Pomona catheter. PHYSICAL EXAMINATION VITAL SIGNS: At present, temperature is 97.8, respirations 19, pulse 68 and blood pressure 131/55, pulse ox 100% on room air. LABORATORY DATA: Today's labs show white count of 11,200, hemoglobin 9.7, hematocrit 31.3, platelets 75,000. Post dialysis, sodium 143, K 5.1, chloride 113, bicarb 20, BUN 48, creatinine 2.3, random blood sugar 191. Percent saturation 26%, ferritin 1640. Hepatitis A, B, C serologies were negative. The patient will have dry weight established as an outpatient at dialysis unit. Of note, abdominopelvic CT dated 01/01/2018 showed unremarkable liver and gallbladder with small asymptomatic gallstones. All of the above was reviewed with floor nurse, Belinda Sam and dialysis nursing. Overall prognosis though poor, remains stable at present. Maren Dent MD [facility]
--- NOTE | 2018-01-09 18:05 | CP.PCM.PN ---
Subjective - Date & Time of Evaluation Date of Evaluation: 01/09/18 Time of Evaluation: 15:30 - Subjective Subjective: Infectious Disease Follow Up: January 09, 2018 62 yo female originally admitted from [facility] due to AMS and episode of hypotension. The patient is poorly responsive and lethargic. Extensive past medical history that includes being bedbound, HTN, COPD, GI bleed, chronic UTI, Seizure disorder, DM type II, hypothyroidism, and schizophrenia. She still has episodes of hypotension. Apparently, the patient was in [facility] for hospitalization recently. The patient is on BiPAP now. Awake and alert. Can make some of her wants and needs known. Can answer simple questions. Still elevated creatinine. On the whole, the patient appears better. Dialysis access placed. To start HD once consent obtained. Started dialysis today. Objective - Vital Signs/Intake and Output Vital Signs (last 24 hours): Temp Pulse Resp BP Pulse Ox 97.5 F L 97 H 18 103/54 L 100 01/09/18 12:00 01/09/18 14:00 01/09/18 12:00 01/09/18 12:00 01/09/18 06:00 Intake and Output: 01/09/18 01/09/18 06:59 18:59 Intake Total 0 Output Total 700 Balance -700 - Medications Medications: Current Medications Arformoterol Tartrate (Brovana) 15 mcg IH [id number] [facility] Last Admin: 01/09/18 07:37 Dose: 15 mcg Atorvastatin Calcium (Lipitor) 10 mg PO HS [facility] Last Admin: 01/08/18 22:35 Dose: 10 mg Budesonide (Pulmicort Respules) 0.5 mg IH [id number] [facility] Divalproex Sodium (Depakote Er(Once Daily)) 500 mg PO TID [facility] PRN Reason: Protocol Last Admin: 01/09/18 13:16 Dose: 500 mg Doxycycline Hyclate (Doryx) 100 mg PO Q12 [facility] PRN Reason: Protocol Last Admin: 01/09/18 10:15 Dose: 100 mg Gemfibrozil (Lopid) 600 mg PO BID [facility] Last Admin: 01/09/18 10:15 Dose: 600 mg Aztreonam 500 mg/ Sodium (Chloride) 100 mls @ 100 mls/hr IVPB Q12 [facility] PRN Reason: Protocol Last Admin: 01/09/18 10:22 Dose: 100 mls/hr Insulin Detemir (Levemir) 10 unit SC HS [facility] Last Admin: 01/08/18 22:00 Dose: Not Given Insulin Human Regular (Humulin R Low) 0 units SC ACHS [facility] PRN Reason: Protocol Last Admin: 01/09/18 12:46 Dose: Not Given Latanoprost (Xalatan Opht) 0.05 ml OD HS [facility] Last Admin: 01/08/18 22:34 Dose: 0.05 ml Levothyroxine Sodium (Synthroid) 175 mcg PO ACB [facility] Last Admin: 01/09/18 08:38 Dose: 175 mcg Montelukast Sodium (Singulair) 10 mg PO HS [facility] Last Admin: 01/08/18 22:35 Dose: 10 mg Mupirocin (Bactroban Ointment) 1 gm TOP BID [facility] Last Admin: 01/09/18 10:16 Dose: 1 unit Pantoprazole Sodium (Protonix Ec Tab) 40 mg PO DAILY [facility] Last Admin: 01/09/18 10:16 Dose: 40 mg Prednisone (Prednisone Tab) 20 mg PO DAILY [facility] Last Admin: 01/09/18 10:16 Dose: 20 mg Risperidone (Risperdal Tab) 1 mg PO TID [facility] PRN Reason: Protocol Last Admin: 01/09/18 13:16 Dose: 1 mg - Labs Labs: 01/08/18 11:40 01/08/18 11:40 PT 15.5 SECONDS (9.4-12.5) H 01/01/18 10:50 INR 1.34 (0.93-1.08) H 01/01/18 10:50 APTT 28.8 Seconds (25.1-36.5) 01/01/18 10:50 - Constitutional Appears: Non-toxic, No Acute Distress, Chronically Ill - Head Exam Head Exam: ATRAUMATIC, NORMOCEPHALIC - Eye Exam Eye Exam: EOMI, PERRL Pupil Exam: NORMAL ACCOMODATION, PERRL - ENT Exam ENT Exam: Mucous Membranes Moist, Normal External Ear Exam, TM's Normal Bilaterally - Neck Exam Neck Exam: Full ROM, Normal Inspection - Respiratory Exam Respiratory Exam: Clear to Ausculation Bilateral, NORMAL BREATHING PATTERN. absent: Rales, Rhonchi, Wheezes - Cardiovascular Exam Cardiovascular Exam: REGULAR RHYTHM, RRR, +S1, +S2 - GI/Abdominal Exam GI & Abdominal Exam: Soft, Normal Bowel Sounds. absent: Distended, Tenderness - Extremities Exam Extremities Exam: Full ROM, Normal Inspection - Neurological Exam Neurological Exam: Alert, Awake, CN II-XII Intact, Oriented x3 Additional comments: AAO x 2 - Psychiatric Exam Psychiatric exam: Anxious, Normal Mood Additional comments: Baseline Confusion - Skin Skin Exam: Intact, Normal Color Assessment and Plan - Assessment and Plan (Free Text) Assessment: 62 yo female with AMS and hypotension episodes. Treating for assumed sepsis. R /O UTI. Pancultures. PCN allergy. Start Aztreonam and Doxycycline. Give dose of Amikacin at this time IV. The patient is poorly responsive with hypotensive episodes. The patient is on a BiPAP machine at night. She is more awake and alert today. Supportive care. Awaiting cultures. Cultures negative to date. Continue on Doxycycline and Aztreonam. Consider a minimum of 10 days of treatment. On day 8 currently. Evaluation for dialysis in progress. Noted that patient was placed in wrist restraints yesterday. Dialysis access placed. To start HD once consent obtained. HD started yesterday. Thank you for allowing me to participate in the care of the patient, we will follow with you.
[2018-01-09] MEDS: Insulin Detemir 100 units/ml Vial (Levemir) SC SCH (22:25)
[2018-01-09] MEDS: Latanoprost 2.5 ml Opht Soln OD SCH (22:28)
--- NOTE | 2018-01-10 03:03 | PN ---
DATE: 01/09/2018 PULMONARY PROGRESS NOTE REFERRING PHYSICIAN: Dr. Gallegos. SUBJECTIVE: She is lying in the bed, sleepy, arousable. Night was unremarkable. Eating well. No cough. No sputum production. Tolerated BiPAP well. No nausea. No vomiting or diarrhea. No leg pain or leg swelling. OBJECTIVE: GENERAL: In no acute distress. VITAL SIGNS: Temperature is 98, heart rate is 88, respiratory rate is 16, blood pressure 109/56, pulse ox 100% on nasal cannula. HEENT: Moist mucous membranes. Crowded airway. NECK: Supple. No JVD. LUNGS: Had a fair airflow with the rhonchi. HEART: S1, S2. ABDOMEN: Soft, nontender. No organomegaly. EXTREMITIES: There is no edema. NEUROLOGICAL: Awake, alert. Follows simple command. MEDICATIONS: She is on Azactam 500 mg every 12 hour, Brovana inhaled twice a day, divalproex 500 mg three times a day, doxycycline 100 mg twice a day, insulin coverage, Levemir 10 units subcutaneously at bedtime, Lipitor 10 mg daily, Lopid 600 mg twice a day, prednisone 20 mg daily, Protonix 40 mg daily, Pulmicort inhaled twice a day, Risperdal 1 mg three times a day, Singulair 10 mg daily, Synthroid 175 mcg daily. LABORATORY DATA: Reviewed. Noted blood sugar 221, iron 48. Microbiology: Blood culture, urine culture, there is no growth. IMPRESSION AND PLAN: Respiratory failure requiring noninvasive ventilation, had sleep apnea syndrome, hypoventilation syndrome, renal failure, chronic lung disease, schizophrenia, obesity, seizure disorder, hypertension. Pulmonary point of view, doing okay. We will decrease prednisone to 10 mg daily. Keep head at 45 degrees. Bronchodilator. Nephrology followup. Encourage bilevel positive airway pressure use at nighttime. Out of bed to chair if possible. Followup labs. Thank you and we will follow with you. Justin Shelley MD
[2018-01-10 07:57] VITALS: RESP 18
[2018-01-10] MEDS: Insulin Reg-LOW-Coverage SC SCH ×2 (08:11→12:14)
[2018-01-10] MEDS: Levothyroxine 175 MCG TAB PO SCH (08:12)
[2018-01-10] MEDS: Budesonide 0.5 mg/2 ml Inhal Susp UD IH SCH (08:15)
[2018-01-10] MEDS: Arformoterol 15 mcg/2 ml Inh Sol IH SCH (08:15)
--- NOTE | 2018-01-10 08:48 | PN ---
DATE: 01/09/2018 SUBJECTIVE: Patient is a 62-year-old female. Patient is seen and examined at the bedside, looking comfortable, tolerated hemodialysis without any complications. Patient is scheduled for hemodialysis as outpatient on Tuesdays and . No nausea, vomiting, diarrhea. No hematemesis or hematochezia. No swelling of the legs. No chest pain or palpitation. No headache or dizziness. PHYSICAL EXAMINATION: VITAL SIGNS: Temperature 98.7, respiratory rate 19, pulse 68, blood pressure 130/55, pulse oximetry 100% on room air. HEENT: Head: Normocephalic, atraumatic. Eyes: PERRLA. Extraocular muscles intact. Conjunctivae clear. Nose: Patent. Mucous membrane moist. NECK: Supple. No carotid bruit. No JVD or thyromegaly. CHEST: Bilaterally symmetrical. HEART: S1 and S2 positive. LUNGS: Clear to auscultation. ABDOMEN: Soft. Bowel sounds positive. No organomegaly. EXTREMITIES: No edema. No cyanosis. NEUROLOGICAL: Patient is awake and alert. Moving all four extremities. No focal deficits. LABORATORY DATA: White blood cells 11.3, hemoglobin 9.7, hematocrit 31.3, platelets 75. Glucose 221, 191, 183. ASSESSMENT: The patient is a 62-year-old lady with leukocytosis; anemia; uncontrolled diabetes mellitus; renal insufficiency, [id number], getting hemodialysis. Patient is seen by Dr. Sullivan, Infectious Disease. Also history of hypotension episode, altered mental status, sepsis, urinary tract infection. Pancultures reviewed. Patient is getting Azactam and doxycycline, got a dose of amikacin. The patient is poorly responsive with hypotensive episode. Patient is getting BiPAP. Waiting for cultures; up to now, it is negative. PLAN: Continue doxycycline, Azactam. Consider minimum of 10 days of treatment, on day [address] Sullivan, tomorrow after finishing antibiotic, we can discharge the patient. GI and DVT prophylaxis. Repeat labs. Steff Gallegos MD [facility]
[2018-01-10 09:55] LABS: ALBUMIN 2.6 g/dL (3.0-4.8)
[2018-01-10 09:56] LABS: ALB/GLOB RATIO 0.8 (1.1-1.8)
[2018-01-10] MEDS: Pantoprazole 40 mg EC Tab PO SCH (10:04)
[2018-01-10] MEDS ORDERED: Valproic Acid 250 mg/5 ml UD Cup PO ONE (11:15)
[2018-01-10 13:16] VITALS: BP 112/51; PULSE 83; TEMP 97.3
[2018-01-10] MEDS ORDERED: Valproic Acid 250 mg/5 ml UD Cup PO SCH (14:00)
--- NOTE | 2018-01-10 15:34 | CP.PCM.PN ---
Subjective - Date & Time of Evaluation Date of Evaluation: 01/10/18 Time of Evaluation: 11:00 - Subjective Subjective: Infectious Disease Follow Up: January 10, 2018 62 yo female originally admitted from [facility] due to AMS and episode of hypotension. The patient is poorly responsive and lethargic. Extensive past medical history that includes being bedbound, HTN, COPD, GI bleed, chronic UTI, Seizure disorder, DM type II, hypothyroidism, and schizophrenia. She still has episodes of hypotension. Apparently, the patient was in [facility] for hospitalization recently. The patient is on BiPAP now. Awake and alert. Can make some of her wants and needs known. Can answer simple questions. Still elevated creatinine. On the whole, the patient appears better. Dialysis access placed. To start HD once consent obtained. Started dialysis. No new issues. Objective - Vital Signs/Intake and Output Vital Signs (last 24 hours): Temp Pulse Resp BP Pulse Ox 97.3 F L 83 18 112/51 L 100 01/10/18 12:00 01/10/18 12:00 01/10/18 12:00 01/10/18 12:00 01/10/18 06:00 Intake and Output: 01/10/18 01/10/18 06:59 18:59 Intake Total 300 Output Total 450 Balance -450 300 - Labs Labs: 01/08/18 11:40 01/10/18 09:00 PT 15.5 SECONDS (9.4-12.5) H 01/01/18 10:50 INR 1.34 (0.93-1.08) H 01/01/18 10:50 APTT 28.8 Seconds (25.1-36.5) 01/01/18 10:50 - Constitutional Appears: Non-toxic, No Acute Distress, Chronically Ill - Head Exam Head Exam: ATRAUMATIC, NORMOCEPHALIC - Eye Exam Eye Exam: EOMI, PERRL Pupil Exam: NORMAL ACCOMODATION, PERRL - ENT Exam ENT Exam: Mucous Membranes Moist, Normal External Ear Exam, TM's Normal Bilaterally - Neck Exam Neck Exam: Full ROM, Normal Inspection - Respiratory Exam Respiratory Exam: Clear to Ausculation Bilateral, NORMAL BREATHING PATTERN. absent: Rales, Rhonchi, Wheezes - Cardiovascular Exam Cardiovascular Exam: REGULAR RHYTHM, RRR, +S1, +S2 - GI/Abdominal Exam GI & Abdominal Exam: Soft, Normal Bowel Sounds. absent: Distended, Tenderness - Extremities Exam Extremities Exam: Full ROM, Normal Inspection - Neurological Exam Neurological Exam: Alert, Awake, CN II-XII Intact, Oriented x3 - Psychiatric Exam Psychiatric exam: Anxious, Normal Mood Additional comments: Baseline Confusion. - Skin Skin Exam: Intact, Normal Color Assessment and Plan - Assessment and Plan (Free Text) Assessment: 62 yo female with AMS and hypotension episodes. Treating for assumed sepsis. R /O UTI. Pancultures. PCN allergy. Start Aztreonam and Doxycycline. Give dose of Amikacin at this time IV. The patient is poorly responsive with hypotensive episodes. The patient is on a BiPAP machine at night. She is more awake and alert today. Supportive care. Awaiting cultures. Cultures negative to date. Continue on Doxycycline and Aztreonam. Consider a minimum of 10 days of treatment. On day 9 currently. Evaluation for dialysis in progress. Noted that patient was placed in wrist restraints yesterday. Dialysis access placed. To start HD once consent obtained. HD started and tolerated. Can continue with Doxycycline for 7-10 days more in jail. Thank you for allowing me to participate in the care of the patient, we will follow with you.
--- NOTE | 2018-01-10 15:49 | PN ---
DATE: 01/10/2018 PULMONARY PROGRESS NOTE REFERRING PHYSICIAN: Steff Gallegos MD SUBJECTIVE: She is lying in the bed, sleepy, arousable. Night was unremarkable. Tolerated BiPAP well. No headache. No rhinitis. No nausea. No vomiting. No diarrhea. No leg pain or leg swelling. OBJECTIVE: GENERAL: No acute distress. VITAL SIGNS: Temperature is 98, heart rate is 94, respiratory rate is 18, blood pressure 94/62, pulse ox 100% on 2 L nasal canula. HEENT: Moist mucous membranes. Crowded airway. Small oral cavity. NECK: Supple. No JVD. LUNGS: Scattered rhonchi. HEART: S1 and S2. ABDOMEN: Soft and nontender. No organomegaly. EXTREMITIES: No edema. NEUROLOGIC: Awake and alert. Follows simple command. MEDICATIONS: She is on Bactroban ointment to affected area, Brovana inhale twice a day, Depakote 500 mg three times a day, doxycycline 100 mg twice a day, insulin coverage, Levemir 10 units subcu at bedtime, Lipitor 10 mg daily, Lopid 600 mg twice a day, prednisone 10 mg daily, Protonix 40 mg daily, Pulmicort inhaled twice a day, Risperdal 1 mg three times a day, Singulair 10 mg daily, and Synthroid 175 mcg daily. LABORATORY DATA: Reviewed and noted. Sodium 141, potassium 3.8, chloride 106, bicarbonate 29. BUN 28, creatinine 1.5. Glucose 115. Calcium is 9. AST 47, ALT 22, alkaline phosphatase is 221. Albumin is 2.6. Microbiology: Blood culture and urine culture, there is no growth. IMPRESSION AND PLAN: Respiratory failure requiring noninvasive ventilation, presently on nasal canula; sleep apnea syndrome; hypoventilation syndrome; renal failure, on dialysis; chronic lung disease; schizophrenia; obesity; seizure disorder; hypertension. Pulmonary point of view, doing okay. Continue BiPAP while sleeping. Keep head at 45 degrees. Careful with sedation. Nephrology followup. Pressure ulcers precaution. Out of bed to chair if possible. Thank you and we will follow with you. Justin Shelley MD [facility] # [id number]
--- NOTE | 2018-01-10 15:49 | PN ---
DATE: 01/10/2018 NEPHROLOGY PROGRESS NOTE SUBJECTIVE: This 62-year-old female was examined at her bedside. This case was reviewed in detail with herself, her nurse, Claire and renal dialysis nurse, Lisbeth Lara. The patient will be discharged to [facility] for penit[facility] care. She will be scheduled for hemodialysis on Tuesdays and Saturdays until further notice. She has a successfully placed right Tesio Wendel catheter and will require dialysis for volume management, hyperkalemia, and metabolic acidosis. She will continue on medication for her comorbid conditions and all of the above was reviewed with dialysis nursing staff in detail. At the time of discharge, temperature was 97.2, respirations 20, pulse 99, and blood pressure 100/67 with a pulse of 80 and a pulse ox of 100% on room air. Maren Dent MD [facility]TD[facility]
--- NOTE | 2018-01-11 08:37 | PN ---
DATE: 01/10/2018 DIALYSIS PROGRESS NOTE SUBJECTIVE: This 75-year-old male is in the renal dialysis unit, dialyzing on a F160, 140 sodium, 3 K bicarb bath with a blood pressure of 159/80 and a pulse of 67. The blood flow rate is 400 mL per minute. He is on a 3 K bath. I am aiming for 2 kg off. Heart is regular S1, S2. Lungs are clear. 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 daily, thiamine 100 mg p.o. b.i.d., and Trileptal 150 mg p.o. b.i.d. The patient will be monitored closely as an outpatient. Maren Dent MD
== END 2018-01-10 13:22 | DRG 584 ==
LOC: ED 10:32 → ERH 13:34 → 3RSO 18:48 → 2RSO 01-09 15:39
PROVIDERS: ADMIT Internal Medicine; ATTEND Internal Medicine
PROC: 5A09557 Assistance with Respiratory Ventilation, Greater than 96 Consecutive Hours, Continuous Positive Airway Pressure (ICD-10-PCS; 2018-01-01)
PROC: 30233N1 Transfusion of Nonautologous Red Blood Cells into Peripheral Vein, Percutaneous Approach (ICD-10-PCS; 2018-01-01)
PROC: 06H033Z Insertion of Infusion Device into Inferior Vena Cava, Percutaneous Approach (ICD-10-PCS; principal; 2018-01-05)
PROC: B543ZZA Ultrasonography of Right Jugular Veins, Guidance (ICD-10-PCS; 2018-01-05)
PROC: 5A1D70Z Performance of Urinary Filtration, Intermittent, Less than 6 Hours Per Day (ICD-10-PCS; 2018-01-05)
PROC: 5A1D70Z Performance of Urinary Filtration, Intermittent, Less than 6 Hours Per Day (ICD-10-PCS; 2018-01-08)
PROC: 5A1D70Z Performance of Urinary Filtration, Intermittent, Less than 6 Hours Per Day (ICD-10-PCS; 2018-01-09)
DX: A41.9 Sepsis, unspecified organism (principal); N17.9 Acute kidney failure, unspecified; J96.21 Acute and chronic respiratory failure with hypoxia; N39.0 Urinary tract infection, site not specified; E87.2 Acidosis; E87.5 Hyperkalemia; I12.0 Hypertensive chronic kidney disease with stage 5 chronic kidney disease or end stage renal disease; E11.22 Type 2 diabetes mellitus with diabetic chronic kidney disease; E11.65 Type 2 diabetes mellitus with hyperglycemia; J43.9 Emphysema, unspecified; N18.6 End stage renal disease; E87.0 Hyperosmolality and hypernatremia; F03.90 Unspecified dementia, unspecified severity, without behavioral disturbance, psychotic disturbance, mood disturbance, and anxiety; F20.9 Schizophrenia, unspecified; E86.0 Dehydration; M81.0 Age-related osteoporosis without current pathological fracture; E03.9 Hypothyroidism, unspecified; D50.9 Iron deficiency anemia, unspecified; D63.8 Anemia in other chronic diseases classified elsewhere; E83.52 Hypercalcemia; E83.41 Hypermagnesemia; Z66 Do not resuscitate; G40.909 Epilepsy, unspecified, not intractable, without status epilepticus; R31.9 Hematuria, unspecified; K21.9 Gastro-esophageal reflux disease without esophagitis; H40.9 Unspecified glaucoma; G93.41 Metabolic encephalopathy; G47.30 Sleep apnea, unspecified; J34.0 Abscess, furuncle and carbuncle of nose; E78.5 Hyperlipidemia, unspecified; Z87.11 Personal history of peptic ulcer disease; Z78.1 Physical restraint status; Z74.01 Bed confinement status; Z87.891 Personal history of nicotine dependence; Z88.6 Allergy status to analgesic agent; Z88.0 Allergy status to penicillin; Z79.4 Long term (current) use of insulin

== ENCOUNTER 2018-01-20 12:54 | Inpatient (IN) | payer MEDICAID ==
--- NOTE | 2018-01-20 13:09 | ED PDOC ---
Arrival/HPI - General Time Seen by Provider: 01/20/18 12:58 Historian: Patient, [place] ([facility]) - Critical Care Critical Care Minutes: 30 minutes - History of Present Illness Narrative History of Present Illness (Text): 01/20/18 13:05 A 62 year old female, whose past medical history includes Diabetes, COPD, Substance abuse history, CKD, Seizure disorder history, hypothyroidism, HTN, presents to the emergency room from [facility] after dialysis. During dialysis the patient's blood pressure dropped to 50/27 for which she was given 2L of normal saline . In the emergency room the patient complains of chest pain and difficulty breathing. The patient denies fevers, chills, headache, dizziness , sore throat, abdominal pain, nausea, vomiting, diarrhea, neck/back pain, urinary/bowel changes or any other complaint. PMD: Dr. Angel Brooks Time/Duration: Other (Today) Symptom Onset: Sudden Symptom Course: Unchanged Activities at Onset: Rest, Light Context: Home ([facility]) Past Medical History - Provider Review Nursing Documentation Reviewed: Yes - Past History Past History: Unable to Obtain - Infectious Disease Hx of Infectious Diseases: None - Tetanus Immunization Tetanus Immunization: Unknown - Cardiac Hx Cardiac Disorders: Yes Hx Hypertension: Yes - Pulmonary Hx Respiratory Disorders: Yes Hx Chronic Obstructive Pulmonary Disease (COPD): Yes Hx Emphysema: Yes Other/Comment: respiratory failure - Neurological Hx Neurological Disorder: Yes (cognitive deficits, syncope) Hx Seizures: Yes - HEENT Hx HEENT Disorder: Yes Hx Glaucoma: Yes - Renal Hx Renal Disorder: Yes Hx Renal Failure: Yes - Endocrine/Metabolic Hx Endocrine Disorders: Yes Hx Diabetes Mellitus Type 2: Yes Hx Hypothyroidism: Yes - Hematological/Oncological Hx Blood Disorders: Yes Hx Anemia: Yes Other/Comment: sepsis - Integumentary Hx Dermatological Disorder: Yes Other/Comment: stage 2 opening left buttock 0.5cm round wound bed red and 1cm round opening wound bed red, redness to buttocks and sacrum, multiple red areas of skin to outer lower left leg, fading redness and rash under both breasts, bikini line scar, dry lips, dry skin to feet, thick dry toenails, multple bruises bke, dry scab 1cm rounc right knee, scrape left knee - Musculoskeletal/Rheumatological Hx Musculoskeletal Disorders: Yes (BLE weakness) Hx Falls: Yes (past) Hx Osteoporosis: Yes Hx Unsteady Gait: Yes - Gastrointestinal Hx Gastrointestinal Disorders: Yes (gi bleed, difficulty chewing) Hx Gastroesophageal Reflux: Yes Other/Comment: gi bleed, bleeding gastric erosion, esophageal ulcers, duodenitis - Genitourinary/Gynecological Hx Genitourinary Disorders: Yes Hx Incontinence: Yes Hx Urinary Tract Infection: Yes - Psychiatric Hx Psychophysiologic Disorder: Yes Hx Schizophrenia: Yes Hx Substance Use: No Other/Comment: suicidal,ams, cognitive defects, prior resident of [facility] home - Past Surgical History Past Surgical History: Non-Contributing - Anesthesia Hx Anesthesia: Yes Hx Anesthesia Reactions: No Hx Malignant Hyperthermia: No - Suicidal Assessment Feels Threatened In Home Enviroment: No Family/Social History - Physician Review Nursing Documentation Reviewed: Yes Family/Social History: No Known Family HX Smoking Status: Unknown If Ever Smoked Hx Alcohol Use: No Hx Substance Use: No Allergies/Home Meds Allergies/Adverse Reactions: Allergies aspirin Adverse Reaction (Verified 01/01/18 10:38) RASH haloperidol [From Haldol] Adverse Reaction (Verified 01/01/18 10:38) RASH haloperidol lactate [From Haldol] Adverse Reaction (Verified 01/01/18 10:38) RASH mesalamine [From Asacol] Adverse Reaction (Verified 01/01/18 10:38) RASH Penicillins Adverse Reaction (Verified 01/01/18 10:38) RASH seafood Adverse Reaction (Uncoded 01/01/18 10:38) RASH Home Medications: Home Meds Medication Instructions Recorded Confirmed Acetaminophen [Tylenol (Renal)] 650 mg PO Q4 PRN 11/19/16 01/20/18 Budesonide [Pulmicort Respules] 0.5 mg IH Q12 11/19/16 01/20/18 Divalproex [Depakote ER] 500 mg PO TID 11/19/16 01/20/18 Latanoprost 0.005% Opht [Xalatan 1 drp OP HS 11/19/16 01/20/18 Opht] Magnesium Hydroxide [Milk Of 30 ml PO HS PRN 11/19/16 01/20/18 Magnesia] Montelukast [Singulair] 10 mg PO HS 11/19/16 01/20/18 Gemfibrozil [Lopid] 600 mg PO BID 10/28/17 01/20/18 Insulin Detemir [Levemir] 10 unit SC HS 10/28/17 01/20/18 risperiDONE [RisperDAL Tab] 1 mg PO TID 10/28/17 01/20/18 Albuterol/Ipratropium [Duoneb 3 3 ml IH Q4 PRN 01/01/18 01/20/18 mg/0.5 mg (3 ml) UD] Atorvastatin [Lipitor] 10 mg PO HS 01/01/18 01/20/18 Carvedilol [Coreg] 3.125 mg PO BID 01/01/18 01/20/18 Insulin Aspart, Recombinant 0 unit SQ ACHS 01/01/18 01/20/18 [Novolog] Pantoprazole [Protonix] 40 mg PO DAILY 01/01/18 01/20/18 Review of Systems - Physician Review All systems were reviewed & negative as marked: Yes - Review of Systems Constitutional: absent: Fevers, Night Sweats Respiratory: SOB, Cough Cardiovascular: Chest Pain Gastrointestinal: absent: Abdominal Pain, Stool Changes, Diarrhea, Nausea, Vomiting Genitourinary Female: absent: Urine Output Changes Musculoskeletal: absent: Back Pain, Neck Pain Neurological: absent: Headache, Dizziness Physical Exam Vital Signs Reviewed: Yes Vital Signs Temp Pulse Resp BP Pulse Ox 01/20/18 17:10 101 H 16 119/61 99 01/20/18 15:00 121 H 18 111/63 100 01/20/18 13:05 100/51 L 01/20/18 13:02 98.8 F 164 H 18 109/51 L 100 Temperature: Afebrile Blood Pressure: Hypotensive Pulse: Tachycardic Respiratory Rate: Normal Appearance: Positive for: Well-Appearing, Non-Toxic, Comfortable Pain Distress: None Mental Status: Positive for: Alert and Oriented X 3 - Systems Exam Head: Present: Atraumatic, Normocephalic Pupils: Present: PERRL Extroacular Muscles: Present: EOMI Conjunctiva: Present: Normal Mouth: Present: Moist Mucous Membranes Neck: Present: Normal Range of Motion Respiratory/Chest: Present: Rales (Diffuse Rales), Rhonchi (Diffuse Rhonchi), Other (Right chest wall dialysis catheter is clean, dry, and intact. ) Cardiovascular: Present: Irregular Rhythm, Tachycardic Abdomen: No: Tenderness, Distention, Peritoneal Signs Back: Present: Normal Inspection Upper Extremity: Present: Normal Inspection. No: Cyanosis, Edema Lower Extremity: Present: Edema (Lower extremity edema bilaterally. ) Neurological: Present: GCS=15, CN II-XII Intact, Speech Normal Skin: Present: Warm, Dry, Normal Color. No: Rashes Psychiatric: Present: Alert, Oriented x 3, Normal Insight, Normal Concentration Medical Decision Making ED Course and Treatment: 01/20/18 13:17 Impression: A 62 year old female presents to the emergency room for a complaint of low blood pressure, chest pain, and shortness of breath. r/o ACS r/o CHF, r/o Fluid Overload on HD r/o PNA Plan: -- EKG -- Chest X-ray -- Labs -- Blood Culture -- Lopressor -- Reassess and disposition Progress Notes: EKG: Ordered, reviewed, and independently interpreted the EKG. Rate : 164 BPM Rhythm : Rapid Atrial Fibrillation CHEST X-RAY Dictator : Nayely Garcia MD Report Date : 01/20/2018 13:52:42 IMPRESSION: Mild increase in bibasilar volume loss with some mild patchy alveolar density at the right lung base. A very small underlying pneumonia this area is not excluded. 01/20/18 15:51 Low potassium replaced with PO and IV potassium. Case was discussed with Dr. Dent who will see the patient for Renal Issues. Case discussed with Dr. Marks who is covering for Dr. Gallegos who will admit to Telemetry for New Onset Afib, Hypokalemia and PNA. 01/20/18 17:13 Repeat EKG at 15:34 shows: Sinus Tachy at [address] elevations, nonspec ST changes Case was discussed with Dr. Cosby who states that patient should not be anticoagulated at this time for Afib due to low hemoglobin. 01/20/18 18:34 Central line placed by Resident Ankur. See procedure note. Supervised by me. Signed out to Dr. Pierre to f/u CTA r/o PE. - Critical Care Critical Care Minutes: 30 minutes - Lab Interpretations Lab Results: 01/20/18 14:07 01/20/18 14:07 Lab Results 01/20/18 14:07: Sodium 140, Chloride 99, Potassium 2.7 L* D, Carbon Dioxide 31, Anion Gap 13, BUN 9, Creatinine 1.0, Est GFR ( Amer) > 60, Est GFR (Non- Af Amer) 56, Random Glucose 146 H, Calcium 8.4, Lactate Dehydrogenase 515, Total Creatine Kinase 48, Troponin I 0.02 D, NT-Pro-B Natriuret Pep 5990 H 01/20/18 14:07: WBC 4.4 L D, RBC 2.66 L, Hgb 8.6 L, Hct 27.6 L, MCV 103.8, MCH 32.3, MCHC 31.2, RDW 19.1 H, Plt Count 153, MPV 9.7, Gran % 49.9 L, Lymph % ( Auto) 40.5 H, [place] % (Auto) 8.7 H, Eos % (Auto) 0.7 L, Baso % (Auto) 0.2, Gran # 2.18, Lymph # (Auto) 1.8, [place] # (Auto) 0.4, Eos # (Auto) 0.0, Baso # (Auto) 0.01 01/20/18 14:07: PT 12.5, INR 1.09 H, APTT 57.7 H 01/20/18 13:35: pO2 92 H, VBG pH 7.32, VBG pCO2 64.0 H, VBG HCO3 33.0 H, VBG Total CO2 35.0 H, VBG O2 Sat (Calc) 98.7 H, VBG Base Excess 4.9 H, VBG Potassium 2.8 L, Sodium 138.0, Chloride 103.0, Glucose 157 H, Lactate 3.5 H, FiO2 21.0, Venous Blood Potassium 2.8 L I have reviewed the lab results: Yes - RAD Interpretation Radiology Orders: 01/20/18 13:08 CHEST PORTABLE [RAD] Stat 01/20/18 15:28 ANGIO CHEST PE PROTOCOL [CT] Stat - EKG Interpretation Interpreted by ED Physician: Yes Type: 12 lead EKG - Medication Orders Current Medication Orders: Discontinued Medications Vancomycin HCl (Vancomycin 1gm) 1 gm in 250 mls @ 167 mls/hr IVPB STAT STA PRN Reason: Protocol Stop: 01/20/18 15:24 Aztreonam (Azactam 2 Gm) 100 mls @ 100 mls/hr IVPB STAT STA PRN Reason: Protocol Stop: 01/20/18 14:59 Last Admin: 01/20/18 17:08 Dose: 100 mls/hr eMAR Start Stop Document 01/20/18 17:08 SF (Rec: 01/20/18 17:09 SF [id number]) Intravenous Solution Start Date 01/20/18 Start Time 17:09 End Date 01/20/18 End time 18:09 Total Infusion Time 60 Potassium Chloride (Potassium Chloride 10 Meq/100 Ml) 10 meq in 100 mls @ 50 mls/hr IVPB ONCE ONE Stop: 01/20/18 16:32 Last Admin: 01/20/18 14:58 Dose: 50 mls/hr eMAR Start Stop Document 01/20/18 14:58 SF (Rec: 01/20/18 14:58 SF [id number]) Intravenous Solution Start Date 01/20/18 Start Time 14:58 End Date 01/20/18 End time 16:58 Total Infusion Time 120 Metoprolol Tartrate (Lopressor) 5 mg IVP STAT STA Stop: 01/20/18 13:10 Last Admin: 01/20/18 17:54 Dose: Potassium Chloride (K-Dur 20 Meq Er Tab) 40 meq PO STAT STA Stop: 01/20/18 14:34 Last Admin: 01/20/18 14:56 Dose: 40 meq - Scribe Statement The provider has reviewed the documentation as recorded by the Charlotte Branham Provider Scribe Attestation: All medical record entries made by the Scribmirtha were at my direction and personally dictated by me. I have reviewed the chart and agree that the record accurately reflects my personal performance of the history, physical exam, medical decision making, and the department course for this patient. I have also personally directed, reviewed, and agree with the discharge instructions and disposition. Disposition/Present on Arrival - Present on Arrival Any Indicators Present on Arrival: Yes History of DVT/PE: No History of Uncontrolled Diabetes: Yes Urinary Catheter: Yes History Surgical Site Infection Following: None - Disposition Have Diagnosis and Disposition been Completed?: Yes Diagnosis: New onset atrial fibrillation, Hypokalemia, Pneumonia Disposition: HOSPITALIZED Disposition Time: 15:47 Patient Plan: Admission Patient Problems: Current Active Problems Problem Status Onset Pneumonia Acute New onset atrial fibrillation Acute Hypokalemia Acute Condition: FAIR
[2018-01-20] MEDS: Metoprolol 1 mg/ml Inj IVP STA ×2 (13:15→17:54)
--- NOTE | 2018-01-20 13:54 | RAD ---
HISTORY: sob/cp COMPARISON: 01/01/2018 FINDINGS: LUNGS: There is some mild increase in subsegmental atelectasis or patchy alveolar density at the right lung base. There may also be some subtle increase in subsegmental atelectasis at the left lung base. PLEURA: No pneumothorax is seen. CARDIOVASCULAR: Vasculature is not congested. Heart is unchanged. OSSEOUS STRUCTURES: No significant abnormalities. VISUALIZED UPPER ABDOMEN: Normal. OTHER FINDINGS: None. IMPRESSION: Mild increase in bibasilar volume loss with some mild patchy alveolar density at the right lung base. A very small underlying pneumonia this area is not excluded.
[2018-01-20] MEDS ORDERED: Vancomycin 1gm in NS 250ml 1 GM/250 ML BAG IVPB STA (13:55)
[2018-01-20] MEDS ORDERED: Aztreonam 2 Gm in NS 100mL 100 ML IVPB STA (14:00)
[2018-01-20 14:12] LABS: BASO # 0.01 K/mm3 (0.0-2.0); BASO % 0.2 % (0.0-3.0); EOS % 0.7 % (1.5-5.0); GRAN # 2.18 (1.4-6.5); GRAN % 49.9 % (50.0-68.0); HEMOGLOBIN 8.6 g/dL (12.0-16.0); LYMPH # 1.8 (1.2-3.4); LYMPH % 40.5 % (22.0-35.0); MEAN CELL VOLUME 103.8 fl (80.0-105.0); MEAN CORPUSCULAR HEMOGLOBIN 32.3 pg (25.0-35.0); MEAN CORPUSCULAR HGB CONC 31.2 g/dl (31.0-37.0); MEAN PLATELET VOLUME 9.7 fl (7.0-11.0); MONO # 0.4 (0.1-0.6); MONO % 8.7 % (1.0-6.0); RBC 2.66 10^6/uL (3.5-6.1); RED CELL DISTRIBUTION WIDTH 19.1 % (11.5-14.5); WHITE BLOOD COUNT 4.4 10^3/ul (4.5-11.0)
[2018-01-20 14:13] LABS: VENOUS BLOOD GAS BASE EXCESS 4.9 mmol/L (0.0-2.0); VENOUS BLOOD GAS PO2 92 mm/Hg (30-55); VENOUS BLOOD PH 7.32 (7.32-7.43)
[2018-01-20 14:24] LABS: INR 1.09 (0.93-1.08); PARTIAL THROMBOPLASTIN TIME 57.7 Seconds (25.1-36.5); PROTHROMBIN TIME 12.5 SECONDS (9.4-12.5)
[2018-01-20 14:26] LABS: CALCIUM 8.4 mg/dL (8.4-10.5); GFR AFRICAN-AMERICAN > 60; GFR NON-AFRICAN AMERICAN 56
[2018-01-20 14:27] LABS: BLOOD UREA NITROGEN 9 mg/dL (7-21)
[2018-01-20] MEDS ORDERED: Potassium Chloride 20 mEq ER Tab PO STA (14:33)
[2018-01-20 14:34] LABS: B-TYPE NATRIURETIC PEPTIDE 5990 pg/mL (0-450); TROPONIN I 0.02 ng/mL
[2018-01-20] MEDS ORDERED: Iodixanol 320 MG/ML 100 ML BOTTLE IV ONE (15:47)
--- NOTE | 2018-01-20 18:35 | PCM.PROC ---
Procedures Attestation:: I certify that I have explained the specified Operation(s) or Procedure(s), risks, benefits and reasonable alternatives to the Patient and/or other person responsible. The opportunity was given to ask questions and all questions answered - Central Line Placement Right Femoral Triple Lumen Catheter Aseptic technique was employed throughout the procedure: Hand Hygiene done prior to procedure, Full sterile barriers (mask, hair cover, sterile gown, sterile gloves), Full body sterile drape, Chloraprep Antiseptic: 2 minute prep for Femoral CVP Time Out Performed: Yes Pt. Placed on Pulse Ox Monitor: Yes Central Line Prep: Chlorhexidine-Alcohol Combination Local Anesthesia Used: Lidocaine 1% Amount of Anesthesia Used (mls): 3 Ultrasound Used for Placement: Yes Central Line Lumen Inserted: triple Central Line Length: 30 cm Post Procedure: Sutured in Place, Good Blood Return, All Ports Aspirated, Flushed, Capped, Sterile Dressing Applied Secured by: Suture Post procedure dressing: Clear vapor permeable, Chlorhexidine disc (Biopatch) Post Procedure X-Ray: No Patient Tolerated Procedure: Well, No Complications Immediate Complications: None
--- NOTE | 2018-01-20 19:35 | CT ---
EXAM: CT Angiography Chest With Intravenous Contrast CLINICAL HISTORY: 62 years old, female; Signs and symptoms; Other: R/O pe; Additional info: R/O pe. Estimated image count due to issues with pacs TECHNIQUE: Axial computed tomographic angiography images of the chest with intravenous contrast using pulmonary embolism protocol. All CT scans at this facility use one or more dose reduction techniques, viz.: automated exposure control; ma/kV adjustment per patient size (including targeted exams where dose is matched to indication; i.e. head); or iterative reconstruction technique. MIP reconstructed images were created and reviewed. Coronal and sagittal reformatted images were created and reviewed. CONTRAST: 100 mL of VISI 320 administered intravenously. COMPARISON: DX - CHEST PORTABLE 2018-01-20 13:42 FINDINGS: Pulmonary arteries: Examination is limited due to technique. No large central pulmonary artery emboli are identified. Segmental and/or subsegmental pulmonary artery emboli may not be seen on this exam. Aorta: There are calcified atherosclerotic changes of the aorta. No thoracic aortic aneurysm. Lungs: See below. Pleural space: There are small bilateral pleural effusions. There is consolidation at both lung bases. This could represent pneumonia. Followup imaging is recommended. Heart: There is cardiomegaly. No significant pericardial effusion. No evidence of RV dysfunction. Bones/joints: There is a T6 vertebra compression fracture, age-indeterminate. No dislocation. Soft tissues: Unremarkable. Lymph nodes: Unremarkable. No enlarged lymph nodes. Gallbladder and bile ducts: There is cholelithiasis. The gallbladder is distended. Tubes, lines and devices: There is a right central venous catheter with the tip overlying the caval atrial junction. IMPRESSION: 1. Examination is limited due to technique. No large central pulmonary artery emboli are identified. Segmental and/or subsegmental pulmonary artery emboli may not be seen on this exam. 2. There is cholelithiasis. 3. There is a T6 vertebra compression fracture, age-indeterminate. 4. There are small bilateral pleural effusions. There is consolidation at both lung bases. This could represent pneumonia. Followup imaging is recommended.
--- NOTE | 2018-01-20 19:45 | CARD ---
APPROVED REPORT EKG Measurement Heart [id number] <Conclusion> Atrial fibrillation with rapid ventricular response with premature ventricular or aberrantly conducted complexes ST & T wave abnormality, consider lateral ischemia or digitalis effect Abnormal ECG
[2018-01-20] MEDS ORDERED: Magnesium Hydroxide Susp 30 ml UD PO PRN (21:27)
[2018-01-20 21:46] LABS: VENOUS BLOOD GAS BASE EXCESS 2.7 mmol/L (0.0-2.0); VENOUS BLOOD GAS PO2 137 mm/Hg (30-55); VENOUS BLOOD PH 7.37 (7.32-7.43)
[2018-01-20] MEDS: Insulin Reg-LOW-Coverage SC SCH (22:06)
[2018-01-20] MEDS: Insulin Detemir 100 units/ml Vial (Levemir) SC SCH (22:13)
[2018-01-20] MEDS ORDERED: Pneumococcal 23-Valent Vaccine IM ONE (22:21)
[2018-01-20 22:22] VITALS: BMI 25.0
[2018-01-21] MEDS: Levothyroxine 150 MCG TAB PO SCH (04:59)
[2018-01-21] MEDS: Pantoprazole 40 mg EC Tab PO SCH (04:59)
[2018-01-21] MEDS: Insulin Reg-LOW-Coverage SC SCH ×4 (08:00→21:16)
[2018-01-21] MEDS: Budesonide 0.5 mg/2 ml Inhal Susp UD IH SCH ×2 (08:04→20:25)
--- NOTE | 2018-01-21 09:38 | CP.PCM.CON ---
History of Present Illness - History of Present Illness History of Present Illness: Lying in bed, awake,deines chest pain,denies shortness of breath, spoke to RN, night uneventful Reason for consultation: Cardiac evaluation,atrial fibrillation, hypotension, ESRD on hemodialysis, history of hypertension, COPD Brief history of illness: a 62 year old female who came from [facility] to ER due to hypotension and atrial fibrillation yesterday accompanied with chest pain and shortness of breath. Patient was post hemodialysis. history of diabetes,COPD,hypertension,substance abuse, schizophrenia,history of fall, ESRD with hemodialysis 3x a week, seizure disorder, hypothyroidism. Two liters of IV fluid given in ER. With right subclavian shiley catheter and right femoral triple lumen catheter inserted. Seen and examined by me and Dr. Cosby Review of Systems - Constitutional Constitutional: As Per HPI - Cardiovascular Additional comments: chest pain free, admitted for chest pain and Afib - Respiratory Additional comments: admitted due to chest pain with dyspnea - Genitourinary Additional comments: ESRD on hemodialysis - Integumentary Additional comments: sacral decubitus prior to admission - Neurological Additional comments: denies headache/dizziness - Psychiatric Additional comments: history schizophrenia - Endocrine Additional Comments: diabetes Past Patient History - Infectious Disease Hx of Infectious Diseases: None - Tetanus Immunizations Tetanus Immunization: Unknown - Past Social History Smoking Status: Unknown If Ever Smoked - CARDIAC Hx Cardiac Disorders: Yes Hx Hypertension: Yes - PULMONARY Hx Respiratory Disorders: Yes Hx Chronic Obstructive Pulmonary Disease (COPD): Yes Hx Emphysema: Yes Other/Comment: respiratory failure - NEUROLOGICAL Hx Neurological Disorder: Yes (cognitive deficits, syncope) Hx Seizures: Yes - HEENT Hx HEENT Problems: Yes Hx Glaucoma: Yes - RENAL Hx Chronic Kidney Disease: Yes Hx Dialysis: Yes (TS) Date of Last Dialysis Treatment: 01/20/18 Hx Renal Failure: Yes - ENDOCRINE/METABOLIC Hx Endocrine Disorders: Yes Hx Diabetes Mellitus Type 2: Yes Hx Hypothyroidism: Yes - HEMATOLOGICAL/ONCOLOGICAL Hx Blood Disorders: Yes Hx Anemia: Yes Other/Comment: sepsis - INTEGUMENTARY Hx Dermatological Problems: Yes Other/Comment: stage 2 opening left buttock 0.5cm round wound bed red and 1cm round opening wound bed red, redness to buttocks and sacrum, multiple red areas of skin to outer lower left leg, fading redness and rash under both breasts, bikini line scar, dry lips, dry skin to feet, thick dry toenails, multple bruises bke, dry scab 1cm rounc right knee, scrape left knee - MUSCULOSKELETAL/RHEUMATOLOGICAL Hx Musculoskeletal Disorders: Yes (BLE weakness) Hx Falls: Yes (past) Hx Osteoporosis: Yes Hx Unsteady Gait: Yes - GASTROINTESTINAL Hx Gastrointestinal Disorders: Yes (gi bleed, difficulty chewing) Hx Gastroesophageal Reflux: Yes Other/Comment: gi bleed, bleeding gastric erosion, esophageal ulcers, duodenitis - GENITOURINARY/GYNECOLOGICAL Hx Genitourinary Disorders: Yes Hx Incontinence: Yes Hx Urinary Tract Infection: Yes - PSYCHIATRIC Hx Psychophysiologic Disorder: Yes Hx Schizophrenia: Yes Hx Substance Use: No (UNKNOWN) Other/Comment: suicidal,ams, cognitive defects, prior resident of [facility] - SURGICAL HISTORY Hx Surgeries: Yes (R MIRYAM UDALL,R BOBY NAGY,) - ANESTHESIA Hx Anesthesia: Yes Hx Anesthesia Reactions: No Hx Malignant Hyperthermia: No Meds Allergies/Adverse Reactions: Allergies Allergy/AdvReac Type Severity Reaction Status Date / Time aspirin AdvReac RASH Verified 01/20/18 18:57 haloperidol [From Haldol] AdvReac RASH Verified 01/20/18 18:57 haloperidol lactate AdvReac RASH Verified 01/20/18 18:57 [From Haldol] mesalamine [From Asacol] AdvReac RASH Verified 01/20/18 18:57 Penicillins AdvReac RASH Verified 01/20/18 18:57 seafood AdvReac RASH Uncoded 01/20/18 18:57 - Medications Medications: Current Medications Albuterol/Ipratropium (Duoneb 3 Mg/0.5 Mg (3 Ml) Ud) 3 ml IH [id number] PRN PRN Reason: Shortness of Breath Atorvastatin Calcium (Lipitor) 10 mg PO DIN FLAVIO Budesonide (Pulmicort Respules) 0.5 mg IH [id number] FLAVIO Last Admin: 01/21/18 08:04 Dose: 0.5 mg Carvedilol (Coreg) 3.125 mg PO BID FLAVIO Gemfibrozil (Lopid) 600 mg PO BID FLAVIO Insulin Detemir (Levemir) 10 unit SC HS FLAVIO Last Admin: 01/20/18 22:13 Dose: 10 unit Insulin Human Regular (Humulin R Low) 0 units SC ACHS FLAVIO PRN Reason: Protocol Last Admin: 01/21/18 08:00 Dose: Not Given Levothyroxine Sodium (Synthroid) 150 mcg PO 0600 [facility] Last Admin: 01/21/18 04:59 Dose: 150 mcg Magnesium Hydroxide (Milk Of Magnesia) 30 ml PO HS PRN PRN Reason: Constipation Montelukast Sodium (Singulair) 10 mg PO HS [facility] Last Admin: 01/20/18 22:13 Dose: 10 mg Pantoprazole Sodium (Protonix Ec Tab) 40 mg PO 0600 [facility] Last Admin: 01/21/18 04:59 Dose: 40 mg Risperidone (Risperdal Tab) 1 mg PO TID FLAVIO PRN Reason: Protocol Last Admin: 01/20/18 22:13 Dose: 1 mg Results - Vital Signs Recent Vital Signs: Last Vital Signs Temp 97.9 F 01/21/18 06:00 Pulse 91 H 01/21/18 06:00 Resp 18 01/21/18 06:00 BP 99/55 L 01/21/18 06:00 Pulse Ox 97 01/21/18 06:00 - Labs Result Diagrams: 01/20/18 14:07 01/20/18 14:07 Labs: Laboratory Results - last 24 hr 01/20/18 01/20/18 01/21/18 21:30 21:52 07:13 pO2 137 H VBG pH 7.37 VBG pCO2 50.0 VBG HCO3 28.9 H VBG Total CO2 30.4 H VBG O2 Sat (Calc) 99.5 H VBG Base Excess 2.7 H VBG Potassium 4.1 Sodium 139.0 Chloride 105.0 Glucose 125 H Lactate 3.1 H FiO2 21.0 POC Glucose (mg/dL) 169 H 99 Venous Blood Potassium 4.1 Assessment & Plan - Assessment and Plan (Free Text) Assessment: A 62 year old female who came from [facility] to ER due to hypotension and atrial fibrillation yesterday accompanied with chest pain and shortness of breath. Patient was post hemodialysis. history of diabetes,COPD,hypertension, substance abuse, schizophrenia,history of fall, ESRD with hemodialysis 3x a week , seizure disorder, hypothyroidism, sacral decubitus. Two liters of IV fluid given in ER. With right subclavian shiley catheter and right femoral triple lumen catheter inserted. Review of previous cardiac work up: ECHO done 11/24/16- LVEF 60-65% RV mild to moderately dilated RVEF normal Mild to moderate mitral regurgitation Plan: Review of previous cardiac work up: ECHO done 11/24/16- LVEF 60-65% RV mild to moderately dilated RVEF normal Mild to moderate mitral regurgitation Will repeat echo Hypotension due to hypovolemia post hemodialysis IV fluid resuscitation done in ER !2 lead EKG done in ER yesterday Atrial fibrillation with rapid ventricular rate at 160's Converted to NSR 80's now Will repeat 12 lead EKG On Coreg 3.125 mg BID Continue current treatment Continue Current medications Will follow up Plan and treatment discussed with Dr. Cosby - Date & Time Date: 01/21/18 Time: 06:10
--- NOTE | 2018-01-21 18:09 | US ---
PROCEDURE: Right Upper Extremity Venous Duplex Exam HISTORY: swelling PRIORS: None. TECHNIQUE: Right upper extremity, internal jugular, subclavian, axillary, brachial, ulnar, radial, basilic and upper cephalic veins were evaluated. Flow was assessed with color Doppler, compressibility, assessment of phasic flow and augmentation response. Report prepared by staff nuclear medicine technologist. FINDINGS: RIGHT: 1. Internal Jugular Vein: Compressibility - noncompressible: Thrombus - positive echogenic thrombus : Flow - no flow. 2. Subclavian Vein:Compressibility - Fully compressible: Thrombus - None : Flow - Phasic 3. Axillary Vein: Compressibility - Fully compressible: Thrombus - None 4. Brachial Vein: Compressibility - Fully compressible: Thrombus - None 5. Ulnar Vein:Compressibility - Fully compressible: Thrombus - None 6. Radial Vein:Compressibility - Fully compressible: Thrombus - None 7. Cephalic Vein: Compressibility - noncompressible: thrombus - positive 8. Basilic Vein:Compressibility - Fully compressible: thrombus - None OTHER FINDINGS: None. IMPRESSION: Right internal jugular vein thrombosis and DVT. Right cephalic vein thrombosis.
--- NOTE | 2018-01-21 21:13 | HP ---
DATE OF EXAM: 01/21/[address] Marks covering for Dr. Steff Gallegos. HISTORY OF PRESENT ILLNESS: The patient is a 62-year-old female who was referred to the emergency department post hemodialysis with hypotension. The patient has a history of end-stage renal disease and is on hemodialysis three times a week. Her men's golf coach is Dr. Dent. The patient received some fluid resuscitation in the emergency department as well as potassium supplementation and is transferred to the telemetry unit for further evaluation and treatment. PAST MEDICAL HISTORY: Includes type 2 diabetes mellitus, COPD, hypertension, hypothyroidism and chronic schizophrenia. CURRENT MEDICATIONS: Include Levemir 10 units at bedtime, Lipitor 10 mg daily, Lopid 600 mg twice daily, Protonix 40 mg daily, Risperdal 1 mg t.i.d., Singulair 10 mg at bedtime, Synthroid 150 mcg daily, carvedilol 3.125 mg twice daily and DuoNeb. She is also on Depakote 500 mg three times daily. ALLERGIES: THE PATIENT REPORTS ALLERGIES TO ASPIRIN, HALDOL AND MESALAMINE WELL PENICILLIN AND SEAFOOD. REVIEW OF SYSTEMS: Unobtainable. SOCIAL HISTORY: The patient may have a history of past drug abuse. She is a senior living resident and requires assistance with ADLs and IADLs. PHYSICAL EXAMINATION: GENERAL: The patient is a well-developed female in no acute distress. VITAL SIGNS: Blood pressure 110/58, temperature 98.6, pulse 86, respiratory rate 18. HEENT: Head: Normocephalic, atraumatic. Pupils equal, round and reactive to light. Extraocular movements are intact. NECK: Supple with no thyromegaly. No carotid bruit. No adenopathy. LUNGS: Show a few scattered crepitations bilaterally at the bases. HEART: Regular rate and rhythm. ABDOMEN: Soft, nontender. Bowel sounds are normoactive. EXTREMITIES: Without cyanosis, clubbing or edema. NEUROLOGICAL: The patient is awake, responsive to some verbal commands, has a poverty of speech. SKIN: Warm and dry. LABORATORY DATA: WBCs 4.4, hemoglobin 8.6, hematocrit 27.6. Sodium 140, potassium 2.7, chloride 99, CO2 31, BUN 9, creatinine 1, glucose is 146. BNP is elevated at 5990. Chest x-ray shows a possible infiltrate at the right base. IMPRESSION: 1. Hypotension status post hemodialysis, status post fluid resuscitation. 2. Hypokalemia status post fluid replacement. 3. History of congestive heart failure. 4. Type 2 diabetes mellitus. 5. Chronic schizophrenia. 6. Hypothyroidism. PLAN: The patient is admitted to the telemetry unit for further evaluation and management. We will obtain Cardiology consultation with Dr. Mendez as well as Pulmonary consultation with Dr. Shelley, repeat potassium level, Dr. Gallegos to resume care of the patient in a.m. NEAL Smyth MD
[2018-01-21] MEDS: Insulin Detemir 100 units/ml Vial (Levemir) SC SCH (21:20)
--- NOTE | 2018-01-21 21:41 | CON ---
DATE: 01/21/2018 PULMONARY CONSULT REFERRING PHYSICIAN: Ryan Marks M.D. REASON FOR CONSULTATION: Chronic lung disease, sleep apnea syndrome. HISTORY OF PRESENT ILLNESS: This is a 62-year-old female with known history of diabetes, chronic obstructive lung disease, renal failure, dialysis dependent, seizure disorder, hypothyroid, hypotension. After her dialysis, her blood pressure dropped down to 50s. She was sent to emergency room, resuscitated with 2 liters of fluid, which improved the blood pressure and was admitted for further workup. She is lying in the bed in no acute distress. Not much cough, no sputum production, no hemoptysis. Right upper extremity has some swelling. No dysuria. No leg pain or leg swelling. PAST MEDICAL HISTORY: As per history of present illness, also has a renal failure dialysis dependent, seizure disorder, diabetes, anemia, recurrent UTI, schizophrenia. ALLERGIES: ASPIRIN, HALDOL, MESALAMINE, PENICILLIN, ALSO ALLERGIC TO SEAFOOD. FAMILY HISTORY: No significant cardiopulmonary disease reported. SOCIAL HISTORY: She is a former smoker, detention resident. MEDICATIONS: She is on Coreg 3.125 mg twice a day, albuterol/Atrovent nebulizer every 4 hours p.r.n., insulin coverage, 10 units subcutaneously at bedtime, Lipitor 10 mg daily, Lopid 600 mg twice a day, Protonix 40 mg daily, Pulmicort inhaled twice a day, Risperdal 1 mg three times a day, Singulair 10 mg daily, Synthroid 150 mcg daily. PHYSICAL EXAMINATION: HEENT: Small oral cavity. Crowded airway. NECK: Supple. No JVD. LUNGS: Has a few scattered rhonchi. HEART: S1 and S2, irregular. ABDOMEN: Soft, nontender. No organomegaly. EXTREMITIES: Not much edema. NEUROLOGIC: Awake and alert. Follows simple command. Has a right upper extremity swelling though. LABORATORY DATA: Shows hemoglobin 8.6, hematocrit 27.6, WBC 4.4, platelet count is 153. INR 1.09. Sodium 140, potassium 2.7, chloride 99, bicarbonate 31, BUN 9, creatinine 1, glucose is 169, BUN 9, calcium is 8.4. ProBNP 5990. EKG shows atrial fibrillation with rapid ventricular response. CT of the chest was done, which is negative for PE. There is cholelithiasis. There is also T6 vertebral compression fracture, small bilateral pleural effusion. There is some consolidation at the both bases. IMPRESSION AND PLAN: New onset of atrial fibrillation with rapid ventricular response status post hypotension, shock requiring fluid resuscitation, chronic obstructive lung disease, sleep apnea syndrome, renal failure dialysis dependent, schizophrenia, obesity, seizure disorder, hypotension. Pulmonary point of view, she is doing okay. Keep head at 45 degrees. Continue bronchodilator. We will place her on CPAP 10 cm with supplemental oxygen while sleeping. Cardiology followup. We will get venous Doppler in right upper extremity to assure there is no deep vein thrombosis. Thank you and we will follow with you. Justin Shelley MD
--- NOTE | 2018-01-21 22:40 | CARD ---
APPROVED REPORT EKG Measurement Heart [id number] <Conclusion> Normal sinus rhythm Normal ECG
[2018-01-22] MEDS: Levothyroxine 150 MCG TAB PO SCH ×2 (05:15→10:00)
[2018-01-22] MEDS: Pantoprazole 40 mg EC Tab PO SCH (05:15)
[2018-01-22 06:23] LABS: BASO # 0.01 K/mm3 (0.0-2.0); BASO % 0.2 % (0.0-3.0); EOS % 0.6 % (1.5-5.0); GRAN # 1.82 (1.4-6.5); GRAN % 36.3 % (50.0-68.0); HEMOGLOBIN 7.5 g/dL (12.0-16.0); LYMPH # 2.3 (1.2-3.4); LYMPH % 45.5 % (22.0-35.0); MEAN CELL VOLUME 104.3 fl (80.0-105.0); MEAN CORPUSCULAR HEMOGLOBIN 32.3 pg (25.0-35.0); MEAN PLATELET VOLUME 9.4 fl (7.0-11.0); MONO # 0.9 (0.1-0.6); MONO % 17.4 % (1.0-6.0); RBC 2.32 10^6/uL (3.5-6.1); RED CELL DISTRIBUTION WIDTH 19.4 % (11.5-14.5)
[2018-01-22 06:51] LABS: ALB/GLOB RATIO 0.7 (1.1-1.8); ALBUMIN 2.2 g/dL (3.0-4.8); ALT/SGPT 19 U/L (7-56); AST/SGOT 33 U/L (14-36); BLOOD UREA NITROGEN 15 mg/dL (7-21); CALCIUM 9.3 mg/dL (8.4-10.5); GFR AFRICAN-AMERICAN 37; GFR NON-AFRICAN AMERICAN 30; HDL CHOLESTEROL 37 mg/dL (29-60); LDL CHOLESTEROL < 30 mg/dL (0-129)
--- NOTE | 2018-01-22 07:15 | CP.PCM.PN ---
Subjective - Date & Time of Evaluation Date of Evaluation: 01/22/18 Time of Evaluation: 06:40 - Subjective Subjective: Sleeping but easily awaken,Lying in bed, awake,denies chest pain,denies shortness of breath Reason for consultation: Cardiac evaluation,atrial fibrillation, hypotension, ESRD on hemodialysis, history of hypertension, COPD Seen and examined by me and Dr. Cosby Objective - Vital Signs/Intake and Output Vital Signs (last 24 hours): Temp Pulse Resp BP Pulse Ox 98.5 F 85 19 107/61 98 01/22/18 06:00 01/22/18 06:00 01/22/18 06:00 01/22/18 06:00 01/22/18 06:00 - Medications Medications: Current Medications Albuterol/Ipratropium (Duoneb 3 Mg/0.5 Mg (3 Ml) Ud) 3 ml IH [id number] PRN PRN Reason: Shortness of Breath Apixaban (Eliquis) 10 mg PO BID [facility] PRN Reason: Protocol Stop: 01/28/18 19:00 Last Admin: 01/21/18 17:38 Dose: 10 mg Atorvastatin Calcium (Lipitor) 10 mg PO DIN [facility] Last Admin: 01/21/18 17:38 Dose: 10 mg Budesonide (Pulmicort Respules) 0.5 mg IH [id number] [facility] Last Admin: 01/21/18 20:25 Dose: 0.5 mg Carvedilol (Coreg) 3.125 mg PO BID [facility] Last Admin: 01/21/18 17:38 Dose: Not Given Gemfibrozil (Lopid) 600 mg PO BID [facility] Last Admin: 01/21/18 17:38 Dose: 600 mg Insulin Detemir (Levemir) 10 unit SC HS [facility] Last Admin: 01/21/18 21:20 Dose: 10 unit Insulin Human Regular (Humulin R Low) 0 units SC ACHS [facility] PRN Reason: Protocol Last Admin: 01/21/18 21:16 Dose: Not Given Levothyroxine Sodium (Synthroid) 150 mcg PO 0600 [facility] Last Admin: 01/22/18 05:15 Dose: Not Given Magnesium Hydroxide (Milk Of Magnesia) 30 ml PO HS PRN PRN Reason: Constipation Montelukast Sodium (Singulair) 10 mg PO HS [facility] Last Admin: 01/21/18 21:20 Dose: 10 mg Pantoprazole Sodium (Protonix Ec Tab) 40 mg PO 0600 [facility] Last Admin: 01/22/18 05:15 Dose: Not Given Risperidone (Risperdal Tab) 1 mg PO TID [facility] PRN Reason: Protocol Last Admin: 01/21/18 17:38 Dose: 1 mg - Labs Labs: 01/22/18 06:15 01/22/18 06:15 PT 12.5 SECONDS (9.4-12.5) 01/20/18 14:07 INR 1.09 (0.93-1.08) H 01/20/18 14:07 APTT 57.7 Seconds (25.1-36.5) H 01/20/18 14:07 - Constitutional Appears: No Acute Distress - ENT Exam ENT Exam: Mucous Membranes Moist - Respiratory Exam Respiratory Exam: Decreased Breath Sounds, NORMAL BREATHING PATTERN - Cardiovascular Exam Cardiovascular Exam: +S1, +S2 Additional comments: right subclavian shiley/udall catheter - GI/Abdominal Exam GI & Abdominal Exam: Soft, Normal Bowel Sounds - Extremities Exam Extremities Exam: Normal Capillary Refill Additional comments: right upper arm swelling right femoral triple lumen catheter - Neurological Exam Neurological Exam: Alert, Awake - Psychiatric Exam Psychiatric exam: Normal Affect, Normal Mood - Skin Skin Exam: Intact, Normal Color, Warm Additional comments: sacral decubitus from retirement Assessment and Plan - Assessment and Plan (Free Text) Assessment: A 62 year old female who came from [facility] to ER due to hypotension and atrial fibrillation yesterday accompanied with chest pain and shortness of breath. Patient was post hemodialysis. history of diabetes,COPD,hypertension, substance abuse, schizophrenia,history of fall, ESRD with hemodialysis 3x a week , seizure disorder, hypothyroidism. Two liters of IV fluid given in ER. With right subclavian shiley catheter and right femoral triple lumen catheter inserted. Plan: For ECHO today No further episode of Afib, currently on NSR- 70's Blood pressure on SBP 100's 12 lead EKG today On Coreg 3.125 mg BID,Eliquis 10 mg BID,Lipitor 10 mg daily, Lopid 600 mg BID Continue current treatment Continue current medications Followed up by Pulmonary Stable cardiac status Will follow up Plan and treatment discussed with Dr. Cosby
[2018-01-22] MEDS: Budesonide 0.5 mg/2 ml Inhal Susp UD IH SCH ×2 (07:28→20:02)
[2018-01-22] MEDS: Insulin Reg-LOW-Coverage SC SCH ×4 (07:30→22:51)
[2018-01-22] MEDS ORDERED: Insulin Detemir 100 units/ml Vial (Levemir) SC ONE (22:45)
--- NOTE | 2018-01-22 22:49 | CP.PCM.PN ---
Subjective - Date & Time of Evaluation Date of Evaluation: 01/22/18 Time of Evaluation: 22:48 - Subjective Subjective: S:Patient was seen at bedside. Nurse called because fsbs was 156 mg %. [id number] Untis is due. FSBS was 52 mg % in the morning. Received 10 U levemir last night. Has no complaints. Medical record was reviewed. O: Last Vital Signs 3 Temp 97.9 F 01/23/18 00:01 Pulse 71 01/23/18 02:00 Resp 20 01/23/18 00:01 BP 111/50 L 01/23/18 00:01 Pulse Ox 94 L 01/22/18 23:00 Awake, alert ,not in distress. Lungs: Normal breathing pattern. A:Hypoglycemia-iminent. DM. P: Will give only 5 untis of Levemir tonight instead of 10 untis. PMD will consider dose adjustment in AM. Objective - Vital Signs/Intake and Output Vital Signs (last 24 hours): Temp Pulse Resp BP Pulse Ox 98.9 F 78 18 112/58 L 98 01/22/18 17:50 01/22/18 18:04 01/22/18 17:50 01/22/18 18:04 01/22/18 06:00 Intake and Output: 01/22/18 01/23/18 18:59 06:59 Intake Total 360 Balance 360 - Medications Medications: Current Medications Albuterol/Ipratropium (Duoneb 3 Mg/0.5 Mg (3 Ml) Ud) 3 ml IH [id number] PRN PRN Reason: Shortness of Breath Apixaban (Eliquis) 10 mg PO BID [facility] PRN Reason: Protocol Stop: 01/28/18 19:00 Last Admin: 01/22/18 18:04 Dose: 10 mg Atorvastatin Calcium (Lipitor) 10 mg PO DIN [facility] Last Admin: 01/22/18 18:04 Dose: 10 mg Budesonide (Pulmicort Respules) 0.5 mg IH [id number] [facility] Last Admin: 01/22/18 20:02 Dose: 0.5 mg Carvedilol (Coreg) 3.125 mg PO BID [facility] Last Admin: 01/22/18 18:04 Dose: 3.125 mg Gemfibrozil (Lopid) 600 mg PO BID [facility] Last Admin: 01/22/18 18:02 Dose: 600 mg Insulin Detemir (Levemir) 10 unit SC HS [facility] Last Admin: 01/21/18 21:20 Dose: 10 unit Insulin Human Regular (Humulin R Low) 0 units SC [facility] PRN Reason: Protocol Last Admin: 01/22/18 17:22 Dose: Not Given Levothyroxine Sodium (Synthroid) 150 mcg PO 0600 [facility] Last Admin: 01/22/18 10:00 Dose: 150 mcg Magnesium Hydroxide (Milk Of Magnesia) 30 ml PO HS PRN PRN Reason: Constipation Montelukast Sodium (Singulair) 10 mg PO HS [facility] Last Admin: 01/21/18 21:20 Dose: 10 mg Pantoprazole Sodium (Protonix Ec Tab) 40 mg PO 0600 [facility] Last Admin: 01/22/18 05:15 Dose: Not Given Risperidone (Risperdal Tab) 1 mg PO TID [facility] PRN Reason: Protocol Last Admin: 01/22/18 18:02 Dose: 1 mg - Labs Labs: 01/22/18 06:15 01/22/18 06:15 PT 12.5 SECONDS (9.4-12.5) 01/20/18 14:07 INR 1.09 (0.93-1.08) H 01/20/18 14:07 APTT 57.7 Seconds (25.1-36.5) H 01/20/18 14:07
[2018-01-22] MEDS: Insulin Detemir 100 units/ml Vial (Levemir) SC SCH (22:52)
--- NOTE | 2018-01-22 23:38 | PN ---
DATE: 01/22/2018 PULMONARY PROGRESS NOTE REFERRING PHYSICIAN: Steff Gallegos MD SUBJECTIVE: She is lying in the bed, head at 45 degrees. Night was unremarkable. Feels okay. . No nausea. No vomiting. No diarrhea. No leg pain or leg swelling. Right upper extremity swelling has improved. OBJECTIVE: GENERAL: In no acute distress. VITAL SIGNS: Temperature is 98, heart rate is 73, respiratory rate is 18, blood pressure is 112/58. HEENT: Moist mucous membranes. Crowded airway. NECK: Supple. No JVD. LUNGS: Have a fair airflow with rhonchi. HEART: S1 and S2. ABDOMEN: Soft, nontender. No organomegaly. EXTREMITIES: There is no edema. Right chest has a dialysis catheter. NEUROLOGICAL: Awake and alert. Follows simple command. MEDICATIONS: She is on Coreg 3.125 mg twice a day, albuterol/Atrovent nebulizer every 4 hours p.r.n., Eliquis 10 mg twice a day, insulin coverage,Levemir 10 units subcutaneously, Lipitor 10 mg daily, Lopid 600 mg twice a day, milk of magnesia at bedtime, Protonix 40 mg daily, Pulmicort inhaled twice a day, Risperdal 1 mg three times a day, Singulair 10 mg daily, Synthroid 150 mcg daily. LABORATORY DATA: Shows hemoglobin 7.5, hematocrit 24.2, WBC 5, platelets 129. Sodium 140, potassium 3.5, chloride 103, bicarbonate 31, BUN 15, creatinine 1.7, glucose is 106, hemoglobin A1c 6.2, calcium 9.3, phosphorous 2.3, magnesium 1.8, AST 33, ALT 19, alk phos is 120, albumin is 2.2. Triglycerides 175. Procalcitonin is 0.61. Microbiology: Blood culture, there is no growth. IMPRESSION AND PLAN: Paroxysmal atrial fibrillation; status post hypotension after dialysis requiring fluid resuscitation; chronic obstructive lung disease; sleep apnea syndrome; renal failure, dialysis dependent; schizophrenia; obesity; seizure disorder. Pulmonary point of view, keep head at 45 degrees. Bronchodilator. Started on anticoagulation. Watch closely with the bleeding in the past, requiring transfusion. Encourage continuous positive airway pressure use. Has a venous Doppler of right lower extremity, which shows right interval jugular vein thrombosis and deep venous thrombosis. Elevate right lower extremity. Thank you and we will follow with you. Justin Shelley MD [facility] # [id number]
--- NOTE | 2018-01-23 02:42 | PN ---
DATE: 01/22/2018 SUBJECTIVE: The patient is seen and examined on the bedside, looking comfortable. No shortness of breath. No nausea, vomiting, diarrhea. No hematuria or hematochezia. No swelling of the leg. No chest pain. No palpitation. No headache. No dizziness. Has end-stage renal disease, on hemodialysis; history of hypertension; COPD. PHYSICAL EXAMINATION: VITAL SIGNS: Temperature 98.5, pulse 65, respiratory rate 19, blood pressure 107/61, pulse oximetry 98. HEENT: Head normocephalic, atraumatic. Eyes PERRLA. Extraocular muscles intact. Conjunctivae clear. Nose patent. Mucous membrane moist. NECK: Supple. No carotid bruit. No JVD or thyromegaly. CHEST: Bilaterally symmetrical. HEART: S1 and S2 positive. LUNGS: Clear to auscultation. ABDOMEN: Soft. Bowel sounds positive. No organomegaly. EXTREMITIES: No edema. No cyanosis. NEUROLOGICAL: The patient is awake and alert. Moving all 4 extremities. No focal deficits. LABORATORY DATA: White blood cells 5, hemoglobin 7.5, hematocrit 24.2, platelets 129, sodium 140, potassium 3.5, BUN 16, creatinine 1.7, glucose 71. MEDICATIONS: DuoNeb, Eliquis, Lipitor, Pulmicort, Coreg, Lopid, Levemir, insulin, levothyroxine, milk of magnesia, Singulair, Protonix, Risperdal. ASSESSMENT AND PLAN: Ms. Day Hung, 62-year-old lady with anemia; hypokalemia; renal insufficiency, on hemodialysis; has history of hypotension; atrial fibrillation; accompanied with chest pain and shortness of breath; history of diabetes with chronic obstructive pulmonary disease; schizophrenia; history of fall; end-stage renal disease, gets hemodialysis 3 times a week; seizure disorder; hypothyroidism. In the emergency room, 2 L of IV fluids given to increase the blood pressure. Right femoral triple-lumen catheter inserted. The patient went for echocardiogram. No further episodes as per button tacker. Systolic blood pressure is still in the 100s, on Coreg b.i.d, Eliquis, Lipitor and Lopid. Continue present treatment. 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 Seen by Dr. Shelley, self defense instructor. The patient has history of anemia, chronic obstructive lung disease, sleep apnea syndrome. Now, the patient is doing okay. Continue bronchodilators. Dr. Shelley put the patient on continuous positive airway pressure 10 cm with supplemental oxygen while sleeping. We will get venous Doppler of the right upper extremity to assess if there is no deep vein thrombosis as upper extremity ultrasound is done right internal jugular vein thrombosis and deep venous thrombosis. Right cephalic vein thrombosis. Gastrointestinal and deep venous thrombosis prophylaxis. Repeat labs. We will follow up. Steff Gallegos MD
[2018-01-23] MEDS: Levothyroxine 150 MCG TAB PO SCH (05:45)
[2018-01-23] MEDS: Pantoprazole 40 mg EC Tab PO SCH (05:45)
--- NOTE | 2018-01-23 06:31 | CP.PCM.PN ---
Subjective - Date & Time of Evaluation Date of Evaluation: 01/23/18 Time of Evaluation: 06:20 - Subjective Subjective: Awake, follows verbal commands,Lying in bed, awake,denies chest pain,denies shortness of breath Reason for consultation: Cardiac evaluation,atrial fibrillation, hypotension, ESRD on hemodialysis, history of hypertension, COPD Seen and examined by me and Dr. Cosby Objective - Vital Signs/Intake and Output Vital Signs (last 24 hours): Temp Pulse Resp BP Pulse Ox 98.3 F 79 18 90/40 L 94 L 01/23/18 06:00 01/23/18 06:00 01/23/18 06:00 01/23/18 06:00 01/22/18 23:00 Intake and Output: 01/22/18 01/23/18 18:59 06:59 Intake Total 360 Balance 360 - Medications Medications: Current Medications Albuterol/Ipratropium (Duoneb 3 Mg/0.5 Mg (3 Ml) Ud) 3 ml IH [id number] PRN PRN Reason: Shortness of Breath Apixaban (Eliquis) 10 mg PO BID [facility] PRN Reason: Protocol Stop: 01/28/18 19:00 Last Admin: 01/22/18 18:04 Dose: 10 mg Atorvastatin Calcium (Lipitor) 10 mg PO DIN [facility] Last Admin: 01/22/18 18:04 Dose: 10 mg Budesonide (Pulmicort Respules) 0.5 mg IH [id number] [facility] Last Admin: 01/22/18 20:02 Dose: 0.5 mg Carvedilol (Coreg) 3.125 mg PO BID [facility] Last Admin: 01/22/18 18:04 Dose: 3.125 mg Gemfibrozil (Lopid) 600 mg PO BID [facility] Last Admin: 01/22/18 18:02 Dose: 600 mg Insulin Detemir (Levemir) 10 unit SC HS [facility] Last Admin: 01/22/18 22:52 Dose: Not Given Insulin Human Regular (Humulin R Low) 0 units SC ACHS [facility] PRN Reason: Protocol Last Admin: 01/22/18 22:51 Dose: Not Given Levothyroxine Sodium (Synthroid) 150 mcg PO 0600 [facility] Last Admin: 01/23/18 05:45 Dose: 150 mcg Magnesium Hydroxide (Milk Of Magnesia) 30 ml PO HS PRN PRN Reason: Constipation Montelukast Sodium (Singulair) 10 mg PO HS [facility] Last Admin: 01/22/18 22:51 Dose: 10 mg Pantoprazole Sodium (Protonix Ec Tab) 40 mg PO 0600 [facility] Last Admin: 01/23/18 05:45 Dose: 40 mg Risperidone (Risperdal Tab) 1 mg PO TID [facility] PRN Reason: Protocol Last Admin: 01/22/18 18:02 Dose: 1 mg - Labs Labs: 01/22/18 06:15 01/22/18 06:15 PT 12.5 SECONDS (9.4-12.5) 01/20/18 14:07 INR 1.09 (0.93-1.08) H 01/20/18 14:07 APTT 57.7 Seconds (25.1-36.5) H 01/20/18 14:07 - Constitutional Appears: No Acute Distress - Head Exam Head Exam: NORMOCEPHALIC - Eye Exam Eye Exam: Normal appearance - ENT Exam ENT Exam: Mucous Membranes Moist - Respiratory Exam Respiratory Exam: Decreased Breath Sounds, Clear to Ausculation Bilateral Additional comments: NC 2 l/min - Cardiovascular Exam Cardiovascular Exam: REGULAR RHYTHM, +S1, +S2 Additional comments: NSR 70's,right subclavian shiley/udall catheter - GI/Abdominal Exam GI & Abdominal Exam: Soft, Normal Bowel Sounds - Exam Additional comments: ESRD, on hemodialysis - Extremities Exam Extremities Exam: Normal Capillary Refill Additional comments: right arm swelling,right femoral triple lumen catheter - Neurological Exam Neurological Exam: Alert, Awake - Psychiatric Exam Psychiatric exam: Normal Affect, Normal Mood - Skin Skin Exam: Normal Color, Warm Additional comments: sacral decubitus Assessment and Plan - Assessment and Plan (Free Text) Assessment: A 62 year old female who came from [facility] to ER due to hypotension and atrial fibrillation yesterday accompanied with chest pain and shortness of breath. Patient was post hemodialysis. history of diabetes,COPD,hypertension, substance abuse, schizophrenia,history of fall, ESRD with hemodialysis 3x a week , seizure disorder, hypothyroidism. Two liters of IV fluid given in ER. With right subclavian shiley catheter and right femoral triple lumen catheter inserted. Plan: Right arm swelling, doppler studies positive for thrombus and DVT Arm elevated with pillow Normal sinus rhythm rate 70's No episode of Afib On Coreg 3.125 mg BID,Eliquis 10 mg BID,Lipitor 10 mg daily, Lopid 600 mg BID Low Hgb/Hct. may repeat labs Continue current treatment Continue current medications Followed up by Pulmonary, CPAP/Bipap at night Elevated head at 45 degrees Stable cardiac status Will follow up Plan and treatment discussed with Dr. Cosby
[2018-01-23] MEDS: Budesonide 0.5 mg/2 ml Inhal Susp UD IH SCH ×2 (07:48→19:23)
[2018-01-23 07:51] LABS: HEMOGLOBIN 7.7 g/dL (12.0-16.0); MEAN CELL VOLUME 104.5 fl (80.0-105.0); MEAN CORPUSCULAR HEMOGLOBIN 31.8 pg (25.0-35.0); MEAN CORPUSCULAR HGB CONC 30.4 g/dl (31.0-37.0); RBC 2.42 10^6/uL (3.5-6.1); RED CELL DISTRIBUTION WIDTH 20.3 % (11.5-14.5); WHITE BLOOD COUNT 6.5 10^3/ul (4.5-11.0)
[2018-01-23 07:58] LABS: CALCIUM 9.2 mg/dL (8.4-10.5)
[2018-01-23] MEDS: Insulin Reg-LOW-Coverage SC SCH ×4 (08:55→21:46)
--- NOTE | 2018-01-23 16:04 | PN ---
DATE: 01/23/2018 This note is an addendum to the initial progress note dictated by the nurse practitioner, Sheyla Carlisle. REASON FOR ADDENDUM: The patient's low H and H. Today's H and H came back now, noted as hemoglobin is 7.7 and hematocrit 25.3. The patient is going for dialysis, the plan is for 2 units of packed RBC during the dialysis. The patient is still confused. We will cancel the stress test and treat medically, so far troponin is negative. No evidence of acute FL. The patient is converted to normal sinus and remains in the normal sinus. The patient is already on 10 mg of Eliquis b.i.d. for DVT and PE. Continue low dose Coreg as blood pressure and heart rate is tolerated. We will follow. We will discontinue telemetry. Thank you, Dr. Gallegos, for providing us the opportunity in taking care of the patient, Day Hung. Justin Cosby MD
--- NOTE | 2018-01-23 18:32 | CARD ---
APPROVED REPORT EKG Measurement Heart [id number] NM [id number] <Conclusion> Sinus rhythm with occasional premature ventricular complexes Otherwise normal ECG
--- NOTE | 2018-01-23 18:59 | CON ---
DATE: 01/23/2018 NEPHROLOGY CONSULTATION HISTORY OF PRESENT ILLNESS: This 62-year-old female was examined at her bedside and this case was reviewed in detail with her nurse, Zonia Cherry, registered nurse. The patient was admitted status post dialysis on Monday with hypotension, dehydration, and new-onset rapid atrial fibrillation. On review of the patient's hospital course, she has a newly noted right upper extremity DVT probably secondary to her Tesio Uldall catheter. Also, the patient underwent diagnostic workup with chest CT that was negative for pulmonary embolism and at present, remains on the cardiac osullivan, alert, oriented, complaining of thirst, and also with anemia. The patient, at present, is receiving Coreg, dual nebulizers, Eliquis, insulin, Lipitor, Lopid, Protonix, Pulmicort inhalational therapy, Risperdal, Singulair, and Synthroid. I am asked to evaluate the patient regarding future dialysis needs. REVIEW OF SYSTEMS: HEAD: No headache or seizure. EYE: No change in visual acuity. EAR: No hearing loss. THROAT: No swallowing difficulty. NECK: No stiffness. CARDIAC: New-onset AFib. PULMONARY: No hemoptysis. GASTROINTESTINAL: No hematemesis. GENITOURINARY: Renal failure, previously on dialysis. VASCULAR: No claudication, but newly noted right upper extremity DVT on ultrasound for a swollen right upper extremity. NEUROLOGICAL: No recent stroke. PSYCHOLOGICAL: Patient has a learning disability. ENDOCRINOLOGICAL: Hyperlipidemia and diabetes and hypothyroidism. FAMILY HISTORY: Noncontributory. SOCIAL HISTORY: She is a nondrinker, nonsmoker, resident at [facility]. ALLERGIES: SHE HAS SENSITIVITIES TO ASPIRIN, HALDOL, PENICILLINS, AND SEAFOOD. PHYSICAL EXAMINATION: VITAL SIGNS: At present, patient is in atrial fibrillation on the potline monitor with temperature 98.3, respirations 18, pulse 79, and blood pressure 100/58. HEENT: Head: Normocephalic, atraumatic. Eyes: No icterus. Ears: Clear. Throat: Noninjected. NECK: Supple. HEART: Irregular S1, S2. LUNGS: Clear. ABDOMEN: Soft. EXTREMITIES: No edema. Right upper extremity has swelling. VASCULAR: Legs warm to touch. PSYCHOLOGICAL: Alert. NEUROLOGICAL: Grossly intact. LABORATORY DATA: White count 6500, hemoglobin 7.7, hematocrit 25.3, platelets 144,000. Sodium 138, K 4.1, chloride 103, bicarb 29, BUN 17, creatinine 1.9, random blood sugar 67. IMPRESSION: A 62-year-old female with chronic renal failure, previously on dialysis, now with an estimated glomerular filtration rate of 27 mL per minute, which will prompt the withholding of dialysis treatment at present, also with anemia and comorbidities of insulin-dependent diabetes mellitus, new onset atrial fibrillation, chronic obstructive pulmonary disease, hyperlipidemia, chronic obstructive pulmonary disease, schizophrenia, asthma, and hypothyroidism. PLAN: As discussed with nurse, Zonia Cherry, will be to consult Dr. Luis Yen from Interventional Radiology regarding right upper extremity DVT and also removal of Tessio Uldall catheter at this time. The patient will continue on Synthroid, Singulair, Risperdal, Pulmicort inhalational therapy, Protonix, Lopid, Lipitor, Levemir, Eliquis, dual nebulizer, and Coreg. She is scheduled for a blood transfusion. She will have her right arm elevated on a pillow to improve edema. She is wearing CPAP at bedtime. She is ordered to have an echocardiogram for new-onset AFib. She is having dysphagia, modified consistency diet and will be monitored regarding her renal function and post transfusion labs. All of the above was discussed with the patient and nursing. I will follow and make further recommendations based on hospital course. Maren Dent MD MTDDeidre
[2018-01-23] MEDS: Albuterol-Ipratrop 3 mg / 0.5 (3 ml) UD IH PRN (19:23)
[2018-01-23] MEDS: Insulin Detemir 100 units/ml Vial (Levemir) SC SCH (21:46)
--- NOTE | 2018-01-23 22:41 | PN ---
DATE: 01/23/2018 PULMONARY PROGRESS NOTE REFERRING PHYSICIAN: Steff Gallegos MD SUBJECTIVE: She is lying in the bed, comfortable. Night was unremarkable. Not very compliant with the CPAP. No headache, no rhinitis, no nausea, no vomiting, no diarrhea. No leg pain or leg swelling. OBJECTIVE: GENERAL: No acute distress. VITAL SIGNS: Temperature is 98, heart rate 60, respiratory rate 18, blood pressure 109/57, pulse ox 94% on nasal cannula. HEENT: Moist mucous membrane. Crowded airway. NECK: Supple. No JVD. LUNGS: Have fair airflow with rhonchi. HEART: S1 and S2. ABDOMEN: Soft, nontender. No new organomegaly. EXTREMITIES: There is no edema. NEUROLOGIC: Awake and follows simple command. MEDICATIONS: She is on Coreg 3.5 mg twice a day, DuoNeb every 4 hours p.r.n., Eliquis 10 mg twice a day, insulin coverage, Levemir 10 units subcu at bedtime, Lipitor 10 mg daily, Lopid 600 mg twice a day, milk of magnesia p.r.n. basis, Protonix 40 mg daily, Pulmicort inhaled twice a day, Risperdal 1 mg three times a day, Singulair 10 mg daily, Synthroid 150 mcg daily. LABORATORY DATA: Shows hemoglobin 7.7, hematocrit 25.3, WBC 6.5, platelet is 144. Sodium 138, potassium 4.1, chloride 103, bicarbonate 29, BUN 17, creatinine 1.9, glucose 140, calcium is 9.2. Microbiology, blood culture has been negative. IMPRESSION AND PLAN: Paroxysmal atrial fibrillation, status post episode of hypotension after dialysis, chronic obstructive lung disease, sleep apnea syndrome, renal failure, dialysis dependent, schizophrenia, obesity, seizure disorder, will encourage bilevel positive airway pressure use. Keep head at 45 degrees. On anticoagulation, we will convert to 5 mg twice a day, of total 10 days. Thank you and we will follow with you. Justin Shelley MD
--- NOTE | 2018-01-24 01:34 | PN ---
DATE: 01/23/2018 SUBJECTIVE: The patient is seen and examined on the bedside, looking comfortable. Getting blood transfusion. No nausea, vomiting, or diarrhea. No hematuria or hematochezia. No swelling of the leg. No chest pain. No palpitation. No headache. No dizziness. PHYSICAL EXAMINATION: VITAL SIGNS: Temperature 98.5, pulse 65, respiratory rate 19, blood pressure 107/51, pulse oximetry 98. HEENT: Head normocephalic, atraumatic. Eyes: PERRLA. Extraocular muscles intact. Conjunctivae clear. Nose patent. Mucous membrane moist. NECK: Supple. No carotid bruit. No JVD or thyromegaly. CHEST: Bilaterally symmetrical. HEART: S1 and S2 positive. LUNGS: Clear to auscultation. ABDOMEN: Soft. Bowel sounds present. No organomegaly. EXTREMITIES: No edema. No cyanosis. NEUROLOGICAL: The patient is awake and alert. Moving all 4 extremities. No focal deficits. MEDICATIONS: DuoNeb, Eliquis, Lipitor, Pulmicort, Coreg, Lopid, Levemir, insulin, levothyroxine, milk of magnesia, Singulair, Protonix, Risperdal. LABORATORY DATA: White blood cells 5, hemoglobin 7.5, hematocrit 24.2, platelets 129. Sodium 140, potassium 3.5, BUN 16, creatinine 1.7, glucose 71. ASSESSMENT AND PLAN: Ms. Day Hung is a 62-year-old lady with anemia; hypokalemia; renal insufficiency, was on hemodialysis; has history of hypotension; atrial fibrillation accompanied with chest pain and shortness of breath; history of diabetes mellitus with chronic obstructive lung disease; schizophrenia; history of fall; seizure disorder. The patient came with hypotension. In the emergency room, 2 L of IV fluids was given to increase the blood pressure. Right femoral triple-lumen catheter inserted. Echocardiography was done. The patient has anemia, getting blood transfusion, ordered by Dr. Maren Dent. Appreciated input of all physicians. We will continue Eliquis, Lipitor, Lopid. Cardiology treatment as per optometrist/practice owner. Gastrointestinal and deep venous thrombosis prophylaxis. Repeat labs. We will follow up. Steff Gallegos MD
[2018-01-24] MEDS: Pantoprazole 40 mg EC Tab PO SCH (05:08)
[2018-01-24] MEDS: Levothyroxine 150 MCG TAB PO SCH (05:08)
--- NOTE | 2018-01-24 06:24 | CP.PCM.PN ---
Subjective - Date & Time of Evaluation Date of Evaluation: 01/24/18 Time of Evaluation: 06:10 - Subjective Subjective: Awake, Lying in bed, awake,denies chest pain,denies shortness of breath, uneventful night per RN Reason for consultation: Cardiac evaluation,atrial fibrillation, hypotension, ESRD on hemodialysis, history of hypertension, COPD Seen and examined by me and Dr. Cosby Objective - Vital Signs/Intake and Output Vital Signs (last 24 hours): Temp Pulse Resp BP Pulse Ox 97.7 F 57 L 20 105/53 L 99 01/24/18 06:00 01/24/18 06:00 01/24/18 06:00 01/24/18 06:00 01/24/18 06:00 Intake and Output: 01/23/18 01/24/18 18:59 06:59 Intake Total 0 603 Balance 0 603 - Medications Medications: Current Medications Albuterol/Ipratropium (Duoneb 3 Mg/0.5 Mg (3 Ml) Ud) 3 ml IH [id number] PRN PRN Reason: Shortness of Breath Last Admin: 01/23/18 19:23 Dose: 3 ml Apixaban (Eliquis) 10 mg PO BID [facility] PRN Reason: Protocol Stop: 01/28/18 19:00 Last Admin: 01/23/18 17:21 Dose: Not Given Atorvastatin Calcium (Lipitor) 10 mg PO DIN [facility] Last Admin: 01/23/18 17:53 Dose: 10 mg Budesonide (Pulmicort Respules) 0.5 mg IH [id number] [facility] Last Admin: 01/23/18 19:23 Dose: 0.5 mg Carvedilol (Coreg) 3.125 mg PO BID [facility] Last Admin: 01/23/18 17:21 Dose: Not Given Gemfibrozil (Lopid) 600 mg PO BID [facility] Last Admin: 01/23/18 17:53 Dose: 600 mg Insulin Detemir (Levemir) 10 unit SC HS [facility] Last Admin: 01/23/18 21:46 Dose: Not Given Insulin Human Regular (Humulin R Low) 0 units SC ACHS [facility] PRN Reason: Protocol Last Admin: 01/23/18 21:46 Dose: Not Given Levothyroxine Sodium (Synthroid) 150 mcg PO 0600 [facility] Last Admin: 05/02/18 05:08 Dose: 150 mcg Magnesium Hydroxide (Milk Of Magnesia) 30 ml PO HS PRN PRN Reason: Constipation Montelukast Sodium (Singulair) 10 mg PO HS [facility] Last Admin: 01/23/18 21:45 Dose: 10 mg Pantoprazole Sodium (Protonix Ec Tab) 40 mg PO 0600 [facility] Last Admin: 01/24/18 05:08 Dose: 40 mg Risperidone (Risperdal Tab) 1 mg PO TID [facility] PRN Reason: Protocol Last Admin: 01/23/18 17:53 Dose: 1 mg - Labs Labs: 01/23/18 07:00 01/23/18 07:00 PT 12.5 SECONDS (9.4-12.5) 01/20/18 14:07 INR 1.09 (0.93-1.08) H 01/20/18 14:07 APTT 57.7 Seconds (25.1-36.5) H 01/20/18 14:07 - Constitutional Appears: No Acute Distress - Eye Exam Pupil Exam: NORMAL ACCOMODATION - ENT Exam ENT Exam: Mucous Membranes Moist - Respiratory Exam Respiratory Exam: Decreased Breath Sounds, Rhonchi, NORMAL BREATHING PATTERN - Cardiovascular Exam Cardiovascular Exam: REGULAR RHYTHM, +S1, +S2 Additional comments: right subclavian shiley/udall catheter, right femoral triple lumen catheter - GI/Abdominal Exam GI & Abdominal Exam: Soft, Normal Bowel Sounds - Exam Additional comments: anuric,ESRD,on hemodialysis - Extremities Exam Extremities Exam: Normal Capillary Refill Additional comments: right arm swelling less from baseline - Neurological Exam Neurological Exam: Alert, Awake - Psychiatric Exam Psychiatric exam: Normal Affect, Normal Mood - Skin Skin Exam: Normal Color, Warm Additional comments: redness at buttocks more on left side and perineal area. sacral decubitus Assessment and Plan - Assessment and Plan (Free Text) Assessment: A 62 year old female who came from [facility] to ER due to hypotension and atrial fibrillation yesterday accompanied with chest pain and shortness of breath. Patient was post hemodialysis. history of diabetes,COPD,hypertension, substance abuse, schizophrenia,history of fall, ESRD with hemodialysis 3x a week , seizure disorder, hypothyroidism. Two liters of IV fluid given in ER. With right subclavian shiley catheter and right femoral triple lumen catheter inserted, low hemoglobin/hematocrit. Plan: Low hemoglobin, 2 units PRBC transfused Right arm swelling, doppler studies positive for thrombus and DVT Arm elevated with pillow Normal sinus rhythm rate 70's No episode of Afib, off telemetry On Coreg 3.125 mg BID,Eliquis 10 mg BID,Lipitor 10 mg daily, Lopid 600 mg BID No evidence of myocardial ischemia Cardiac status stable Continue current treatment Continue current medications Followed up by Pulmonary, CPAP/Bipap at night Elevated head at 45 degrees Hemodialysis on hold as per nephrology Skin redness and irritation on perineal area and buttocks Will order Nystatin powder to apply to area BID Repeat Hbg/Hct Will follow up Plan and treatment discussed with Dr. Cosby
[2018-01-24 07:05] LABS: MEAN CELL VOLUME 97.7 fl (80.0-105.0); MEAN CORPUSCULAR HEMOGLOBIN 31.2 pg (25.0-35.0); MEAN CORPUSCULAR HGB CONC 31.9 g/dl (31.0-37.0); MEAN PLATELET VOLUME 10.1 fl (7.0-11.0); RBC 3.43 10^6/uL (3.5-6.1); RED CELL DISTRIBUTION WIDTH 22.5 % (11.5-14.5); WHITE BLOOD COUNT 7.4 10^3/ul (4.5-11.0)
[2018-01-24 07:11] LABS: CALCIUM 9.3 mg/dL (8.4-10.5)
[2018-01-24] MEDS: Budesonide 0.5 mg/2 ml Inhal Susp UD IH SCH ×2 (07:11→19:57)
[2018-01-24 07:15] LABS: HEMOGLOBIN 10.7 g/dL (12.0-16.0)
[2018-01-24] MEDS: Insulin Reg-LOW-Coverage SC SCH ×4 (07:32→21:59)
[2018-01-24] MEDS ORDERED: Lidocaine 2% Inj (20ml) ONE (08:32)
[2018-01-24] MEDS ORDERED: Midazolam 2 MG/2 ML VIAL ONE (09:06)
[2018-01-24 12:51] LABS: HEMOGLOBIN 10.7 g/dL (12.0-16.0); MEAN CELL VOLUME 98.5 fl (80.0-105.0); MEAN CORPUSCULAR HEMOGLOBIN 31.6 pg (25.0-35.0); MEAN PLATELET VOLUME 9.7 fl (7.0-11.0); RBC 3.39 10^6/uL (3.5-6.1); RED CELL DISTRIBUTION WIDTH 22.3 % (11.5-14.5); WHITE BLOOD COUNT 6.8 10^3/ul (4.5-11.0)
--- NOTE | 2018-01-24 16:12 | PN ---
DATE: 01/24/2018 PULMONARY PROGRESS NOTE REFERRING PHYSICIAN: Steff Gallegos MD SUBJECTIVE: She is lying in the bed, comfortable. Feels much better. No headache, no rhinitis. No nausea, no vomiting, no diarrhea. No leg pain or leg swelling. Dialysis catheter is out. OBJECTIVE: GENERAL: In no acute distress. VITAL SIGNS: Temperature is 98, heart rate 65, respiratory rate is 20, blood pressure 102/51, pulse ox of 95% on room air. HEENT: Moist mucous membranes. Small oral cavity. Crowded airway. NECK: Supple. No JVD. LUNGS: Fair airflow with rhonchi. HEART: S1 and S2. ABDOMEN: Soft, nontender. No organomegaly. EXTREMITIES: No edema. NEUROLOGIC: Awake and alert, follows simple commands. MEDICATIONS: She is on Coreg 3.125 mg twice a day, DuoNeb every 4 hours p.r.n., Eliquis 10 mg twice a day, Levemir 10 units subcu at bedtime, Lipitor 10 mg daily, gemfibrozil 600 mg twice a day, Protonix 40 mg daily, Pulmicort inhaled twice a day, Risperdal 1 mg three times a day, Singulair 10 mg daily, Synthroid 150 mcg daily. LABORATORY DATA: Shows hemoglobin 10.7, hematocrit 33.4, WBC 6.8, platelets 123. Sodium 139, potassium 4.5, chloride 106, bicarbonate is 25. BUN 20, creatinine 1.9. Calcium is 9.3. Microbiology: Blood culture has been negative. IMPRESSION AND PLAN: Chronic obstructive lung disease, status post hypotension, new onset of atrial fibrillation, renal failure which has slowly improved, sleep apnea syndrome, schizophrenia, obesity, history of seizure disorder, so her hemodialysis on hold. Port-A-Cath has been removed. We will continue bronchodilator. Keep head at 45 degrees. Encourage BiPAP use. Fall precaution. Gastric prophylaxis. Restart anticoagulation when cleared by Interventional Radiology. Thank you and we will follow with you. Justin Shelley MD
--- NOTE | 2018-01-24 16:50 | PN ---
DATE: 01/24/2018 SUBJECTIVE: This 62-year-old female is being readied for right Tesio Uldall catheter removal in the setting of right arm DVT. At present, she is alert, oriented. She is denying any fever, chills, chest pain, or shortness of breath and remains on Eliquis for anticoagulation of DVT and AFib. PHYSICAL EXAMINATION: VITAL SIGNS: Temperature 97.7, respirations 20, pulse 65, blood pressure 102/51, and pulse ox 95% on room air. HEENT: Head: Normocephalic, atraumatic. Eyes: No icterus. NECK: Supple. HEART: Irregular, S1 and S2. LUNGS: Clear. ABDOMEN: Soft. EXTREMITIES: Right upper extremity swelling from DVT. VASCULAR: Legs warm to touch. PSYCHOLOGIC: Alert. NEURO: Grossly intact. LABORATORY DATA: White count 7400, hemoglobin 10.7, hematocrit 33.5, and platelets 119,000. Sodium 139, K 4.5, chloride 106, bicarb 25. BUN 20, creatinine 1.9. Random blood sugar 105. IMPRESSION: A 62-year-old female with chronic renal failure, now with dialysis on hold while monitoring her electrolytes and volume status with newly noted right upper extremity DVT as well as new onset AFib and chronic anemia. The plan will be to remove the right Tesio Uldall catheter and if we should need to replace this in the future and will need to be placed on her left side. She continues on Coreg, dual nebulizers, Eliquis, insulin, Synthroid, Singulair, Risperdal, Pulmicort inhalational therapy, Protonix, and Lipitor. PLAN: Ultimate plan will be for her to return to [facility] for her detention care and we will monitor her renal function off dialysis. Maren Dent MD MTDD
[2018-01-24] MEDS: Nystatin 100,000 Units/gm Topical Pow(15 gm) EXT SCH (17:06)
--- NOTE | 2018-01-24 18:23 | CARD ---
APPROVED REPORT EXAM: Two-dimensional and M-mode echocardiogram with Doppler and color Doppler. INDICATION Atrial Fibrillation 2D DIMENSIONS Left Atrium (2D)4.8 (1.6-4.0cm)IVSd0.9 (0.7-1.1cm) LVDd4.9 (3.9-5.9cm)PWd1.0 (0.7-1.1cm) LVDs3.6 (2.5-4.0cm)FS (%) 26.5 % LVEF (%)51.6 (>50%) M-Mode DIMENSIONS Aortic Root3.30 (2.2-3.7cm)Aortic Cusp Exc.1.90 (1.5-2.0cm) Aortic Valve AoV Peak Tykxtgep789.0cm/Deb Peak GR.11mmHg Mitral Valve MV E Cotsgyzg18.3cm/sMV A Ghqvcdju141.0cm/sE/A ratio0.9 TDI Lateral E' Peak V11.60cm/sMedial E' Peak V7.90cm/sE/Lateral E'8.3 E/Medial E'12.2 Pulmonary Valve PV Peak Qcsetdwc08.1cm/sPV Peak Grad.2mmHg Tricuspid Valve TR Peak Cdsrfgef704vk/sRAP IOGSMMFY91dlKlEI Peak Gr.26mmHg [id number] LEFT VENTRICLE The left ventricle is normal size. There is normal left ventricular wall thickness. The left ventricular function is normal.EF-55% There is normal LV segmental wall motion. Transmitral Doppler flow pattern is Grade III-reversible restrictive diastolic dysfunction. No left ventricle thrombus noted on this study. There is no ventricular septal defect visualized. There is no left ventricular aneurysm. There is no mass noted in the left ventricle. RIGHT VENTRICLE The right ventricle is normal size. There is normal right ventricular wall thickness. The right ventricular systolic function is normal. ATRIA The left atrium is mildly dilated. The right atrium size is normal. The interatrial septum is intact with no evidence for an atrial septal defect. AORTIC VALVE The aortic valve is thickened but opens well. The aortic valve is mildly to moderately sclerotic. No aortic regurgitation is present. There is no aortic valvular stenosis. There is no aortic valvular vegetation. MITRAL VALVE The mitral valve is thickened but opens well. Mitral annular calcification is mild. The mitral regurgitant jet is posteriorly directed, which is consistent with anterior leaflet pathology. Mitral regurgitation is moderate. There is no mitral valve stenosis. There is a partially flail anterior mitral valve leaflet. TRICUSPID VALVE The tricuspid valve leaflets are thickened , but open well. There is trace to mild tricuspid regurgitation.RVSP-36 mmof Hg. There is no tricuspid valve stenosis. There is no tricuspid valve prolapse or vegetation. PULMONIC VALVE The pulmonary valve is normal in structure. There is no pulmonic valvular regurgitation. There is no pulmonic valvular stenosis. GREAT VESSELS The aortic root is normal in size. The ascending aorta is normal in size. The pulmonary artery is normal. The IVC is normal in size and collapses >50% with inspiration. PERICARDIAL EFFUSION There is no pleural effusion. There is no pericardial effusion. <Conclusion> The left ventricle is normal size. There is normal left ventricular wall thickness. The left ventricular function is normal. The left ventricular function is normal.EF-55% The mitral regurgitant jet is posteriorly directed, which is consistent with anterior leaflet pathology. Mitral regurgitation is moderate. There is a partially flail anterior mitral valve leaflet. There is trace to mild tricuspid regurgitation.RVSP-36 mmof Hg. The IVC is normal in size and collapses >50% with inspiration. There is no pericardial effusion.
--- NOTE | 2018-01-24 18:59 | VASCULAR ---
PROCEDURE: Removal of tunneled right IJ dialysis catheter. CLINICAL HISTORY: End-stage renal disease. Recently placed right IJ tunneled catheter. Right IJ thrombus. Arm swelling. Needs catheter removed. PHYSICIAN(S): Luis Yen M.D. TECHNIQUE: The relative risks and indications of the procedure were explained to the patient and consent obtained. The patient was placed supine on the arteriogram table and the tunneled right IJ dialysis catheter prepped and draped in the usual sterile fashion. Conscious sedation and monitoring were provided throughout the procedure by nurse. 1% Xylocaine was used to anesthetize skin and soft tissues along the tunnel. The tunnel and cuff were bluntly dissected. The catheter was removed and pressure applied at the venous insertion site. A single interrupted suture was placed at the exit site. The patient tolerated the procedure well. IMPRESSION: 1. Removal of the patient's tunneled right IJ dialysis catheter.
[2018-01-24] MEDS: Albuterol-Ipratrop 3 mg / 0.5 (3 ml) UD IH PRN (19:57)
[2018-01-24] MEDS: Insulin Detemir 100 units/ml Vial (Levemir) SC SCH (21:59)
--- NOTE | 2018-01-25 04:07 | PN ---
DATE: 01/24/2018 SUBJECTIVE: Patient is a 62-year-old female. Patient was seen and examined at the bedside in her room, looking comfortable. No nausea, vomiting, diarrhea. No hematuria, hematochezia. No swelling of the legs. No chest pain, no palpitation. No headache, no dizziness. Patient is a very poor historian. Dialysis catheter is out today. No fever. No chills. PHYSICAL EXAMINATION: VITAL SIGNS: Temperature 98, heart rate 65, respiratory rate 20, blood pressure 102/50, pulse oximetry 95% on room air. HEENT: Head normocephalic, atraumatic. Eyes: PERRLA. Extraocular muscles intact. Conjunctivae clear. Nose patent. Mucous membrane moist. NECK: Supple. No carotid bruit. No JVD or thyromegaly. CHEST: Bilaterally symmetrical. HEART: S1 and S2 positive. LUNGS: Clear to auscultation. ABDOMEN: Soft. Bowel sounds present. No organomegaly. EXTREMITIES: No edema. No cyanosis. NEUROLOGICAL: Patient is awake and alert. Follows simple commands. MEDICATIONS: Coreg, DuoNeb, Eliquis, Levemir, Lipitor, gemfibrozil, Protonix, Pulmicort, Risperdal, Singulair, Synthroid. LABORATORY DATA: Hemoglobin 10.7, hematocrit 33.4, white blood cells 6.8, platelets 123. Sodium 139, potassium 4.5, BUN 20, creatinine 1.9. ASSESSMENT AND PLAN: Ms. Day Hung is a 62-year-old female with chronic obstructive lung disease, status post hypotension, new onset atrial fibrillation, renal failure, hemodialysis 3 times a week, now slowly improved. Dialysis catheter is out. Sleep apnea precaution. Schizophrenia, obesity, history of seizure disorder. Continue bronchodilators. Gastrointestinal and deep vein thrombosis prophylaxis. Repeat labs. We will follow up. tSeff Gallegos MD MTDDeidre
[2018-01-25] MEDS: Pantoprazole 40 mg EC Tab PO SCH (06:38)
[2018-01-25] MEDS: Levothyroxine 150 MCG TAB PO SCH (06:39)
--- NOTE | 2018-01-25 06:57 | CP.PCM.PN ---
Subjective - Date & Time of Evaluation Date of Evaluation: 01/25/18 Time of Evaluation: 06:15 - Subjective Subjective: Awake, alert,denies chest pain,denies shortness of breath Reason for consultation: Cardiac evaluation,atrial fibrillation, hypotension, ESRD on hemodialysis, history of hypertension, COPD Seen and examined by me and Dr. Cosby Objective - Vital Signs/Intake and Output Vital Signs (last 24 hours): Temp Pulse Resp BP Pulse Ox 97.5 F L 56 L 18 102/49 L 96 01/24/18 14:00 01/24/18 16:36 01/24/18 14:00 01/24/18 16:36 01/24/18 14:00 Intake and Output: 01/24/18 01/25/18 18:59 06:59 Intake Total 300 Balance 300 - Medications Medications: Current Medications Albuterol/Ipratropium (Duoneb 3 Mg/0.5 Mg (3 Ml) Ud) 3 ml IH [id number] PRN PRN Reason: Shortness of Breath Last Admin: 01/24/18 19:57 Dose: 3 ml Apixaban (Eliquis) 10 mg PO BID [facility] PRN Reason: Protocol Stop: 01/28/18 19:00 Last Admin: 01/24/18 17:05 Dose: 10 mg Atorvastatin Calcium (Lipitor) 10 mg PO DIN [facility] Last Admin: 01/24/18 17:05 Dose: 10 mg Budesonide (Pulmicort Respules) 0.5 mg IH [id number] [facility] Last Admin: 01/24/18 19:57 Dose: 0.5 mg Carvedilol (Coreg) 3.125 mg PO BID [facility] Last Admin: 01/24/18 17:05 Dose: Not Given Gemfibrozil (Lopid) 600 mg PO BID [facility] Last Admin: 01/24/18 17:05 Dose: 600 mg Insulin Detemir (Levemir) 10 unit SC HS [facility] Last Admin: 01/24/18 21:59 Dose: Not Given Insulin Human Regular (Humulin R Low) 0 units SC ACHS [facility] PRN Reason: Protocol Last Admin: 01/24/18 21:59 Dose: Not Given Levothyroxine Sodium (Synthroid) 150 mcg PO 0600 [facility] Last Admin: 01/25/18 06:39 Dose: 150 mcg Magnesium Hydroxide (Milk Of Magnesia) 30 ml PO HS PRN PRN Reason: Constipation Montelukast Sodium (Singulair) 10 mg PO HS [facility] Last Admin: 01/24/18 21:27 Dose: Not Given Nystatin (Nystop Topical Powder) 0 gm EXT BID [facility] Stop: 01/29/18 10:01 Last Admin: 01/24/18 17:06 Dose: 1 gm Pantoprazole Sodium (Protonix Ec Tab) 40 mg PO 0600 [facility] Last Admin: 01/25/18 06:38 Dose: 40 mg Risperidone (Risperdal Tab) 1 mg PO TID [facility] PRN Reason: Protocol Last Admin: 01/24/18 17:07 Dose: Not Given - Labs Labs: 01/24/18 12:20 01/24/18 06:30 PT 12.5 SECONDS (9.4-12.5) 01/20/18 14:07 INR 1.09 (0.93-1.08) H 01/20/18 14:07 APTT 57.7 Seconds (25.1-36.5) H 01/20/18 14:07 - Constitutional Appears: No Acute Distress - ENT Exam ENT Exam: Mucous Membranes Moist - Respiratory Exam Respiratory Exam: Decreased Breath Sounds, NORMAL BREATHING PATTERN - Cardiovascular Exam Cardiovascular Exam: +S1, +S2 Additional comments: no JVD,right subclavian dressing from shiley catheter right femoral triple lumen catheter - GI/Abdominal Exam GI & Abdominal Exam: Soft, Normal Bowel Sounds - Extremities Exam Extremities Exam: Normal Capillary Refill - Neurological Exam Neurological Exam: Alert, Awake, Oriented x3 - Psychiatric Exam Psychiatric exam: Normal Affect, Normal Mood - Skin Skin Exam: Intact, Normal Color, Warm Assessment and Plan - Assessment and Plan (Free Text) Assessment: A 62 year old female who came from [facility] to ER due to hypotension and atrial fibrillation yesterday accompanied with chest pain and shortness of breath. Patient was post hemodialysis. history of diabetes,COPD,hypertension, substance abuse, schizophrenia,history of fall, ESRD with hemodialysis 3x a week , seizure disorder, hypothyroidism. Two liters of IV fluid given in ER. With right subclavian shiley catheter and right femoral triple lumen catheter inserted, low hemoglobin/hematocrit transfused 2 units PRBC. Plan: ECHO completed yesterday LVEF is 55%, Moderate mitral regurgitation, mitral regurgitant jet is posteriorly directed which is consistent withanterior leaflet pathology. Partially flail anterior mitral valve leaflet. Mild tricuspid regurgitation Post tranfussion of 2 unit PRBC due to low hbg/hct Repeat post transfusion Hbg-10 and Hct-33.4 Shiley/udall catheter removed by IR yesterday Positive DVT on the right arm, less swelling from baseline On Coreg 3.125 mg BID,Eliquis 10 mg BID,Lipitor 10 mg daily, Lopid 600 mg BID No evidence of myocardial ischemia Cardiac status stable Continue current treatment Continue current medications Followed up by Pulmonary, CPAP/Bipap at night Elevated head at 45 degrees Hemodialysis on hold as per nephrology Discharge planning back to [facility] Will follow up Plan and treatment discussed with Dr. Cosby
[2018-01-25 07:03] LABS: HEMOGLOBIN 10.9 g/dL (12.0-16.0); MEAN CELL VOLUME 98.8 fl (80.0-105.0); MEAN CORPUSCULAR HEMOGLOBIN 31.8 pg (25.0-35.0); MEAN CORPUSCULAR HGB CONC 32.2 g/dl (31.0-37.0); MEAN PLATELET VOLUME 10.5 fl (7.0-11.0); RBC 3.43 10^6/uL (3.5-6.1); RED CELL DISTRIBUTION WIDTH 22.1 % (11.5-14.5); WHITE BLOOD COUNT 7.3 10^3/ul (4.5-11.0)
[2018-01-25 07:10] LABS: CALCIUM 9.3 mg/dL (8.4-10.5)
[2018-01-25] MEDS: Budesonide 0.5 mg/2 ml Inhal Susp UD IH SCH ×2 (08:07→20:03)
[2018-01-25] MEDS: Insulin Reg-LOW-Coverage SC SCH ×2 (08:17→22:00)
[2018-01-25] MEDS: Nystatin 100,000 Units/gm Topical Pow(15 gm) EXT SCH ×2 (09:40→18:00)
--- NOTE | 2018-01-25 17:04 | PN ---
DATE: 01/25/2018 SUBJECTIVE: This 62-year-old female was seen at bedside. She remains alert and in no acute respiratory distress. Her right Tesio [place] catheter has been removed and there was remarkable improvement in her right arm edema. She denies chest pain, shortness of breath, fever, or chills. OBJECTIVE: VITAL SIGNS: Temperature 97.8, respirations 21, pulse 65, blood pressure 130/52 with a pulse ox of 99%. Urine output not recorded. HEENT: Head: Normocephalic, atraumatic. Eyes: No icterus. Ears: Clear. Throat: Noninjected. NECK: Supple. HEART: Irregular, S1 and S2. LUNGS: Clear. ABDOMEN: Soft. EXTREMITIES: No edema. SKIN: Without rash. NEUROLOGICAL: Unchanged. PSYCHOLOGICAL: Alert. VASCULAR: Legs warm to touch. LABORATORY DATA: White count 7300, hemoglobin 10.9, hematocrit 33.9, and platelets 153,000. Sodium 143, K 4.6, chloride 106, bicarb 30. BUN 23, creatinine 2. Random blood sugar 93. IMPRESSION: A 62-year-old female with acute on chronic renal insufficiency, chronic renal failure stage 4, anemia of chronic disease, new onset atrial fibrillation, right upper extremity deep vein thrombosis in the setting of right Tesio [place] catheter now removed with chronic obstructive pulmonary disease, chronic hypertension, insulin-dependent diabetes mellitus, and hyperlipidemia. PLAN: Monitor electrolytes off dialysis while monitoring for any evidence of hyperkalemia, worsening azotemia, or fluid overload. She will continue on Coreg, Duo nebulizer, Eliquis, insulin, Levemir, Lipitor, Lopid, Protonix, Pulmicort inhalational therapy, Risperdal, Singulair, and Synthroid. She wear CPAP at bedtime and ultimate plan will be to return this patient for alf care at [facility] where we will monitor her electrolytes and renal function there as well. Maren Dent MD [facility]ITALDeidre
[2018-01-25] MEDS: Insulin Detemir 100 units/ml Vial (Levemir) SC SCH (22:00)
--- NOTE | 2018-01-26 00:49 | PN ---
DATE: 01/25/2018 PULMONARY PROGRESS NOTE REFERRING PHYSICIAN: Steff Gallegos MD. SUBJECTIVE: She is lying in the bed, head at 45 degrees. Night was unremarkable. No headache. No rhinitis. No nausea. No vomiting or diarrhea. No leg pain or leg swelling. OBJECTIVE: GENERAL: In no acute distress. VITAL SIGNS: Temp is 98, heart rate is 97, respiratory rate is 20, blood pressure 106/62, pulse ox 96% on 2 L nasal cannula. HEENT: Moist mucous membrane. No ulcer or thrush noted. NECK: Supple. No JVD. LUNGS: Have a fair airflow with rhonchi. HEART: S1, S2. ABDOMEN: Soft, nontender. No organomegaly. EXTREMITIES: No edema. NEUROLOGIC: Awake, alert. Follows simple command. MEDICATIONS: She is on Coreg 3.125 mg twice a day, DuoNeb every 4 hours p.r.n., Eliquis 10 mg twice a day, insulin coverage, Levemir 10 units subcu at bedtime, Lipitor 10 mg daily, Lopid 600 mg twice a day, nystatin to affected area, Protonix 40 mg daily, Pulmicort inhaled twice a day, Risperdal 1 mg three times a day, Singulair 10 mg daily and Synthroid 150 mcg daily. LABORATORY DATA: Shows hemoglobin 10.9, hematocrit 33.9, WBC 7.3, platelet count is 153. Sodium 143, potassium 4.6, chloride 106, bicarbonate 30, BUN 23, creatinine 2, glucose 99, calcium is 9.3. Microbiology: Blood culture has been negative. IMPRESSION AND PLAN: Chronic obstructive lung disease, status post hypotension after dialysis, atrial fibrillation, renal failure, function is slowly improving, sleep apnea syndrome, schizophrenia, obesity and seizure disorder. Fall precaution. Pulmonary point of view, doing okay. Keep head at 45 degrees. Bronchodilator. Encourage bilevel positive airway pressure use. Gastric prophylaxis. Sequential compression device to lower extremity. On anticoagulation. Thank you and we will follow with you. Justin Shelley MD
[2018-01-26] MEDS ORDERED: Sodium Chloride 0.9% 250 ML IV STA (02:05)
--- NOTE | 2018-01-26 04:21 | PN ---
DATE: 01/25/2018 SUBJECTIVE: Patient is seen and examined on the bedside, looking comfortable. No change of the status. No acute respiratory distress. No nausea, vomiting, or diarrhea. No hematuria or hematochezia. No headache. No dizziness. No shortness of breath. PHYSICAL EXAMINATION: VITAL SIGNS: Temperature 97.8, respiratory rate 21, pulse 65, blood pressure 130/52, pulse oximetry 99%. HEENT: Head, normocephalic and atraumatic. Eyes, PERRLA. Extraocular muscles intact. Conjunctivae clear. Nose, patent. Mucous membranes moist. NECK: Supple. No carotid bruit. No JVD or thyromegaly. CHEST: Bilaterally symmetrical. HEART: S1 and S2 positive. LUNGS: Clear to auscultation. ABDOMEN: Soft. Bowel sounds present. No organomegaly. EXTREMITIES: No edema. No cyanosis. NEUROLOGIC: Patient is awake and alert. Moving all four extremities. No focal deficit. LABORATORY DATA: White blood cells 7.3, hemoglobin 10.9, hematocrit 33.9, platelets 153,000. Sodium 143, potassium 4.1, BUN 23, creatinine 2. ASSESSMENT AND PLAN: Ms. Day Hung is a 62-year-old female with acute on chronic renal insufficiency, chronic renal failure stage 4, anemia of chronic disease, new onset atrial fibrillation, right upper extremity deep vein thrombosis in the setting of the right Tesio Uld[place] catheter now removed with chronic obstructive pulmonary disease, hypertension, insulin-dependent diabetes mellitus, hypercholesterolemia. PLAN: Monitor electrolytes , dialysis while monitoring for the evidence of hyperkalemia, worsening azotemia, or fluid overload. She will continue on Coreg, DuoNeb, Eliquis, insulin, Levemir, Lipitor,Lopid, Protonix, Pulmicort, Risperdal, Singulair inhaled and bronchodilators. She wears CPAP at bedtime and ultimate plan will be to return this patient to [facility] and we will monitor electrolytes there. Appreciated Dr. Maren Dent and Dr. Shelley and red hat linux engineer's input. We will follow. Steff Gallegos MD [facility] # [id number] JORDAN
[2018-01-26] MEDS: Pantoprazole 40 mg EC Tab PO SCH (05:00)
[2018-01-26] MEDS: Levothyroxine 150 MCG TAB PO SCH (05:00)
[2018-01-26 06:54] LABS: HEMOGLOBIN 10.1 g/dL (12.0-16.0); MEAN CORPUSCULAR HEMOGLOBIN 31.1 pg (25.0-35.0); MEAN CORPUSCULAR HGB CONC 31.1 g/dl (31.0-37.0); MEAN PLATELET VOLUME 9.7 fl (7.0-11.0); RBC 3.25 10^6/uL (3.5-6.1); RED CELL DISTRIBUTION WIDTH 21.5 % (11.5-14.5); WHITE BLOOD COUNT 6.6 10^3/ul (4.5-11.0)
[2018-01-26 06:55] LABS: CALCIUM 9.1 mg/dL (8.4-10.5)
--- NOTE | 2018-01-26 07:32 | CP.PCM.PN ---
Subjective - Date & Time of Evaluation Date of Evaluation: 01/26/18 Time of Evaluation: 06:50 - Subjective Subjective: Awake, alert,lying on her right side, denies chest pain,denies shortness of breath Reason for consultation: Cardiac evaluation,atrial fibrillation, hypotension, ESRD on hemodialysis, history of hypertension, COPD Seen and examined by me and Dr. Cosby Objective - Vital Signs/Intake and Output Vital Signs (last 24 hours): Temp Pulse Resp BP Pulse Ox 98.8 F 84 20 103/49 L 99 01/26/18 02:04 01/26/18 03:02 01/26/18 02:04 01/26/18 03:42 01/26/18 02:04 Intake and Output: 01/26/18 01/26/18 06:59 18:59 Intake Total 360 120 Balance 360 120 - Medications Medications: Current Medications Albuterol/Ipratropium (Duoneb 3 Mg/0.5 Mg (3 Ml) Ud) 3 ml IH [id number] PRN PRN Reason: Shortness of Breath Last Admin: 01/24/18 19:57 Dose: 3 ml Apixaban (Eliquis) 10 mg PO BID [facility] PRN Reason: Protocol Stop: 01/28/18 19:00 Last Admin: 01/25/18 13:07 Dose: 10 mg Atorvastatin Calcium (Lipitor) 10 mg PO DIN [facility] Last Admin: 01/25/18 17:15 Dose: 10 mg Budesonide (Pulmicort Respules) 0.5 mg IH [id number] [facility] Last Admin: 01/25/18 20:03 Dose: 0.5 mg Carvedilol (Coreg) 3.125 mg PO BID [facility] Last Admin: 01/25/18 12:54 Dose: Not Given Gemfibrozil (Lopid) 600 mg PO BID [facility] Last Admin: 01/25/18 13:08 Dose: 600 mg Insulin Detemir (Levemir) 10 unit SC HS [facility] Last Admin: 01/25/18 22:00 Dose: Not Given Insulin Human Regular (Humulin R Low) 0 units SC ACHS [facility] PRN Reason: Protocol Last Admin: 01/25/18 22:00 Dose: Not Given Levothyroxine Sodium (Synthroid) 150 mcg PO 0600 [facility] Last Admin: 01/26/18 05:00 Dose: 150 mcg Magnesium Hydroxide (Milk Of Magnesia) 30 ml PO HS PRN PRN Reason: Constipation Montelukast Sodium (Singulair) 10 mg PO HS [facility] Last Admin: 01/25/18 22:00 Dose: Not Given Nystatin (Nystop Topical Powder) 0 gm EXT BID [facility] Stop: 01/29/18 10:01 Last Admin: 01/24/18 17:06 Dose: 1 gm Pantoprazole Sodium (Protonix Ec Tab) 40 mg PO 0600 [facility] Last Admin: 01/26/18 05:00 Dose: 40 mg Risperidone (Risperdal Tab) 1 mg PO TID [facility] PRN Reason: Protocol Last Admin: 01/25/18 17:15 Dose: 1 mg - Labs Labs: 01/26/18 06:15 01/26/18 06:15 PT 12.5 SECONDS (9.4-12.5) 01/20/18 14:07 INR 1.09 (0.93-1.08) H 01/20/18 14:07 APTT 57.7 Seconds (25.1-36.5) H 01/20/18 14:07 - Constitutional Appears: No Acute Distress - Head Exam Head Exam: NORMOCEPHALIC - Eye Exam Eye Exam: Normal appearance - ENT Exam ENT Exam: Mucous Membranes Moist - Respiratory Exam Respiratory Exam: Clear to Ausculation Bilateral, NORMAL BREATHING PATTERN - Cardiovascular Exam Cardiovascular Exam: +S1, +S2 - GI/Abdominal Exam GI & Abdominal Exam: Soft, Normal Bowel Sounds - Extremities Exam Extremities Exam: Normal Capillary Refill Additional comments: right arm less wselling from baseline, right groin triple lumen catheter - Neurological Exam Neurological Exam: Alert, Awake, Oriented x3 - Psychiatric Exam Psychiatric exam: Normal Affect, Normal Mood - Skin Skin Exam: Intact, Normal Color, Warm Assessment and Plan - Assessment and Plan (Free Text) Assessment: A 62 year old female who came from [facility] to ER due to hypotension and atrial fibrillation yesterday accompanied with chest pain and shortness of breath. Patient was post hemodialysis. history of diabetes,COPD,hypertension, substance abuse, schizophrenia,history of fall, ESRD with hemodialysis 3x a week , seizure disorder, hypothyroidism. Two liters of IV fluid given in ER. With right subclavian shiley catheter and right femoral triple lumen catheter inserted, low hemoglobin/hematocrit transfused 2 units PRBC, positive DVT from right arm. Plan: Hemoglobin/hematocrit stable BUN/Creatinine slightly going up Monitor closely as hemodialysis on hold Positive DVT on the right arm, less swelling from baseline On Coreg 3.125 mg BID,Eliquis 10 mg BID,Lipitor 10 mg daily, Lopid 600 mg BID No evidence of myocardial ischemia Cardiac status stable Continue current treatment Continue current medications Discharge planning back to group home Will follow up Plan and treatment discussed with Dr. Cosby
[2018-01-26] MEDS: Budesonide 0.5 mg/2 ml Inhal Susp UD IH SCH (07:34)
[2018-01-26 08:34] VITALS: BP 96/49; PULSE 78; RESP 23; TEMP 97.6; O2SAT 98
[2018-01-26] MEDS: Insulin Reg-LOW-Coverage SC SCH (09:39)
--- NOTE | 2018-01-26 15:47 | PN ---
DATE: 01/26/2018 SUBJECTIVE: This 62-year-old female was examined at bedside. She is awaiting discharge to [facility] for shelter care. Right Tesio [place] catheter has been removed and the patient denies any chest pain, shortness of breath and has had no issues with hyperkalemia, acidosis or volume overload. PHYSICAL EXAMINATION VITAL SIGNS: Temperature 97.6, respirations 23, pulse 78, blood pressure 103/49 and pulse ox 98%. HEAD: Normocephalic, atraumatic. HEART: Irregular S1, S2. LUNGS: Clear. ABDOMEN: Soft. EXTREMITIES: No edema. Right arm swelling markedly improved. LABORATORY DATA: White count 6600, hemoglobin 10.1, hematocrit 32.5, platelets 144,000. Sodium 142, K 4.3, chloride 105, bicarb 29, BUN 24, creatinine 2.1. Estimated GFR 24 mL per minute. IMPRESSION: A 62-year-old female with [id number] renal insufficiency, now off dialysis with stage IV chronic renal insufficiency and comorbidities of chronic schizophrenia, chronic hypertension, stable atherosclerotic heart disease and chronic atrial fibrillation, insulin-dependent diabetes mellitus, hyperlipidemia, chronic obstructive pulmonary disease, right arm dvt and hypothyroidism. PLAN: The plan will be to continue Coreg, Duo nebulizer, Eliquis, insulins, Lipitor, Lopid, Protonix, Pulmicort, Risperdal, Singulair and Synthroid. She can return to [facility] for shelter care with serial labs to monitor for hyperkalemia, metabolic acidosis and evidence of volume overload. Should any of these signs reappear, dialysis may be indicated. A new left Tesio [place] catheter can be placed. Maren Dent MD [facility]
--- NOTE | 2018-01-27 00:36 | PN ---
DATE: 01/26/2018 PULMONARY PROGRESS NOTE REFERRING PHYSICIAN: Steff Gallegos MD. SUBJECTIVE: She is lying in the bed, head at 45 degrees. Feels much better. Awake and alert. No cough, no sputum production. No nausea, no vomiting, no diarrhea. No leg pain or leg swelling. OBJECTIVE: GENERAL: In no acute distress. VITAL SIGNS: Temperature is 98, heart rate 78, respiratory rate is 20, blood pressure 96/49, pulse ox 98% on room air. HEENT: Small oral cavity. Crowded airway. NECK: Supple. No JVD. LUNGS: Have a fair airflow with rhonchi. HEART: S1, S2. ABDOMEN: Soft, nontender. No organomegaly. EXTREMITIES: No edema. NEUROLOGIC: Awake, alert, follows simple commands. LABORATORY DATA: Reviewed and noted, hemoglobin 10.1, hematocrit 32.5, WBC 6.6, platelet count is 144. Sodium 142, potassium 4.3, chloride 105, bicarbonate 29, BUN 24, creatinine 2.1, glucose is 96, calcium 9.1. Microbiology: Blood culture has been negative. IMPRESSION AND PLAN: Chronic obstructive lung disease, status post hypotension episode after dialysis, now off dialysis, making good urine; atrial fibrillation; renal failure, slowly improving; also has sleep apnea syndrome, not very compliant with the CPAP and BiPAP; component of hypoventilation syndrome; schizophrenia; obesity; seizure disorder. We will continue to encourage CPAP use. Keep head at 45 degrees. Bronchodilator, aspiration precaution. Follow up kidney function closely. Avoid nephrotoxic drugs. Gastric prophylaxis. Sequential compression device to lower extremity. May transfer back to correction. Thank you and we will follow with you. Justin Shelley MD
== END 2018-01-26 17:29 | DRG 550 ==
LOC: ED 12:54 → ERH 15:47 → 2RNO 19:40 → 5RNO 01-24 11:17
PROVIDERS: ADMIT Internal Medicine; ATTEND Internal Medicine
PROC: 06HY33Z Insertion of Infusion Device into Lower Vein, Percutaneous Approach (ICD-10-PCS; principal; 2018-01-20)
PROC: 5A09357 Assistance with Respiratory Ventilation, Less than 24 Consecutive Hours, Continuous Positive Airway Pressure (ICD-10-PCS; 2018-01-22)
PROC: 30233N1 Transfusion of Nonautologous Red Blood Cells into Peripheral Vein, Percutaneous Approach (ICD-10-PCS; 2018-01-23)
PROC: 05PY33Z Removal of Infusion Device from Upper Vein, Percutaneous Approach (ICD-10-PCS; 2018-01-24)
DX: I95.3 Hypotension of hemodialysis (principal); J18.9 Pneumonia, unspecified organism; L89.159 Pressure ulcer of sacral region, unspecified stage; T82.868A Thrombosis due to vascular prosthetic devices, implants and grafts, initial encounter; I82.C11 Acute embolism and thrombosis of right internal jugular vein; I82.611 Acute embolism and thrombosis of superficial veins of right upper extremity; N18.6 End stage renal disease; E11.22 Type 2 diabetes mellitus with diabetic chronic kidney disease; E86.1 Hypovolemia; E87.6 Hypokalemia; I50.9 Heart failure, unspecified; I13.2 Hypertensive heart and chronic kidney disease with heart failure and with stage 5 chronic kidney disease, or end stage renal disease; F20.9 Schizophrenia, unspecified; J43.9 Emphysema, unspecified; E86.0 Dehydration; E11.649 Type 2 diabetes mellitus with hypoglycemia without coma; Y83.8 Other surgical procedures as the cause of abnormal reaction of the patient, or of later complication, without mention of misadventure at the time of the procedure; I48.0 Paroxysmal atrial fibrillation; G47.30 Sleep apnea, unspecified; E03.9 Hypothyroidism, unspecified; Z88.8 Allergy status to other drugs, medicaments and biological substances; Z88.6 Allergy status to analgesic agent; Z88.0 Allergy status to penicillin; Z91.013 Allergy to seafood; Z79.4 Long term (current) use of insulin; Z99.2 Dependence on renal dialysis; G40.909 Epilepsy, unspecified, not intractable, without status epilepticus; E66.9 Obesity, unspecified; D63.8 Anemia in other chronic diseases classified elsewhere; E78.00 Pure hypercholesterolemia, unspecified; Z87.891 Personal history of nicotine dependence

== ENCOUNTER 2018-02-17 11:12 | Inpatient (IN) | payer MEDICAID ==
[2018-02-17 11:12] VITALS: BMI 25.0
--- NOTE | 2018-02-17 11:39 | ED PDOC ---
Arrival/HPI - General Chief Complaint: Altered Mental Status Time Seen by Provider: 02/17/18 11:21 Historian: Patient - History of Present Illness Narrative History of Present Illness (Text): 62yoF, DNR/DNI, COPD, DM, HTN, Schizophrenia, RUE DVT on eliquis, cholesterol, CKD, chronic afib, [facility]. 02/17/18 11:36 Time/Duration: 24 hours Symptom Onset: Gradual Symptom Course: Unchanged Activities at Onset: Rest Context: Sitting Past Medical History - Provider Review Nursing Documentation Reviewed: Yes - Travel History Have you recently traveled outside [place] w/in the past 3 mons?: No - Past History Past History: Unable to Obtain - Infectious Disease Hx of Infectious Diseases: None - Tetanus Immunization Tetanus Immunization: Unknown - Reproductive Menopause: Yes - Cardiac Hx Hypertension: Yes - Pulmonary Hx Chronic Obstructive Pulmonary Disease (COPD): Yes Hx Emphysema: Yes Other/Comment: resp failure - Neurological Hx Neurological Disorder: Yes (cognitive deficits, syncope) Hx Seizures: Yes - HEENT Hx HEENT Disorder: Yes Hx Glaucoma: Yes - Renal Hx Renal Disorder: Yes Hx Dialysis: Yes (TS) Date of Last Dialysis Treatment: 01/20/18 Hx Renal Failure: Yes - Endocrine/Metabolic Hx Diabetes Mellitus Type 2: Yes Hx Hypothyroidism: Yes - Hematological/Oncological Hx Blood Disorders: Yes Hx Anemia: Yes Other/Comment: sepsis - Integumentary Hx Dermatological Disorder: Yes Other/Comment: stage 2 opening left buttock 0.5cm round wound bed red and 1cm round opening wound bed red, redness to buttocks and sacrum, multiple red areas of skin to outer lower left leg, fading redness and rash under both breasts, bikini line scar, dry lips, dry skin to feet, thick dry toenails, multple bruises bke, dry scab 1cm rounc right knee, scrape left knee - Musculoskeletal/Rheumatological Hx Musculoskeletal Disorders: Yes (BLE weakness) Hx Falls: Yes (past) Hx Osteoporosis: Yes Hx Unsteady Gait: Yes - Gastrointestinal Hx Gastrointestinal Disorders: Yes (gi bleed, difficulty chewing) Hx Gastroesophageal Reflux: Yes Other/Comment: gi bleed, bleeding gastric erosion, esophageal ulcers, duodenitis - Genitourinary/Gynecological Hx Genitourinary Disorders: Yes Hx Incontinence: Yes Hx Urinary Tract Infection: Yes - Psychiatric Hx Psychophysiologic Disorder: Yes Hx Schizophrenia: Yes Hx Substance Use: No (UNKNOWN) Other/Comment: suicidal,ams, cognitive defects, prior resident of [facility] home - Past Surgical History Past Surgical History: Non-Contributing - Anesthesia Hx Anesthesia: Yes Hx Anesthesia Reactions: No Hx Malignant Hyperthermia: No - Suicidal Assessment Feels Threatened In Home Enviroment: No Family/Social History - Physician Review Nursing Documentation Reviewed: Yes Family/Social History: Unknown Family HX Smoking Status: Unknown If Ever Smoked Hx Alcohol Use: No (UNKNOWN) Hx Substance Use: No (UNKNOWN) Allergies/Home Meds Allergies/Adverse Reactions: Allergies aspirin Adverse Reaction (Verified 01/20/18 18:57) RASH haloperidol [From Haldol] Adverse Reaction (Verified 01/20/18 18:57) RASH haloperidol lactate [From Haldol] Adverse Reaction (Verified 01/20/18 18:57) RASH mesalamine [From Asacol] Adverse Reaction (Verified 01/20/18 18:57) RASH Penicillins Adverse Reaction (Verified 01/20/18 18:57) RASH seafood Adverse Reaction (Uncoded 01/20/18 18:57) RASH Home Medications: Home Meds Medication Instructions Recorded Confirmed Acetaminophen [Tylenol (Renal)] 650 mg PO Q4 PRN 11/19/16 02/17/18 Budesonide [Pulmicort Respules] 0.5 mg IH Q12 11/19/16 02/17/18 Divalproex [Depakote ER] 500 mg PO TID 11/19/16 02/17/18 Latanoprost 0.005% Opht [Xalatan 1 drp OP 11/19/16 02/17/18 Opht] Montelukast [Singulair] 10 mg PO 11/19/16 02/17/18 Gemfibrozil [Lopid] 600 mg PO BID 10/28/17 02/17/18 Insulin Detemir [Levemir] 10 unit SC HS 10/28/17 02/17/18 risperiDONE [RisperDAL Tab] 1 mg PO TID 10/28/17 02/17/18 Atorvastatin [Lipitor] 10 mg PO HS 01/01/18 02/17/18 Insulin Aspart, Recombinant 0 unit SQ ACHS 01/01/18 02/17/18 [Novolog] Pantoprazole [Protonix] 40 mg PO DAILY 01/01/18 02/17/18 Arformoterol [Brovana] 1 lien IH Q12 02/17/18 02/17/18 Levothyroxine [Synthroid] 175 mcg PO DAILY 02/17/18 02/17/18 Review of Systems - Review of Systems Systems not reviewed;Unavailable: Other (lethargy) Constitutional: Fevers Physical Exam - Physical Exam Physical Exam Limitations: Altered Mental Status Vital Signs Reviewed: Yes Vital Signs Temp Pulse Resp BP Pulse Ox 02/17/18 18:22 89/42 L 02/17/18 17:18 82/52 L 02/17/18 17:03 103 H 24 80/42 L 95 02/17/18 15:15 108 H 90/52 L 02/17/18 14:08 108 H 78/49 L 95 02/17/18 13:48 111 H 84/43 L 02/17/18 13:15 100 F H 106 H 24 76/20 L 02/17/18 13:01 100 F H 02/17/18 12:01 103 F H 02/17/18 11:34 103 F H 131 H 20 90/54 L 89 L Temperature: Febrile Blood Pressure: Hypotensive Pulse: Tachycardic Respiratory Rate: Other (tachyapenic) Appearance: Positive for: Ill-Appearing Mental Status: Positive for: Lethargic - Systems Exam Head: Present: Atraumatic, Normocephalic Pupils: Present: PERRL, Pinpoint Extroacular Muscles: Present: EOMI Conjunctiva: Present: Normal Ears: Present: Normal Mouth: Present: Moist Mucous Membranes Pharnyx: Present: Normal Nose (External): Present: Atraumatic Nose (Internal): Present: Normal Inspection Neck: Present: Normal Range of Motion Respiratory/Chest: Present: Decreased Breath Sounds Cardiovascular: Present: Regular Rate and Rhythm Abdomen: No: Tenderness, Distention, Normal Bowel Sounds, Peritoneal Signs, Rebound, Guarding, McBurney's Point Tender, Rovsing's Sign Present, Hernias, Feeding Tubes, Ostomy Tubes, Mass/Organomegaly, Scars, Other Back: Present: Normal Inspection Upper Extremity: Present: Normal Inspection Lower Extremity: Present: Normal Inspection Neurological: Present: Other (lethargy) Skin: Present: Warm, Normal Color Psychiatric: Present: Lethargic Medical Decision Making ED Course and Treatment: 62yoF, DNR/DNI, COPD, DM, HTN, Schizophrenia, RUE DVT on eliquis, cholesterol, CKD, chronic afib, [facility], [facility]. ivf levoquin/vancomycin 02/17/18 11:40 02/17/18 11:43 02/17/18 12:41 code sepsis wbc 9.0 hb 11 02/17/18 12:41 Ua moderate le ECG sinus tachycardia 02/17/18 12:43 02/17/18 13:42 CXR lung vascular markings. 02/17/18 14:16 Chest X-ray Valet Cashier : Ryan Manriquez MD Report Date : 02/17/2018 14:06:20 HISTORY:62yoF, lethargy, fever COMPARISON:Comparison made with chest radiograph and CTA chest both dated 2017. FINDINGS: Previously noted dual-lumen right IJ dialysis catheter no longer visualized LUNGS:Dense opacity seen in the left retrocardiac region which may represent some combination of sequela of diaphragmatic eventration as well as atelectasis and or infiltrate and left effusion. Patchy infiltrates seen in the right lung base. PLEURA:No significant pleural effusion identified, no pneumothorax apparent. CARDIOVASCULAR:Normal. OSSEOUS STRUCTURES:No significant abnormalities. VISUALIZED UPPER ABDOMEN:Normal. OTHER FINDINGS:None. IMPRESSION: Dense opacity seen in the left retrocardiac region which may represent some combination of sequela of diaphragmatic eventration as well as atelectasis and or infiltrate and left effusion. Patchy infiltrates seen in the right lung base. bnp 11,000 trop neg 0.01 d/w Dr. Bourgeois who will accept the patient, cvc to be placed, and due to hypotension will hold off on ct head at this time which Dr. Bourgeois agreed. 02/17/18 15:24 02/17/18 16:53 02/17/18 18:29 procedure note; left central line, us guided, compressible, aspirated dark non- pulsatile blood, seldinger technique, catheter placed, good aspiration/flush, sutured ethilon. cleaned/tegaderm per nursing. hemostasis. norberto procedure. levophed. d/w Dr. Gallegos who accepted the patient to the ICU, recommend consult Dr. Sullivan ID. CXR pending 02/17/18 18:42 CXR left central line in place. no ptx. Reassessment Condition: Re-examined, Improved - Lab Interpretations Lab Results: 02/17/18 11:45 02/17/18 13:45 Lab Results 02/17/18 16:00: pO2 234 H, VBG pH 7.24 L, VBG pCO2 44.0, VBG HCO3 18.9 L, VBG Total CO2 20.3 L, VBG O2 Sat (Calc) 100.1 H, VBG Base Excess -8.3 L, VBG Potassium 7.7 H*, Sodium 141.0, Chloride 118.0 H, Glucose 96, Lactate 1.3, FiO2 21.0, Venous Blood Potassium 7.7 H* 02/17/18 13:50: PT 22.7 H, INR 1.96 H, APTT 41.7 H 02/17/18 13:45: Sodium 148, Chloride 112 H, Potassium 5.1 H, Carbon Dioxide 21, Anion Gap 19, BUN 69 H, Creatinine 3.4 H, Est GFR ( Amer) 17, Est GFR ( Non-Af Amer) 14, Random Glucose 90, Calcium 8.9, Magnesium 2.2, Total Bilirubin 0.5, AST 122 H D, ALT 23, Alkaline Phosphatase 138 H, Lactate Dehydrogenase 783 H, Total Creatine Kinase 259 H, CK-MB (CK-2) 1.6, CK-MB (CK-2) % Cancelled, Troponin I < 0.01 D, NT-Pro-B Natriuret Pep 20268 H, Total Protein 5.5 L, Albumin 2.2 L, Globulin 3.3, Albumin/Globulin Ratio 0.7 L 02/17/18 13:20: Influenza Typ A,B (EIA) Negative for flu a/b 02/17/18 12:00: Urine Color Yellow, Urine Appearance Turbid, Urine pH 6.0, Ur Specific Reddick >= 1.030, Urine Protein >=300 H, Urine Glucose (UA) Negative, Urine Ketones Negative, Urine Blood Large H, Urine Nitrate Negative, Urine Bilirubin Negative, Urine Urobilinogen 1.0 H, Ur Leukocyte Esterase Moderate H, Urine RBC 0 - 2, Urine WBC Tntc, Ur Epithelial Cells None 02/17/18 11:45: pO2 204 H, VBG pH 7.26 L, VBG pCO2 49.0, VBG HCO3 22.0, VBG Total CO2 23.5, VBG O2 Sat (Calc) 99.8 H, VBG Base Excess -5.3 L, VBG Potassium 7.3 H*, Sodium 140.0, Chloride 111.0 H, Glucose 81, Lactate 2.3 H, FiO2 21.0, Venous Blood Potassium 7.3 H* 02/17/18 11:45: WBC 9.0 D, RBC 3.44 L, Hgb 11.0 L, Hct 34.7 L, MCV 100.9, MCH 32.0, MCHC 31.7, RDW 23.7 H, Plt Count 151, MPV 10.7, Gran % 34.0 L, Lymph % ( Auto) 51.2 H, [facility] % (Auto) 14.6 H, Eos % (Auto) 0.0 L, Baso % (Auto) 0.2, Gran # 3.04, Lymph # (Auto) 4.6 H, [facility] # (Auto) 1.3 H, Eos # (Auto) 0.0, Baso # ( Auto) 0.02 02/17/18 11:33: POC Glucose (mg/dL) 75 I have reviewed the lab results: Yes - RAD Interpretation Radiology Orders: 02/17/18 11:33 CHEST PORTABLE [RAD] Stat 02/17/18 11:34 HEAD W/O CONTRAST [CT] Stat 02/17/18 18:10 CHEST PORTABLE [RAD] Stat Tobacco Farmworker: Radiologist - Medication Orders Current Medication Orders: Sodium Chloride (Sodium Chloride 0.9%) 1,000 mls @ 75 mls/hr IV .[id number] [facility] Last Admin: 02/17/18 12:01 Dose: 75 mls/hr eMAR Start Stop Document 02/17/18 12:01 I (Rec: 02/17/18 12:02 I [id number]) Intravenous Solution Start Date 02/17/18 Start Time 12:01 NOREPINEPHRINE BIT/0.9 % NACL (Levophed 4 Mg/ 250 Ml Ns Premixed) 4 mg in 250 mls @ 15 mls/hr IV .[id number] PRN; Protocol; 4 MCG/MIN PRN Reason: TITRATE PER MD ORDER Last Admin: 02/17/18 17:21 Dose: 15 mls/hr eMAR Start Stop Document 02/17/18 17:21 GMI (Rec: 02/17/18 17:21 [facility] [id number] Intravenous Solution Start Date 02/17/18 Start Time 17:21 Discontinued Medications Vancomycin HCl (Vancomycin 1gm) 1 gm in 250 mls @ 167 mls/hr IVPB STAT STA PRN Reason: Protocol Stop: 02/17/18 13:11 Last Admin: 02/17/18 13:42 Dose: 167 mls/hr eMAR Start Stop Document 02/17/18 13:42 GMI (Rec: 02/17/18 13:42 [facility]MI [facility] [id number]) Intravenous Solution Start Date 02/17/18 Start Time 13:42 End Date 02/17/18 End time 15:35 Total Infusion Time 113 Levofloxacin/Dextrose (Levaquin 750mg) 750 mg IVPB STAT STA PRN Reason: Protocol Stop: 02/17/18 11:42 Last Admin: 02/17/18 12:33 Dose: 750 mg eMAR Start Stop Document 02/17/18 12:33 GMI (Rec: 02/17/18 12:34 [facility] [id number]) Intravenous Solution Start Date 02/17/18 Start Time 12:34 End Date 02/17/18 End time 13:43 Total Infusion Time 69 - Scribe Statement The provider has reviewed the documentation as recorded by the Charlotte Vaughn Provider Scribe Attestation: All medical record entries made by the Scribe were at my direction and personally dictated by me. I have reviewed the chart and agree that the record accurately reflects my personal performance of the history, physical exam, medical decision making, and the department course for this patient. I have also personally directed, reviewed, and agree with the discharge instructions and disposition. Disposition/Present on Arrival - Present on Arrival Any Indicators Present on Arrival: Yes History of DVT/PE: No History of Uncontrolled Diabetes: Yes Urinary Catheter: Yes History of Decub. Ulcer: No History Surgical Site Infection Following: None - Disposition Have Diagnosis and Disposition been Completed?: Yes Diagnosis: Acidosis, Pneumonia, CKD (chronic kidney disease) stage 3, GFR 30-59 ml/min Disposition: HOSPITALIZED Disposition Time: 16:53 Patient Plan: Admission Patient Problems: Current Active Problems Problem Status Onset Acidosis Acute Pneumonia Acute CKD (chronic kidney disease) stage 3, GFR 30-59 ml/min Chronic Condition: SERIOUS Forms: [employer] (Frisian)
[2018-02-17] MEDS ORDERED: levoFLOXacin 750 mg in D5W 150 ML BAG IVPB STA (11:41)
[2018-02-17] MEDS ORDERED: Vancomycin 1gm in NS 250ml 1 GM/250 ML BAG IVPB STA (11:42)
[2018-02-17] MEDS ORDERED: Sodium Chloride 0.9% 1,000 ML IV SCH (11:45)
[2018-02-17 12:02] LABS: BASO # 0.02 K/mm3 (0.0-2.0); BASO % 0.2 % (0.0-3.0); GRAN # 3.04 (1.4-6.5); LYMPH # 4.6 (1.2-3.4); LYMPH % 51.2 % (22.0-35.0); MEAN CELL VOLUME 100.9 fl (80.0-105.0); MEAN CORPUSCULAR HGB CONC 31.7 g/dl (31.0-37.0); MEAN PLATELET VOLUME 10.7 fl (7.0-11.0); MONO # 1.3 (0.1-0.6); MONO % 14.6 % (1.0-6.0); RBC 3.44 10^6/uL (3.5-6.1); RED CELL DISTRIBUTION WIDTH 23.7 % (11.5-14.5)
[2018-02-17 12:08] LABS: VENOUS BLOOD GAS BASE EXCESS -5.3 mmol/L (0.0-2.0); VENOUS BLOOD GAS PO2 204 mm/Hg (30-55); VENOUS BLOOD PH 7.26 (7.32-7.43)
[2018-02-17 12:24] LABS: URINE APPEARANCE TURBID (CLEAR); URINE BILIRUBIN NEGATIVE (NEGATIVE); URINE BLOOD LARGE (NEGATIVE); URINE COLOR YELLOW (YELLOW); URINE GLUCOSE (UA) NEGATIVE (NEGATIVE); URINE LEUKOCYTE ESTERASE MODERATE Leu/uL (NEGATIVE); URINE PROTEIN >=300 mg/dL (<30 mg/dL)
--- NOTE | 2018-02-17 12:25 | CARD ---
APPROVED REPORT EKG Measurement Heart [id number] <Conclusion> Sinus tachycardia Possible Left atrial enlargement ST & T wave abnormality, consider lateral ischemia Lt.Ant.Evan-Block.
[2018-02-17 12:42] LABS: URINE RBC 0 - 2 /hpf (0-2); URINE WBC TNTC /hpf (0-6)
[2018-02-17 14:07] LABS: ALB/GLOB RATIO 0.7 (1.1-1.8); ALBUMIN 2.2 g/dL (3.0-4.8); ALT/SGPT 23 U/L (7-56); AST/SGOT 122 U/L (14-36); CALCIUM 8.9 mg/dL (8.4-10.5); GFR AFRICAN-AMERICAN 17; GFR NON-AFRICAN AMERICAN 14
[2018-02-17 14:08] LABS: BLOOD UREA NITROGEN 69 mg/dL (7-21)
--- NOTE | 2018-02-17 14:08 | RAD ---
HISTORY: 62yoF, lethargy, fever COMPARISON: Comparison made with chest radiograph and CTA chest both dated 01/20/2018. FINDINGS: Previously noted dual-lumen right IJ dialysis catheter no longer visualized LUNGS: Dense opacity seen in the left retrocardiac region which may represent some combination of sequela of diaphragmatic eventration as well as atelectasis and or infiltrate and left effusion. Patchy infiltrates seen in the right lung base. PLEURA: No significant pleural effusion identified, no pneumothorax apparent. CARDIOVASCULAR: Normal. OSSEOUS STRUCTURES: No significant abnormalities. VISUALIZED UPPER ABDOMEN: Normal. OTHER FINDINGS: None. IMPRESSION: Dense opacity seen in the left retrocardiac region which may represent some combination of sequela of diaphragmatic eventration as well as atelectasis and or infiltrate and left effusion. Patchy infiltrates seen in the right lung base.
[2018-02-17 14:18] LABS: B-TYPE NATRIURETIC PEPTIDE 11400 pg/mL (0-450); TROPONIN I < 0.01 ng/mL
[2018-02-17 14:21] LABS: CK-MB 1.6 ng/mL (0.0-3.6)
[2018-02-17 15:05] LABS: INR 1.96 (0.93-1.08); PARTIAL THROMBOPLASTIN TIME 41.7 Seconds (25.1-36.5); PROTHROMBIN TIME 22.7 SECONDS (9.4-12.5)
[2018-02-17 16:23] LABS: VENOUS BLOOD GAS BASE EXCESS -8.3 mmol/L (0.0-2.0); VENOUS BLOOD GAS PO2 234 mm/Hg (30-55); VENOUS BLOOD PH 7.24 (7.32-7.43)
[2018-02-17] MEDS: NOREPINEPHRINE BIT/0.9 % NACL 4 MG/250 ML BAG IV PRN ×2 (17:21→23:01)
[2018-02-17 20:37] LABS: ALB/GLOB RATIO 0.6 (1.1-1.8); ALBUMIN 1.8 g/dL (3.0-4.8); CALCIUM 8.5 mg/dL (8.4-10.5)
[2018-02-18] MEDS ORDERED: Dextrose 5%/0.45% NS 1,000 ML IV SCH (01:45)
[2018-02-18] MEDS ORDERED: Albuterol-Ipratrop 3 mg / 0.5 (3 ml) UD IH SCH (02:00)
[2018-02-18] MEDS ORDERED: Albuterol-Ipratrop 3 mg / 0.5 (3 ml) UD IH PRN (02:03)
[2018-02-18] MEDS: NOREPINEPHRINE BIT/0.9 % NACL 4 MG/250 ML BAG IV PRN ×5 (02:26→18:10)
--- NOTE | 2018-02-18 04:08 | CON ---
DATE: 02/17/2018 BEHAVIORAL HEALTH CONSULTANT NOTE The patient was admitted on 02/17/2018 REQUESTING PHYSICIAN: Steff Gallegos MD. CHIEF COMPLAINT The patient presented with altered mental status and hypotension. HISTORY OF PRESENT ILLNESS: Ms. Hung, she is a 62-year-old female that was transferred from a [facility] because of being unresponsive and once at the emergency room, was noted to have respiratory insufficiency, hypotension and altered mental status. The patient has a past medical history of COPD, diabetes, hypertension, schizophrenia; right upper extremity DVT, on Eliquis; hypercholesterolemia, chronic kidney disease, chronic atrial fibrillation and is noted to be DNR and DNI. The patient at this time is unresponsive, on BiPAP and hypotensive, a CVP line has been placed by the ER physician and she is on Levophed. Patient is scheduled to get a CT of the head, but at this time has not been done because she is hemodynamically unstable. She has been admitted to the Intensive Care Unit. PAST MEDICAL HISTORY: As above. She has a history of respiratory failure in the past and noted to have respiratory failure now, on BiPAP and history of seizures in the past as well. Patient also has hypothyroidism and a history of anemia in the past as well. ALLERGIES: NOTE THAT THE PATIENT IS ALLERGIC TO ASPIRIN, HALDOL, ASACOL, PENICILLIN AND SEAFOOD. SOCIAL HISTORY: Unknown as far as substance, alcohol and smoking. REVIEW OF SYSTEMS: Unable to obtain because the patient is unresponsive. PHYSICAL EXAMINATION: VITAL SIGNS: Note that patient's temperature is 100, pulse is 131, respirations are 20 and BP is 90/54. SKIN: Warm and dry. HEENT: Head , atraumatic and normocephalic. Eyes, reactive to light. Ears, nose and throat seemed to be within normal limits. NECK: Supple. No JVD. No thyroid enlargement. No lymph nodes. HEART: Has regular rate and rhythm. Normal S1, S2 with tachycardic. LUNGS: Reveal mild rhonchi bilaterally. ABDOMEN: Soft. Decreased bowel sounds. GENITALIA AND RECTAL: Deferred. MUSCULOSKELETAL: No joint deformities. EXTREMITIES: Reveal 1+ lower extremity edema with a large crusted necrotic area on the left heel of the foot. The patient does have decubiti in the buttock region. NEUROLOGIC: The patient is unresponsive. LABORATORY DATA: As far as her laboratories are concerned, her white count is 9, hemoglobin is 11, hematocrit 34.7 with platelets of 151,000. Her PT is 22.7, INR is 1.96 and PTT is 41.7. Venous blood gas reveals pH of 7.24, pCO2 of 44, pO2 of 234. Sodium is 148, potassium 5.1, chloride 112, CO2 of 21 with a BUN of 69, creatinine of 3.4 and glucose of 90. Note that the patient's BNP is 11,400 and her alkaline phosphatase is 138. Lactate dehydrogenase is 783 and total creatinine kinase is 259. As far as her chest x-ray, it reveals dense opacities in the left retrocardiac region may be atelectasis and/or infiltrate and left effusion with patchy infiltrates in the right lung base as well. IMPRESSION: As far as my impression, this patient has respiratory failure with bilateral pneumonia in the lower lobe regions. She has a left-sided pleural effusion. The patient also presents with altered mental status and hypotension with fever, felt to be in septic shock. She has hyperkalemia, possible congestive heart failure with increased BNP, and chronic and acute renal insufficiency. The patient is noted to be tachycardic with metabolic acidosis and has a history of chronic obstructive pulmonary disease, diabetes, hypertension, right upper extremity deep vein thrombosis and atrial fibrillation. Note that the patient is do not resuscitate and do not intubate. PLAN: As far as our plan, we will continue with fluids as well as Levophed to support her blood pressure, the patient is on bilevel positive airway pressure with oxygen support and we will follow the chest x-ray and arterial blood gas closely. She has been started on vancomycin as well as Levaquin, and electrolytes will be followed closely. We will repeat the potassium for possible value that shows hyperkalemia and if this is correctable, it will be treated aggressively. We will get the CT scan of the head when the patient is stable and continue to treat aggressively along with the other consultants and the primary care doctor. Juan F Mccullough MD
--- NOTE | 2018-02-18 05:46 | CT ---
EXAM: CT Head Without Intravenous Contrast EXAM DATE/TIME: 02/17/2018 11:34 AM CLINICAL HISTORY: 62 years old, female; Signs and symptoms; Other: Pt is lethargic; Additional info: 62yof, with lethergy TECHNIQUE: Axial computed tomography images of the head/brain without intravenous contrast. All CT scans at this facility use one or more dose reduction techniques, viz.: automated exposure control; ma/kV adjustment per patient size (including targeted exams where dose is matched to indication; i.e. head); or iterative reconstruction technique. Coronal and sagittal reformatted images were created and reviewed. COMPARISON: Prior head CT of 2018-01-01 11:31 FINDINGS: BRAIN: Areas of low density in the periventricular white matter bilaterally, most likely representing mild chronic small vessel ischemic changes. No significant acute abnormality identified. No acute hemorrhage seen within the brain. No acute extra-axial fluid collections visualized. No evidence of significant mass effect within the brain. VENTRICLES: No evidence of significant hydrocephalus. BONES/JOINTS: No acute fractures or other acute bony abnormality noted. SOFT TISSUES: No acute abnormality of the visualized soft tissues is seen. SINUSES: Visualized paranasal sinuses appear clear. MASTOID AIR CELLS: Mastoid air cells appear clear. TUBES, LINES AND DEVICES: Nasogastric tube is in place. IMPRESSION: - No acute findings seen within the brain. - See above for remaining findings.
[2018-02-18 06:22] LABS: VENOUS BLOOD GAS PO2 124 mm/Hg (30-55); VENOUS BLOOD PH 7.07 (7.32-7.43)
[2018-02-18] MEDS: Sodium Bicarbonate (8.4%) 50 Meq Syringe IVP ONE ×2 (06:30→06:50)
[2018-02-18] MEDS ORDERED: Sodium Bicarbonate (8.4%) 50 Meq Syringe IVP ONE ×3 (06:39→19:38)
[2018-02-18 06:45] LABS: BASO # 0.01 K/mm3 (0.0-2.0); BASO % 0.1 % (0.0-3.0); GRAN # 3.89 (1.4-6.5); GRAN % 48.8 % (50.0-68.0); HEMOGLOBIN 9.2 g/dL (12.0-16.0); LYMPH # 3.1 (1.2-3.4); LYMPH % 38.8 % (22.0-35.0); MEAN CELL VOLUME 103.4 fl (80.0-105.0); MEAN CORPUSCULAR HEMOGLOBIN 31.4 pg (25.0-35.0); MEAN CORPUSCULAR HGB CONC 30.4 g/dl (31.0-37.0); MEAN PLATELET VOLUME 10.4 fl (7.0-11.0); MONO % 12.3 % (1.0-6.0); RBC 2.93 10^6/uL (3.5-6.1); RED CELL DISTRIBUTION WIDTH 24.6 % (11.5-14.5)
[2018-02-18 06:59] LABS: FREE T4 0.32 ng/dL (0.78-2.19)
[2018-02-18 07:24] LABS: ALB/GLOB RATIO 0.7 (1.1-1.8); ALBUMIN 2.4 g/dL (3.0-4.8); CALCIUM 8.3 mg/dL (8.4-10.5)
[2018-02-18] MEDS ORDERED: Dextrose 50% SYRINGE Inj (50 ml) IVP ONE (07:32)
[2018-02-18 07:33] LABS: ARTERIAL BLOOD GAS HCO3 18.8 mmol/L (21-28); ARTERIAL BLOOD GAS O2 SAT 94.9 % (95-98); ARTERIAL BLOOD GAS PCO2 48 mm/Hg (35-45); ARTERIAL BLOOD GAS TCO2 20.3 mmol.L (22-28)
[2018-02-18] MEDS ORDERED: Sod Polystyrene Sulf 15 gm/60 ml Susp PR ONE (07:37)
[2018-02-18] MEDS: Insulin Lispro (humaLOG) LOW Coverage SC SCH ×4 (08:00→22:00)
[2018-02-18] MEDS: Sodium Bicarbonate 8.4% 100 MEQ in Dextrose 5%/0.45% NS 1,000 ML IV SCH ×2 (08:00→17:57)
--- NOTE | 2018-02-18 08:11 | HP ---
CHIEF COMPLAINT: Altered mental status, shortness of breath. HISTORY OF PRESENT ILLNESS: Ms. Day Hung, a 62-year-old female, DNR/DNI with history of COPD; diabetes mellitus; hypertension; history of respiratory failure, was intubated in [facility]; history of schizophrenia; right upper extremity DVT, on Eliquis; hypercholesterolemia; CKD; chronic atrial fibrillation; is the resident of [facility], had over there shortness of breath, hypotensive, altered mental status, feeling feverish. Sent to [facility] emergency room. PAST MEDICAL HISTORY: As above. COPD; history of respiratory failure; cognitive defect; history of syncope; seizures; glaucoma; history of renal insufficiency, was on dialysis, last dialysis was on 01/20/2018, diabetes mellitus type 2; anemia; decubitus ulcers on the buttocks; schizophrenia. FAMILY HISTORY: Father and mother, noncontributory. HABITS: History of heavy smoking. Not smoking now. No ethanol abuse. No substance abuse. ALLERGIES: ALLERGIC WITH ASPIRIN, HALOPERIDOL, ASACOL, PENICILLIN. HOME MEDICATIONS: Tylenol, Pulmicort, Depakote, Singular, Lopid, Levemir, risperidone, Lipitor, Protonix, Brovana, Synthroid. REVIEW OF SYSTEMS: The patient was seen and examined, looking lethargic, is not able to give review of systems. PHYSICAL EXAMINATION: VITAL SIGNS: Temperature 100, pulse 106, respiratory rate 24, blood pressure 76/20. HEENT: Head normocephalic, atraumatic. Eyes PERRLA. Extraocular muscles are intact. Conjunctivae clear. Nose patent. Mucous membrane moist. NECK: Supple. No carotid bruit. No JVD or thyromegaly. CHEST: Bilaterally symmetrical. HEART: S1 and S2 positive. LUNGS: Positive wheezing bilaterally. ABDOMEN: Soft. Bowel sounds positive. No organomegaly. EXTREMITIES: No edema. No cyanosis. NEUROLOGICAL: The patient is lethargic cannot do complete neurological examination. LABORATORY DATA: White blood cells 9, hemoglobin 11, hematocrit 34.7, platelets 151. Sodium 148, potassium 5.1, BUN noted glucose 90. ASSESSMENT AND PLAN: Ms. Day Hung, 62-year-old female with anemia, hyperkalemia, renal insufficiency, has acidosis, pneumonia, chronic kidney disease stage 3. GFR 30-59. Consultation done with emergency room physician. The patient has history of diabetes mellitus, hypertension, schizophrenia, deep venous thrombosis, on Eliquis, atrial fibrillation, admitted the patient to the unit. Dr. Juan F Mccullough, grinding machine tender accepted the patient, started treatment. We will follow up. Steff Gallegos MD MTDD
--- NOTE | 2018-02-18 08:18 | PN ---
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 Does open eyes and look around to touch. The patient is on BiPAP at this time as well as Levophed for blood pressure stabilization. No obvious respiratory distress with the BiPAP. Note that the patient has been noticed to have metabolic acidosis as well as respiratory acidosis and is on bicarbonate drip at this time. PHYSICAL EXAMINATION: VITAL SIGNS: Note that her temperature is 99.7, her pulse is 94, respirations are 18 and BP is 89/42. SKIN: Warm and dry. HEENT: Head atraumatic, normocephalic. Eyes reactive to light. Ear, nose and throat seemed to be within normal limits. NECK: Supple. No JVD. No thyroid enlargement or lymph nodes. HEART: Has regular rate and rhythm. Normal S1, S2. LUNGS: Reveal rare rhonchi at the bases. ABDOMEN: Soft. Decreased bowel sounds. GENITALIA: Deferred. RECTAL: Deferred. MUSCULOSKELETAL: No joint deformities. EXTREMITIES: Reveals positive edema in the lower extremities. NEUROLOGIC: The patient is very lethargic and somnolent, but seems to be moving all extremities. DATA: As far as her laboratories, the patient's sodium is 149, potassium 5.6, chloride 114, CO2 of 18 with BUN of 67, creatinine of 3.8 and a glucose of 197. Chest x-ray is pending. IMPRESSION: As far as impression, this patient has respiratory failure with bilateral pneumonia in the lower lobe regions. She has a left-sided small pleural effusion. The patient also presents with altered mental status and hypotension as well as fever, most likely septic shock. She has hypercapnia as well as metabolic acidosis. The patient has hyperkalemia and possible congestive heart failure with increased brain natriuretic peptide. She has acute and chronic renal insufficiency and history of chronic obstructive pulmonary disease, hypertension, right upper extremity deep venous thrombosis, atrial fibrillation. Note that the patient is a status of DNR as well as DNI. PLAN: As far as our plan, we will continue with the BiPAP and monitor her arterial blood gases and chest x-ray closely. Also, the patient is on Levophed to support her blood pressure. She is getting bicarbonate drip and we will give Kayexalate for the hyperkalemia. She is on vancomycin as well as Levaquin and CT of the head that was done last night was negative. We will continue to treat aggressively along with the other consultants and the primary care doctor. Juan F Mccullough MD
[2018-02-18] MEDS: Levothyroxine 175 MCG TAB PO SCH (09:28)
--- NOTE | 2018-02-18 09:54 | RAD ---
HISTORY: central line placement verification COMPARISON: Comparison chest 02/17/2018 at 1313 hours FINDINGS: Interval placement left IJ central venous line with tip in the SVC. LUNGS: Patchy infiltrate changes seen in the right mid to lower lung field with more dense opacification left lung base likely representing a combination of atelectasis and or infiltrate and left-sided effusion. There is also atelectasis and/or infiltrate left mid lung zone PLEURA: As above. No apparent pneumothorax CARDIOVASCULAR: Normal. OSSEOUS STRUCTURES: No significant abnormalities. VISUALIZED UPPER ABDOMEN: Normal. OTHER FINDINGS: None. IMPRESSION: Interval placement left IJ central line with tip in the SVC as described. No apparent pneumothorax. Patchy infiltrate changes seen in the right mid to lower lung field with more dense opacification left lung base likely representing a combination of atelectasis and or infiltrate and left-sided effusion. There is also atelectasis and/or infiltrate left mid lung zone
[2018-02-18] MEDS ORDERED: Divalproex 500 mg ER (ONCE DAILY formulation) PO SCH (10:00)
[2018-02-18] MEDS: Vancomycin 500mg in NS 500 MG/100 ML BAG IVPB SCH ×2 (10:11→21:05)
[2018-02-18] MEDS: Valproate 500 MG in Sodium Chloride 0.9% 100 ML IVPB SCH ×3 (10:11→17:56)
[2018-02-18] MEDS: Budesonide 0.5 mg/2 ml Inhal Susp UD IH SCH ×2 (10:16→19:50)
[2018-02-18] MEDS: Arformoterol 15 mcg/2 ml Inh Sol IH SCH ×2 (10:16→19:50)
[2018-02-18 15:35] LABS: CALCIUM 7.6 mg/dL (8.4-10.5)
[2018-02-18] MEDS ORDERED: Metoprolol 1 mg/ml Inj IVP ONE ×2 (16:24→16:26)
[2018-02-18 16:50] LABS: ARTERIAL BLOOD GAS HEMOGLOBIN 9.2 g/dL (11.7-17.4); ARTERIAL BLOOD GAS O2 CAPACITY 12.7 mL/dl (16-24); ARTERIAL BLOOD GAS O2 CONTENT 12.3 ML/dl (15-23); ARTERIAL BLOOD GAS O2 SAT 96.8 % (95-98); ARTERIAL BLOOD GAS PCO2 42 mm/Hg (35-45); ARTERIAL BLOOD GAS PH 7.24 (7.35-7.45); ARTERIAL BLOOD GAS TCO2 19.3 mmol.L (22-28)
--- NOTE | 2018-02-18 19:15 | CP.PCM.CON ---
History of Present Illness - History of Present Illness History of Present Illness: Infectious Disease Consultation: February 18, 2018 62 yo female with multiple hospitalization with a recent hospitalization to [facility] where she was intub[place]. The patient was transferred back to [facility] [place]. However, the patient felt feverish, was SOB, hypotensive, and AMS. [place] [facility] [place] PMHx: Diabetes Mellitus, COPD, Substance abuse history, CKD, Seizure disorder history , hypothyroidism, HTN PSHx: none to my knowledge Allergies: ASA, Haldol, Asacol, PCN, Seafood Social Hx: No EtOH, former tobacco use, former substance abuse history. Active Medications Acetaminophen (Tylenol 325mg Tab) 650 mg PO Q4H PRN PRN Reason: Fever >100.4 F Albuterol/Ipratropium (Duoneb 3 Mg/0.5 Mg (3 Ml) Ud) 3 ml IH [id number] PRN PRN Reason: Shortness of Breath Apixaban (Eliquis) 5 mg PO BID FLAVIO PRN Reason: Protocol Last Admin: 02/18/18 17:49 Dose: Not Given Arformoterol Tartrate (Brovana) 15 mcg IH Q12 FLAVIO Last Admin: 02/18/18 10:16 Dose: 15 mcg Budesonide (Pulmicort Respules) 0.5 mg IH Q12 FLAVIO Last Admin: 02/18/18 10:16 Dose: 0.5 mg NOREPINEPHRINE BIT/0.9 % NACL (Levophed 4 Mg/ 250 Ml Ns Premixed) 4 mg in 250 mls @ 15 mls/hr IV .[id number] PRN; Protocol; 4 MCG/MIN PRN Reason: TITRATE PER MD ORDER Last Admin: 02/18/18 18:10 Dose: 30 mcg/min, 112.5 mls/hr Vancomycin HCl (Vancomycin 500mg In Ns) 500 mg in 100 mls @ 200 mls/hr IVPB Q12 FLAVIO PRN Reason: Protocol Last Admin: 02/18/18 10:11 Dose: 200 mls/hr Valproate Sodium 500 mg/ (Sodium Chloride) 105 mls @ 100 mls/hr IVPB TID FLAVIO Last Admin: 02/18/18 17:56 Dose: 100 mls/hr Sodium Bicarbonate 100 meq/ (Dextrose/Sodium Chloride) 1,100 mls @ 100 mls/hr IV .Q11H [facility] Last Admin: 02/18/18 17:57 Dose: 100 mls/hr Phenylephrine HCl 40 mg/ (Sodium Chloride) 254 mls @ 38.1 mls/hr IV .Q6H40M PRN ; Protocol; 100 MCG/MIN PRN Reason: TITRATE PER MD ORDER Insulin Human Lispro (Humalog Low) 0 units SC ACHS FLAVIO PRN Reason: Protocol Last Admin: 02/18/18 17:45 Dose: 3 units Levothyroxine Sodium (Synthroid) 175 mcg PO 0600 [facility] Last Admin: 02/18/18 09:28 Dose: 175 mcg Pantoprazole Sodium (Protonix Inj) 40 mg IVP DAILY [facility] Last Admin: 02/18/18 09:38 Dose: 40 mg Family Hx: none given ROS: Patient confused today. Poor historian. Past Patient History - Infectious Disease Hx of Infectious Diseases: None - Tetanus Immunizations Tetanus Immunization: Unknown - Past Social History Smoking Status: Smoker Currrent Status Unknown - CARDIAC Hx Hypertension: Yes - PULMONARY Hx Chronic Obstructive Pulmonary Disease (COPD): Yes Hx Emphysema: Yes Other/Comment: resp failure - NEUROLOGICAL Hx Neurological Disorder: Yes (cognitive deficits, syncope) Hx Seizures: Yes - HEENT Hx HEENT Problems: Yes Hx Glaucoma: Yes - RENAL Hx Chronic Kidney Disease: Yes Hx Dialysis: Yes (TS) Date of Last Dialysis Treatment: 01/20/18 Hx Renal Failure: Yes - ENDOCRINE/METABOLIC Hx Diabetes Mellitus Type 2: Yes Hx Hypothyroidism: Yes - HEMATOLOGICAL/ONCOLOGICAL Hx Blood Disorders: Yes Hx Anemia: Yes Other/Comment: sepsis - INTEGUMENTARY Hx Dermatological Problems: Yes Other/Comment: stage 2 opening left buttock 0.5cm round wound bed red and 1cm round opening wound bed red, redness to buttocks and sacrum, multiple red areas of skin to outer lower left leg, fading redness and rash under both breasts, bikini line scar, dry lips, dry skin to feet, thick dry toenails, multple bruises bke, dry scab 1cm rounc right knee, scrape left knee - MUSCULOSKELETAL/RHEUMATOLOGICAL Hx Falls: (Unknown) - GASTROINTESTINAL Hx Gastrointestinal Disorders: Yes (gi bleed, difficulty chewing) Hx Gastroesophageal Reflux: Yes Other/Comment: gi bleed, bleeding gastric erosion, esophageal ulcers, duodenitis - GENITOURINARY/GYNECOLOGICAL Hx Genitourinary Disorders: Yes Hx Incontinence: Yes Hx Urinary Tract Infection: Yes - PSYCHIATRIC Hx Psychophysiologic Disorder: Yes Hx Schizophrenia: Yes Hx Substance Use: No (UNKNOWN) Other/Comment: suicidal,ams, cognitive defects, prior resident of [facility] - SURGICAL HISTORY Hx Surgeries: Yes (R CWALL UDALL,R GROIN TLC,) - ANESTHESIA Hx Anesthesia: Yes Hx Anesthesia Reactions: No Hx Malignant Hyperthermia: No Meds Allergies/Adverse Reactions: Allergies Allergy/AdvReac Type Severity Reaction Status Date / Time aspirin AdvReac RASH Verified 01/20/18 18:57 haloperidol [From Haldol] AdvReac RASH Verified 01/20/18 18:57 haloperidol lactate AdvReac RASH Verified 01/20/18 18:57 [From Haldol] mesalamine [From Asacol] AdvReac RASH Verified 01/20/18 18:57 Penicillins AdvReac RASH Verified 01/20/18 18:57 seafood AdvReac RASH Uncoded 01/20/18 18:57 - Medications Medications: Current Medications Acetaminophen (Tylenol 325mg Tab) 650 mg PO Q4H PRN PRN Reason: Fever >100.4 F Albuterol/Ipratropium (Duoneb 3 Mg/0.5 Mg (3 Ml) Ud) 3 ml IH [id number] PRN PRN Reason: Shortness of Breath Apixaban (Eliquis) 5 mg PO BID FLAVIO PRN Reason: Protocol Last Admin: 02/18/18 17:49 Dose: Not Given Arformoterol Tartrate (Brovana) 15 mcg IH Q12 FLAVIO Last Admin: 02/18/18 10:16 Dose: 15 mcg Budesonide (Pulmicort Respules) 0.5 mg IH Q12 FLAVIO Last Admin: 02/18/18 10:16 Dose: 0.5 mg NOREPINEPHRINE BIT/0.9 % NACL (Levophed 4 Mg/ 250 Ml Ns Premixed) 4 mg in 250 mls @ 15 mls/hr IV .[id number] PRN; Protocol; 4 MCG/MIN PRN Reason: TITRATE PER MD ORDER Last Admin: 02/18/18 18:10 Dose: 30 mcg/min, 112.5 mls/hr Vancomycin HCl (Vancomycin 500mg In Ns) 500 mg in 100 mls @ 200 mls/hr IVPB Q12 FLAVIO PRN Reason: Protocol Last Admin: 02/18/18 10:11 Dose: 200 mls/hr Valproate Sodium 500 mg/ (Sodium Chloride) 105 mls @ 100 mls/hr IVPB TID [facility] Last Admin: 02/18/18 17:56 Dose: 100 mls/hr Sodium Bicarbonate 100 meq/ (Dextrose/Sodium Chloride) 1,100 mls @ 100 mls/hr IV .Q11H [facility] Last Admin: 02/18/18 17:57 Dose: 100 mls/hr Phenylephrine HCl 40 mg/ (Sodium Chloride) 254 mls @ 38.1 mls/hr IV .Q6H40M PRN ; Protocol; 100 MCG/MIN PRN Reason: TITRATE PER MD ORDER Insulin Human Lispro (Humalog Low) 0 units SC ACHS [facility] PRN Reason: Protocol Last Admin: 02/18/18 17:45 Dose: 3 units Levothyroxine Sodium (Synthroid) 175 mcg PO 0600 [facility] Last Admin: 02/18/18 09:28 Dose: 175 mcg Pantoprazole Sodium (Protonix Inj) 40 mg IVP DAILY [facility] Last Admin: 02/18/18 09:38 Dose: 40 mg Physical Exam - Constitutional Appears: Non-toxic, No Acute Distress, Chronically Ill - Head Exam Head Exam: ATRAUMATIC, NORMOCEPHALIC - Eye Exam Eye Exam: EOMI, PERRL Pupil Exam: NORMAL ACCOMODATION, PERRL - ENT Exam ENT Exam: Mucous Membranes Moist, Normal External Ear Exam, TM's Normal Bilaterally - Neck Exam Neck exam: Positive for: Full Rom, Normal Inspection - Respiratory Exam Respiratory Exam: Decreased Breath Sounds, Wheezes. absent: Rales, Rhonchi - Cardiovascular Exam Cardiovascular Exam: REGULAR RHYTHM, RRR, +S1, +S2 - GI/Abdominal Exam GI & Abdominal Exam: Normal Bowel Sounds, Soft. absent: Distended, Tenderness - Extremities Exam Extremities exam: Positive for: full ROM, normal inspection - Neurological Exam Neurological exam: Alert, CN II-XII Intact - Psychiatric Exam Psychiatric exam: Flat Affect - Skin Skin Exam: Intact, Normal Color Results - Vital Signs Recent Vital Signs: Last Vital Signs Temp 97.4 F L 02/18/18 12:00 Pulse 155 H 02/18/18 16:25 Resp 18 05/27/18 12:10 BP 92/48 L 05/27/18 16:25 Pulse Ox 100 02/18/18 12:10 - Labs Result Diagrams: 02/18/18 05:30 02/18/18 15:00 Labs: Laboratory Results - last 24 hr 02/17/18 02/17/18 02/18/18 19:30 20:50 05:30 WBC 8.0 RBC 2.93 L Hgb 9.2 L Hct 30.3 L MCV 103.4 MCH 31.4 MCHC 30.4 L RDW 24.6 H Plt Count 115 L MPV 10.4 Gran % 48.8 L Lymph % (Auto) 38.8 H Petroleum % (Auto) 12.3 H Eos % (Auto) 0.0 L Baso % (Auto) 0.1 Gran # 3.89 Lymph # (Auto) 3.1 Petroleum # (Auto) 1.0 H Eos # (Auto) 0.0 Baso # (Auto) 0.01 pCO2 pO2 HCO3 ABG pH ABG Total CO2 ABG O2 Saturation ABG O2 Content ABG Base Excess ABG Hemoglobin ABG Carboxyhemoglobin POC ABG HHb (Measured) ABG Methemoglobin ABG O2 Capacity ABG Potassium VBG pH VBG pCO2 VBG HCO3 VBG Total CO2 VBG O2 Sat (Calc) VBG Base Excess VBG Potassium Hgb O2 Saturation Glucose Lactate FiO2 Inspiratory BiPAP Sodium 148 Potassium 4.8 Chloride 114 H Carbon Dioxide 19 L Anion Gap 20 BUN 65 H Creatinine 3.3 H Est GFR ( Amer) 17 Est GFR (Non-Af Amer) 14 POC Glucose (mg/dL) Random Glucose 86 Hemoglobin A1c Calcium 8.5 Phosphorus Magnesium Total Bilirubin 0.4 AST 112 H ALT 27 Alkaline Phosphatase 125 Total Protein 4.7 L Albumin 1.8 L Globulin 2.9 Albumin/Globulin Ratio 0.6 L Procalcitonin > 200.00 H Free T4 TSH 3rd Generation Arterial Blood Potassium Venous Blood Potassium Valproic Acid Ur L.pneumophila Ag 02/18/18 02/18/18 02/18/18 05:30 05:30 05:30 WBC RBC Hgb Hct MCV MCH MCHC RDW Plt Count MPV Gran % Lymph % (Auto) Petroleum % (Auto) Eos % (Auto) Baso % (Auto) Gran # Lymph # (Auto) Petroleum # (Auto) Eos # (Auto) Baso # (Auto) pCO2 pO2 HCO3 ABG pH ABG Total CO2 ABG O2 Saturation ABG O2 Content ABG Base Excess ABG Hemoglobin ABG Carboxyhemoglobin POC ABG HHb (Measured) ABG Methemoglobin ABG O2 Capacity ABG Potassium VBG pH VBG pCO2 VBG HCO3 VBG Total CO2 VBG O2 Sat (Calc) VBG Base Excess VBG Potassium Hgb O2 Saturation Glucose Lactate FiO2 Inspiratory BiPAP Sodium 149 H Potassium 5.6 H* Chloride 114 H Carbon Dioxide 18 L Anion Gap 23 H BUN 67 H Creatinine 3.8 H Est GFR ( Amer) 15 Est GFR (Non-Af Amer) 12 POC Glucose (mg/dL) Random Glucose 197 H Hemoglobin A1c 5.8 Calcium 8.3 L Phosphorus 7.6 H Magnesium 2.3 H Total Bilirubin 0.6 AST 127 H ALT 30 Alkaline Phosphatase 137 H Total Protein 5.9 Albumin 2.4 L Globulin 3.4 Albumin/Globulin Ratio 0.7 L Procalcitonin Free T4 0.32 L TSH 3rd Generation 0.08 L Arterial Blood Potassium Venous Blood Potassium Valproic Acid Ur L.pneumophila Ag 02/18/18 02/18/18 02/18/18 05:30 05:30 07:25 WBC RBC Hgb Hct MCV MCH MCHC RDW Plt Count MPV Gran % Lymph % (Auto) Petroleum % (Auto) Eos % (Auto) Baso % (Auto) Gran # Lymph # (Auto) Petroleum # (Auto) Eos # (Auto) Baso # (Auto) pCO2 48 H pO2 124 H 66.0 L HCO3 18.8 L ABG pH 7.20 L ABG Total CO2 20.3 L ABG O2 Saturation 94.9 L ABG O2 Content ABG Base Excess -9.3 L ABG Hemoglobin ABG Carboxyhemoglobin POC ABG HHb (Measured) ABG Methemoglobin ABG O2 Capacity ABG Potassium 5.2 VBG pH 7.07 L* VBG pCO2 61.0 H VBG HCO3 17.7 L VBG Total CO2 19.6 L VBG O2 Sat (Calc) 99.0 H VBG Base Excess -13.0 L VBG Potassium 5.7 H Hgb O2 Saturation Glucose 215 H 207 H Lactate 1.4 1.4 FiO2 21.0 60.0 Inspiratory BiPAP 12 Sodium 144.0 146.0 Potassium Chloride 116.0 H 116.0 H Carbon Dioxide Anion Gap BUN Creatinine Est GFR ( Amer) Est GFR (Non-Af Amer) POC Glucose (mg/dL) Random Glucose Hemoglobin A1c Calcium Phosphorus Magnesium Total Bilirubin AST ALT Alkaline Phosphatase Total Protein Albumin Globulin Albumin/Globulin Ratio Procalcitonin Free T4 TSH 3rd Generation Arterial Blood Potassium 5.2 Venous Blood Potassium 5.7 H Valproic Acid 25 L Ur L.pneumophila Ag 02/18/18 02/18/18 02/18/18 08:29 11:18 12:54 WBC RBC Hgb Hct MCV MCH MCHC RDW Plt Count MPV Gran % Lymph % (Auto) Petroleum % (Auto) Eos % (Auto) Baso % (Auto) Gran # Lymph # (Auto) Petroleum # (Auto) Eos # (Auto) Baso # (Auto) pCO2 pO2 HCO3 ABG pH ABG Total CO2 ABG O2 Saturation ABG O2 Content ABG Base Excess ABG Hemoglobin ABG Carboxyhemoglobin POC ABG HHb (Measured) ABG Methemoglobin ABG O2 Capacity ABG Potassium VBG pH VBG pCO2 VBG HCO3 VBG Total CO2 VBG O2 Sat (Calc) VBG Base Excess VBG Potassium Hgb O2 Saturation Glucose Lactate FiO2 Inspiratory BiPAP Sodium Potassium Chloride Carbon Dioxide Anion Gap BUN Creatinine Est GFR ( Amer) Est GFR (Non-Af Amer) POC Glucose (mg/dL) 213 H 266 H Random Glucose Hemoglobin A1c Calcium Phosphorus Magnesium Total Bilirubin AST ALT Alkaline Phosphatase Total Protein Albumin Globulin Albumin/Globulin Ratio Procalcitonin Free T4 TSH 3rd Generation Arterial Blood Potassium Venous Blood Potassium Valproic Acid Ur L.pneumophila Ag Negative 02/18/18 02/18/18 02/18/18 15:00 15:52 16:40 WBC RBC Hgb Hct MCV MCH MCHC RDW Plt Count MPV Gran % Lymph % (Auto) Petroleum % (Auto) Eos % (Auto) Baso % (Auto) Gran # Lymph # (Auto) Petroleum # (Auto) Eos # (Auto) Baso # (Auto) pCO2 42 pO2 74.0 L HCO3 18.0 L ABG pH 7.24 L ABG Total CO2 19.3 L ABG O2 Saturation 96.8 ABG O2 Content 12.3 L ABG Base Excess -8.8 L ABG Hemoglobin 9.2 L ABG Carboxyhemoglobin 1.6 H POC ABG HHb (Measured) 3.1 ABG Methemoglobin 1.1 ABG O2 Capacity 12.7 L ABG Potassium VBG pH VBG pCO2 VBG HCO3 VBG Total CO2 VBG O2 Sat (Calc) VBG Base Excess VBG Potassium Hgb O2 Saturation 94.2 L Glucose Lactate FiO2 60.0 Inspiratory BiPAP Sodium 151 H Potassium 5.1 H Chloride 114 H Carbon Dioxide 20 L Anion Gap 22 H BUN 69 H Creatinine 3.7 H Est GFR ( Amer) 15 Est GFR (Non-Af Amer) 12 POC Glucose (mg/dL) 268 H Random Glucose 280 H Hemoglobin A1c Calcium 7.6 L Phosphorus Magnesium Total Bilirubin AST ALT Alkaline Phosphatase Total Protein Albumin Globulin Albumin/Globulin Ratio Procalcitonin Free T4 TSH 3rd Generation Arterial Blood Potassium Venous Blood Potassium Valproic Acid Ur L.pneumophila Ag Assessment & Plan - Assessment and Plan (Free Text) Assessment: 62 yo female with SOB, hypotensive, and multiple electrolyte abnormalities. The patient is on BiPAP now. She is awake and alert now. Poor historian. Creatinine is significantly elevated. She is actively wheezing at this time. Supportive care. On IV Antibiotics of Vancomycin and was given Aztreonam. Cuadra cultures sent. Will check [facility] records of the recent hospitalization. Supportive care. Chest X-ray showing signs of bilateral lower lobe pneumonia. Will add Azithromycin and Aztreonam to the regimen for now. Thank you for allowing me to participate in the care of the patient, we will follow with you.
[2018-02-18] MEDS: Phenylephrine 80 MG in Sodium Chloride 0.9% 250 ML IV PRN (20:49)
--- NOTE | 2018-02-18 22:44 | CON ---
DATE: 02/18/2018 PULMONARY CONSULT REASON FOR CONSULT: Respiratory failure, admitted in the Intensive Care Unit. HISTORY OF PRESENT ILLNESS: This is a 62-year-old female, well known to me from previous admission. She is a [facility] resident, has a chronic obstructive lung disease, diabetes, hypertension, bipolar disorder. She is DNR and DNI. Has a DVT of upper extremity, hyperlipidemia, renal failure and at one point required dialysis, atrial fibrillation. [facility] from [facility] with hypotension, respiratory failure, change in mental status, found to have hypercapnic respiratory failure. She started on noninvasive ventilation. Admitted to Intensive Care Unit, presently she is arousable, started on antibiotics, bronchodilator. No hemoptysis. No hematemesis. No hematuria. No diarrhea reported. PAST MEDICAL HISTORY: Also has a history of seizures, decubitus ulcer, schizophrenia, anemia. ALLERGIES: ALLERGY TO ASPIRIN, HALDOL, PENICILLIN. SOCIAL HISTORY: History of smoking. Presently, prison resident. FAMILY HISTORY: No significant cardiopulmonary disease reported. MEDICATIONS: She is on Azactam 100 mg every 8 hours, Brovana inhaled twice a day, DuoNeb every 6 hours p.r.n., Eliquis 5 mg twice a day, insulin coverage, she is on Levophed for blood pressure support, also on Sulaiman-Synephrine, Protonix 40 mg daily, Pulmicort inhaled twice a day, IV fluid with bicarbonate, Synthroid 175 mcg daily, Tylenol p.r.n., valproate 500 mg three times a day, vancomycin 500 mg every 12 hours, Zithromax 500 mg daily. REVIEW OF SYSTEMS: She is lethargic, sleepy, arousable, goes back to sleep, on BiPAP presently. No hemoptysis. No hematemesis. No hematuria. No diarrhea. No leg swelling reported. PHYSICAL EXAMINATION: GENERAL: Lethargic. VITAL SIGNS: Afebrile, heart rate is 100-130, respiratory rate is 24, blood pressure 92/48, pulse ox 100% on BiPAP with supplemental oxygen. HEENT: Moist mucous membrane. Crowded airway. NECK: Supple. No JVD. LUNGS: Have a scattered rhonchi, prolonged expiratory phase. HEART: S1 and 2. ABDOMEN: Soft, nontender, no organomegaly. EXTREMITIES: There is not much edema. NEUROLOGICAL: Lethargic. LABORATORY DATA: Shows hemoglobin 9.2, hematocrit 30.3, WBC 8, platelet is 115. ABG shows pH 7.24, pCO2 of 42, O2 of 74. This is on BiPAP at 60% oxygen. Sodium 151, potassium 5.1, chloride 114, bicarbonate 20, BUN 69, creatinine is 3.7, glucose is 268, calcium is 7.6, Legionella antigens are negative. Influenza A and B are negative. Blood culture, no growth. Urine culture has some yeast. IMPRESSION AND PLAN: Septic shock with respiratory failure, renal failure, chronic obstructive lung disease, schizophrenia, morbid obesity, noncompliant with the medication interactions, does not use bilevel positive airway pressure at prison. She is do not resuscitate and do not intubate. Also has atrial fibrillation. Agree with the present management. Continue noninvasive ventilation. Add IV and inhaled bronchodilator. Continue antibiotics, IV fluids, bicarbonate. Pressure ulcer precaution. Gastric prophylaxis. Follow up ABG, chest x-ray, CBC, CMP in the morning. Critical care time 35 minutes. Thank you and we will follow with you. Justin Shelley MD
[2018-02-19 00:48] LABS: VENOUS BLOOD GAS BASE EXCESS -4.2 mmol/L (0.0-2.0); VENOUS BLOOD GAS PO2 54 mm/Hg (30-55)
[2018-02-19 00:50] LABS: CALCIUM 7.2 mg/dL (8.4-10.5)
[2018-02-19] MEDS ORDERED: Sodium Bicarbonate 8.4% 100 MEQ in Dextrose 5% In Water 1,000 ML IV SCH (01:15)
--- NOTE | 2018-02-19 02:05 | PN ---
DATE: 02/18/2018 SUBJECTIVE: The patient is seen and examined on the bedside, looking comfortable. No nausea. Sleepy, arousable, having BiPAP. Is fatigued and tired, and is on Levophed for blood pressure stabilization. No obvious respiratory distress with BiPAP noted. The patient has been noted to have metabolic acidosis as well as respiratory acidosis, and is on BiPAP ' at this time, she is in the unit. PHYSICAL EXAMINATION: VITAL SIGNS: Temperature 99.7, pulse 94, respiratory rate 18, blood pressure 89/42. HEENT: Head normocephalic, atraumatic. Eyes PERRLA. Extraocular muscles intact. Conjunctivae clear. Nose patent. Mucous membrane moist. NECK: Supple. No carotid bruit. No JVD or thyromegaly. CHEST: Bilaterally symmetrical. HEART: S1 and S2 positive. LUNGS: Rare rhonchi at bases. ABDOMEN: Soft. No organomegaly. EXTREMITIES: Revealed positive edema in the lower extremity. NEUROLOGICAL: The patient is lethargic and somnolent, but he has been moving all 4 extremities and responding on command. LABORATORY DATA: White blood cells 8, hemoglobin 9.2, hematocrit 30.3, platelets 115. Sodium 151, potassium 5.1, BUN noted , creatinine 3.7, glucose 268. MEDICATIONS: Aztreonam, Brovana, albuterol, Eliquis, insulin, Protonix, Pulmicort, levothyroxine, Tylenol, valproic acid, Zithromax. ASSESSMENT AND PLAN: Ms. Day Hung, 62-year-old lady with anemia, thrombocytopenia, hypernatremia, hyperkalemia, hyperchloremia, renal insufficiency, diabetes mellitus, hypocalcemia. Is in the unit for respiratory distress. The patient is on bilevel positive airway pressure. Bilateral pneumonia in lower lobe region, had left side small pleural effusion. Came with altered mental status, hypotension. Looks like septic shock. She has hypercapnia as well as metabolic acidosis. The patient has hyperkalemia and possibly congestive heart failure with increased brain natriuretic peptide, pseudo-chronic renal insufficiency. I appreciated Dr. Juan F Mccullough and other doctor's input. The patient is do not resuscitate and do not intubate. Continue treatment. Giving antibiotics, Kayexalate given. Gastrointestinal and deep venous thrombosis prophylaxis. We will follow up. Steff Gallegos MD [email or web address]
[2018-02-19] MEDS: Levothyroxine 175 MCG TAB PO SCH (05:32)
[2018-02-19 06:16] LABS: ARTERIAL BLOOD GAS O2 SAT 97.8 % (95-98); ARTERIAL BLOOD GAS PCO2 39 mm/Hg (35-45); ARTERIAL BLOOD GAS PH 7.22 (7.35-7.45); ARTERIAL BLOOD GAS TCO2 17.2 mmol.L (22-28)
[2018-02-19 07:09] LABS: VENOUS BLOOD GAS BASE EXCESS -4.5 mmol/L (0.0-2.0); VENOUS BLOOD GAS PO2 50 mm/Hg (30-55); VENOUS BLOOD PH 7.21 (7.32-7.43)
[2018-02-19 07:10] LABS: ALB/GLOB RATIO 0.7 (1.1-1.8); ALBUMIN 2.2 g/dL (3.0-4.8)
[2018-02-19] MEDS: Budesonide 0.5 mg/2 ml Inhal Susp UD IH SCH ×2 (07:12→19:50)
[2018-02-19] MEDS: Arformoterol 15 mcg/2 ml Inh Sol IH SCH ×2 (07:12→19:47)
[2018-02-19 07:40] LABS: BASO # 0.01 K/mm3 (0.0-2.0); BASO % 0.1 % (0.0-3.0); GRAN # 4.69 (1.4-6.5); GRAN % 66.2 % (50.0-68.0); HEMOGLOBIN 8.5 g/dL (12.0-16.0); LYMPH # 1.7 (1.2-3.4); LYMPH % 24.5 % (22.0-35.0); MEAN CELL VOLUME 102.6 fl (80.0-105.0); MEAN CORPUSCULAR HEMOGLOBIN 31.6 pg (25.0-35.0); MEAN CORPUSCULAR HGB CONC 30.8 g/dl (31.0-37.0); MEAN PLATELET VOLUME 9.6 fl (7.0-11.0); MONO # 0.7 (0.1-0.6); MONO % 9.2 % (1.0-6.0); RBC 2.69 10^6/uL (3.5-6.1); RED CELL DISTRIBUTION WIDTH 25.2 % (11.5-14.5); WHITE BLOOD COUNT 7.1 10^3/ul (4.5-11.0)
[2018-02-19] MEDS: Phenylephrine 80 MG in Sodium Chloride 0.9% 250 ML IV PRN (08:33)
[2018-02-19] MEDS: Insulin Lispro (humaLOG) LOW Coverage SC SCH (09:15)
[2018-02-19] MEDS: Valproate 500 MG in Sodium Chloride 0.9% 100 ML IVPB SCH ×3 (09:43→17:12)
[2018-02-19] MEDS: Sodium Chloride 0.45% 1,000 ML IV SCH (09:45)
[2018-02-19] MEDS: Vancomycin 500mg in NS 500 MG/100 ML BAG IVPB SCH (09:45)
[2018-02-19] MEDS: Azithromycin 500MG/NS 250ml 500 MG/250 ML BAG IVPB SCH (09:49)
[2018-02-19 10:08] LABS: PROTHROMBIN TIME 24.3 SECONDS (9.4-12.5)
[2018-02-19 10:09] LABS: INR 2.08 (0.93-1.08); PARTIAL THROMBOPLASTIN TIME 42.2 Seconds (25.1-36.5)
--- NOTE | 2018-02-19 10:39 | CP.PCM.PN ---
Subjective - Date & Time of Evaluation Date of Evaluation: 02/19/18 Time of Evaluation: 07:30 - Subjective Subjective: Patient seen and examined. Remains lethargic, minimally responsive to verbal stimuli, remains on 2 vasopressors, in septic shock. Objective - Vital Signs/Intake and Output Vital Signs (last 24 hours): Temp Pulse Resp BP Pulse Ox 97.6 F 97 H 21 106/43 L 100 02/19/18 04:00 02/19/18 07:50 02/19/18 07:50 02/19/18 07:31 02/19/18 07:50 Intake and Output: 02/19/18 02/19/18 06:59 18:59 Intake Total 2116 258 Output Total 200 Balance 1916 258 - Medications Medications: Current Medications Acetaminophen (Tylenol 325mg Tab) 650 mg PO Q4H PRN PRN Reason: Fever >100.4 F Albuterol/Ipratropium (Duoneb 3 Mg/0.5 Mg (3 Ml) Ud) 3 ml IH [id number] PRN PRN Reason: Shortness of Breath Last Admin: 02/19/18 03:14 Dose: 3 ml Apixaban (Eliquis) 2.5 mg PO BID FLAVIO PRN Reason: Protocol Arformoterol Tartrate (Brovana) 15 mcg IH Q12 FLAVIO Last Admin: 02/19/18 07:12 Dose: 15 mcg Budesonide (Pulmicort Respules) 0.5 mg IH Q12 FLAVIO Last Admin: 02/19/18 07:12 Dose: 0.5 mg Hydrocortisone Sodium Succinate (Solu-Cortef) 100 mg IVP Q8 FLAVIO Last Admin: 02/19/18 05:31 Dose: 100 mg Vancomycin HCl (Vancomycin 500mg In Ns) 500 mg in 100 mls @ 200 mls/hr IVPB Q12 FLAVIO PRN Reason: Protocol Last Admin: 02/19/18 09:45 Dose: 200 mls/hr Valproate Sodium 500 mg/ (Sodium Chloride) 105 mls @ 100 mls/hr IVPB TID FLAVIO Last Admin: 02/19/18 09:43 Dose: 100 mls/hr Aztreonam 500 mg/ Sodium (Chloride) 100 mls @ 100 mls/hr IVPB Q8 FLAVIO PRN Reason: Protocol Last Admin: 02/19/18 05:30 Dose: 100 mls/hr Azithromycin (Zithromax 500mg In Ns) 500 mg in 250 mls @ 167 mls/hr IVPB DAILY FLAVIO PRN Reason: Protocol Last Admin: 02/19/18 09:49 Dose: 167 mls/hr Phenylephrine HCl 80 mg/ (Sodium Chloride) 258 mls @ 19.35 mls/hr IV .[id number] PRN; Protocol; 100 MCG/MIN PRN Reason: TITRATE PER MD ORDER Last Admin: 02/19/18 08:33 Dose: 100 mcg/min, 19.35 mls/hr Norepinephrine Bitartrate 8 mg (/ Sodium Chloride) 258 mls @ 58.05 mls/hr IV .Q4H27M FLAVIO; 30 MCG/MIN PRN Reason: Protocol Last Admin: 02/19/18 08:33 Dose: 30 mcg/min, 58.05 mls/hr Sodium Chloride (Sodium Chloride 0.45%) 1,000 mls @ 100 mls/hr IV .Q10H FLAVIO Vasopressin 20 units/ Dextrose 101 mls @ 9.09 mls/hr IV .Q11H7M FLAVIO; 0.03 U/MIN PRN Reason: Protocol Insulin Human Lispro (Humalog High) 0 units SC ACHS FLAVIO PRN Reason: Protocol Levothyroxine Sodium (Synthroid) 175 mcg PO 0600 [facility] Last Admin: 02/19/18 05:32 Dose: Not Given Pantoprazole Sodium (Protonix Inj) 40 mg IVP DAILY [facility] Last Admin: 02/18/18 09:38 Dose: 40 mg - Labs Labs: 02/19/18 06:05 02/19/18 06:05 PT 24.3 SECONDS (9.4-12.5) H 02/19/18 09:20 INR 2.08 (0.93-1.08) H 02/19/18 09:20 APTT 42.2 Seconds (25.1-36.5) H 02/19/18 09:20 - Constitutional Appears: Older Than Stated Age, Confused, Chronically Ill - Head Exam Head Exam: NORMAL INSPECTION - Eye Exam Eye Exam: Normal appearance - ENT Exam ENT Exam: Mucous Membranes Dry - Respiratory Exam Respiratory Exam: Decreased Breath Sounds, Rhonchi, NORMAL BREATHING PATTERN - Cardiovascular Exam Cardiovascular Exam: REGULAR RHYTHM, +S1, +S2 - GI/Abdominal Exam GI & Abdominal Exam: Soft, Normal Bowel Sounds - Back Exam Back Exam: NORMAL INSPECTION - Neurological Exam Neurological Exam: Altered Assessment and Plan - Assessment and Plan (Free Text) Assessment: 62yo female a/w septic shock Septic Shock PNA Acute on CKD Dehydration AMS RUE DVT on A/C COPD Hypernatremia - currently afebrile, on 2 Vasopressors, Levo, Neosynephrine, stress dose steroids, Vasopressin added - remains altered, on BIPAP, comfortable - patient is DNR/DNI - Procal markedly elevated, on broad spectrum Abx, ID following Recommend: - cont with BIPAP as needed, wean off as tolerated - DUonebs q6hr - Chest PT - Broad spectrum abx as per ID, Shama Merrem, Azithro - Check Urine Lg Strep - follow up ID - hold BP meds - Eliquis renall dosed - add Vasopressin - DC bicarb drip, bicarb 24 today - start 1/2NS - obtain palliative care consult - GI ppx - DVT ppx, Eliquis - Monitor in MICU Critical care time 40 minutes
[2018-02-19] MEDS: Vasopressin 20 UNITS in Dextrose 5% In Water 100 ML IV SCH ×2 (10:49→21:42)
[2018-02-19] MEDS ORDERED: Insulin Lispro (HUMAlog) HIGH Coverage SC SCH (11:30)
--- NOTE | 2018-02-19 16:34 | CP.PCM.PN ---
Subjective - Date & Time of Evaluation Date of Evaluation: 02/19/18 Time of Evaluation: 15:30 - Subjective Subjective: Infectious Disease Follow Up: February 19, 2018 62 yo female with multiple hospitalization with a recent hospitalization to [facility] [place] where she was intubated. The patient was transferred back to [facility]. However, the patient felt feverish, was SOB, hypotensive, and AMS. Currently in the MICU at [facility] [place] [place]. Remains lethargic. On 2 Vasopressors to support blood pressure. Poorly responsive. On Aztreonam, Vancomycin IV, and Aztreonam. PMHx: Diabetes Mellitus, COPD, Substance abuse history, CKD, Seizure disorder history , hypothyroidism, HTN Allergies: ASA, Haldol, Asacol, PCN, Seafood Social Hx: No EtOH, former tobacco use, former substance abuse history. Active Medications Acetaminophen (Tylenol 325mg Tab) 650 mg PO Q4H PRN PRN Reason: Fever >100.4 F Albuterol/Ipratropium (Duoneb 3 Mg/0.5 Mg (3 Ml) Ud) 3 ml IH [id number] PRN PRN Reason: Shortness of Breath Last Admin: 02/19/18 03:14 Dose: 3 ml Apixaban (Eliquis) 2.5 mg PO BID FLAVIO PRN Reason: Protocol Last Admin: 02/19/18 10:00 Dose: Not Given Arformoterol Tartrate (Brovana) 15 mcg IH Q12 FLAVIO Last Admin: 02/19/18 07:12 Dose: 15 mcg Budesonide (Pulmicort Respules) 0.5 mg IH Q12 FLAVIO Last Admin: 02/19/18 07:12 Dose: 0.5 mg Hydrocortisone Sodium Succinate (Solu-Cortef) 100 mg IVP Q8 FLAVIO Last Admin: 02/19/18 15:03 Dose: 100 mg Vancomycin HCl (Vancomycin 500mg In Ns) 500 mg in 100 mls @ 200 mls/hr IVPB Q12 FLAVIO PRN Reason: Protocol Last Admin: 02/19/18 09:45 Dose: 200 mls/hr Valproate Sodium 500 mg/ (Sodium Chloride) 105 mls @ 100 mls/hr IVPB TID [facility] Last Admin: 02/19/18 14:20 Dose: 100 mls/hr Aztreonam 500 mg/ Sodium (Chloride) 100 mls @ 100 mls/hr IVPB Q8 FLAVIO PRN Reason: Protocol Last Admin: 02/19/18 14:21 Dose: 100 mls/hr Azithromycin (Zithromax 500mg In Ns) 500 mg in 250 mls @ 167 mls/hr IVPB DAILY FLAVIO PRN Reason: Protocol Last Admin: 02/19/18 09:49 Dose: 167 mls/hr Phenylephrine HCl 80 mg/ (Sodium Chloride) 258 mls @ 19.35 mls/hr IV .[id number] PRN; Protocol; 100 MCG/MIN PRN Reason: TITRATE PER MD ORDER Last Titration: 02/19/18 15:43 Dose: 0 mcg/min, 0 mls/hr Norepinephrine Bitartrate 8 mg (/ Sodium Chloride) 258 mls @ 58.05 mls/hr IV .Q4H27M FLAVIO; 30 MCG/MIN PRN Reason: Protocol Last Titration: 02/19/18 11:45 Dose: 6 mcg/min, 11.61 mls/hr Sodium Chloride (Sodium Chloride 0.45%) 1,000 mls @ 100 mls/hr IV .Q10H FLAVIO Last Admin: 02/19/18 09:45 Dose: 100 mls/hr Vasopressin 20 units/ Dextrose 101 mls @ 9.09 mls/hr IV .Q11H7M FLAVIO; 0.03 U/MIN PRN Reason: Protocol Last Admin: 02/19/18 10:49 Dose: 9.09 mls/hr Insulin Human Lispro (Humalog High) 0 units SC Q6 FLAVIO PRN Reason: Protocol Levothyroxine Sodium (Synthroid) 175 mcg PO 0600 FLAVIO Last Admin: 02/19/18 05:32 Dose: Not Given Pantoprazole Sodium (Protonix Inj) 40 mg IVP DAILY FLAVIO Last Admin: 02/19/18 15:03 Dose: 40 mg Family Hx: none given ROS: Patient confused and lethargic today. Poor historian. Objective - Vital Signs/Intake and Output Vital Signs (last 24 hours): Temp Pulse Resp BP Pulse Ox 97.6 F 91 H 20 113/52 L 100 02/19/18 04:00 02/19/18 15:00 02/19/18 15:00 02/19/18 15:00 02/19/18 15:00 Intake and Output: 02/19/18 02/19/18 06:59 18:59 Intake Total 2116 430 Output Total 200 Balance 1916 430 - Medications Medications: Current Medications Acetaminophen (Tylenol 325mg Tab) 650 mg PO Q4H PRN PRN Reason: Fever >100.4 F Albuterol/Ipratropium (Duoneb 3 Mg/0.5 Mg (3 Ml) Ud) 3 ml IH [id number] PRN PRN Reason: Shortness of Breath Last Admin: 02/19/18 03:14 Dose: 3 ml Apixaban (Eliquis) 2.5 mg PO BID FLAVIO PRN Reason: Protocol Last Admin: 02/19/18 10:00 Dose: Not Given Arformoterol Tartrate (Brovana) 15 mcg IH Q12 FLAVIO Last Admin: 02/19/18 07:12 Dose: 15 mcg Budesonide (Pulmicort Respules) 0.5 mg IH Q12 FLAVIO Last Admin: 02/19/18 07:12 Dose: 0.5 mg Hydrocortisone Sodium Succinate (Solu-Cortef) 100 mg IVP Q8 FLAVIO Last Admin: 02/19/18 15:03 Dose: 100 mg Vancomycin HCl (Vancomycin 500mg In Ns) 500 mg in 100 mls @ 200 mls/hr IVPB Q12 FLAVIO PRN Reason: Protocol Last Admin: 02/19/18 09:45 Dose: 200 mls/hr Valproate Sodium 500 mg/ (Sodium Chloride) 105 mls @ 100 mls/hr IVPB TID FLAVIO Last Admin: 02/19/18 14:20 Dose: 100 mls/hr Aztreonam 500 mg/ Sodium (Chloride) 100 mls @ 100 mls/hr IVPB Q8 FLAVIO PRN Reason: Protocol Last Admin: 02/19/18 14:21 Dose: 100 mls/hr Azithromycin (Zithromax 500mg In Ns) 500 mg in 250 mls @ 167 mls/hr IVPB DAILY FLAVIO PRN Reason: Protocol Last Admin: 02/19/18 09:49 Dose: 167 mls/hr Phenylephrine HCl 80 mg/ (Sodium Chloride) 258 mls @ 19.35 mls/hr IV .[id number] PRN; Protocol; 100 MCG/MIN PRN Reason: TITRATE PER MD ORDER Last Titration: 02/19/18 15:43 Dose: 0 mcg/min, 0 mls/hr Norepinephrine Bitartrate 8 mg (/ Sodium Chloride) 258 mls @ 58.05 mls/hr IV .Q4H27M FLAVIO; 30 MCG/MIN PRN Reason: Protocol Last Titration: 02/19/18 11:45 Dose: 6 mcg/min, 11.61 mls/hr Sodium Chloride (Sodium Chloride 0.45%) 1,000 mls @ 100 mls/hr IV .Q10H FLAVIO Last Admin: 02/19/18 09:45 Dose: 100 mls/hr Vasopressin 20 units/ Dextrose 101 mls @ 9.09 mls/hr IV .Q11H7M FLAVIO; 0.03 U/MIN PRN Reason: Protocol Last Admin: 02/19/18 10:49 Dose: 9.09 mls/hr Insulin Human Lispro (Humalog High) 0 units SC Q6 FLAVIO PRN Reason: Protocol Levothyroxine Sodium (Synthroid) 175 mcg PO 0600 [facility] Last Admin: 02/19/18 05:32 Dose: Not Given Pantoprazole Sodium (Protonix Inj) 40 mg IVP DAILY [facility] Last Admin: 02/19/18 15:03 Dose: 40 mg - Labs Labs: 02/19/18 06:05 02/19/18 06:05 PT 24.3 SECONDS (9.4-12.5) H 02/19/18 09:20 INR 2.08 (0.93-1.08) H 02/19/18 09:20 APTT 42.2 Seconds (25.1-36.5) H 02/19/18 09:20 - Constitutional Appears: Non-toxic, No Acute Distress, Chronically Ill - Head Exam Head Exam: ATRAUMATIC, NORMOCEPHALIC - Eye Exam Eye Exam: EOMI, PERRL Pupil Exam: NORMAL ACCOMODATION, PERRL - ENT Exam ENT Exam: Mucous Membranes Moist, Normal External Ear Exam, TM's Normal Bilaterally - Neck Exam Neck Exam: Full ROM, Normal Inspection - Respiratory Exam Respiratory Exam: Decreased Breath Sounds, Wheezes - GI/Abdominal Exam GI & Abdominal Exam: Soft, Normal Bowel Sounds. absent: Distended, Tenderness - Extremities Exam Extremities Exam: Full ROM, Normal Inspection - Neurological Exam Neurological Exam: CN II-XII Intact Additional comments: AAO x 0-1 - Skin Skin Exam: Intact, Normal Color Assessment and Plan - Assessment and Plan (Free Text) Assessment: 62 yo female with SOB, hypotensive, and multiple electrolyte abnormalities. The patient is on BiPAP now. She is awake and alert now. Poor historian. Creatinine is significantly elevated. She is actively wheezing at this time. Supportive care. On IV Antibiotics of Vancomycin and was given Aztreonam. Cuadra cultures sent. Will check [facility] records of the recent hospitalization. Supportive care. Chest X-ray showing signs of bilateral lower lobe pneumonia. On IV Vancomycon, Azithromycin, and Aztreonam. If no improvement, will have to consider Meropenem over Aztreonam especially if patient is intubated. Thank you for allowing me to participate in the care of the patient, we will follow with you.
[2018-02-19] MEDS ORDERED: Digoxin 500 mcg/2ml (0.5 mg/2ml) Inj IVP ONE (16:51)
[2018-02-19 17:19] VITALS: PULSE 138
--- NOTE | 2018-02-19 17:51 | RAD ---
HISTORY: NGT placement COMPARISON: No prior. FINDINGS: Interval placement NGT/feeding tube, the tip of which lies left upper quadrant of the abdomen. . No change left IJ central line with tip in the SVC/RA junction. LUNGS: Patchy bilateral infiltrates with more dense confluent opacities seen in the left and to a lesser degree right lung bases. Probable bilateral effusions. . Central pulmonary vasculature is also congested in appearance PLEURA: As above. No pneumothorax apparent. CARDIOVASCULAR: No significant change OSSEOUS STRUCTURES: No significant abnormalities. VISUALIZED UPPER ABDOMEN: Normal. OTHER FINDINGS: None. IMPRESSION: Support lines and tubes as above. Patchy bilateral infiltrates with more dense confluent opacities seen in the left and to a lesser degree right lung bases. Probable bilateral effusions. . Central pulmonary vasculature is also congested in appearance
--- NOTE | 2018-02-19 17:59 | PN ---
DATE: 02/19/2018 PULMONARY PROGRESS NOTE REFERRING PHYSICIAN: Steff Gallegos MD. SUBJECTIVE: She is still very lethargic with noninvasive ventilation. Could not give her medication because very lethargy, risk of aspiration. No hemoptysis. No hematemesis. No hematuria. Does have some upper extremity swelling, not much lower extremity swelling. OBJECTIVE: GENERAL: On BiPAP. VITAL SIGNS: Temp is 98, heart rate is 75, respiratory rate is 25, blood pressure 130/57, pulse ox 100% on BiPAP with supplement oxygen. HEENT: Moist mucous membrane. Crowded airway. NECK: Supple. No JVD. LUNGS: Have a fair airflow with scattered rhonchi and wheezing. HEART: S1 and S2. ABDOMEN: Soft, nontender. No organomegaly. EXTREMITIES: There is not much edema of the lower extremity. NEUROLOGICAL: Lethargic, arousable. LABORATORY DATA: Shows hemoglobin 8.5, hematocrit 27.6, WBC 7.1, platelet count is 90. INR 2.08, PTT is 42. ABG showed pH 7.22, pCO2 39, O2 is 80. This is on noninvasive ventilation. Sodium 142, potassium 4.2, chloride 113, bicarbonate 24, BUN 70, creatinine 3.2, glucose 285, calcium is 7, phosphorus 5.7, AST 64, ALT 31, alkaline phosphatase is 148, albumin is 2.2. Microbiology: Urine culture has a yeast. Blood cultures are negative. Nares culture is negative. MEDICATIONS: She is on Azactam 500 mg every 8 hours, Brovana inhaled twice a day, DuoNeb every 6 hours p.r.n., Eliquis 2.5 mg twice a day, insulin coverage, she is on Levophed and phenylephrine, also Protonix 40 mg daily, Pulmicort inhaled twice a day, IV fluid half normal saline 100 mL/hour, Solu-Cortef 100 mg every 8 hours, Synthroid 175 mcg daily, Tylenol p.r.n., valproate is 500 mg every 8 hours, vancomycin 500 mg every 12 hours, vasopressin was also added, Zithromax 500 mg daily. IMPRESSION AND PLAN: Septic shock with respiratory failure, renal failure, chronic obstructive lung disease, schizophrenia, morbid obesity, noncompliant with the medications and followup, may have adrenal insufficiency too. Case discussed with the nursing staff. The patient is do not resuscitate and do not intubate. Her post is reviewed. Nasogastric tube temporary-basis is allowable. We will get Palliative to see the patient to clarify if the patient can have dialysis temporarily. Keep head at 45 degrees. Bronchodilators. Taper her antibiotics. Follow up labs in the morning. Critical care time more than 35 minutes. Thank you and we will follow with you. Justin Shelley MD
[2018-02-19] MEDS ORDERED: Sodium Chloride 0.9% 1,000 ML IV STA (18:18)
[2018-02-19] MEDS: Insulin Lispro (HUMAlog) HIGH Coverage SC SCH (18:23)
[2018-02-19] MEDS: Meropenem 500 MG in Sodium Chloride 0.9% 50 ML IVPB SCH (21:40)
[2018-02-20] MEDS: Insulin Lispro (HUMAlog) HIGH Coverage SC SCH ×4 (00:10→19:45)
[2018-02-20] MEDS: Sodium Chloride 0.45% 1,000 ML IV SCH (01:11)
[2018-02-20] MEDS: Vancomycin 500mg in NS 500 MG/100 ML BAG IVPB SCH ×3 (01:44→21:43)
[2018-02-20] MEDS: Levothyroxine 175 MCG TAB PO SCH (05:59)
--- NOTE | 2018-02-20 06:27 | PN ---
DATE: 02/19/2018 SUBJECTIVE: Patient is a 62-year-old female. Patient seen and examined at the bedside on 02/19/2018. Patient was seen in the unit, still lethargic, with noninvasive ventilation. Could not give her p.o. medications because of her lethargy. No fever, no chills. No hematuria, hematochezia. Does have some upper extremity swelling. PHYSICAL EXAMINATION: VITAL SIGNS: Temperature 98, heart rate 75, respiratory rate 25, blood pressure 130/57, pulse ox 100% on BiPAP with supplemental oxygen. HEENT: Head normocephalic, atraumatic. Eyes PERRLA. Extraocular muscles intact. Conjunctivae clear. Nose patent. NECK: Supple. No carotid bruit. No JVD or thyromegaly. CHEST: Bilaterally symmetrical. HEART: S1 and S2 positive. LUNGS: Fair airflow with scattered rhonchi and wheezing. ABDOMEN: Soft. Bowel sounds present. No organomegaly. EXTREMITIES: No edema. No cyanosis. NEUROLOGICAL: The patient is lethargic, arousable. LABORATORY DATA: Hemoglobin 8.5, hematocrit 27.6, white blood cells 7.1, platelets 90. Sodium 142, potassium 4.2, BUN 70, creatinine 3.2. AST 64, ALT 31. Urine culture has yeast. MEDICATIONS: Azactam 500 every 8 hours, Brovana, DuoNeb, Eliquis, Protonix, Pulmicort, Solu-Cortef, Tylenol, vancomycin, vasopressin, azithromycin. ASSESSMENT AND PLAN: Ms. Day Hung came with septic shock with respiratory failure, renal failure, chronic obstructive lung disease, schizophrenia, morbid obesity, noncompliant with medications, adrenal insufficiency too, obesity, history of heavy smoking. Patient is do not resuscitate and do not intubate. Nasogastric tube on temporary basis is allowable. Keep head elevated, bronchodilators. Gastrointestinal and deep vein thrombosis prophylaxis. Repeat labs. We will follow up. Steff Gallegos MD
[2018-02-20 07:29] LABS: ALB/GLOB RATIO 0.7 (1.1-1.8); ALBUMIN 2.2 g/dL (3.0-4.8); CALCIUM 6.7 mg/dL (8.4-10.5)
[2018-02-20] MEDS: Budesonide 0.5 mg/2 ml Inhal Susp UD IH SCH ×2 (07:56→20:27)
[2018-02-20] MEDS: Arformoterol 15 mcg/2 ml Inh Sol IH SCH ×2 (07:56→20:26)
[2018-02-20] MEDS: Vasopressin 20 UNITS in Dextrose 5% In Water 100 ML IV SCH ×2 (07:58→21:09)
[2018-02-20 09:09] LABS: HEMOGLOBIN 8.8 g/dL (12.0-16.0); MEAN CELL VOLUME 102.9 fl (80.0-105.0); MEAN CORPUSCULAR HEMOGLOBIN 31.5 pg (25.0-35.0); MEAN CORPUSCULAR HGB CONC 30.7 g/dl (31.0-37.0); MEAN PLATELET VOLUME 10.7 fl (7.0-11.0); RBC 2.79 10^6/uL (3.5-6.1); RED CELL DISTRIBUTION WIDTH 25.9 % (11.5-14.5); WHITE BLOOD COUNT 15.9 10^3/ul (4.5-11.0)
[2018-02-20] MEDS: Valproate 500 MG in Sodium Chloride 0.9% 100 ML IVPB SCH ×3 (09:58→19:20)
[2018-02-20] MEDS: Meropenem 500 MG in Sodium Chloride 0.9% 50 ML IVPB SCH ×2 (10:03→21:43)
[2018-02-20] MEDS: Azithromycin 500MG/NS 250ml 500 MG/250 ML BAG IVPB SCH (10:05)
--- NOTE | 2018-02-20 10:18 | CP.CCUPN ---
<Maurice Fontaine - Last Filed: 02/20/18 10:12> CCU Subjective - Physician Review Subjective (Free Text): ICU Progress Note Pt seen and examined at bedside. No acute overnight events. Patient currently on BIPAP. Patient responding to questioning appropriately, but appears lethargic. ROS limited due to BIPAP and current mental status. CCU Objective - Vital Signs / Intake & Output Vital Signs (Last 4 hours): Vital Signs BP 02/20/18 07:58 115/78 Intake and Output (Last 8hrs): Intake & Output 02/19/18 02/20/18 02/20/18 22:59 06:59 14:59 Intake Total 3228 1816 140 Output Total 300 200 Balance 2928 1616 140 Intake: IV 3178 1816 140 Left Internal Jugular 3000 1440 Oral 50 0 Output: Urine 300 200 Urethral (Colvin) 300 200 Emesis 0 Other: # Bowel Movements 0 - Physical Exam Head: Positive for: Atraumatic, Normocephalic Pupils: Positive for: PERRL, Pinpoint Extroacular Muscles: Positive for: EOMI Conjunctiva: Positive for: Normal Ears: Positive for: Normal Mouth: Positive for: Moist Mucous Membranes Pharnyx: Positive for: Normal Nose (External): Positive for: Atraumatic Nose (Internal): Positive for: Normal Inspection Neck: Positive for: Normal Range of Motion Respiratory/Chest: Positive for: Rhonchi. Negative for: Respiratory Distress, Wheezes, Rales, Tachypneic Cardiovascular: Positive for: Regular Rate and Rhythm, Bradycardic. Negative for: Murmurs, Rub, Gallop Abdomen: Negative for: Tenderness, Distention, Normal Bowel Sounds, Peritoneal Signs, Rebound, Guarding, McBurney's Point Tender, Rovsing's Sign Present, Hernias, Feeding Tubes, Ostomy Tubes, Mass/Organomegaly, Scars, Other Back: Positive for: Normal Inspection Upper Extremity: Positive for: Edema (2+) Lower Extremity: Positive for: Edema (2+) Neurological: Positive for: Other (lethargy) Skin: Positive for: Warm, Normal Color Psychiatric: Positive for: Lethargic - Medications Active Medications: Active Medications Generic Name Dose Route Start Last Admin Trade Name Freq PRN Reason Stop Dose Admin Acetaminophen 650 mg 02/18/18 01:44 Tylenol 325mg Tab PO Q4H PRN Fever >100.4 F Albuterol/Ipratropium 3 ml 02/18/18 02:03 02/19/18 03:14 Duoneb 3 Mg/0.5 Mg (3 Ml) Ud IH 3 ml [id number] PRN Administration Shortness of Breath Apixaban 2.5 mg 02/19/18 09:34 02/20/18 10:02 Eliquis PO 2.5 mg BID FLAVIO Administration Protocol Arformoterol Tartrate 15 mcg 02/18/18 10:00 02/20/18 07:56 Brovana IH 15 mcg Q12 FLAVIO Administration Budesonide 0.5 mg 02/18/18 10:00 02/20/18 07:56 Pulmicort Respules IH 0.5 mg Q12 FLAVIO Administration Hydrocortisone Sodium Succinate 50 mg 02/20/18 09:20 Solu-Cortef IVP Q8 FLAVIO Vancomycin HCl 500 mg in 100 mls @ 200 mls/hr 02/18/18 10:00 02/20/18 10:04 Vancomycin 500mg In Ns IVPB 200 mls/hr Q12 FLAVIO Administration Protocol Valproate Sodium 500 mg/ 105 mls @ 100 mls/hr 02/18/18 10:00 02/20/18 09:58 Sodium Chloride IVPB 100 mls/hr TID FLAVIO Administration Azithromycin 500 mg in 250 mls @ 167 mls/hr 02/19/18 10:00 02/20/18 10:05 Zithromax 500mg In Ns IVPB 167 mls/hr DAILY FLAVIO Administration Protocol Phenylephrine HCl 80 mg/ 258 mls @ 19.35 mls/hr 02/18/18 19:31 02/19/18 15:43 Sodium Chloride IV 0 mcg/min .[id number] PRN 0 mls/hr TITRATE PER MD ORDER Titration Protocol 100 MCG/MIN Norepinephrine Bitartrate 8 mg 258 mls @ 58.05 mls/hr 02/18/18 21:00 09:04 / Sodium Chloride IV 18 mcg/min .Q4H27M FLAVIO 34.83 mls/hr Protocol Administration 30 MCG/MIN Sodium Chloride 1,000 mls @ 100 mls/hr 02/19/18 09:45 02/20/18 01:11 Sodium Chloride 0.45% IV 100 mls/hr .Q10H FLAVIO Administration Vasopressin 20 units/ Dextrose 101 mls @ 9.09 mls/hr 02/19/18 09:45 02/20/18 07:58 IV 9.09 mls/hr .Q11H7M FLAVIO Administration Protocol 0.03 U/MIN Meropenem 500 mg/ Sodium 50 mls @ 100 mls/hr 02/19/18 22:00 02/20/18 10:03 Chloride IVPB 100 mls/hr Q12 FLAVIO Administration Protocol Insulin Human Lispro 0 units 02/19/18 18:00 02/20/18 05:56 Humalog High SC Not Given Q6 FLAVIO Protocol Levothyroxine Sodium 175 mcg 02/18/18 06:00 02/20/18 05:59 Synthroid PO 175 mcg 0600 FLAVIO Administration Pantoprazole Sodium 40 mg 02/18/18 10:00 02/20/18 10:01 Protonix Inj IVP 40 mg DAILY FLAVIO Administration - Patient Studies Lab Studies: Microbiology Studies 02/17/18 19:36 MRSA Culture (Admit) - Final Naris MRSA NOT DETECTED Lab Studies 02/20/18 02/20/18 02/20/18 Range/Units 08:10 07:14 05:48 WBC 15.9 H D (4.5-11.0) 10^3/ul RBC 2.79 L (3.5-6.1) 10^6/uL Hgb 8.8 L (12.0-16.0) g/dL Hct 28.7 L (36.0-48.0) % MCV 102.9 (80.0-105.0) fl MCH 31.5 (25.0-35.0) pg MCHC 30.7 L (31.0-37.0) g/dl RDW 25.9 H (11.5-14.5) % Plt Count 101 L (120.0-450.0) 10^3/uL MPV 10.7 (7.0-11.0) fl Gran % (50.0-68.0) % Lymph % (Auto) (22.0-35.0) % Trego % (Auto) (1.0-6.0) % Eos % (Auto) (1.5-5.0) % Baso % (Auto) (0.0-3.0) % Gran # (1.4-6.5) Lymph # (Auto) (1.2-3.4) Trego # (Auto) (0.1-0.6) Eos # (Auto) (0.0-0.7) Baso # (Auto) (0.0-2.0) K/mm3 PT (9.4-12.5) SECONDS INR (0.93-1.08) APTT (25.1-36.5) Seconds Sodium (132-148) mmol/L Potassium (3.6-5.0) mmol/L Chloride (98-107) mmol/L Carbon Dioxide (21-33) mmol/L Anion Gap (10-20) BUN (7-21) mg/dL Creatinine (0.7-1.2) mg/dl Est GFR ( Amer) Est GFR (Non-Af Amer) POC Glucose (mg/dL) 289 H 254 H (65-110) mg/dL Random Glucose (70-110) mg/dL Calcium (8.4-10.5) mg/dL Phosphorus (2.5-4.5) mg/dL Magnesium (1.7-2.2) mg/dL Total Bilirubin (0.2-1.3) mg/dL AST (14-36) U/L ALT (7-56) U/L Alkaline Phosphatase (38-126) U/L Total Protein (5.8-8.3) g/dL Albumin (3.0-4.8) g/dL Globulin gm/dL Albumin/Globulin Ratio (1.1-1.8) 02/20/18 02/20/18 02/19/18 Range/Units 05:00 00:08 16:03 WBC (4.5-11.0) 10^3/ul RBC (3.5-6.1) 10^6/uL Hgb (12.0-16.0) g/dL Hct (36.0-48.0) % MCV (80.0-105.0) fl MCH (25.0-35.0) pg MCHC (31.0-37.0) g/dl RDW (11.5-14.5) % Plt Count (120.0-450.0) 10^3/uL MPV (7.0-11.0) fl Gran % (50.0-68.0) % Lymph % (Auto) (22.0-35.0) % Trego % (Auto) (1.0-6.0) % Eos % (Auto) (1.5-5.0) % Baso % (Auto) (0.0-3.0) % Gran # (1.4-6.5) Lymph # (Auto) (1.2-3.4) Trego # (Auto) (0.1-0.6) Eos # (Auto) (0.0-0.7) Baso # (Auto) (0.0-2.0) K/mm3 PT (9.4-12.5) SECONDS INR (0.93-1.08) APTT (25.1-36.5) Seconds Sodium 150 H (132-148) mmol/L Potassium 4.0 (3.6-5.0) mmol/L Chloride 113 H (98-107) mmol/L Carbon Dioxide 21 (21-33) mmol/L Anion Gap 20 (10-20) BUN 64 H (7-21) mg/dL Creatinine 3.0 H (0.7-1.2) mg/dl Est GFR ( Amer) 19 Est GFR (Non-Af Amer) 16 POC Glucose (mg/dL) 200 H 189 H (65-110) mg/dL Random Glucose 265 H (70-110) mg/dL Calcium 6.7 L* (8.4-10.5) mg/dL Phosphorus 5.1 H (2.5-4.5) mg/dL Magnesium 1.9 (1.7-2.2) mg/dL Total Bilirubin 0.3 (0.2-1.3) mg/dL AST 49 H D (14-36) U/L ALT 29 (7-56) U/L Alkaline Phosphatase 135 H (38-126) U/L Total Protein 5.3 L (5.8-8.3) g/dL Albumin 2.2 L (3.0-4.8) g/dL Globulin 3.1 gm/dL Albumin/Globulin Ratio 0.7 L (1.1-1.8) 02/19/18 02/19/18 02/19/18 Range/Units 11:01 09:20 07:14 WBC (4.5-11.0) 10^3/ul RBC (3.5-6.1) 10^6/uL Hgb (12.0-16.0) g/dL Hct (36.0-48.0) % MCV (80.0-105.0) fl MCH (25.0-35.0) pg MCHC (31.0-37.0) g/dl RDW (11.5-14.5) % Plt Count (120.0-450.0) 10^3/uL MPV (7.0-11.0) fl Gran % (50.0-68.0) % Lymph % (Auto) (22.0-35.0) % Trego % (Auto) (1.0-6.0) % Eos % (Auto) (1.5-5.0) % Baso % (Auto) (0.0-3.0) % Gran # (1.4-6.5) Lymph # (Auto) (1.2-3.4) Trego # (Auto) (0.1-0.6) Eos # (Auto) (0.0-0.7) Baso # (Auto) (0.0-2.0) K/mm3 PT 24.3 H (9.4-12.5) SECONDS INR 2.08 H (0.93-1.08) APTT 42.2 H (25.1-36.5) Seconds Sodium (132-148) mmol/L Potassium (3.6-5.0) mmol/L Chloride (98-107) mmol/L Carbon Dioxide (21-33) mmol/L Anion Gap (10-20) BUN (7-21) mg/dL Creatinine (0.7-1.2) mg/dl Est GFR ( Amer) Est GFR (Non-Af Amer) POC Glucose (mg/dL) 317 H 300 H (65-110) mg/dL Random Glucose (70-110) mg/dL Calcium (8.4-10.5) mg/dL Phosphorus (2.5-4.5) mg/dL Magnesium (1.7-2.2) mg/dL Total Bilirubin (0.2-1.3) mg/dL AST (14-36) U/L ALT (7-56) U/L Alkaline Phosphatase (38-126) U/L Total Protein (5.8-8.3) g/dL Albumin (3.0-4.8) g/dL Globulin gm/dL Albumin/Globulin Ratio (1.1-1.8) 02/19/18 02/19/18 Range/Units 06:05 06:05 WBC 7.1 (4.5-11.0) 10^3/ul RBC 2.69 L (3.5-6.1) 10^6/uL Hgb 8.5 L (12.0-16.0) g/dL Hct 27.6 L (36.0-48.0) % MCV 102.6 (80.0-105.0) fl MCH 31.6 (25.0-35.0) pg MCHC 30.8 L (31.0-37.0) g/dl RDW 25.2 H (11.5-14.5) % Plt Count 90 L (120.0-450.0) 10^3/uL MPV 9.6 (7.0-11.0) fl Gran % 66.2 (50.0-68.0) % Lymph % (Auto) 24.5 (22.0-35.0) % Trego % (Auto) 9.2 H (1.0-6.0) % Eos % (Auto) 0.0 L (1.5-5.0) % Baso % (Auto) 0.1 (0.0-3.0) % Gran # 4.69 (1.4-6.5) Lymph # (Auto) 1.7 (1.2-3.4) Trego # (Auto) 0.7 H (0.1-0.6) Eos # (Auto) 0.0 (0.0-0.7) Baso # (Auto) 0.01 (0.0-2.0) K/mm3 PT (9.4-12.5) SECONDS INR (0.93-1.08) APTT (25.1-36.5) Seconds Sodium 152 H (132-148) mmol/L Potassium 4.2 (3.6-5.0) mmol/L Chloride 113 H (98-107) mmol/L Carbon Dioxide 24 (21-33) mmol/L Anion Gap 19 (10-20) BUN 70 H (7-21) mg/dL Creatinine 3.2 H (0.7-1.2) mg/dl Est GFR ( Amer) 18 Est GFR (Non-Af Amer) 15 POC Glucose (mg/dL) (65-110) mg/dL Random Glucose 285 H (70-110) mg/dL Calcium 7.0 L (8.4-10.5) mg/dL Phosphorus 5.7 H (2.5-4.5) mg/dL Magnesium 2.0 (1.7-2.2) mg/dL Total Bilirubin 0.6 (0.2-1.3) mg/dL AST 64 H D (14-36) U/L ALT 31 (7-56) U/L Alkaline Phosphatase 148 H (38-126) U/L Total Protein 5.3 L (5.8-8.3) g/dL Albumin 2.2 L (3.0-4.8) g/dL Globulin 3.1 gm/dL Albumin/Globulin Ratio 0.7 L (1.1-1.8) Laboratory Results - last 24 hr 02/19/18 02/19/18 02/19/18 06:05 06:05 07:14 WBC 7.1 RBC 2.69 L Hgb 8.5 L Hct 27.6 L MCV 102.6 MCH 31.6 MCHC 30.8 L RDW 25.2 H Plt Count 90 L MPV 9.6 Gran % 66.2 Lymph % (Auto) 24.5 Trego % (Auto) 9.2 H Eos % (Auto) 0.0 L Baso % (Auto) 0.1 Gran # 4.69 Lymph # (Auto) 1.7 Trego # (Auto) 0.7 H Eos # (Auto) 0.0 Baso # (Auto) 0.01 PT INR APTT Sodium 152 H Potassium 4.2 Chloride 113 H Carbon Dioxide 24 Anion Gap 19 BUN 70 H Creatinine 3.2 H Est GFR ( Amer) 18 Est GFR (Non-Af Amer) 15 POC Glucose (mg/dL) 300 H Random Glucose 285 H Calcium 7.0 L Phosphorus 5.7 H Magnesium 2.0 Total Bilirubin 0.6 AST 64 H D ALT 31 Alkaline Phosphatase 148 H Total Protein 5.3 L Albumin 2.2 L Globulin 3.1 Albumin/Globulin Ratio 0.7 L 02/19/18 02/19/18 02/19/18 09:20 11:01 16:03 WBC RBC Hgb Hct MCV MCH MCHC RDW Plt Count MPV Gran % Lymph % (Auto) Trego % (Auto) Eos % (Auto) Baso % (Auto) Gran # Lymph # (Auto) Trego # (Auto) Eos # (Auto) Baso # (Auto) PT 24.3 H INR 2.08 H APTT 42.2 H Sodium Potassium Chloride Carbon Dioxide Anion Gap BUN Creatinine Est GFR ( Amer) Est GFR (Non-Af Amer) POC Glucose (mg/dL) 317 H 189 H Random Glucose Calcium Phosphorus Magnesium Total Bilirubin AST ALT Alkaline Phosphatase Total Protein Albumin Globulin Albumin/Globulin Ratio 02/20/18 02/20/18 02/20/18 00:08 05:00 05:48 WBC RBC Hgb Hct MCV MCH MCHC RDW Plt Count MPV Gran % Lymph % (Auto) Treg[place] % (Auto) Eos % (Auto) Baso % (Auto) Gran # Lymph # (Auto) Treg[place] # (Auto) Eos # (Auto) Baso # (Auto) PT INR APTT Sodium 150 H Potassium 4.0 Chloride 113 H Carbon Dioxide 21 Anion Gap 20 BUN 64 H Creatinine 3.0 H Est GFR ( Amer) 19 Est GFR (Non-Af Amer) 16 POC Glucose (mg/dL) 200 H 254 H Random Glucose 265 H Calcium 6.7 L* Phosphorus 5.1 H Magnesium 1.9 Total Bilirubin 0.3 AST 49 H D ALT 29 Alkaline Phosphatase 135 H Total Protein 5.3 L Albumin 2.2 L Globulin 3.1 Albumin/Globulin Ratio 0.7 L 02/20/18 02/20/18 07:14 08:10 WBC 15.9 H D RBC 2.79 L Hgb 8.8 L Hct 28.7 L MCV 102.9 MCH 31.5 MCHC 30.7 L RDW 25.9 H Plt Count 101 L MPV 10.7 Gran % Lymph % (Auto) Treg[place] % (Auto) Eos % (Auto) Baso % (Auto) Gran # Lymph # (Auto) Treg[place] # (Auto) Eos # (Auto) Baso # (Auto) PT INR APTT Sodium Potassium Chloride Carbon Dioxide Anion Gap BUN Creatinine Est GFR ( Amer) Est GFR (Non-Af Amer) POC Glucose (mg/dL) 289 H Random Glucose Calcium Phosphorus Magnesium Total Bilirubin AST ALT Alkaline Phosphatase Total Protein Albumin Globulin Albumin/Globulin Ratio Fingerstick Blood Sugar Results: 254 Assessment/Plan - Assessment and Plan (Free Text) Assessment: 62 yo F with PMH of Diabetes Mellitus, COPD, Substance abuse history, CKD, Seizure disorder history, hypothyroidism, and HTN transferred from skilled nursing for lethargy and fever. Patient was admitted to ICU due to septic shock 2/2 PNA and placed on pressors and IV abx. Plan: Neuro: - Lethargic - Cont valproate for mood stabilization - Maintain normothermia CV: - Cont Levophed, Vasopressin; titrate down as tolerated by patient - Off Phenylephrine - Maintain MAP > 65 Pulm: - Wean off of BIPAP - Cont duoneb prn, brovana, pulmicort - Chest PT - Maintain O2 between 88-92% - O2 via NC GI: - Protonix for GI PPx Renal: - D/C 1/2 NS - Monitor electrolytes and replete as needed - Maintain euvolemia Heme: - Cont Eliquis due to h/o DVT - Monitor H/H Endo: - ISS-high - Accuchecks Q6h - Cont Synthroid ID: - Leukocytosis 2/2 steroids - Blood cultures negative after 48 hrs - Urine cultures positive for yeast, asymptomatic - Urine Legionella negative - F/u urine strep, mycoplasma - Cont Merrem, Vancomycin, and Azithromycin - Decreased solucortef to 50 mg IVP q8h - ID consulted Dispo: Palliative care consulted for resuscitation recommendations. Currently patient is DNR/DNI. Pt seen and discussed in detail with Dr. Davila. Lui sA Fontaine, PGY1 <Roscoe Davila - Last Filed: 02/20/18 13:18> CCU Objective - Vital Signs / Intake & Output Vital Signs (Last 4 hours): Vital Signs Pulse Resp BP Pulse Ox 02/20/18 12:50 85 20 96 02/20/18 12:45 87 19 94/43 L 96 02/20/18 12:40 89 21 97 02/20/18 12:30 88 21 82/41 L 97 02/20/18 12:20 87 21 98 02/20/18 12:15 83 24 82/34 L 96 02/20/18 12:10 88 32 H 96 02/20/18 12:00 86 18 76/32 L 96 02/20/18 11:50 93 H 17 94 L 02/20/18 11:47 88 18 77/45 L 95 02/20/18 11:40 87 22 94 L 02/20/18 11:38 89 25 H 90/34 L 93 L 02/20/18 11:30 88 24 88/25 L 91 L 02/20/18 11:20 84 20 94 L 02/20/18 11:15 84 19 87/34 L 94 L 02/20/18 11:10 86 22 94 L 02/20/18 11:01 93 H 15 76/57 L 93 L 02/20/18 11:00 90 92 L 02/20/18 10:50 87 22 94 L 02/20/18 10:45 86 25 H 92/39 L 94 L 02/20/18 10:40 89 25 H 93 L 02/20/18 10:32 87 24 91/34 L 91 L 02/20/18 10:30 94 H 14 93 L 02/20/18 10:20 85 23 94 L 02/20/18 10:15 93 H 15 110/49 L 92 L 02/20/18 10:10 87 21 95 02/20/18 10:00 64 22 97/36 L 91 L 02/20/18 09:50 78 20 93 L 02/20/18 09:45 72 21 90/42 L 95 02/20/18 09:40 83 16 94 L 02/20/18 09:30 69 21 98/46 L 93 L 02/20/18 09:20 77 97 Intake and Output (Last 8hrs): Intake & Output 02/19/18 02/20/18 02/20/18 22:59 06:59 14:59 Intake Total 3228 1816 140 Output Total 300 200 Balance 2928 1616 140 Intake: IV 3178 1816 140 Left Internal Jugular 3000 1440 Oral 50 0 Output: Urine 300 200 Urethral (Colvin) 300 200 Emesis 0 Other: # Bowel Movements 0 - Medications Active Medications: Active Medications Generic Name Dose Route Start Last Admin Trade Name Freq PRN Reason Stop Dose Admin Acetaminophen 650 mg 02/18/18 01:44 Tylenol 325mg Tab PO Q4H PRN Fever >100.4 F Albuterol/Ipratropium 3 ml 02/18/18 02:03 02/19/18 03:14 Duoneb 3 Mg/0.5 Mg (3 Ml) Ud IH 3 ml [id number] PRN Administration Shortness of Breath Apixaban 2.5 mg 02/19/18 09:34 02/20/18 10:02 Eliquis PO 2.5 mg BID FLAVIO Administration Protocol Arformoterol Tartrate 15 mcg 02/18/18 10:00 02/20/18 07:56 Brovana IH 15 mcg Q12 FLAVIO Administration Budesonide 0.5 mg 02/18/18 10:00 02/20/18 07:56 Pulmicort Respules IH 0.5 mg Q12 FLAVIO Administration Hydrocortisone Sodium Succinate 50 mg 02/20/18 09:20 Solu-Cortef IVP Q8 FLAVIO Vancomycin HCl 500 mg in 100 mls @ 200 mls/hr 02/18/18 10:00 02/20/18 10:04 Vancomycin 500mg In Ns IVPB 200 mls/hr Q12 FLAVIO Administration Protocol Valproate Sodium 500 mg/ 105 mls @ 100 mls/hr 02/18/18 10:00 02/20/18 09:58 Sodium Chloride IVPB 100 mls/hr TID FLAVIO Administration Azithromycin 500 mg in 250 mls @ 167 mls/hr 02/19/18 10:00 02/20/18 10:05 Zithromax 500mg In Ns IVPB 167 mls/hr DAILY FLAVIO Administration Protocol Phenylephrine HCl 80 mg/ 258 mls @ 19.35 mls/hr 02/18/18 19:31 02/19/18 15:43 Sodium Chloride IV 0 mcg/min .[id number] PRN 0 mls/hr TITRATE PER MD ORDER Titration Protocol 100 MCG/MIN Norepinephrine Bitartrate 8 mg 258 mls @ 58.05 mls/hr 02/18/18 21:00 09:04 / Sodium Chloride IV 18 mcg/min .Q4H27M FLAVIO 34.83 mls/hr Protocol Administration 30 MCG/MIN Vasopressin 20 units/ Dextrose 101 mls @ 9.09 mls/hr 02/19/18 09:45 02/20/18 07:58 IV 9.09 mls/hr .Q11H7M FLAVIO Administration Protocol 0.03 U/MIN Meropenem 500 mg/ Sodium 50 mls @ 100 mls/hr 02/19/18 22:00 02/20/18 10:03 Chloride IVPB 100 mls/hr Q12 FLAVIO Administration Protocol Insulin Human Lispro 0 units 02/19/18 18:00 02/20/18 05:56 Humalog High SC Not Given Q6 FLAVIO Protocol Levothyroxine Sodium 175 mcg 02/18/18 06:00 02/20/18 05:59 Synthroid PO 175 mcg 0600 FLAVIO Administration Pantoprazole Sodium 40 mg 02/18/18 10:00 02/20/18 10:01 Protonix Inj IVP 40 mg DAILY FLAVIO Administration - Patient Studies Lab Studies: Microbiology Studies 02/17/18 19:36 MRSA Culture (Admit) - Final Naris MRSA NOT DETECTED Lab Studies 02/20/18 02/20/18 02/20/18 Range/Units 08:10 07:14 05:48 WBC 15.9 H D (4.5-11.0) 10^3/ul RBC 2.79 L (3.5-6.1) 10^6/uL Hgb 8.8 L (12.0-16.0) g/dL Hct 28.7 L (36.0-48.0) % MCV 102.9 (80.0-105.0) fl MCH 31.5 (25.0-35.0) pg MCHC 30.7 L (31.0-37.0) g/dl RDW 25.9 H (11.5-14.5) % Plt Count 101 L (120.0-450.0) 10^3/uL MPV 10.7 (7.0-11.0) fl Sodium (132-148) mmol/L Potassium (3.6-5.0) mmol/L Chloride (98-107) mmol/L Carbon Dioxide (21-33) mmol/L Anion Gap (10-20) BUN (7-21) mg/dL Creatinine (0.7-1.2) mg/dl Est GFR ( Amer) Est GFR (Non-Af Amer) POC Glucose (mg/dL) 289 H 254 H (65-110) mg/dL Random Glucose (70-110) mg/dL Calcium (8.4-10.5) mg/dL Phosphorus (2.5-4.5) mg/dL Magnesium (1.7-2.2) mg/dL Total Bilirubin (0.2-1.3) mg/dL AST (14-36) U/L ALT (7-56) U/L Alkaline Phosphatase (38-126) U/L Total Protein (5.8-8.3) g/dL Albumin (3.0-4.8) g/dL Globulin gm/dL Albumin/Globulin Ratio (1.1-1.8) Mycoplasma pneumon IgG (<=0.90) 02/20/18 02/20/18 02/19/18 Range/Units 05:00 00:08 16:03 WBC (4.5-11.0) 10^3/ul RBC (3.5-6.1) 10^6/uL Hgb (12.0-16.0) g/dL Hct (36.0-48.0) % MCV (80.0-105.0) fl MCH (25.0-35.0) pg MCHC (31.0-37.0) g/dl RDW (11.5-14.5) % Plt Count (120.0-450.0) 10^3/uL MPV (7.0-11.0) fl Sodium 150 H (132-148) mmol/L Potassium 4.0 (3.6-5.0) mmol/L Chloride 113 H (98-107) mmol/L Carbon Dioxide 21 (21-33) mmol/L Anion Gap 20 (10-20) BUN 64 H (7-21) mg/dL Creatinine 3.0 H (0.7-1.2) mg/dl Est GFR ( Amer) 19 Est GFR (Non-Af Amer) 16 POC Glucose (mg/dL) 200 H 189 H (65-110) mg/dL Random Glucose 265 H (70-110) mg/dL Calcium 6.7 L* (8.4-10.5) mg/dL Phosphorus 5.1 H (2.5-4.5) mg/dL Magnesium 1.9 (1.7-2.2) mg/dL Total Bilirubin 0.3 (0.2-1.3) mg/dL AST 49 H D (14-36) U/L ALT 29 (7-56) U/L Alkaline Phosphatase 135 H (38-126) U/L Total Protein 5.3 L (5.8-8.3) g/dL Albumin 2.2 L (3.0-4.8) g/dL Globulin 3.1 gm/dL Albumin/Globulin Ratio 0.7 L (1.1-1.8) Mycoplasma pneumon IgG (<=0.90) 02/17/18 Range/Units 20:30 WBC (4.5-11.0) 10^3/ul RBC (3.5-6.1) 10^6/uL Hgb (12.0-16.0) g/dL Hct (36.0-48.0) % MCV (80.0-105.0) fl MCH (25.0-35.0) pg MCHC (31.0-37.0) g/dl RDW (11.5-14.5) % Plt Count (120.0-450.0) 10^3/uL MPV (7.0-11.0) fl Sodium (132-148) mmol/L Potassium (3.6-5.0) mmol/L Chloride (98-107) mmol/L Carbon Dioxide (21-33) mmol/L Anion Gap (10-20) BUN (7-21) mg/dL Creatinine (0.7-1.2) mg/dl Est GFR ( Amer) Est GFR (Non-Af Amer) POC Glucose (mg/dL) (65-110) mg/dL Random Glucose (70-110) mg/dL Calcium (8.4-10.5) mg/dL Phosphorus (2.5-4.5) mg/dL Magnesium (1.7-2.2) mg/dL Total Bilirubin (0.2-1.3) mg/dL AST (14-36) U/L ALT (7-56) U/L Alkaline Phosphatase (38-126) U/L Total Protein (5.8-8.3) g/dL Albumin (3.0-4.8) g/dL Globulin gm/dL Albumin/Globulin Ratio (1.1-1.8) Mycoplasma pneumon IgG 1.48 H (<=0.90) Laboratory Results - last 24 hr 02/17/18 02/19/18 02/20/18 20:30 16:03 00:08 WBC RBC Hgb Hct MCV MCH MCHC RDW Plt Count MPV Sodium Potassium Chloride Carbon Dioxide Anion Gap BUN Creatinine Est GFR ( Amer) Est GFR (Non-Af Amer) POC Glucose (mg/dL) 189 H 200 H Random Glucose Calcium Phosphorus Magnesium Total Bilirubin AST ALT Alkaline Phosphatase Total Protein Albumin Globulin Albumin/Globulin Ratio Mycoplasma pneumon IgG 1.48 H 02/20/18 02/20/18 02/20/18 05:00 05:48 07:14 WBC RBC Hgb Hct MCV MCH MCHC RDW Plt Count MPV Sodium 150 H Potassium 4.0 Chloride 113 H Carbon Dioxide 21 Anion Gap 20 BUN 64 H Creatinine 3.0 H Est GFR ( Amer) 19 Est GFR (Non-Af Amer) 16 POC Glucose (mg/dL) 254 H 289 H Random Glucose 265 H Calcium 6.7 L* Phosphorus 5.1 H Magnesium 1.9 Total Bilirubin 0.3 AST 49 H D ALT 29 Alkaline Phosphatase 135 H Total Protein 5.3 L Albumin 2.2 L Globulin 3.1 Albumin/Globulin Ratio 0.7 L Mycoplasma pneumon IgG 02/20/18 08:10 WBC 15.9 H D RBC 2.79 L Hgb 8.8 L Hct 28.7 L MCV 102.9 MCH 31.5 MCHC 30.7 L RDW 25.9 H Plt Count 101 L MPV 10.7 Sodium Potassium Chloride Carbon Dioxide Anion Gap BUN Creatinine Est GFR ( Amer) Est GFR (Non-Af Amer) POC Glucose (mg/dL) Random Glucose Calcium Phosphorus Magnesium Total Bilirubin AST ALT Alkaline Phosphatase Total Protein Albumin Globulin Albumin/Globulin Ratio Mycoplasma pneumon IgG Assessment/Plan - Assessment and Plan (Free Text) Plan: Patient seen and examined on rounds with resident, agree with note with following additions/exceptions: 62yo female a/w septic shock. Pt is currently on BIPAP. Pt is DNR/DNI Labs and imaging reviewed. Septic Shock PNA Acute on CKD Dehydration AMS RUE DVT on A/C COPD Hypernatremia - currently afebrile, on 2 Vasopressors, Levo, Vasopressin, stress dose steroids - remains altered, on BIPAP, comfortable - patient is DNR/DNI - Procal markedly elevated, on broad spectrum Abx, ID following - Palliative care consult, appreciated Recommend: - cont with BIPAP as needed, wean off as tolerated - DUonebs q6hr - Chest PT - Broad spectrum abx as per ID, Vanco, Merrem, Azithro - Check Urine Lg Strep - follow up ID - hold BP meds - Eliquis renally dosed - DC IVF, pulm vasc congestion on CXR - GI ppx - DVT ppx, Eliquis - Monitor in MICU Poor prognosis Critical care time 35 minutes
--- NOTE | 2018-02-20 10:26 | CP.PCM.CON ---
History of Present Illness - History of Present Illness History of Present Illness: Palliative consult requested by Dr Jc Davila copied to Dr Wayne Gallegos Reason: Goals of care 62 year old female resident of [facility] with history of COPD, DM, HTN , A Fib and bipolar disorder who presented on with AMS and respiratory failure. Labs on presentation: WBC 9.0, Hgb 1.0, Plt 151, Na 148, K 5.1, BUN 69 , Creat. 3.4, Ast 122, Alk Phos 138, LDH 783, TCK 259, BNP 53964, Albumin 2.2, urine negative. Chest x ray showed dense opacity in the left retrocardiac region which may represent atelectasis / infiltrate and left effusion. Patchy infiltrates seen in right lung base CT of head showed no acute findings. VS on admission: T 103, P131, BP 90/50, Resp. 20 , 02 sat. 89%. PMHx: A Fib, HTN, DM, COPD,CKD, bipolar disorder, schizophrenia,seizures,anemia , RUE DVT, and decubitus ulcers. Social History: Former smoker, no alcohol or drug use. Singles, resident of [facility] Family History: Non contributory. Advance Care Planning: The patient has a POLST: DNR/DNI directive dated . Her POA is Barrett Smith( [phone]). Review of Systems: As per HPI, patient is altered unable to obtain complete 12 point review. Past Patient History - Infectious Disease Hx of Infectious Diseases: None - Tetanus Immunizations Tetanus Immunization: Unknown - Past Social History Smoking Status: Smoker Currrent Status Unknown - CARDIAC Hx Hypertension: Yes - PULMONARY Hx Chronic Obstructive Pulmonary Disease (COPD): Yes Hx Emphysema: Yes Other/Comment: resp failure - NEUROLOGICAL Hx Neurological Disorder: Yes (cognitive deficits, syncope) Hx Seizures: Yes - HEENT Hx HEENT Problems: Yes Hx Glaucoma: Yes - RENAL Hx Chronic Kidney Disease: Yes Hx Dialysis: Yes (TS) Hx Renal Failure: Yes - ENDOCRINE/METABOLIC Hx Diabetes Mellitus Type 2: Yes Hx Hypothyroidism: Yes - HEMATOLOGICAL/ONCOLOGICAL Hx Blood Disorders: Yes Hx Anemia: Yes Other/Comment: sepsis - INTEGUMENTARY Hx Dermatological Problems: Yes Other/Comment: stage 2 opening left buttock 0.5cm round wound bed red and 1cm round opening wound bed red, redness to buttocks and sacrum, multiple red areas of skin to outer lower left leg, fading redness and rash under both breasts, bikini line scar, dry lips, dry skin to feet, thick dry toenails, multple bruises bke, dry scab 1cm rounc right knee, scrape left knee - MUSCULOSKELETAL/RHEUMATOLOGICAL Hx Falls: (Unknown) - GASTROINTESTINAL Hx Gastrointestinal Disorders: Yes (gi bleed, difficulty chewing) Hx Gastroesophageal Reflux: Yes Other/Comment: gi bleed, bleeding gastric erosion, esophageal ulcers, duodenitis - GENITOURINARY/GYNECOLOGICAL Hx Genitourinary Disorders: Yes Hx Incontinence: Yes Hx Urinary Tract Infection: Yes - PSYCHIATRIC Hx Psychophysiologic Disorder: Yes Hx Schizophrenia: Yes Other/Comment: suicidal,ams, cognitive defects, prior resident of [facility] - SURGICAL HISTORY Hx Surgeries: Yes (R CWALL UDALL,R GROIN TLC,) - ANESTHESIA Hx Anesthesia: Yes Hx Anesthesia Reactions: No Hx Malignant Hyperthermia: No Meds Allergies/Adverse Reactions: Allergies Allergy/AdvReac Type Severity Reaction Status Date / Time aspirin AdvReac RASH Verified 01/20/18 18:57 haloperidol [From Haldol] AdvReac RASH Verified 01/20/18 18:57 haloperidol lactate AdvReac RASH Verified 01/20/18 18:57 [From Haldol] mesalamine [From Asacol] AdvReac RASH Verified 01/20/18 18:57 Penicillins AdvReac RASH Verified 01/20/18 18:57 seafood AdvReac RASH Uncoded 01/20/18 18:57 - Medications Medications: Current Medications Acetaminophen (Tylenol 325mg Tab) 650 mg PO Q4H PRN PRN Reason: Fever >100.4 F Albuterol/Ipratropium (Duoneb 3 Mg/0.5 Mg (3 Ml) Ud) 3 ml IH [id number] PRN PRN Reason: Shortness of Breath Last Admin: 02/19/18 03:14 Dose: 3 ml Apixaban (Eliquis) 2.5 mg PO BID FLAVIO PRN Reason: Protocol Last Admin: 02/20/18 10:02 Dose: 2.5 mg Arformoterol Tartrate (Brovana) 15 mcg IH Q12 FLAVIO Last Admin: 02/20/18 07:56 Dose: 15 mcg Budesonide (Pulmicort Respules) 0.5 mg IH Q12 FLAVIO Last Admin: 02/20/18 07:56 Dose: 0.5 mg Hydrocortisone Sodium Succinate (Solu-Cortef) 50 mg IVP Q8 FLAVIO Vancomycin HCl (Vancomycin 500mg In Ns) 500 mg in 100 mls @ 200 mls/hr IVPB Q12 FLAVIO PRN Reason: Protocol Last Admin: 02/20/18 10:04 Dose: 200 mls/hr Valproate Sodium 500 mg/ (Sodium Chloride) 105 mls @ 100 mls/hr IVPB TID FLAVIO Last Admin: 02/20/18 09:58 Dose: 100 mls/hr Azithromycin (Zithromax 500mg In Ns) 500 mg in 250 mls @ 167 mls/hr IVPB DAILY FLAVIO PRN Reason: Protocol Last Admin: 02/20/18 10:05 Dose: 167 mls/hr Phenylephrine HCl 80 mg/ (Sodium Chloride) 258 mls @ 19.35 mls/hr IV .[id number] PRN; Protocol; 100 MCG/MIN PRN Reason: TITRATE PER MD ORDER Last Titration: 02/19/18 15:43 Dose: 0 mcg/min, 0 mls/hr Norepinephrine Bitartrate 8 mg (/ Sodium Chloride) 258 mls @ 58.05 mls/hr IV .Q4H27M FLAVIO; 30 MCG/MIN PRN Reason: Protocol Last Admin: 02/20/18 09:04 Dose: 18 mcg/min, 34.83 mls/hr Sodium Chloride (Sodium Chloride 0.45%) 1,000 mls @ 100 mls/hr IV .Q10H FLAVIO Last Admin: 02/20/18 01:11 Dose: 100 mls/hr Vasopressin 20 units/ Dextrose 101 mls @ 9.09 mls/hr IV .Q11H7M FLAVIO; 0.03 U/MIN PRN Reason: Protocol Last Admin: 02/20/18 07:58 Dose: 9.09 mls/hr Meropenem 500 mg/ Sodium (Chloride) 50 mls @ 100 mls/hr IVPB Q12 FLAVIO PRN Reason: Protocol Last Admin: 02/20/18 10:03 Dose: 100 mls/hr Insulin Human Lispro (Humalog High) 0 units SC Q6 FLAVIO PRN Reason: Protocol Last Admin: 02/20/18 05:56 Dose: Not Given Levothyroxine Sodium (Synthroid) 175 mcg PO 0600 [facility] Last Admin: 02/20/18 05:59 Dose: 175 mcg Pantoprazole Sodium (Protonix Inj) 40 mg IVP DAILY [facility] Last Admin: 02/20/18 10:01 Dose: 40 mg Physical Exam - Constitutional Appears: No Acute Distress, Chronically Ill - Head Exam Head Exam: NORMAL INSPECTION - Eye Exam Eye Exam: Normal appearance, PERRL - ENT Exam ENT Exam: Mucous Membranes Moist - Neck Exam Neck exam: Positive for: Tenderness - Respiratory Exam Respiratory Exam: Decreased Breath Sounds, Rhonchi Additional comments: BIPAP - Cardiovascular Exam Cardiovascular Exam: Tachycardia, +S1, +S2 - GI/Abdominal Exam GI & Abdominal Exam: Normal Bowel Sounds, Soft - Extremities Exam Extremities exam: Positive for: normal capillary refill Additional comments: left heel ulcer - Neurological Exam Neurological exam: Altered - Skin Skin Exam: Dry, Pallor, Warm Additional comments: sacral decubiti - Additional Findings Additional findings: Palliative performance scale rating 30 % Results - Vital Signs Recent Vital Signs: Last Vital Signs Temp 97.3 F L 02/19/18 16:00 Pulse 42 L 02/20/18 05:45 Resp 19 02/20/18 05:20 BP 115/78 02/20/18 07:58 Pulse Ox 99 02/20/18 05:20 - Labs Result Diagrams: 02/20/18 08:10 02/20/18 05:00 Labs: Laboratory Results - last 24 hr 02/19/18 02/19/18 02/19/18 06:05 06:05 07:14 WBC 7.1 RBC 2.69 L Hgb 8.5 L Hct 27.6 L MCV 102.6 MCH 31.6 MCHC 30.8 L RDW 25.2 H Plt Count 90 L MPV 9.6 Gran % 66.2 Lymph % (Auto) 24.5 [place] % (Auto) 9.2 H Eos % (Auto) 0.0 L Baso % (Auto) 0.1 Gran # 4.69 Lymph # (Auto) 1.7 [place] # (Auto) 0.7 H Eos # (Auto) 0.0 Baso # (Auto) 0.01 PT INR APTT Sodium 152 H Potassium 4.2 Chloride 113 H Carbon Dioxide 24 Anion Gap 19 BUN 70 H Creatinine 3.2 H Est GFR ( Amer) 18 Est GFR (Non-Af Amer) 15 POC Glucose (mg/dL) 300 H Random Glucose 285 H Calcium 7.0 L Phosphorus 5.7 H Magnesium 2.0 Total Bilirubin 0.6 AST 64 H D ALT 31 Alkaline Phosphatase 148 H Total Protein 5.3 L Albumin 2.2 L Globulin 3.1 Albumin/Globulin Ratio 0.7 L 02/19/18 02/19/18 02/19/18 09:20 11:01 16:03 WBC RBC Hgb Hct MCV MCH MCHC RDW Plt Count MPV Gran % Lymph % (Auto) [place] % (Auto) Eos % (Auto) Baso % (Auto) Gran # Lymph # (Auto) [place] # (Auto) Eos # (Auto) Baso # (Auto) PT 24.3 H INR 2.08 H APTT 42.2 H Sodium Potassium Chloride Carbon Dioxide Anion Gap BUN Creatinine Est GFR ( Amer) Est GFR (Non-Af Amer) POC Glucose (mg/dL) 317 H 189 H Random Glucose Calcium Phosphorus Magnesium Total Bilirubin AST ALT Alkaline Phosphatase Total Protein Albumin Globulin Albumin/Globulin Ratio 02/20/18 02/20/18 02/20/18 00:08 05:00 05:48 WBC RBC Hgb Hct MCV MCH MCHC RDW Plt Count MPV Gran % Lymph % (Auto) [place] % (Auto) Eos % (Auto) Baso % (Auto) Gran # Lymph # (Auto) [place] # (Auto) Eos # (Auto) Baso # (Auto) PT INR APTT Sodium 150 H Potassium 4.0 Chloride 113 H Carbon Dioxide 21 Anion Gap 20 BUN 64 H Creatinine 3.0 H Est GFR ( Amer) 19 Est GFR (Non-Af Amer) 16 POC Glucose (mg/dL) 200 H 254 H Random Glucose 265 H Calcium 6.7 L* Phosphorus 5.1 H Magnesium 1.9 Total Bilirubin 0.3 AST 49 H D ALT 29 Alkaline Phosphatase 135 H Total Protein 5.3 L Albumin 2.2 L Globulin 3.1 Albumin/Globulin Ratio 0.7 L 02/20/18 02/20/18 07:14 08:10 WBC 15.9 H D RBC 2.79 L Hgb 8.8 L Hct 28.7 L MCV 102.9 MCH 31.5 MCHC 30.7 L RDW 25.9 H Plt Count 101 L MPV 10.7 Gran % Lymph % (Auto) [place] % (Auto) Eos % (Auto) Baso % (Auto) Gran # Lymph # (Auto) [place] # (Auto) Eos # (Auto) Baso # (Auto) PT INR APTT Sodium Potassium Chloride Carbon Dioxide Anion Gap BUN Creatinine Est GFR ( Amer) Est GFR (Non-Af Amer) POC Glucose (mg/dL) 289 H Random Glucose Calcium Phosphorus Magnesium Total Bilirubin AST ALT Alkaline Phosphatase Total Protein Albumin Globulin Albumin/Globulin Ratio Assessment & Plan - Assessment and Plan (Free Text) Assessment: 62 year old female with history of A Fib, DM, HTN, COPD, schizophrenia, Bipolar disorder, seizures who is admitted with septic shock, hypercapnic respiratory failure and hypotension. She is DNR/DNI. The patient is seen in the ICU. BiPAP in use. She is aware when her name is called, making sounds but unable to converse or follow command. She is on 2 vasopressors> Vasopressin and Norepinephrine. VS today;P 50, BP 90/48, R 20. Chest x ray done 02/19/18 showing more dense confluent opacities left lung base greater than right lung base. Bilateral effusions, pulmonary vascular congestion. The patient has a POLST dated 12/07/17. She is is DNR/DNI. I spoke with patients MERT, Barrett Smith, medical office secretary. He is her health care surrogate. He verifies that POLST is active and that patient is DNR/DNI. POLoni updated of patient's medical condition. Mr Smith made aware that patient is being followed by Palliative services for assist with goals of care and decision making. Goals of care and advance care planning discussion, 20 minutes Plan: Goals of care Hypotension: Continue vasopressors> Vasopressin, Norepinephrine Respiratory Failure: BiPAP, Solucortef, nebulizers Sepsis: Continue antibiotics Hypernatremia/hyperkalemia: Correct electrolyte imbalance
--- NOTE | 2018-02-20 18:34 | CP.PCM.PN ---
Subjective - Date & Time of Evaluation Date of Evaluation: 02/20/18 Time of Evaluation: 16:30 - Subjective Subjective: Infectious Disease Follow Up: February 20, 2018 62 yo female with multiple hospitalization with a recent hospitalization to [facility] where she was intubated. The patient was transferred back to [facility] [place]. However, the patient felt feverish, was SOB, hypotensive, and AMS. Currently in the MICU at [facility]. Remains lethargic. On 2 Vasopressors to support blood pressure. Lethargic but responsive. On Meropenem, Vancomycin IV, and Azitromycin. Objective - Vital Signs/Intake and Output Vital Signs (last 24 hours): Temp Pulse Resp BP Pulse Ox 98.1 F 85 20 94/43 L 96 02/20/18 08:00 02/20/18 12:50 02/20/18 12:50 02/20/18 12:45 02/20/18 12:50 Intake and Output: 02/20/18 02/20/18 06:59 18:59 Intake Total 1816 206 Output Total 200 Balance 1616 206 - Medications Medications: Current Medications Acetaminophen (Tylenol 325mg Tab) 650 mg PO Q4H PRN PRN Reason: Fever >100.4 F Albuterol/Ipratropium (Duoneb 3 Mg/0.5 Mg (3 Ml) Ud) 3 ml IH [id number] PRN PRN Reason: Shortness of Breath Last Admin: 02/19/18 03:14 Dose: 3 ml Apixaban (Eliquis) 2.5 mg PO BID FLAVIO PRN Reason: Protocol Last Admin: 02/20/18 10:02 Dose: 2.5 mg Arformoterol Tartrate (Brovana) 15 mcg IH Q12 FLAVIO Last Admin: 02/20/18 07:56 Dose: 15 mcg Budesonide (Pulmicort Respules) 0.5 mg IH Q12 FLAVIO Last Admin: 02/20/18 07:56 Dose: 0.5 mg Hydrocortisone Sodium Succinate (Solu-Cortef) 50 mg IVP Q8 FLAVIO Last Admin: 02/20/18 14:16 Dose: 50 mg Vancomycin HCl (Vancomycin 500mg In Ns) 500 mg in 100 mls @ 200 mls/hr IVPB Q12 FLAVIO PRN Reason: Protocol Last Admin: 02/20/18 10:04 Dose: 200 mls/hr Valproate Sodium 500 mg/ (Sodium Chloride) 105 mls @ 100 mls/hr IVPB TID FLAVIO Last Admin: 02/20/18 14:01 Dose: 100 mls/hr Azithromycin (Zithromax 500mg In Ns) 500 mg in 250 mls @ 167 mls/hr IVPB DAILY FLAVIO PRN Reason: Protocol Last Admin: 02/20/18 10:05 Dose: 167 mls/hr Phenylephrine HCl 80 mg/ (Sodium Chloride) 258 mls @ 19.35 mls/hr IV .[id number] PRN; Protocol; 100 MCG/MIN PRN Reason: TITRATE PER MD ORDER Last Titration: 02/19/18 15:43 Dose: 0 mcg/min, 0 mls/hr Norepinephrine Bitartrate 8 mg (/ Sodium Chloride) 258 mls @ 58.05 mls/hr IV .Q4H27M FLAVIO; 30 MCG/MIN PRN Reason: Protocol Last Titration: 02/20/18 11:25 Dose: 14 mcg/min, 27.09 mls/hr Vasopressin 20 units/ Dextrose 101 mls @ 9.09 mls/hr IV .Q11H7M FLAVIO; 0.03 U/MIN PRN Reason: Protocol Last Admin: 02/20/18 07:58 Dose: 9.09 mls/hr Meropenem 500 mg/ Sodium (Chloride) 50 mls @ 100 mls/hr IVPB Q12 FLAVIO PRN Reason: Protocol Last Admin: 02/20/18 10:03 Dose: 100 mls/hr Insulin Human Lispro (Humalog High) 0 units SC Q6 FLAVIO PRN Reason: Protocol Last Admin: 02/20/18 14:11 Dose: 8 units Levothyroxine Sodium (Synthroid) 175 mcg PO 0600 FLAVIO Last Admin: 02/20/18 05:59 Dose: 175 mcg Pantoprazole Sodium (Protonix Inj) 40 mg IVP DAILY FLAIVO Last Admin: 02/20/18 10:01 Dose: 40 mg - Labs Labs: 02/20/18 08:10 02/20/18 05:00 PT 24.3 SECONDS (9.4-12.5) H 02/19/18 09:20 INR 2.08 (0.93-1.08) H 02/19/18 09:20 APTT 42.2 Seconds (25.1-36.5) H 02/19/18 09:20 - Constitutional Appears: Non-toxic, No Acute Distress, Chronically Ill - Head Exam Head Exam: ATRAUMATIC, NORMOCEPHALIC - Eye Exam Eye Exam: EOMI, PERRL Pupil Exam: NORMAL ACCOMODATION, PERRL - ENT Exam ENT Exam: Mucous Membranes Moist, Normal External Ear Exam, TM's Normal Bilaterally - Neck Exam Neck Exam: Full ROM, Normal Inspection - Respiratory Exam Respiratory Exam: Decreased Breath Sounds, Wheezes - Cardiovascular Exam Cardiovascular Exam: REGULAR RHYTHM, RRR, +S1, +S2 - GI/Abdominal Exam GI & Abdominal Exam: Soft, Normal Bowel Sounds. absent: Distended, Tenderness - Extremities Exam Extremities Exam: Full ROM, Normal Inspection - Neurological Exam Neurological Exam: Alert, Awake, CN II-XII Intact Additional comments: AAO x 0-1 - Skin Skin Exam: Intact, Normal Color Assessment and Plan - Assessment and Plan (Free Text) Assessment: 62 yo female with SOB, hypotensive, and multiple electrolyte abnormalities. The patient is on BiPAP now. She is awake and alert now. Poor historian. Creatinine is significantly elevated. She is actively wheezing at this time. Supportive care. On IV Antibiotics of Vancomycin and was given Aztreonam. Cuadra cultures sent. Will check [facility] records of the recent hospitalization. Supportive care. Chest X-ray showing signs of bilateral lower lobe pneumonia. On IV Vancomycon, Azithromycin, and Meropenem. Patient is responsive but lethargic. Thank you for allowing me to participate in the care of the patient, we will follow with you.
--- NOTE | 2018-02-21 02:21 | PN ---
DATE: 02/20/2018 SUBJECTIVE: The patient is a 62 years old female. The patient was seen and examined at the bedside, looking comfortable, not having BiPAP, getting oxygen with Ventimask. No nausea, vomiting, or diarrhea. No fever. No chills. Patient is a very poor historian. No acute event overnight happened. Patient recognized me and responded to the question appropriately, but is lethargic. PHYSICAL EXAMINATION: VITAL SIGNS: Temperature 94, pulse 92, respirations 16, blood pressure 88/38. HEENT: Head: Normocephalic and atraumatic. Eyes: PERRLA. Extraocular muscles intact. Conjunctivae clear. Nose patent. Mucous membranes moist. NECK: Supple. No carotid bruits. No JVD or thyromegaly. CHEST: Bilaterally symmetrical. HEART: S1 and S2 positive. LUNGS: Clear to auscultation. ABDOMEN: Soft. Bowel sounds present. No organomegaly. EXTREMITIES: Trace edema. NEUROLOGIC: Patient is awake, but little bit lethargic. MEDICATIONS: Brovana, Eliquis, insulin, Protonix, norepinephrine. LABORATORY DATA: White blood cell is 15.9, hemoglobin 8.8, hematocrit 28.7, platelets 101. Sodium 150, potassium noted , BUN 64, creatinine 3, glucose 217, calcium 6.7. ASSESSMENT AND PLAN: Ms. Day Hung is 62-year-old female with leukopenia, anemia, thrombocytopenia, hypernatremia, hyperchloremia, renal insufficiency, diabetes mellitus, hypocalcemia, abnormal liver function test, proteinuria, hematuria, mycoplasma, pneumonia, Immunoglobulin G is positive. She was seen by Tamika Mckeon. History of COPD, hypertension, atrial fibrillation and bipolar disorder, history of respiratory failure in the past, altered mental status, again respiratory failure at this time, came with septic shock, history of schizophrenia, seizures, deep vein thrombosis, decubitus ulcer. She continues DNR/DNI. Continue vasopressors and norepinephrine on respiratory failure, getting BiPAP, nebulizer, Solu-Cortef. Continue antibiotics. Getting IV fluids for hypernatremia. Patient has hyperkalemia. Appreciated Tamika Mckeon's input. ID is on the case. Gastrointestinal and deep vein prophylaxis. Repeat labs. We will follow. Steff Gallegos MD JORDAN
--- NOTE | 2018-02-21 03:36 | PN ---
DATE: 02/20/2018 PULMONARY PROGRESS NOTE REFERRING PHYSICAN: Steff Gallegos MD. SUBJECTIVE: She is on supplemental oxygen, sleepy, arousable, much more awake and alert compared to yesterday. The nasogastric tube feeding is started. No hemoptysis. No hematemesis. No hematuria. No diarrhea reported. OBJECTIVE: GENERAL: In no acute distress. VITAL SIGNS: Temperature is 98, heart rate is 95, respiratory rate is 20 to 30, blood pressure 110/39, pulse ox 93% on Venturi mask. HEENT: Moist mucous membrane. Crowded airway. Mallampati score is 4. NECK: Short thick neck. LUNGS: Have fair airflow with rhonchi. HEART: S1 and S2. ABDOMEN: Soft, nontender, no organomegaly. EXTREMITIES: There is no edema. NEUROLOGICAL: Sleepy, arousable. Does follow simple command, but confused. MEDICATIONS: She is on Brovana inhaled twice a day, DuoNeb every 6 hour p.r.n., Eliquis 2.5 mg twice a day, insulin coverage, meropenem 500 mg every 12 hour, Protonix 40 mg daily, Pulmicort inhaled twice a day, Solu-Cortef 50 mg every 8 hour, Synthroid 175 mcg daily, Tylenol p.r.n., valproic acid 500 mg three times a day, vancomycin 500 mg every 12 hour, vasopressin drip, Zithromax 500 mg daily. LABORATORY DATA: Shows hemoglobin 8.8, hematocrit 28.7, WBC 15.9, platelet count is 101. Sodium 150, potassium 4, chloride 113, bicarbonate 21, BUN 64, creatinine 3, glucose 265, calcium 6.7, phosphorus 5.1, magnesium 1.9. AST 49, ALT 29, alk phos is 135. Albumin is 2.2. Microbiology: Urine has yeast. Blood culture has been negative. IMPRESSION AND PLAN: Respiratory failure requiring noninvasive ventilation, presently on Venturi mask, atrial fibrillation, diabetes, hypertension, chronic lung disease, schizophrenia, bipolar disorder, seizure disorder, oropharyngeal dysphagia requiring nasogastric tube, septic shock on pressors. Pulmonary point of view, she is really improved, more awake and alert, breathing is better. We will continue BiPAP while sleeping and in respiratory distress. Continue nasogastric tube feeding, IV and inhaled bronchodilator, antibiotics. Aspiration precaution. Pressure ulcer precaution. Patient is DNR and DNI, but full aggressive medical care. Follow up labs in the morning. Thank you and we will follow with you. Justin Shelley MD
[2018-02-21] MEDS: Insulin Lispro (HUMAlog) HIGH Coverage SC SCH ×5 (06:00→22:08)
[2018-02-21] MEDS: Levothyroxine 175 MCG TAB PO SCH (06:00)
[2018-02-21 07:13] LABS: HEMOGLOBIN 8.6 g/dL (12.0-16.0); MEAN CELL VOLUME 100.4 fl (80.0-105.0); MEAN CORPUSCULAR HEMOGLOBIN 31.2 pg (25.0-35.0); MEAN PLATELET VOLUME 10.1 fl (7.0-11.0); RBC 2.76 10^6/uL (3.5-6.1); RED CELL DISTRIBUTION WIDTH 25.2 % (11.5-14.5); WHITE BLOOD COUNT 16.5 10^3/ul (4.5-11.0)
[2018-02-21 07:26] LABS: ALB/GLOB RATIO 0.7 (1.1-1.8); ALBUMIN 2.1 g/dL (3.0-4.8); CALCIUM 7.2 mg/dL (8.4-10.5)
[2018-02-21] MEDS: Budesonide 0.5 mg/2 ml Inhal Susp UD IH SCH ×3 (07:35→22:00)
[2018-02-21] MEDS: Arformoterol 15 mcg/2 ml Inh Sol IH SCH ×3 (07:35→22:00)
[2018-02-21] MEDS ORDERED: Sodium Chloride 0.9% 1,000 ML IV STA (07:58)
[2018-02-21] MEDS ORDERED: Lactated Ringer's 1,000 ML IV SCH ×2 (08:30→10:00)
[2018-02-21] MEDS ORDERED: Enoxaparin 80 mg Syringe SC SCH (08:30)
[2018-02-21] MEDS: Vancomycin 500mg in NS 500 MG/100 ML BAG IVPB SCH (09:50)
[2018-02-21] MEDS: Azithromycin 500MG/NS 250ml 500 MG/250 ML BAG IVPB SCH (09:55)
[2018-02-21] MEDS: Meropenem 500 MG in Sodium Chloride 0.9% 50 ML IVPB SCH ×2 (09:56→22:02)
[2018-02-21] MEDS: Vasopressin 20 UNITS in Dextrose 5% In Water 100 ML IV SCH ×2 (10:00→21:31)
[2018-02-21] MEDS: Valproate 500 MG in Sodium Chloride 0.9% 100 ML IVPB SCH ×3 (10:47→17:19)
--- NOTE | 2018-02-21 10:48 | CP.CCUPN ---
<Maurice Fontaine - Last Filed: 02/21/18 10:37> CCU Subjective - Physician Review Subjective (Free Text): ICU Progress Note Pt seen and examined at bedside. No acute overnight events. Patient currently on BIPAP. Patient is lethargic, but does respond to questioning appropriately. ROS limited due to BIPAP and current mental status. CCU Objective - Vital Signs / Intake & Output Vital Signs (Last 4 hours): Vital Signs BP 02/21/18 10:00 94/48 L Intake and Output (Last 8hrs): Intake & Output 02/20/18 02/21/18 02/21/18 22:59 06:59 14:59 Intake Total 928 Output Total 175 Balance 753 Intake: IV 928 Left Internal Jugular 450 Oral 0 Output: Urine 175 Urethral (Colvin) 175 Emesis 0 Other: # Bowel Movements 1 - Physical Exam Head: Positive for: Atraumatic, Normocephalic Pupils: Positive for: PERRL, Pinpoint Extroacular Muscles: Positive for: EOMI Conjunctiva: Positive for: Normal Ears: Positive for: Normal Mouth: Positive for: Moist Mucous Membranes Pharnyx: Positive for: Normal Nose (External): Positive for: Atraumatic Nose (Internal): Positive for: Normal Inspection Neck: Positive for: Normal Range of Motion Respiratory/Chest: Positive for: Rhonchi. Negative for: Respiratory Distress, Wheezes, Rales, Tachypneic Cardiovascular: Positive for: Regular Rate and Rhythm, Bradycardic. Negative for: Murmurs, Rub, Gallop Abdomen: Negative for: Tenderness, Distention, Normal Bowel Sounds, Peritoneal Signs, Rebound, Guarding, McBurney's Point Tender, Rovsing's Sign Present, Hernias, Feeding Tubes, Ostomy Tubes, Mass/Organomegaly, Scars, Other Back: Positive for: Normal Inspection Upper Extremity: Positive for: Edema (2+) Lower Extremity: Positive for: Edema (2+) Neurological: Positive for: Other (lethargy) Skin: Positive for: Warm, Normal Color Psychiatric: Positive for: Lethargic - Medications Active Medications: Active Medications Generic Name Dose Route Start Last Admin Trade Name Freq PRN Reason Stop Dose Admin Acetaminophen 650 mg 02/18/18 01:44 Tylenol 325mg Tab PO Q4H PRN Fever >100.4 F Albuterol/Ipratropium 3 ml 02/18/18 02:03 02/19/18 03:14 Duoneb 3 Mg/0.5 Mg (3 Ml) Ud IH 3 ml [id number] PRN Administration Shortness of Breath Arformoterol Tartrate 15 mcg 02/18/18 10:00 02/21/18 07:35 Brovana IH 15 mcg Q12 FLAVIO Administration Budesonide 0.5 mg 02/18/18 10:00 02/21/18 07:35 Pulmicort Respules IH 0.5 mg Q12 FLAVIO Administration Enoxaparin Sodium 80 mg 02/21/18 08:30 02/21/18 09:56 Lovenox SC 80 mg Q24H FLAVIO Administration Protocol Famotidine 20 mg 02/21/18 22:00 Pepcid PO HS FLAVIO Hydrocortisone Sodium Succinate 50 mg 02/20/18 09:20 02/21/18 08:13 Solu-Cortef IVP 50 mg Q8 FLAVIO Administration Valproate Sodium 500 mg/ 105 mls @ 100 mls/hr 02/18/18 10:00 02/20/18 19:20 Sodium Chloride IVPB 100 mls/hr TID FLAVIO Administration Azithromycin 500 mg in 250 mls @ 167 mls/hr 02/19/18 10:00 02/21/18 09:55 Zithromax 500mg In Ns IVPB 167 mls/hr DAILY FLAVIO Administration Protocol Phenylephrine HCl 80 mg/ 258 mls @ 19.35 mls/hr 02/18/18 19:31 02/19/18 15:43 Sodium Chloride IV 0 mcg/min .[id number] PRN 0 mls/hr TITRATE PER MD ORDER Titration Protocol 100 MCG/MIN Norepinephrine Bitartrate 8 mg 258 mls @ 58.05 mls/hr 02/18/18 21:00 10:08 / Sodium Chloride IV 25 mcg/min .Q4H27M FLAVIO 48.37 mls/hr Protocol Titration 30 MCG/MIN Vasopressin 20 units/ Dextrose 101 mls @ 9.09 mls/hr 02/19/18 09:45 02/21/18 10:00 IV 9.09 mls/hr .Q11H7M FLAVIO Administration Protocol 0.03 U/MIN Meropenem 500 mg/ Sodium 50 mls @ 100 mls/hr 02/19/18 22:00 02/21/18 09:56 Chloride IVPB 100 mls/hr Q12 FLAVIO Administration Protocol Potassium Chloride 20 meq in 100 mls @ 50 mls/hr 02/21/18 07:45 02/21/18 09: 16 Potassium Chloride 20 Meq/100 Ml IVPB 02/21/18 11:44 50 mls/hr Q2H FLAVIO Administration Lactated Ringer's 1,000 mls @ 999 mls/hr 02/21/18 10:00 02/21/18 10:01 Lactated Ringer's IV 02/21/18 11:00 999 mls/hr .Q1H1M FLAVIO Administration Insulin Human Lispro 0 units 02/19/18 18:00 02/21/18 06:00 Humalog High SC Not Given Q6 FLAVIO Protocol Levothyroxine Sodium 175 mcg 02/18/18 06:00 02/21/18 06:00 Synthroid PO Not Given 0600 FLAVIO - Patient Studies Lab Studies: Lab Studies 02/21/18 02/21/18 02/21/18 Range/Units 07:45 06:40 06:40 WBC (4.5-11.0) 10^3/ul RBC (3.5-6.1) 10^6/uL Hgb (12.0-16.0) g/dL Hct (36.0-48.0) % MCV (80.0-105.0) fl MCH (25.0-35.0) pg MCHC (31.0-37.0) g/dl RDW (11.5-14.5) % Plt Count (120.0-450.0) 10^3/uL MPV (7.0-11.0) fl Sodium 151 H (132-148) mmol/L Potassium 3.4 L (3.6-5.0) mmol/L Chloride 115 H (98-107) mmol/L Carbon Dioxide 19 L (21-33) mmol/L Anion Gap 20 (10-20) BUN 69 H (7-21) mg/dL Creatinine 2.8 H (0.7-1.2) mg/dl Est GFR ( Amer) 21 Est GFR (Non-Af Amer) 17 POC Glucose (mg/dL) (65-110) mg/dL Random Glucose 229 H (70-110) mg/dL Calcium 7.2 L (8.4-10.5) mg/dL Magnesium 2.0 (1.7-2.2) mg/dL Total Bilirubin 0.3 (0.2-1.3) mg/dL AST 49 H (14-36) U/L ALT 25 (7-56) U/L Alkaline Phosphatase 138 H (38-126) U/L Total Protein 5.3 L (5.8-8.3) g/dL Albumin 2.1 L (3.0-4.8) g/dL Globulin 3.1 gm/dL Albumin/Globulin Ratio 0.7 L (1.1-1.8) Random Vancomycin 27.8 (20-40) ug/mL Mycoplasma pneumon IgG (<=0.90) Mycoplasma pneumon IgM (<770) U/mL 02/21/18 02/21/18 02/21/18 Range/Units 06:40 05:58 00:03 WBC 16.5 H (4.5-11.0) 10^3/ul RBC 2.76 L (3.5-6.1) 10^6/uL Hgb 8.6 L (12.0-16.0) g/dL Hct 27.7 L (36.0-48.0) % MCV 100.4 (80.0-105.0) fl MCH 31.2 (25.0-35.0) pg MCHC 31.0 (31.0-37.0) g/dl RDW 25.2 H (11.5-14.5) % Plt Count 84 L (120.0-450.0) 10^3/uL MPV 10.1 (7.0-11.0) fl Sodium (132-148) mmol/L Potassium (3.6-5.0) mmol/L Chloride (98-107) mmol/L Carbon Dioxide (21-33) mmol/L Anion Gap (10-20) BUN (7-21) mg/dL Creatinine (0.7-1.2) mg/dl Est GFR ( Amer) Est GFR (Non-Af Amer) POC Glucose (mg/dL) 233 H 178 H (65-110) mg/dL Random Glucose (70-110) mg/dL Calcium (8.4-10.5) mg/dL Magnesium (1.7-2.2) mg/dL Total Bilirubin (0.2-1.3) mg/dL AST (14-36) U/L ALT (7-56) U/L Alkaline Phosphatase (38-126) U/L Total Protein (5.8-8.3) g/dL Albumin (3.0-4.8) g/dL Globulin gm/dL Albumin/Globulin Ratio (1.1-1.8) Random Vancomycin (20-40) ug/mL Mycoplasma pneumon IgG (<=0.90) Mycoplasma pneumon IgM (<770) U/mL 02/20/18 02/20/18 02/17/18 Range/Units 19:25 14:08 20:30 WBC (4.5-11.0) 10^3/ul RBC (3.5-6.1) 10^6/uL Hgb (12.0-16.0) g/dL Hct (36.0-48.0) % MCV (80.0-105.0) fl MCH (25.0-35.0) pg MCHC (31.0-37.0) g/dl RDW (11.5-14.5) % Plt Count (120.0-450.0) 10^3/uL MPV (7.0-11.0) fl Sodium (132-148) mmol/L Potassium (3.6-5.0) mmol/L Chloride (98-107) mmol/L Carbon Dioxide (21-33) mmol/L Anion Gap (10-20) BUN (7-21) mg/dL Creatinine (0.7-1.2) mg/dl Est GFR ( Amer) Est GFR (Non-Af Amer) POC Glucose (mg/dL) 217 H 285 H (65-110) mg/dL Random Glucose (70-110) mg/dL Calcium (8.4-10.5) mg/dL Magnesium (1.7-2.2) mg/dL Total Bilirubin (0.2-1.3) mg/dL AST (14-36) U/L ALT (7-56) U/L Alkaline Phosphatase (38-126) U/L Total Protein (5.8-8.3) g/dL Albumin (3.0-4.8) g/dL Globulin gm/dL Albumin/Globulin Ratio (1.1-1.8) Random Vancomycin (20-40) ug/mL Mycoplasma pneumon IgG 1.48 H (<=0.90) Mycoplasma pneumon IgM 48 (<770) U/mL Laboratory Results - last 24 hr 02/17/18 02/20/18 02/20/18 20:30 14:08 19:25 WBC RBC Hgb Hct MCV MCH MCHC RDW Plt Count MPV Sodium Potassium Chloride Carbon Dioxide Anion Gap BUN Creatinine Est GFR ( Amer) Est GFR (Non-Af Amer) POC Glucose (mg/dL) 285 H 217 H Random Glucose Calcium Magnesium Total Bilirubin AST ALT Alkaline Phosphatase Total Protein Albumin Globulin Albumin/Globulin Ratio Random Vancomycin Mycoplasma pneumon IgG 1.48 H Mycoplasma pneumon IgM 48 02/21/18 02/21/18 02/21/18 00:03 05:58 06:40 WBC 16.5 H RBC 2.76 L Hgb 8.6 L Hct 27.7 L MCV 100.4 MCH 31.2 MCHC 31.0 RDW 25.2 H Plt Count 84 L MPV 10.1 Sodium Potassium Chloride Carbon Dioxide Anion Gap BUN Creatinine Est GFR ( Amer) Est GFR (Non-Af Amer) POC Glucose (mg/dL) 178 H 233 H Random Glucose Calcium Magnesium Total Bilirubin AST ALT Alkaline Phosphatase Total Protein Albumin Globulin Albumin/Globulin Ratio Random Vancomycin Mycoplasma pneumon IgG Mycoplasma pneumon IgM 02/21/18 02/21/18 02/21/18 06:40 06:40 07:45 WBC RBC Hgb Hct MCV MCH MCHC RDW Plt Count MPV Sodium 151 H Potassium 3.4 L Chloride 115 H Carbon Dioxide 19 L Anion Gap 20 BUN 69 H Creatinine 2.8 H Est GFR ( Amer) 21 Est GFR (Non-Af Amer) 17 POC Glucose (mg/dL) Random Glucose 229 H Calcium 7.2 L Magnesium 2.0 Total Bilirubin 0.3 AST 49 H ALT 25 Alkaline Phosphatase 138 H Total Protein 5.3 L Albumin 2.1 L Globulin 3.1 Albumin/Globulin Ratio 0.7 L Random Vancomycin 27.8 Mycoplasma pneumon IgG Mycoplasma pneumon IgM Fingerstick Blood Sugar Results: 233 Critical Care Progress Note - Nutrition Nutrition: Nutrition Category Date Time Status NPO Diet [DIET] Diets 02/20/18 Breakfast Ordered Assessment/Plan - Assessment and Plan (Free Text) Assessment: 62 yo F with PMH of Diabetes Mellitus, COPD, Substance abuse history, CKD, Seizure disorder history, hypothyroidism, and HTN transferred from [facility] for lethargy and fever. Patient was admitted to ICU due to septic shock 2/2 PNA and placed on pressors and IV abx. Plan: Neuro: - Lethargic - Cont valproate for mood stabilization - Maintain normothermia CV: - Cont Levophed, Vasopressin; titrate down as tolerated by patient - Off Phenylephrine - Maintain MAP > 65 Pulm: - Repeat CXR ordered, read pending - Wean off of BIPAP - Cont duoneb prn, brovana, pulmicort - Chest PT - Maintain O2 between 88-92% - O2 via NC GI: - Pepcid for GI PPx - NPO - Swallow eval Renal: - 2L LR bolus given - Potassium repleted - Monitor electrolytes and replete as needed - Maintain euvolemia Heme: - Eliquis stopped as patient pulled OG tube - Therapeutic lovenox, renally dosed started - Monitor H/H Endo: - ISS-high - Accuchecks Q6h - Cont Synthroid ID: - Leukocytosis 2/2 steroids - Blood cultures negative - Urine cultures positive for yeast, asymptomatic - Urine Legionella negative - Mycoplasma IgG positive - F/u urine strep - Cont Merrem, Vancomycin, and Azithromycin - Cont solucortef 50 mg IVP q8h - ID consulted Dispo: Palliative care consulted and verified that is DNR/DNI per POLST and surrogate medical decision maker. Pt seen and discussed in detail with Dr. Davila. Luis A Fontaine, PGY1 <Roscoe Davila - Last Filed: 02/21/18 12:16> CCU Objective - Vital Signs / Intake & Output Vital Signs (Last 4 hours): Vital Signs Pulse Resp BP Pulse Ox 02/21/18 11:30 85 24 100 02/21/18 11:20 92 H 100 02/21/18 11:10 82 27 H 100 02/21/18 11:00 92 H 25 H 95/55 L 100 02/21/18 10:50 71 21 100 02/21/18 10:40 96 H 14 100 02/21/18 10:30 83 26 H 100 02/21/18 10:20 88 23 100 02/21/18 10:14 83 24 91/38 L 98 02/21/18 10:10 84 98 02/21/18 10:00 131 H 26 H 84/34 L 96 02/21/18 09:50 125 H 22 98 02/21/18 09:40 136 H 24 92 L 02/21/18 09:30 145 H 22 97 02/21/18 09:20 131 H 26 H 99 02/21/18 09:10 128 H 22 98 02/21/18 09:00 134 H 22 94/48 L 98 02/21/18 08:50 133 H 26 H 98 02/21/18 08:40 136 H 22 98 02/21/18 08:30 136 H 22 99 02/21/18 08:20 131 H 25 H 98 Intake and Output (Last 8hrs): Intake & Output 02/20/18 02/21/18 02/21/18 22:59 06:59 14:59 Intake Total 928 Output Total 175 Balance 753 Intake: IV 928 Left Internal Jugular 450 Oral 0 Output: Urine 175 Urethral (Colvin) 175 Emesis 0 Other: # Bowel Movements 1 - Medications Active Medications: Active Medications Generic Name Dose Route Start Last Admin Trade Name Freq PRN Reason Stop Dose Admin Acetaminophen 650 mg 02/18/18 01:44 Tylenol 325mg Tab PO Q4H PRN Fever >100.4 F Albuterol/Ipratropium 3 ml 02/18/18 02:03 02/19/18 03:14 Duoneb 3 Mg/0.5 Mg (3 Ml) Ud IH 3 ml [id number] PRN Administration Shortness of Breath Arformoterol Tartrate 15 mcg 02/18/18 10:00 02/21/18 07:35 Brovana IH 15 mcg Q12 FLAVIO Administration Budesonide 0.5 mg 02/18/18 10:00 02/21/18 07:35 Pulmicort Respules IH 0.5 mg Q12 FLAVIO Administration Enoxaparin Sodium 80 mg 02/21/18 08:30 02/21/18 09:56 Lovenox SC 80 mg Q24H FLAVIO Administration Protocol Famotidine 20 mg 02/21/18 10:45 02/21/18 10:54 Pepcid IVP Not Given DAILY FLAVIO Hydrocortisone Sodium Succinate 50 mg 02/20/18 09:20 02/21/18 08:13 Solu-Cortef IVP 50 mg Q8 FLAVIO Administration Valproate Sodium 500 mg/ 105 mls @ 100 mls/hr 02/18/18 10:00 02/21/18 10:47 Sodium Chloride IVPB 100 mls/hr TID FLAVIO Administration Azithromycin 500 mg in 250 mls @ 167 mls/hr 02/19/18 10:00 02/21/18 09:55 Zithromax 500mg In Ns IVPB 167 mls/hr DAILY FLAVIO Administration Protocol Phenylephrine HCl 80 mg/ 258 mls @ 19.35 mls/hr 02/18/18 19:31 02/19/18 15:43 Sodium Chloride IV 0 mcg/min .[id number] PRN 0 mls/hr TITRATE PER MD ORDER Titration Protocol 100 MCG/MIN Norepinephrine Bitartrate 8 mg 258 mls @ 58.05 mls/hr 02/18/18 21:00 10:08 / Sodium Chloride IV 25 mcg/min .Q4H27M FLAVIO 48.37 mls/hr Protocol Titration 30 MCG/MIN Vasopressin 20 units/ Dextrose 101 mls @ 9.09 mls/hr 02/19/18 09:45 02/21/18 10:00 IV 9.09 mls/hr .Q11H7M FLAVIO Administration Protocol 0.03 U/MIN Meropenem 500 mg/ Sodium 50 mls @ 100 mls/hr 02/19/18 22:00 02/21/18 09:56 Chloride IVPB 100 mls/hr Q12 FLAVIO Administration Protocol Insulin Human Lispro 0 units 02/19/18 18:00 02/21/18 06:00 Humalog High SC Not Given Q6 FLAVIO Protocol Levothyroxine Sodium 175 mcg 02/18/18 06:00 02/21/18 06:00 Synthroid PO Not Given 0600 [facility] - Patient Studies Lab Studies: Lab Studies 02/21/18 02/21/18 02/21/18 Range/Units 11:38 07:45 06:40 WBC (4.5-11.0) 10^3/ul RBC (3.5-6.1) 10^6/uL Hgb (12.0-16.0) g/dL Hct (36.0-48.0) % MCV (80.0-105.0) fl MCH (25.0-35.0) pg MCHC (31.0-37.0) g/dl RDW (11.5-14.5) % Plt Count (120.0-450.0) 10^3/uL MPV (7.0-11.0) fl Sodium (132-148) mmol/L Potassium (3.6-5.0) mmol/L Chloride (98-107) mmol/L Carbon Dioxide (21-33) mmol/L Anion Gap (10-20) BUN (7-21) mg/dL Creatinine (0.7-1.2) mg/dl Est GFR ( Amer) Est GFR (Non-Af Amer) POC Glucose (mg/dL) 252 H (65-110) mg/dL Random Glucose (70-110) mg/dL Calcium (8.4-10.5) mg/dL Magnesium 2.0 (1.7-2.2) mg/dL Total Bilirubin (0.2-1.3) mg/dL AST (14-36) U/L ALT (7-56) U/L Alkaline Phosphatase (38-126) U/L Total Protein (5.8-8.3) g/dL Albumin (3.0-4.8) g/dL Globulin gm/dL Albumin/Globulin Ratio (1.1-1.8) Random Vancomycin 27.8 (20-40) ug/mL Mycoplasma pneumon IgG (<=0.90) Mycoplasma pneumon IgM (<770) U/mL 02/21/18 02/21/18 02/21/18 Range/Units 06:40 06:40 05:58 WBC 16.5 H (4.5-11.0) 10^3/ul RBC 2.76 L (3.5-6.1) 10^6/uL Hgb 8.6 L (12.0-16.0) g/dL Hct 27.7 L (36.0-48.0) % MCV 100.4 (80.0-105.0) fl MCH 31.2 (25.0-35.0) pg MCHC 31.0 (31.0-37.0) g/dl RDW 25.2 H (11.5-14.5) % Plt Count 84 L (120.0-450.0) 10^3/uL MPV 10.1 (7.0-11.0) fl Sodium 151 H (132-148) mmol/L Potassium 3.4 L (3.6-5.0) mmol/L Chloride 115 H (98-107) mmol/L Carbon Dioxide 19 L (21-33) mmol/L Anion Gap 20 (10-20) BUN 69 H (7-21) mg/dL Creatinine 2.8 H (0.7-1.2) mg/dl Est GFR ( Amer) 21 Est GFR (Non-Af Amer) 17 POC Glucose (mg/dL) 233 H (65-110) mg/dL Random Glucose 229 H (70-110) mg/dL Calcium 7.2 L (8.4-10.5) mg/dL Magnesium (1.7-2.2) mg/dL Total Bilirubin 0.3 (0.2-1.3) mg/dL AST 49 H (14-36) U/L ALT 25 (7-56) U/L Alkaline Phosphatase 138 H (38-126) U/L Total Protein 5.3 L (5.8-8.3) g/dL Albumin 2.1 L (3.0-4.8) g/dL Globulin 3.1 gm/dL Albumin/Globulin Ratio 0.7 L (1.1-1.8) Random Vancomycin (20-40) ug/mL Mycoplasma pneumon IgG (<=0.90) Mycoplasma pneumon IgM (<770) U/mL 02/21/18 02/20/18 02/20/18 Range/Units 00:03 19:25 14:08 WBC (4.5-11.0) 10^3/ul RBC (3.5-6.1) 10^6/uL Hgb (12.0-16.0) g/dL Hct (36.0-48.0) % MCV (80.0-105.0) fl MCH (25.0-35.0) pg MCHC (31.0-37.0) g/dl RDW (11.5-14.5) % Plt Count (120.0-450.0) 10^3/uL MPV (7.0-11.0) fl Sodium (132-148) mmol/L Potassium (3.6-5.0) mmol/L Chloride (98-107) mmol/L Carbon Dioxide (21-33) mmol/L Anion Gap (10-20) BUN (7-21) mg/dL Creatinine (0.7-1.2) mg/dl Est GFR ( Amer) Est GFR (Non-Af Amer) POC Glucose (mg/dL) 178 H 217 H 285 H (65-110) mg/dL Random Glucose (70-110) mg/dL Calcium (8.4-10.5) mg/dL Magnesium (1.7-2.2) mg/dL Total Bilirubin (0.2-1.3) mg/dL AST (14-36) U/L ALT (7-56) U/L Alkaline Phosphatase (38-126) U/L Total Protein (5.8-8.3) g/dL Albumin (3.0-4.8) g/dL Globulin gm/dL Albumin/Globulin Ratio (1.1-1.8) Random Vancomycin (20-40) ug/mL Mycoplasma pneumon IgG (<=0.90) Mycoplasma pneumon IgM (<770) U/mL 02/17/18 Range/Units 20:30 WBC (4.5-11.0) 10^3/ul RBC (3.5-6.1) 10^6/uL Hgb (12.0-16.0) g/dL Hct (36.0-48.0) % MCV (80.0-105.0) fl MCH (25.0-35.0) pg MCHC (31.0-37.0) g/dl RDW (11.5-14.5) % Plt Count (120.0-450.0) 10^3/uL MPV (7.0-11.0) fl Sodium (132-148) mmol/L Potassium (3.6-5.0) mmol/L Chloride (98-107) mmol/L Carbon Dioxide (21-33) mmol/L Anion Gap (10-20) BUN (7-21) mg/dL Creatinine (0.7-1.2) mg/dl Est GFR ( Amer) Est GFR (Non-Af Amer) POC Glucose (mg/dL) (65-110) mg/dL Random Glucose (70-110) mg/dL Calcium (8.4-10.5) mg/dL Magnesium (1.7-2.2) mg/dL Total Bilirubin (0.2-1.3) mg/dL AST (14-36) U/L ALT (7-56) U/L Alkaline Phosphatase (38-126) U/L Total Protein (5.8-8.3) g/dL Albumin (3.0-4.8) g/dL Globulin gm/dL Albumin/Globulin Ratio (1.1-1.8) Random Vancomycin (20-40) ug/mL Mycoplasma pneumon IgG 1.48 H (<=0.90) Mycoplasma pneumon IgM 48 (<770) U/mL Laboratory Results - last 24 hr 02/17/18 02/20/18 02/20/18 20:30 14:08 19:25 WBC RBC Hgb Hct MCV MCH MCHC RDW Plt Count MPV Sodium Potassium Chloride Carbon Dioxide Anion Gap BUN Creatinine Est GFR ( Amer) Est GFR (Non-Af Amer) POC Glucose (mg/dL) 285 H 217 H Random Glucose Calcium Magnesium Total Bilirubin AST ALT Alkaline Phosphatase Total Protein Albumin Globulin Albumin/Globulin Ratio Random Vancomycin Mycoplasma pneumon IgG 1.48 H Mycoplasma pneumon IgM 48 02/21/18 02/21/18 02/21/18 00:03 05:58 06:40 WBC 16.5 H RBC 2.76 L Hgb 8.6 L Hct 27.7 L MCV 100.4 MCH 31.2 MCHC 31.0 RDW 25.2 H Plt Count 84 L MPV 10.1 Sodium Potassium Chloride Carbon Dioxide Anion Gap BUN Creatinine Est GFR ( Amer) Est GFR (Non-Af Amer) POC Glucose (mg/dL) 178 H 233 H Random Glucose Calcium Magnesium Total Bilirubin AST ALT Alkaline Phosphatase Total Protein Albumin Globulin Albumin/Globulin Ratio Random Vancomycin Mycoplasma pneumon IgG Mycoplasma pneumon IgM 02/21/18 02/21/18 02/21/18 06:40 06:40 07:45 WBC RBC Hgb Hct MCV MCH MCHC RDW Plt Count MPV Sodium 151 H Potassium 3.4 L Chloride 115 H Carbon Dioxide 19 L Anion Gap 20 BUN 69 H Creatinine 2.8 H Est GFR ( Amer) 21 Est GFR (Non-Af Amer) 17 POC Glucose (mg/dL) Random Glucose 229 H Calcium 7.2 L Magnesium 2.0 Total Bilirubin 0.3 AST 49 H ALT 25 Alkaline Phosphatase 138 H Total Protein 5.3 L Albumin 2.1 L Globulin 3.1 Albumin/Globulin Ratio 0.7 L Random Vancomycin 27.8 Mycoplasma pneumon IgG Mycoplasma pneumon IgM 02/21/18 11:38 WBC RBC Hgb Hct MCV MCH MCHC RDW Plt Count MPV Sodium Potassium Chloride Carbon Dioxide Anion Gap BUN Creatinine Est GFR ( Amer) Est GFR (Non-Af Amer) POC Glucose (mg/dL) 252 H Random Glucose Calcium Magnesium Total Bilirubin AST ALT Alkaline Phosphatase Total Protein Albumin Globulin Albumin/Globulin Ratio Random Vancomycin Mycoplasma pneumon IgG Mycoplasma pneumon IgM Critical Care Progress Note - Nutrition Nutrition: Nutrition Category Date Time Status NPO Diet [DIET] Diets 02/20/18 Breakfast Ordered Assessment/Plan - Assessment and Plan (Free Text) Plan: Patient seen and examined on rounds with resident, agree with note with following additions/exceptions: 62yo female a/w septic shock, Pt is currently on BIPAP. Pt is DNR/DNI Labs and imaging reviewed. Septic Shock PNA Acute on CKD Dehydration AMS RUE DVT on A/C COPD Hypernatremia - currently afebrile, on 2 Vasopressors, Levo, Vasopressin, stress dose steroids - mental status improved, on BIPAP, comfortable - patient is DNR/DNI - clinically dry bolused 2L LR Recommend: - cont with BIPAP as needed, wean off as tolerated - DUonebs q6hr - Chest PT - Broad spectrum abx as per Shama LOBO Merrem, Azithro - follow up ID - hold BP meds - switch Eliquis to Lovenox - GI ppx - DVT ppx, Lovenox - Monitor in MICU Poor prognosis Critical care time 30 minutes
--- NOTE | 2018-02-21 13:01 | RAD ---
HISTORY: pna COMPARISON: 02/19/2018 FINDINGS: LUNGS: No active pulmonary disease. PLEURA: Moderate size bilateral pleural effusions CARDIOVASCULAR: Moderate vascular congestion OSSEOUS STRUCTURES: No significant abnormalities. VISUALIZED UPPER ABDOMEN: Normal. OTHER FINDINGS: Left IJ line in the right atrium IMPRESSION: Moderate size pleural effusions. Moderate vascular congestion
--- NOTE | 2018-02-21 15:53 | PN ---
DATE: 02/21/2018 PULMONARY CRITICAL CARE PROGRESS NOTE REFERRING PHYSICIAN: Steff Gallegos MD. SUBJECTIVE: She is lying in the bed, head at 45 degrees. Much more awake and alert on nasal cannula oxygen. Started on modified p.o. diet. Still has some cough secretion. No hemoptysis. No hematemesis. No hematuria. No diarrhea, leg pain or leg swelling. OBJECTIVE: GENERAL: In no acute distress. VITAL SIGNS: Temperature is 98, heart rate is 90, respiratory rate is 24, blood pressure is 95/55, pulse ox 100% on nasal cannula. HEENT: Small oral cavity. Edentulous. NECK: Supple. No JVD. LUNGS: Have a scattered rhonchi. ABDOMEN: Soft, nontender. No organomegaly. EXTREMITIES: There is not much edema. NEUROLOGICAL: Awake and alert. Does follow simple command, but confused. LABORATORY DATA: Shows hemoglobin 8.6, hematocrit 27.7, WBC 16.5, platelet is 84. Sodium 151, potassium 3.4, chloride 115, bicarbonate 19, BUN 16 and creatinine 2.8, glucose 229, calcium is 7.2, magnesium 2, AST 49, ALT 25, alk phos is 138, albumin is 2.1. Microbiology: Blood culture and nasal are unremarkable. Urine culture has some yeast species. Chest x-ray done today shows moderate-sized pleural effusion, moderate vascular congestion. MEDICATIONS: She is on Brovana inhaled twice a day, DuoNeb every 6 hours p.r.n., insulin coverage, Lovenox 80 mg subcu every 12 hours, meropenem 500 mg every 12 hours, Pepcid 20 mg daily, phenylephrine IV drip, Pulmicort inhaled twice a day, Solu-Cortef 50 mg every 8 hours, Synthroid 175 mcg daily, Tylenol p.r.n. basis, valproate sodium 500 mg every 8 hours, vasopressin 20 units being titrated, Zithromax 500 mg daily. IMPRESSION AND PLAN: Status post respiratory failure requiring noninvasive ventilation, presently requiring supplement oxygen through the Venturi mask/nasal cannula; atrial fibrillation; diabetes; hypertension; chronic lung disease; schizophrenia; bipolar disorder; seizure disorder; oropharyngeal dysphagia, on modified diet; resolving septic shock, still requires pressors; renal failure. Overall, poor prognosis. Continue use bilevel positive airway pressure while sleeping. Keep head at 45 degrees. Bronchodilator. Aspiration precaution. Continue antibiotics as per Infectious Diseases. The patient is do not resuscitate and do not intubate. Being followed by Infectious Diseases. Has some yeast in the urine. We will let Go handle it. Follow up labs in the morning. Thank you and we will follow with you. Justin Shelley MD
--- NOTE | 2018-02-21 20:37 | CP.PCM.PN ---
Subjective - Date & Time of Evaluation Date of Evaluation: 02/21/18 Time of Evaluation: 18:15 - Subjective Subjective: Infectious Disease Follow Up: February 21, 2018 62 yo female with multiple hospitalization with a recent hospitalization to [facility] [facility] where she was intubated. The patient was transferred back to [facility] [place]. However, the patient felt feverish, was SOB, hypotensive, and AMS. [place] [facility] Remains lethargic. Currently on 2 Vasopressors to support blood pressure. Was on 3 vasopressors. Lethargic but responsive. Slight improvement. On Meropenem, Vancomycin IV, and Azitromycin. Objective - Vital Signs/Intake and Output Vital Signs (last 24 hours): Temp Pulse Resp BP Pulse Ox 97.8 F 80 30 H 122/41 L 94 L 02/21/18 16:00 02/21/18 17:57 02/21/18 17:50 02/21/18 17:00 02/21/18 17:50 Intake and Output: 02/21/18 02/22/18 18:59 06:59 Intake Total 4742 Output Total 325 Balance 4417 - Medications Medications: Current Medications Acetaminophen (Tylenol 325mg Tab) 650 mg PO Q4H PRN PRN Reason: Fever >100.4 F Albuterol/Ipratropium (Duoneb 3 Mg/0.5 Mg (3 Ml) Ud) 3 ml IH [id number] PRN PRN Reason: Shortness of Breath Last Admin: 02/19/18 03:14 Dose: 3 ml Arformoterol Tartrate (Brovana) 15 mcg IH Q12 [facility] Last Admin: 02/21/18 20:11 Dose: 15 mcg Budesonide (Pulmicort Respules) 0.5 mg IH Q12 [facility] Last Admin: 02/21/18 20:11 Dose: 0.5 mg Enoxaparin Sodium (Lovenox) 80 mg SC Q24H [facility] PRN Reason: Protocol Last Admin: 02/21/18 09:56 Dose: 80 mg Famotidine (Pepcid) 20 mg IVP DAILY [facility] Last Admin: 02/21/18 10:54 Dose: Not Given Hydrocortisone Sodium Succinate (Solu-Cortef) 50 mg IVP Q8 [facility] Last Admin: 02/21/18 13:52 Dose: 50 mg Valproate Sodium 500 mg/ (Sodium Chloride) 105 mls @ 100 mls/hr IVPB TID [facility] Last Admin: 02/21/18 17:19 Dose: 100 mls/hr Azithromycin (Zithromax 500mg In Ns) 500 mg in 250 mls @ 167 mls/hr IVPB DAILY [facility] PRN Reason: Protocol Last Admin: 02/21/18 09:55 Dose: 167 mls/hr Phenylephrine HCl 80 mg/ (Sodium Chloride) 258 mls @ 19.35 mls/hr IV .[id number] PRN; Protocol; 100 MCG/MIN PRN Reason: TITRATE PER MD ORDER Last Titration: 02/19/18 15:43 Dose: 0 mcg/min, 0 mls/hr Norepinephrine Bitartrate 8 mg (/ Sodium Chloride) 258 mls @ 58.05 mls/hr IV .Q4H27M [facility]; 30 MCG/MIN PRN Reason: Protocol Last Admin: 02/21/18 17:25 Dose: 25 mcg/min, 48.37 mls/hr Vasopressin 20 units/ Dextrose 101 mls @ 9.09 mls/hr IV .Q11H7M [facility]; 0.03 U/MIN PRN Reason: Protocol Last Admin: 02/21/18 10:00 Dose: 9.09 mls/hr Meropenem 500 mg/ Sodium (Chloride) 50 mls @ 100 mls/hr IVPB Q12 [facility] PRN Reason: Protocol Last Admin: 02/21/18 09:56 Dose: 100 mls/hr Insulin Human Lispro (Humalog High) 0 units SC ACHS [facility] PRN Reason: Protocol Levothyroxine Sodium (Synthroid) 175 mcg PO 0600 [facility] Last Admin: 02/21/18 06:00 Dose: Not Given - Labs Labs: 02/21/18 06:40 02/21/18 06:40 PT 24.3 SECONDS (9.4-12.5) H 02/19/18 09:20 INR 2.08 (0.93-1.08) H 02/19/18 09:20 APTT 42.2 Seconds (25.1-36.5) H 02/19/18 09:20 - Constitutional Appears: Non-toxic, No Acute Distress, Chronically Ill - Head Exam Head Exam: ATRAUMATIC, NORMOCEPHALIC - Eye Exam Eye Exam: EOMI, PERRL Pupil Exam: NORMAL ACCOMODATION, PERRL - ENT Exam ENT Exam: Mucous Membranes Moist, Normal External Ear Exam, TM's Normal Bilaterally - Neck Exam Neck Exam: Full ROM, Normal Inspection - Respiratory Exam Respiratory Exam: Decreased Breath Sounds, Wheezes - Cardiovascular Exam Cardiovascular Exam: REGULAR RHYTHM, RRR, +S1 - GI/Abdominal Exam GI & Abdominal Exam: Soft, Normal Bowel Sounds. absent: Distended, Tenderness - Extremities Exam Extremities Exam: Full ROM, Normal Inspection - Neurological Exam Neurological Exam: Alert, Awake, CN II-XII Intact Additional comments: AAO x 0 - Skin Skin Exam: Intact, Normal Color Assessment and Plan - Assessment and Plan (Free Text) Assessment: 62 yo female with SOB, hypotensive, and multiple electrolyte abnormalities. The patient is on BiPAP now. She is awake and alert now. Poor historian. Creatinine is significantly elevated. She is actively wheezing at this time. Supportive care. On IV Antibiotics of Vancomycin and was given Aztreonam. Cuadra cultures sent. Will check [facility] records of the recent hospitalization. Supportive care. Chest X-ray showing signs of bilateral lower lobe pneumonia. On IV Vancomycin, Azithromycin, and Meropenem. Patient is slightly responsive and lethargic. On BiPAP still. The patient was on 3 vasopressors and titrated back to 2 vasopressors. Patient remains in critical condition. Thank you for allowing me to participate in the care of the patient, we will follow with you.
[2018-02-21] MEDS ORDERED: diltiaZEM IVPB 100mg in NS 100 ML IV PRN (23:53)
[2018-02-22 01:01] LABS: ALB/GLOB RATIO 0.7 (1.1-1.8); ALBUMIN 2.3 g/dL (3.0-4.8); CALCIUM 7.8 mg/dL (8.4-10.5)
[2018-02-22] MEDS: Vasopressin 20 UNITS in Dextrose 5% In Water 100 ML IV SCH (04:44)
[2018-02-22 06:15] LABS: HEMOGLOBIN 8.6 g/dL (12.0-16.0); MEAN CELL VOLUME 101.8 fl (80.0-105.0); MEAN CORPUSCULAR HEMOGLOBIN 31.6 pg (25.0-35.0); MEAN PLATELET VOLUME 10.5 fl (7.0-11.0); RBC 2.72 10^6/uL (3.5-6.1)
[2018-02-22] MEDS: Levothyroxine 175 MCG TAB PO SCH (06:34)
--- NOTE | 2018-02-22 07:12 | PN ---
DATE: 02/21/2018 SUBJECTIVE: The patient was seen and examined at the bedside on 02/21/2018 in the ICU. Looks a little bit better. More awake and alert, now on nasal cannula oxygen. Started on modified p.o. diet. Still coughing, hard to handle her secretions. No hemoptysis. No hematemesis. No fever. No chills. No nausea, vomiting, diarrhea. PHYSICAL EXAMINATION: VITAL SIGNS: Temperature 98, heart rate 90, respiratory rate 24, blood pressure 95/55, pulse oximetry 100% on nasal cannula. HEENT: Head normocephalic, atraumatic. Eyes PERRLA. Extraocular muscles intact. Conjunctivae clear. Nose patent. Mucous membrane moist. NECK: Supple. No carotid bruit. No JVD or thyromegaly. CHEST: Bilaterally symmetrical. HEART: S1 and S2 positive. LUNGS: Clear to auscultation. ABDOMEN: Soft. Bowel sounds positive. No organomegaly. EXTREMITIES: No edema. No cyanosis. NEUROLOGICAL: The patient is awake and alert. Moving all 4 extremities. No focal deficits. LABORATORY DATA: Hemoglobin 8.6, hematocrit 27.7, white blood cells 15.5, platelets 84. Sodium 151, potassium 3.4, BUN 16, creatinine 2.8. MEDICATIONS: Brovana, DuoNeb, insulin, Lovenox, meropenem, Pepcid, phenylephrine, Solu-Cortef, Synthroid, Tylenol, Zithromax. ASSESSMENT AND PLAN: Ms. Day Hung is a 62-year-old female, status post respiratory failure requiring noninvasive ventilation, presently requiring supplemental oxygen through the Ventimask and nasal supply cannula. Past history of atrial fibrillation, diabetes mellitus, hypertension, chronic lung disease, schizophrenia, bipolar, seizure disorder, oropharyngeal dysphagia, on modified diet . Overall prognosis is poor. Continue positive pressure ventilation. Gastrointestinal and deep venous thrombosis prophylaxis. Repeat labs. Continue antibiotics as per Infectious Disease. The patient is do not resuscitate and do not intubate. We will follow up. Steff Gallegos MD JORDAN
[2018-02-22 07:21] LABS: ALB/GLOB RATIO 0.8 (1.1-1.8); ALBUMIN 2.3 g/dL (3.0-4.8); CALCIUM 7.9 mg/dL (8.4-10.5)
[2018-02-22] MEDS: Budesonide 0.5 mg/2 ml Inhal Susp UD IH SCH (07:35)
[2018-02-22] MEDS: Arformoterol 15 mcg/2 ml Inh Sol IH SCH (07:35)
[2018-02-22 07:48] LABS: PARTIAL THROMBOPLASTIN TIME 44.4 Seconds (25.1-36.5); PROTHROMBIN TIME 45.2 SECONDS (9.4-12.5)
[2018-02-22 07:52] LABS: INR 3.82 (0.93-1.08)
[2018-02-22] MEDS: Insulin Lispro (HUMAlog) HIGH Coverage SC SCH ×2 (08:51→11:57)
[2018-02-22] MEDS: Azithromycin 500MG/NS 250ml 500 MG/250 ML BAG IVPB SCH (09:04)
[2018-02-22] MEDS: Meropenem 500 MG in Sodium Chloride 0.9% 50 ML IVPB SCH (09:05)
[2018-02-22] MEDS: Valproate 500 MG in Sodium Chloride 0.9% 100 ML IVPB SCH (09:52)
--- NOTE | 2018-02-22 11:40 | CP.CCUPN ---
Addendum entered and electronically signed by Maurice Fontaine DO 02/22/18 12:51 : POA was contacted regarding patient's current status. Goals of care were discussed. Due to patient's poor prognosis, the decision was made by POA to place patient on comfort/palliative care. Palliative care service and patient's PMD were notified and are aware. Original Note: <Maurice Fontaine - Last Filed: 02/22/18 11:36> CCU Subjective - Physician Review Subjective (Free Text): ICU Progress Note Pt seen and examined at bedside. No acute overnight events. Patient still lethargic, but responds appropriately to simple questioning. ROS limited due to patient's current mental status. CCU Objective - Vital Signs / Intake & Output Intake and Output (Last 8hrs): Intake & Output 02/21/18 02/22/18 02/22/18 22:59 06:59 14:59 Intake Total 4072 1008 Output Total 150 200 Balance 3922 808 Intake: IV 4072 858 Left Internal Jugular 3584 600 Oral 150 Output: Urine 150 200 Urethral (Colvin) 150 200 Other: # Bowel Movements 2 2 - Physical Exam Head: Positive for: Atraumatic, Normocephalic Pupils: Positive for: PERRL, Pinpoint Extroacular Muscles: Positive for: EOMI Conjunctiva: Positive for: Normal Ears: Positive for: Normal Mouth: Positive for: Moist Mucous Membranes Pharnyx: Positive for: Normal Nose (External): Positive for: Atraumatic Nose (Internal): Positive for: Normal Inspection Neck: Positive for: Normal Range of Motion Respiratory/Chest: Positive for: Rhonchi (b/l bases). Negative for: Respiratory Distress, Wheezes, Rales, Tachypneic Cardiovascular: Positive for: Regular Rate and Rhythm, Bradycardic. Negative for: Murmurs, Rub, Gallop Abdomen: Negative for: Tenderness, Distention, Normal Bowel Sounds, Peritoneal Signs, Rebound, Guarding, McBurney's Point Tender, Rovsing's Sign Present, Hernias, Feeding Tubes, Ostomy Tubes, Mass/Organomegaly, Scars, Other Back: Positive for: Normal Inspection Upper Extremity: Positive for: Edema (2+) Lower Extremity: Positive for: Edema (2+) Neurological: Positive for: Other (lethargy) Skin: Positive for: Warm, Normal Color Psychiatric: Positive for: Lethargic - Medications Active Medications: Active Medications Generic Name Dose Route Start Last Admin Trade Name Freq PRN Reason Stop Dose Admin Acetaminophen 650 mg 02/18/18 01:44 Tylenol 325mg Tab PO Q4H PRN Fever >100.4 F Albuterol/Ipratropium 3 ml 02/18/18 02:03 02/19/18 03:14 Duoneb 3 Mg/0.5 Mg (3 Ml) Ud IH 3 ml [id number] PRN Administration Shortness of Breath Apixaban 2.5 mg 02/22/18 10:00 02/22/18 09:04 Eliquis PO 2.5 mg BID [facility] Administration Protocol Arformoterol Tartrate 15 mcg 02/18/18 10:00 02/22/18 07:35 Brovana IH 15 mcg Q12 [facility] Administration Budesonide 0.5 mg 02/18/18 10:00 02/22/18 07:35 Pulmicort Respules IH 0.5 mg Q12 [facility] Administration Famotidine 20 mg 02/21/18 10:45 02/22/18 09:03 Pepcid IVP 20 mg DAILY [facility] Administration Hydrocortisone Sodium Succinate 50 mg 02/20/18 09:20 02/22/18 06:33 Solu-Cortef IVP 50 mg Q8 [facility] Administration Valproate Sodium 500 mg/ 105 mls @ 100 mls/hr 02/18/18 10:00 02/22/18 09:52 Sodium Chloride IVPB 100 mls/hr TID [facility] Administration Phenylephrine HCl 80 mg/ 258 mls @ 19.35 mls/hr 02/18/18 19:31 02/19/18 15:43 Sodium Chloride IV 0 mcg/min .[id number] PRN 0 mls/hr TITRATE PER MD ORDER Titration Protocol 100 MCG/MIN Norepinephrine Bitartrate 8 mg 258 mls @ 58.05 mls/hr 02/18/18 21:00 04:48 / Sodium Chloride IV 25 mcg/min .Q4H27M [facility] 48.37 mls/hr Protocol Administration 30 MCG/MIN Vasopressin 20 units/ Dextrose 101 mls @ 9.09 mls/hr 02/19/18 09:45 02/22/18 04:44 IV 9.09 mls/hr .Q11H7M [facility] Administration Protocol 0.03 U/MIN Meropenem 500 mg/ Sodium 50 mls @ 100 mls/hr 02/19/18 22:00 02/22/18 09:05 Chloride IVPB 100 mls/hr Q12 [facility] Administration Protocol diltiaZEM IVPB 100mg in NS 100 mls @ 5 mls/hr 02/21/18 23:53 02/22/18 00:21 Cardizem 100mg In Ns IV 5 mg/hr .Q20H PRN 5 mls/hr TITRATE PER MD ORDER Administration Protocol 5 MG/HR Insulin Human Lispro 0 units 02/21/18 22:00 02/22/18 08:51 Humalog High SC 1 units ACHS [facility] Administration Protocol Levothyroxine Sodium 175 mcg 02/18/18 06:00 02/22/18 06:34 Synthroid PO 175 mcg 0600 [facility] Administration - Patient Studies Lab Studies: Lab Studies 02/22/18 02/22/18 02/22/18 Range/Units 10:59 07:07 07:00 WBC (4.5-11.0) 10^3/ul RBC (3.5-6.1) 10^6/uL Hgb (12.0-16.0) g/dL Hct (36.0-48.0) % MCV (80.0-105.0) fl MCH (25.0-35.0) pg MCHC (31.0-37.0) g/dl RDW (11.5-14.5) % Plt Count (120.0-450.0) 10^3/uL MPV (7.0-11.0) fl PT 45.2 H (9.4-12.5) SECONDS INR 3.82 H* (0.93-1.08) APTT 44.4 H (25.1-36.5) Seconds Sodium (132-148) mmol/L Potassium (3.6-5.0) mmol/L Chloride (98-107) mmol/L Carbon Dioxide (21-33) mmol/L Anion Gap (10-20) BUN (7-21) mg/dL Creatinine (0.7-1.2) mg/dl Est GFR ( Amer) Est GFR (Non-Af Amer) POC Glucose (mg/dL) 268 H 302 H (65-110) mg/dL Random Glucose (70-110) mg/dL Calcium (8.4-10.5) mg/dL Phosphorus (2.5-4.5) mg/dL Magnesium (1.7-2.2) mg/dL Total Bilirubin (0.2-1.3) mg/dL AST (14-36) U/L ALT (7-56) U/L Alkaline Phosphatase (38-126) U/L Total Protein (5.8-8.3) g/dL Albumin (3.0-4.8) g/dL Globulin gm/dL Albumin/Globulin Ratio (1.1-1.8) 02/22/18 02/22/18 02/21/18 Range/Units 05:40 05:40 23:59 WBC 15.0 H (4.5-11.0) 10^3/ul RBC 2.72 L (3.5-6.1) 10^6/uL Hgb 8.6 L (12.0-16.0) g/dL Hct 27.7 L (36.0-48.0) % MCV 101.8 (80.0-105.0) fl MCH 31.6 (25.0-35.0) pg MCHC 31.0 (31.0-37.0) g/dl RDW 26.0 H (11.5-14.5) % Plt Count 79 L (120.0-450.0) 10^3/uL MPV 10.5 (7.0-11.0) fl PT (9.4-12.5) SECONDS INR (0.93-1.08) APTT (25.1-36.5) Seconds Sodium 150 H 149 H (132-148) mmol/L Potassium 3.8 3.9 (3.6-5.0) mmol/L Chloride 116 H 115 H (98-107) mmol/L Carbon Dioxide 12 L 16 L (21-33) mmol/L Anion Gap 26 H 22 H (10-20) BUN 69 H 67 H (7-21) mg/dL Creatinine 2.6 H 2.7 H (0.7-1.2) mg/dl Est GFR ( Amer) 22 22 Est GFR (Non-Af Amer) 19 18 POC Glucose (mg/dL) (65-110) mg/dL Random Glucose 293 H 278 H (70-110) mg/dL Calcium 7.9 L 7.8 L (8.4-10.5) mg/dL Phosphorus 4.5 (2.5-4.5) mg/dL Magnesium 1.9 (1.7-2.2) mg/dL Total Bilirubin 0.3 0.3 (0.2-1.3) mg/dL AST 47 H 58 H (14-36) U/L ALT 27 28 (7-56) U/L Alkaline Phosphatase 143 H 140 H (38-126) U/L Total Protein 5.3 L 5.5 L (5.8-8.3) g/dL Albumin 2.3 L 2.3 L (3.0-4.8) g/dL Globulin 3.0 3.2 gm/dL Albumin/Globulin Ratio 0.8 L 0.7 L (1.1-1.8) 02/21/18 02/21/18 02/21/18 Range/Units 22:07 16:40 11:38 WBC (4.5-11.0) 10^3/ul RBC (3.5-6.1) 10^6/uL Hgb (12.0-16.0) g/dL Hct (36.0-48.0) % MCV (80.0-105.0) fl MCH (25.0-35.0) pg MCHC (31.0-37.0) g/dl RDW (11.5-14.5) % Plt Count (120.0-450.0) 10^3/uL MPV (7.0-11.0) fl PT (9.4-12.5) SECONDS INR (0.93-1.08) APTT (25.1-36.5) Seconds Sodium (132-148) mmol/L Potassium (3.6-5.0) mmol/L Chloride (98-107) mmol/L Carbon Dioxide (21-33) mmol/L Anion Gap (10-20) BUN (7-21) mg/dL Creatinine (0.7-1.2) mg/dl Est GFR ( Amer) Est GFR (Non-Af Amer) POC Glucose (mg/dL) 304 H 188 H 252 H (65-110) mg/dL Random Glucose (70-110) mg/dL Calcium (8.4-10.5) mg/dL Phosphorus (2.5-4.5) mg/dL Magnesium (1.7-2.2) mg/dL Total Bilirubin (0.2-1.3) mg/dL AST (14-36) U/L ALT (7-56) U/L Alkaline Phosphatase (38-126) U/L Total Protein (5.8-8.3) g/dL Albumin (3.0-4.8) g/dL Globulin gm/dL Albumin/Globulin Ratio (1.1-1.8) Laboratory Results - last 24 hr 02/21/18 02/21/18 02/21/18 11:38 16:40 22:07 WBC RBC Hgb Hct MCV MCH MCHC RDW Plt Count MPV PT INR APTT Sodium Potassium Chloride Carbon Dioxide Anion Gap BUN Creatinine Est GFR ( Amer) Est GFR (Non-Af Amer) POC Glucose (mg/dL) 252 H 188 H 304 H Random Glucose Calcium Phosphorus Magnesium Total Bilirubin AST ALT Alkaline Phosphatase Total Protein Albumin Globulin Albumin/Globulin Ratio 02/21/18 02/22/18 02/22/18 23:59 05:40 05:40 WBC 15.0 H RBC 2.72 L Hgb 8.6 L Hct 27.7 L MCV 101.8 MCH 31.6 MCHC 31.0 RDW 26.0 H Plt Count 79 L MPV 10.5 PT INR APTT Sodium 149 H 150 H Potassium 3.9 3.8 Chloride 115 H 116 H Carbon Dioxide 16 L 12 L Anion Gap 22 H 26 H BUN 67 H 69 H Creatinine 2.7 H 2.6 H Est GFR ( Amer) 22 22 Est GFR (Non-Af Amer) 18 19 POC Glucose (mg/dL) Random Glucose 278 H 293 H Calcium 7.8 L 7.9 L Phosphorus 4.5 Magnesium 1.9 Total Bilirubin 0.3 0.3 AST 58 H 47 H ALT 28 27 Alkaline Phosphatase 140 H 143 H Total Protein 5.5 L 5.3 L Albumin 2.3 L 2.3 L Globulin 3.2 3.0 Albumin/Globulin Ratio 0.7 L 0.8 L 02/22/18 02/22/18 02/22/18 07:00 07:07 10:59 WBC RBC Hgb Hct MCV MCH MCHC RDW Plt Count MPV PT 45.2 H INR 3.82 H* APTT 44.4 H Sodium Potassium Chloride Carbon Dioxide Anion Gap BUN Creatinine Est GFR ( Amer) Est GFR (Non-Af Amer) POC Glucose (mg/dL) 302 H 268 H Random Glucose Calcium Phosphorus Magnesium Total Bilirubin AST ALT Alkaline Phosphatase Total Protein Albumin Globulin Albumin/Globulin Ratio Fingerstick Blood Sugar Results: 302 Critical Care Progress Note - Nutrition Nutrition: Nutrition Category Date Time Status Pureed [Dysphagia/Modified Consistency Diet] [DIET] Diets 02/21/18 Dinner Ordered Assessment/Plan - Assessment and Plan (Free Text) Assessment: 62 yo F with PMH of Diabetes Mellitus, COPD, Substance abuse history, CKD, Seizure disorder history, hypothyroidism, and HTN transferred from assisted for lethargy and fever. Patient was admitted to ICU due to septic shock 2/2 PNA and placed on pressors and IV abx. Plan: Neuro: - Lethargic - Cont valproate for mood stabilization - Maintain normothermia CV: - Cont Levophed, Vasopressin; titrate down as tolerated by patient - Maintain MAP > 65 Pulm: - CXR showed moderate pleural effusion and vascular congestion - Wean off of BIPAP - Cont duoneb prn, brovana, pulmicort - Chest PT - Maintain O2 between 88-92% - O2 via NC GI: - Pepcid for GI PPx - NPO - Swallow eval Renal: - Monitor electrolytes and replete as needed - Maintain euvolemia Heme: - Eliquis renally dosed for history of a. fib - Monitor H/H Endo: - ISS-high - Accuchecks Q6h - Cont Synthroid ID: - Leukocytosis 2/2 steroids - Blood cultures negative - Urine cultures positive for yeast, asymptomatic - Urine Legionella negative - Mycoplasma IgG positive - F/u urine strep - Cont Merrem, Vancomycin, and Azithromycin - Cont solucortef 50 mg IVP q8h - ID consulted Dispo: F/u with palliative and POA regarding goals of care. Pt seen and discussed in detail with Dr. Davila. Luis A Fontaine, PGY1 <Eleuterio Stevens - Last Filed: 02/23/18 12:19> CCU Objective - Vital Signs / Intake & Output Intake and Output (Last 8hrs): Intake & Output 02/22/18 02/23/18 02/23/18 22:59 06:59 14:59 Intake Total 0 30 Output Total 0 50 Balance 0 -20 Intake: IV 30 Oral 0 Output: Urine 0 50 Urethral (Colvin) 0 50 Other: # Bowel Movements 0 - Medications Active Medications: Active Medications Generic Name Dose Route Start Last Admin Trade Name Freq PRN Reason Stop Dose Admin Morphine Sulfate 30 mls @ 2 mls/hr 02/22/18 13:30 02/23/18 04:49 Morphine Ward Secretary 1 Mg/Ml IV 2 mg/hr PRN PRN 2 mls/hr CLAIM SPECIALIST PER MD ORDER Administration Protocol 2 MG/HR Lorazepam 0.5 mg 02/22/18 12:37 Ativan IVP Q6H PRN Restlessness Protocol - Patient Studies Lab Studies: Lab Studies 02/22/18 Range/Units 16:02 POC Glucose (mg/dL) 222 H (65-110) mg/dL Laboratory Results - last 24 hr 02/22/18 16:02 POC Glucose (mg/dL) 222 H Attending/Attestation - Attestation I have personally seen and examined this patient.: Yes I have fully participated in the care of the patient.: Yes I have reviewed all pertinent clinical information: Yes Notes (Text): 02/23/18 12:17 62 yo with refractory septic shock. Discussed situation with POA: he requested DNR/DNI and later converting to comfort/palliative care. Camille Mckeon was called. comfort measures instituted. no escalation of care ccm time 40 min
[2018-02-22] MEDS ORDERED: Morphine 2 mg/2 mL syringe IVP STA (12:36)
[2018-02-22] MEDS ORDERED: Morphine PCA 1 mg/ml (30ml) 30 ML IV PRN (12:39)
--- NOTE | 2018-02-22 13:11 | CP.PCM.PN ---
Subjective - Date & Time of Evaluation Date of Evaluation: 02/22/18 Time of Evaluation: 13:00 - Subjective Subjective: Not responsive to verbal stimuli. Irregular breathing Objective - Vital Signs/Intake and Output Vital Signs (last 24 hours): Temp Pulse Resp BP Pulse Ox 97.8 F 45 L 21 91/36 L 77 L 02/21/18 16:00 02/22/18 06:30 02/22/18 06:30 02/22/18 06:02 02/22/18 06:30 Intake and Output: 02/22/18 02/22/18 06:59 18:59 Intake Total 1266 Output Total 200 Balance 1066 - Medications Medications: Current Medications Morphine Sulfate (Morphine Distribution System Operator 1 Mg/Ml) 30 mls @ 1 mls/hr IV PRN PRN; Protocol ; 1 MG/HR PRN Reason: [employer] MANAGEMENT PER MD ORDER Lorazepam (Ativan) 0.5 mg IVP Q6H PRN; Protocol PRN Reason: Restlessness - Labs Labs: 02/22/18 05:40 02/22/18 05:40 PT 45.2 SECONDS (9.4-12.5) H 02/22/18 07:00 INR 3.82 (0.93-1.08) H* 02/22/18 07:00 APTT 44.4 Seconds (25.1-36.5) H 02/22/18 07:00 - Constitutional Appears: No Acute Distress - Head Exam Head Exam: NORMOCEPHALIC - Eye Exam Eye Exam: Normal appearance - Respiratory Exam Respiratory Exam: Decreased Breath Sounds Additional comments: irregular respirations - Cardiovascular Exam Cardiovascular Exam: Irregular Rhythm - GI/Abdominal Exam GI & Abdominal Exam: Soft, Hypoactive Bowel Sounds - Neurological Exam Neurological Exam: Altered - Skin Skin Exam: Dry, Pallor Assessment and Plan - Assessment and Plan (Free Text) Assessment: 62 year old female with history bipolar disorder, schizophrenia, COPD, DM, seizure disorder, CKD who is admitted with septic shock,respiratory insufficiency, hypotension. Dr. Stevens spoke with Barrett PAINTING updating him of patient's medical condition and poor prognosis. POA in agreement with stopping medical interventions including vasopressors. POA requesting the patient receive comfort measures only. Plan: Discontinue al lab testing/ imaging studies. Discontinue antibiotics, vasopressors,nebulizers, cardiac agents, insulin Morphine 2 mg IVP now. Morphine 1mg hour continuos infusion Ativan 0.5 mg IV as needed every 6 hours for agitation/seizures. Tylenol 650 mg RC every 4 hours as needed for fever
[2018-02-22] MEDS: Morphine PCA 1 mg/ml (30ml) 30 ML IV PRN (13:50)
[2018-02-22 18:26] VITALS: TEMP 97.6; O2SAT 96
[2018-02-22] MEDS ORDERED: Meropenem 500 MG in Sodium Chloride 0.9% 50 ML IVPB SCH (18:45)
--- NOTE | 2018-02-22 18:52 | CP.PCM.PN ---
Subjective - Date & Time of Evaluation Date of Evaluation: 02/22/18 Time of Evaluation: 16:00 - Subjective Subjective: Infectious Disease Follow Up: February 22, 2018 62 yo female with multiple hospitalization with a recent hospitalization to [facility] where she was intubated. The patient was transferred back to [facility] [place]. However, the patient felt feverish, was SOB, hypotensive, and AMS. Currently in the MICU at [facility]. Remains lethargic. Currently off of Vasopressors to support blood pressure. Was on 3 vasopressors yesterday. Lethargic but responsive. Slight improvement day to day. On Meropenem, Vancomycin IV, and Azitromycin. Will continue with Meropenem alone. Patient improving. Objective - Vital Signs/Intake and Output Vital Signs (last 24 hours): Temp Pulse Resp BP Pulse Ox 97.6 F 95 H 20 77/37 L 96 02/22/18 18:00 02/22/18 18:00 02/22/18 18:00 02/22/18 18:00 02/22/18 18:00 Intake and Output: 02/22/18 02/22/18 06:59 18:59 Intake Total 1266 Output Total 200 Balance 1066 - Medications Medications: Current Medications Morphine Sulfate (Morphine Remote Sensing Specialist 1 Mg/Ml) 30 mls @ 2 mls/hr IV PRN PRN; Protocol ; 2 MG/HR PRN Reason: PATTERN CHECKER PER MD ORDER Last Admin: 02/22/18 13:50 Dose: 2 mg/hr, 2 mls/hr Lorazepam (Ativan) 0.5 mg IVP Q6H PRN; Protocol PRN Reason: Restlessness - Labs Labs: 02/22/18 05:40 02/22/18 05:40 PT 45.2 SECONDS (9.4-12.5) H 02/22/18 07:00 INR 3.82 (0.93-1.08) H* 02/22/18 07:00 APTT 44.4 Seconds (25.1-36.5) H 02/22/18 07:00 - Constitutional Appears: Non-toxic, No Acute Distress, Chronically Ill - Head Exam Head Exam: ATRAUMATIC, NORMOCEPHALIC - Eye Exam Eye Exam: EOMI, PERRL Pupil Exam: NORMAL ACCOMODATION, PERRL - ENT Exam ENT Exam: Mucous Membranes Moist, Normal External Ear Exam, TM's Normal Bilaterally - Neck Exam Neck Exam: Full ROM, Normal Inspection - Respiratory Exam Respiratory Exam: Decreased Breath Sounds, NORMAL BREATHING PATTERN. absent: Rales, Rhonchi, Wheezes - Cardiovascular Exam Cardiovascular Exam: REGULAR RHYTHM, RRR, +S1, +S2 - GI/Abdominal Exam GI & Abdominal Exam: Soft, Normal Bowel Sounds. absent: Distended, Tenderness - Extremities Exam Extremities Exam: Full ROM, Normal Inspection - Neurological Exam Neurological Exam: Alert, Awake Additional comments: AAO x 1. slow and lethargic. Answers questions somewhat appropriately. - Psychiatric Exam Psychiatric exam: Normal Affect, Normal Mood - Skin Skin Exam: Intact, Normal Color Assessment and Plan - Assessment and Plan (Free Text) Assessment: 62 yo female with SOB, hypotensive, and multiple electrolyte abnormalities. The patient is on BiPAP now. She is awake and alert now. Poor historian. Creatinine is significantly elevated. She is actively wheezing at this time. Supportive care. On IV Antibiotics of Vancomycin and was given Aztreonam. Cuadra cultures sent. Will check [facility] records of the recent hospitalization. Supportive care. Chest X-ray showing signs of bilateral lower lobe pneumonia. On IV Vancomycin, Azithromycin, and Meropenem. Patient is slightly responsive and remains lethargic. On BiPAP still. The patient was on 3 vasopressors and titrated off of vasopressors. Patient remains in critical condition. Poor prognosis. Family deciding on comfort care. Thank you for allowing me to participate in the care of the patient, we will follow with you.
--- NOTE | 2018-02-22 19:08 | PN ---
DATE: 02/22/2018 PULMONARY PROGRESS NOTE REFERRING PHYSICIAN: Steff Gallegos MD. SUBJECTIVE: She is lying in the bed, head at 45 degrees, sleepy, arousable, on nasal cannula, feels much better, more awake and alert. Still has a cough, some sputum. No hemoptysis. No hematemesis. No hematuria. No diarrhea reported. PHYSICAL EXAMINATION: GENERAL: In no acute distress. VITAL SIGNS: Temperature is 98, heart rate is 98, respiratory rate is 22, blood pressure 88/50, pulse ox 100% on nasal cannula. HEENT: Moist mucous membranes. Small oral cavity. Crowded airway. NECK: Supple. No JVD. LUNGS: Have a fair airflow with few rhonchi. HEART: S1 and S2. ABDOMEN: Soft, nontender, nondistended. EXTREMITIES: Not much edema of the lower extremities: The right upper extremity has mild edema. NEUROLOGICAL: Sleepy, arousable. Follows simple commands. MEDICATIONS: She is on Ativan 0.5 mg every 6 hours, morphine IV drip for comfort. LABORATORY DATA: Shows hemoglobin 8.6, hematocrit 27.7, WBC 15, platelet count is 79. INR 3.82. Sodium 150, potassium 3.8, chloride 116, bicarbonate 12, BUN 69, creatinine 2.6, glucose 293, calcium 7.9. AST 47, ALT 27, alkaline phosphatase is 143. Albumin is 2.3. ASSESSMENT AND PLAN: Chronic obstructive lung disease, respiratory failure, bipolar disorder, schizophrenia, diabetes, seizure disorder, renal failure, hypotension. Systems Navigator Dr. Stevens spoke to [facility]. The patient was made DNR/DNI, wishing only supportive care. The patient getting morphine for comfort, supplemental oxygen. Poor prognosis. Keep the patient comfortable. Thank you and we will follow. Justin Shelley MD
--- NOTE | 2018-02-22 23:21 | PN ---
DATE: 02/22/2018 SUBJECTIVE: Patient [id number] female. Patient is seen and examined at the bedside, little bit lethargic, responding to verbal stimuli, actually she opened eyes when I called her, otherwise closed eyes. REVIEW OF SYSTEMS: Is not able to give review of systems, No nausea or vomiting. No fever, no chills. PHYSICAL EXAMINATION: VITAL SIGNS: Temperature is 97.8, pulse 45, respiratory rate 21, blood pressure 91/36, pulse oximetry of 33. HEENT: Head: Normocephalic, atraumatic. Eyes: Closed. Nose: Patent. Mucosus membrane moist. NECK: Supple. No carotid bruit, JVD, or thyromegaly. CHEST: Bilaterally symmetrical. LUNGS: Positive wheezing bilaterally. HEART: S1 and S2 positive. ABDOMEN: Soft and nontender. No organomegaly. EXTREMITIES: Trace edema. NEUROLOGIC: Patient is lethargic. MEDICATIONS: Getting morphine, Ativan. LABORATORY DATA: White blood cell 15, hemoglobin 8.6, hematocrit 27.7, platelets 79. Sodium 150, potassium 3.8, BUN 59, creatinine 2.6, glucose 293. ASSESSMENT AND PLAN: Ms. Day Hung is a 62-year-old lady with leukocytosis, anemia, thrombocytopenia, hypernatremia, renal insufficiency, hyperglycemia with history of bipolar, history of schizophrenia, chronic obstructive pulmonary disease, diabetes mellitus, seizure disorder, chronic kidney disease, was admitted with septic chock, respiratory insufficiency, hypotension. Patient was do not resuscitate and do not intubate. Dr. Stevens spoke to power or consulting systems engineer, Barrett Smith, updating him on the patient's medical condition and poor prognosis, the power of consulting systems engineer is in agreement with stopping medical intervention including vasopressors. The power of consulting systems engineer is requesting patient to receive comfort care measures only. Then medicle resident called me and we decided that we will put the patient on hospice; discontinue lab testing, imaging, labs; discontinue antibiotics, vasopressin, nebulizer, cardiac agents, insulin. We will start the patient on morphine, Ativan, and Tylenol. Appreciated help from Tamika Mckeon. We will follow up. Steff Gallegos MD MTDD
[2018-02-23] MEDS: Morphine PCA 1 mg/ml (30ml) 30 ML IV PRN (04:49)
[2018-02-23 06:40] VITALS: BP 75/36; RESP 3
[2018-02-23 08:28] VITALS: PULSE 71
--- NOTE | 2018-02-23 10:56 | CP.PCM.PN ---
Subjective - Date & Time of Evaluation Date of Evaluation: 02/23/18 Time of Evaluation: 11:00 - Subjective Subjective: Unresponsive to tactile stimuli. Pupils fixed. 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 PER MD ORDER Last Admin: 02/23/18 04:49 Dose: 2 mg/hr, 2 mls/hr Lorazepam (Ativan) 0.5 mg IVP Q6H PRN; Protocol PRN Reason: Restlessness - Labs Labs: 02/22/18 05:40 02/22/18 05:40 PT 45.2 SECONDS (9.4-12.5) H 02/22/18 07:00 INR 3.82 (0.93-1.08) H* 02/22/18 07:00 APTT 44.4 Seconds (25.1-36.5) H 02/22/18 07:00 - Constitutional Appears: Chronically Ill - Head Exam Head Exam: NORMOCEPHALIC - Eye Exam Eye Exam: Normal appearance Pupil Exam: Fixed - ENT Exam ENT Exam: Mucous Membranes Moist - Respiratory Exam Respiratory Exam: Decreased Breath Sounds - Cardiovascular Exam Cardiovascular Exam: Irregular Rhythm, +S1, +S2 - GI/Abdominal Exam GI & Abdominal Exam: Soft, Diminished Bowel Sounds - Extremities Exam Extremities Exam: Normal Capillary Refill Additional comments: edematous - Back Exam Back Exam: NORMAL INSPECTION - Neurological Exam Neurological Exam: Altered - Skin Skin Exam: Dry, Pallor Assessment and Plan - Assessment and Plan (Free Text) Assessment: 62 year old female with history of bipolar disorder, schizophrenia,COPD,DM who is admitted with septic shock, respiratory insufficiency, hypotension, altered mental status, bilateral pleural infiltrates. As per yesterdays's discussion with POA Barrett Sarah, the patient was placed on comfort care yesterday. Pupils fixed, patient is unresponsive. Patient is accepted to [facility] services Plan: On comfort care, will have evaluated for [facility] hospice services Morphine 2mg/hr continuous infusion Ativan 0.5 mg as needed for agitation/seizers Tylenol 650 mg RC as needed for fever over 100.4 Discharge and admit to [facility] services
== END 2018-02-23 13:02 | disposition hospice, inpatient (51) | DRG 584 ==
LOC: ED 11:12 → CCU 18:27 → ED 19:02 → 3RNO 02-22 17:56
PROVIDERS: ADMIT Internal Medicine; ATTEND Internal Medicine
PROC: 05HN33Z Insertion of Infusion Device into Left Internal Jugular Vein, Percutaneous Approach (ICD-10-PCS; principal; 2018-02-17)
PROC: 3E033XZ Introduction of Vasopressor into Peripheral Vein, Percutaneous Approach (ICD-10-PCS; 2018-02-17)
PROC: 5A09557 Assistance with Respiratory Ventilation, Greater than 96 Consecutive Hours, Continuous Positive Airway Pressure (ICD-10-PCS; 2018-02-17)
DX: A41.9 Sepsis, unspecified organism (principal); J18.9 Pneumonia, unspecified organism; R65.21 Severe sepsis with septic shock; J96.92 Respiratory failure, unspecified with hypercapnia; L89.302 Pressure ulcer of unspecified buttock, stage 2; E87.2 Acidosis; J43.9 Emphysema, unspecified; N18.3 Chronic kidney disease, stage 3 (moderate); F20.9 Schizophrenia, unspecified; E11.22 Type 2 diabetes mellitus with diabetic chronic kidney disease; E87.5 Hyperkalemia; E87.8 Other disorders of electrolyte and fluid balance, not elsewhere classified; E87.0 Hyperosmolality and hypernatremia; D69.6 Thrombocytopenia, unspecified; J90 Pleural effusion, not elsewhere classified; E27.40 Unspecified adrenocortical insufficiency; I12.9 Hypertensive chronic kidney disease with stage 1 through stage 4 chronic kidney disease, or unspecified chronic kidney disease; I48.2 Chronic atrial fibrillation; E86.0 Dehydration; E78.00 Pure hypercholesterolemia, unspecified; H40.9 Unspecified glaucoma; D64.9 Anemia, unspecified; E83.51 Hypocalcemia; E03.9 Hypothyroidism, unspecified; Z51.5 Encounter for palliative care; Z66 Do not resuscitate; R13.12 Dysphagia, oropharyngeal phase; F31.9 Bipolar disorder, unspecified; G40.909 Epilepsy, unspecified, not intractable, without status epilepticus; Z79.4 Long term (current) use of insulin; Z88.0 Allergy status to penicillin; Z91.14 Patient's other noncompliance with medication regimen; Z87.891 Personal history of nicotine dependence; Z88.6 Allergy status to analgesic agent; Z86.718 Personal history of other venous thrombosis and embolism; Z79.02 Long term (current) use of antithrombotics/antiplatelets

== ENCOUNTER 2018-02-23 13:06 | Inpatient (IN) | payer OTHER ==
[2018-02-23 13:16] VITALS: BMI 29.5
[2018-02-23] MEDS ORDERED: Morphine PCA 1 mg/ml (30ml) 30 ML IV PRN (13:18)
[2018-02-23 13:39] VITALS: PULSE 42; RESP 10
--- NOTE | 2018-02-23 15:13 | CP.PCM.PRO ---
Pronouncement of Note - Clinical Findings Physical Exam: No Response Verbal/Painful Stimuli, Absent Heart & Breath Sounds , Pupils Fixed & Dilated, Absence of Vital Signs - Pronouncement Time Time of Pronouncement of : 15:04 - Notifications Pronouncement Notifications: Family Notified, [place] Notified - [place] [id number]
== END 2018-02-23 15:04 | DRG 871 ==
LOC: 3RNO 13:06
PROVIDERS: ADMIT Internal Medicine; ATTEND Internal Medicine
DX: A41.9 Sepsis, unspecified organism (principal); J18.9 Pneumonia, unspecified organism; R65.21 Severe sepsis with septic shock; J96.92 Respiratory failure, unspecified with hypercapnia; Z51.5 Encounter for palliative care; Z66 Do not resuscitate; I12.9 Hypertensive chronic kidney disease with stage 1 through stage 4 chronic kidney disease, or unspecified chronic kidney disease; E11.22 Type 2 diabetes mellitus with diabetic chronic kidney disease; N18.3 Chronic kidney disease, stage 3 (moderate); I48.2 Chronic atrial fibrillation; Z79.4 Long term (current) use of insulin